=== PATIENT | male | born 1935 | race American Indian/Alaskan Native ===

== ENCOUNTER 2019-09-25 17:18 | Observation (INO) | payer OTHER ==
--- NOTE | 2019-09-25 17:31 | PDOC ---
Rapid Medical Evaluation Time Seen by Provider: 09/25/19 17:25 Medical Evaluation: Allergies Allergy/AdvReac Type Severity Reaction Status Date / Time No Known Allergies Allergy Verified 07/30/16 17:17 09/25/19 17:26 Pt with PMH of DM, CAD s/p stenting presents for evaluation of chest pain and nausea since last night. Pain subsided and returned at 4:30 so he presents to the ER for evaluation Exam: Lungs CTAB. Heart RRR Orders: Cardiac work up Pt to proceed to the ER for further evaluation Discharge Disposition - Diagnosis Chest pain - Referrals - Patient Instructions - Post Discharge Activity
[2019-09-25 18:33] LABS: BASO % 0.7 % (0-2.0); EOS % 13.5 % (0-4.5); HEMATOCRIT 30.7 % (35.4-49); HEMOGLOBIN 9.7 GM/dL (11.7-16.9); LYMPH % 15.1 % (8-40); MCH 24.8 pg (25.7-33.7); MCHC 31.5 g/dl (32.0-35.9); MEAN CELL VOLUME 78.9 fl (80-96); MONO % 6.8 % (3.8-10.2); NEUT % 63.9 % (42.8-82.8); RBC 3.89 M/mm3 (4.00-5.60); RDW 20.3 % (11.9-15.9); WHITE BLOOD COUNT 6.4 K/mm3 (4.0-10.0)
--- NOTE | 2019-09-25 18:55 | PDOC ---
History of Present Illness - General Chief Complaint: Chest Pain Stated Complaint: CHEST PAINS/NAUSEA Time Seen by Provider: 09/25/19 17:25 - History of Present Illness Initial Comments: The pt is a 84M w/ a history of CAD s/p stent, HTN, DM who presents for >1 week of intermittent substernal chest pressure with associated SOB. He states that the pressure is non-exertional and non-positionall, non-radiating, associated with SOB, and is not exacerbated or alleviated by anything he can identify. Has been taking ASA at home for symptoms and took ASA today. Denies fevers/chills, VENTURA, vision changes, current CP/SOB, abdominal pain, N/V/C/ D, dysuria, hematuria, or changes in sensation 09/25/19 19:14 Past History - Past Medical History Allergies/Adverse Reactions: Allergies Allergy/AdvReac Type Severity Reaction Status Date / Time No Known Allergies Allergy Verified 07/30/16 17:17 Home Medications: Ambulatory Orders Aspirin [ASA -] 81 mg PO DAILY 10/23/15 metFORMIN HCL [Metformin HCl] 500 mg PO DAILY 10/23/15 Albuterol Sulfate Inhaler - [Ventolin HFA Inhaler -] 2 inh IH Q4H PRN #1 inh 12/28 Mag Hydrox/Al Hydrox/Simeth [MAALOX *SUSPENSION* -] 30 ml PO Q6H #1 bottle 04/23 Pantoprazole Sodium [Protonix -] 40 mg PO BID #28 tablet.ec 04/28/16 Ranitidine [Zantac -] 150 mg PO DAILY #14 tablet 04/28/16 Ondansetron HCl [Zofran] 4 mg PO Q8H #15 tablet 05/28/16 Albuterol Sulfate Inhaler - [Ventolin Hfa Inhaler -] 1 - 2 inh PO Q4H #1 inhaler 06/07/16 Methylprednisolone [Medrol Dose Pal] 4 mg PO ASDIR #21 tablet 06/07/16 Asthma: Yes Cardiac Disorders: Yes (CO, CAD, stents) COPD: No Diabetes: Yes HTN: Yes Hypercholesterolemia: Yes - Surgical History Abdominal Surgery: Yes (abd hernia) Cardiac Surgery: Yes (stent) - Immunization History Immunization Up to Date: Yes - Psycho Social/Smoking Cessation Hx Smoking History: Never smoked Have you smoked in the past 12 months: No Number of Cigarettes Smoked Daily: 0 Information on smoking cessation initiated: No Hx Alcohol Use: No Drug/Substance Use Hx: No Substance Use Type: None Hx Substance Use Treatment: No Review of Systems - Review of Systems Able to Perform ROS?: Yes Comments:: GENERAL/CONSTITUTIONAL: No fever or chills. No weakness HEAD, EYES, EARS, NOSE AND THROAT: No change in vision. No change in hearing. No sore throat CARDIOVASCULAR: +intermittent CP/SOB RESPIRATORY: Denies cough, hemoptysis GASTROINTESTINAL: No nausea, vomiting, diarrhea or constipation GENITOURINARY: No dysuria, frequency, or change in urination MUSCULOSKELETAL: No joint or muscle swelling or pain. No neck or back pain SKIN: No rash NEUROLOGIC: No headache, vertigo, loss of consciousness, or change in strength/ sensation ENDOCRINE: No increased thirst. No abnormal weight change HEMATOLOGIC/LYMPHATIC: No anemia, easy bleeding, or history of blood clots ALLERGIC/IMMUNOLOGIC: No hives or skin allergy 09/25/19 18:54 Is the patient limited Gambian proficient: No *Physical Exam - Vital Signs Last Vital Signs Temp Pulse Resp BP Pulse Ox 98.1 F 81 20 146/56 L 99 09/25/19 17:28 09/25/19 17:28 09/25/19 17:28 09/25/19 17:28 09/25/19 17:28 - Physical Exam GENERAL: Awake, alert, and oriented to person/place/time, in no acute distress HEAD: No signs of trauma, normocephalic, atraumatic EYES: PERRLA, EOMI, sclera anicteric, conjunctiva clear ENT: Hearing grossly normal, nares patent, oropharynx clear without exudates. Moist mucosa LUNGS: No distress, speaks in full sentences, clear to auscultation bilaterally HEART: Regular rate and rhythm, normal S1 and S2, no murmurs appreciated, peripheral pulses normal and equal bilaterally ABDOMEN: Soft, nontender, normoactive bowel sounds. No guarding, no rebound EXTREMITIES: Normal inspection, Normal range of motion, no edema. No clubbing or cyanosis NEUROLOGICAL: Cranial nerves II through XII grossly intact. Normal speech, normal gait, no focal sensorimotor deficits SKIN: Warm, Dry 09/25/19 18:54 ED Treatment Course - LABORATORY CBC & Chemistry Diagram: 09/25/19 17:55 09/25/19 17:55 - ADDITIONAL ORDERS Additional order review: 09/25/19 17:55 RBC 3.89 L MCV 78.9 L MCHC 31.5 L RDW 20.3 H Neutrophils % 63.9 D Lymphocytes % 15.1 D Monocytes % 6.8 Eosinophils % 13.5 H Basophils % 0.7 Medical Decision Making - Medical Decision Making The pt is a 84M w/ a history of CAD s/p stent, HTN, DM who presents for >1 week of intermittent substernal chest pressure with associated SOB. ED course Labs sent ECG CXR ECG w/ NSR; HR 75; QTc 393; no axis deviation; no SAWYER Initial trop neg 09/25/19 19:35 CXR w/o PNA, PNX, effusion No leukocytosis Anemia noted, no indication for transfusion at this time Lytes overall unremarkable Cr near baseline LFTs wnl Pt signed out to [facility] Admitting 09/25/19 20:37 Discharge - Discharge Information Problems reviewed: Yes Clinical Impression/Diagnosis: ACS (acute coronary syndrome) Chest pain Qualifiers: Chest pain type: unspecified Qualified Code(s): R07.9 - Chest pain, unspecified Condition: Good - Admission Yes - Follow up/Referral - Patient Discharge Instructions - Post Discharge Activity
[2019-09-25 19:00] LABS: ALBUMIN 3.4 g/dl (3.4-5.0); BILIRUBIN,TOTAL 0.4 mg/dL (0.2-1); BLOOD UREA NITROGEN 32.8 mg/dL (7-18); CALCIUM 9.1 mg/dL (8.5-10.1); CREATININE 1.4 mg/dL (0.55-1.3); MAGNESIUM 2.1 mg/dL (1.8-2.4); POTASSIUM 5.7 mmol/L (3.5-5.1); TOT PROT 6.8 g/dl (6.4-8.2)
[2019-09-25 19:17] LABS: MEAN PLT VOLUME 11.4 fl (7.5-11.1); PLATELET COUNT 294 K/MM3 (134-434); PLATELET ESTIMATE ADEQUATE
--- NOTE | 2019-09-25 19:52 | PDOC ---
Attending Attestation - Resident Resident Name: Félix Wilkins - ED Attending Attestation I have performed the following: I have examined & evaluated the patient, The case was reviewed & discussed with the resident, I agree w/resident's findings & plan - HPI HPI: 09/25/19 19:51 see resident hpi - Physicial Exam PE: 09/25/19 19:51 see resident exam - Medical Decision Making 09/25/19 19:51 84-year-old male with history of coronary artery disease and DE, unknown if there is history of stent placement with intermittent chest pain nausea and shortness of breath Patient is chest pain-free at this time No acute ST segment elevations on EKG First troponin within normal limits We will admit to medical service for further management
--- NOTE | 2019-09-25 21:03 | PN ---
Teaching Attending Note Name of Resident: Colette Quintanilla ATTENDING PHYSICIAN STATEMENT I saw and evaluated the patient. I reviewed the resident's note and discussed the case with the resident. I agree with the resident's findings and plan as documented. SUBJECTIVE: 84-year-old man with a history of uncontrolled diabetes mellitus, uncontrolled hypertension, CAD status post stent In 2009, presents complaining of chest pain and nausea for 1 day. In the emergency room patient had resolved chest pain already. EKG did not show any ST segment elevations, first troponin was within normal limits. OBJECTIVE: Last Vital Signs Temp Pulse Resp BP Pulse Ox 98.1 F 81 20 146/56 L 99 09/25/19 17:28 09/25/19 17:28 09/25/19 17:28 09/25/19 17:28 09/25/19 17:28 Physical exam showed an elderly, thin man, not in acute distress, normal heart soundsS1, S2 without any murmurs, rubs or gallops. Lungs are clear to auscultation bilaterally. Soft abdomen, bowel sounds present. Lower extremities without any edema or cyanosis. Abnormal Lab Results 09/25/19 09/25/19 17:55 17:55 RBC 3.89 L Hgb 9.7 L Hct 30.7 L D MCV 78.9 L MCH 24.8 L MCHC 31.5 L RDW 20.3 H MPV 11.4 H D Eosinophils % 13.5 H Nucleated RBC % 1 H Potassium 5.7 H Anion Gap 5 L BUN 32.8 H Creatinine 1.4 H Random Glucose 208 H AST 10 L Imaging studies reviewed Chest x-ray reviewed ASSESSMENT AND PLAN: #Chest painpatient is high risk for recurrent ACS due to history of uncontrolled diabetes high, hypertension, past angiography with stent history of CAD. Would benefit from telemetry monitoring. Telemetry observation Trend troponin Echo Cardiology evaluation Sublingual nitroglycerin if chest pain #Uncontrolled diabetes mellitus Insulin sliding scale A1c Basal insulin Diabetic diet #Chronic anemiaappears to be microcytic at this time. May also be secondary to underlying CKD Ferritin studies, iron studies, vitamin B12, TSH, red blood smear, stool for fecal occult blood #ASHLI on CKDcreatinine of 1.4 Send urinalysis IV fluid hydration Renal sonogram Avoid nephrotoxins DVT prophylaxisSCDs
[2019-09-25] MEDS ORDERED: INSULIN REGULAR HUMAN 100 UNITS/ML *VIAL IVPUSH ONE (21:10)
[2019-09-25] MEDS ORDERED: DEXTROSE 50%-WATER - 25 GM/50 ML VIAL IVPUSH ONE (21:10)
[2019-09-25] MEDS ORDERED: SODIUM CHLORIDE 1,000 ML IV SCH (21:15)
[2019-09-25] MEDS ORDERED: ALBUTEROL SO4 HFA INHALER IH PRN (21:22)
--- NOTE | 2019-09-25 21:35 | HP ---
CHIEF COMPLAINT: Chest pain PCP: Dr. Panchal HISTORY OF PRESENT ILLNESS: 84 M PMH CAD, [place] s/p stents, Asthma, DM who presents today with 1 week of intermittent chest pain. He has been having chest pain spontaneously with no inciting factors, both at rest and while active. Patient's symptoms are alleviated with baby aspirin which he takes after pain begins. He does not feel his chest pain is similar to the time he had an SD. His pain is not related to his food intake, he denies any history of GERD. He denies shortness of breath at rest and at exertion at home. Localizes his chest pain to the center of his chest, denies any radiation to the extremities or back. He denies any current chest pain, shortness of breath, abdominal pain, nausea, vomiting, and diarrhea. This history is confirmed by his son over the phone, as patient is forgetful. ER course was notable for: (1)Chest X-Ray and EKG were completed which showed no acute pathology (2)Initial troponin was 0.03 (3)BMP showed hyperkalemia of 5.7, Insulin, and D50 were given. Recent Travel: None PAST MEDICAL HISTORY: CAD, SD, stent (3x), Asthma PAST SURGICAL HISTORY: Inguinal hernia repair Social History: Smoking: Denies Alcohol: Occasional Drugs: Denies Allergies No Known Allergies Allergy (Verified 07/30/16 17:17) HOME MEDICATIONS: Home Medications Medication Instructions Recorded Aspirin [ASA -] 81 mg PO DAILY 10/23/15 metFORMIN HCL [Metformin HCl] 500 mg PO DAILY 10/23/15 Albuterol Sulfate Inhaler - 2 puff IH Q4H PRN 09/25/19 [Ventolin HFA Inhaler -] Albuterol Sulfate Inhaler - 2 puff IH Q4H PRN 09/25/19 [Ventolin HFA Inhaler -] Atorvastatin Calcium 20 mg PO HS 09/25/19 Hydroxyzine HCl 25 mg PO DAILY 09/25/19 Lisinopril 10 mg PO DAILY 09/25/19 Tamsulosin HCl 0.4 mg PO DAILY 09/25/19 REVIEW OF SYSTEMS CONSTITUTIONAL: Absent: fever, chills, diaphoresis, generalized weakness, malaise, loss of appetite, weight change HEENT: Absent: rhinorrhea, nasal congestion, throat pain, throat swelling, difficulty swallowing, mouth swelling, ear pain, eye pain, visual changes CARDIOVASCULAR: Present: chest pain Absent: syncope, palpitations, irregular heart rate, lightheadedness, peripheral edema RESPIRATORY: Absent: cough, shortness of breath, dyspnea with exertion, orthopnea, wheezing, stridor, hemoptysis GASTROINTESTINAL: Absent: abdominal pain, abdominal distension, nausea, vomiting, diarrhea, constipation, melena, hematochezia GENITOURINARY: Present: frequency Absent: dysuria, , urgency, hesitancy, hematuria, flank pain, genital pain MUSCULOSKELETAL: Absent: myalgia, arthralgia, joint swelling, back pain, neck pain SKIN: Absent: rash, itching, pallor HEMATOLOGIC/IMMUNOLOGIC: Absent: easy bleeding, easy bruising, lymphadenopathy, frequent infections ENDOCRINE: Absent: unexplained weight gain, unexplained weight loss, heat intolerance, cold intolerance NEUROLOGIC: Absent: headache, focal weakness or paresthesias, dizziness, unsteady gait, seizure, mental status changes, bladder or bowel incontinence PSYCHIATRIC: Absent: anxiety, depression, suicidal or homicidal ideation, hallucinations. PHYSICAL EXAMINATION Vital Signs - 24 hr 09/25/19 17:28 Temperature 98.1 F Pulse Rate 81 Respiratory 20 Rate Blood Pressure 146/56 L O2 Sat by Pulse 99 Oximetry (%) GENERAL: Awake, alert, and fully oriented, in no acute distress. HEAD: Normal with no signs of trauma. EYES: Pupils equal, round and reactive to light, extraocular movements intact, sclera anicteric, conjunctiva clear. No lid lag. EARS, NOSE, THROAT: Ears normal, nares patent, oropharynx clear without exudates. Moist mucous membranes. NECK: Normal range of motion, supple without lymphadenopathy, JVD, or masses. LUNGS: Breath sounds equal, clear to auscultation bilaterally. No wheezes, and no crackles. No accessory muscle use. HEART: Regular rate and rhythm, normal S1 and S2 without murmur, rub or gallop. Chest is nontender to palpation. ABDOMEN: Soft, nontender, not distended, normoactive bowel sounds, no guarding, no rebound, no masses. MUSCULOSKELETAL: Normal range of motion at all joints. No bony deformities or tenderness. No CVA tenderness. UPPER EXTREMITIES: 2+ pulses, warm, well-perfused. No cyanosis. No clubbing. No peripheral edema. LOWER EXTREMITIES: 2+ pulses, warm, well-perfused. No calf tenderness. No peripheral edema. NEUROLOGICAL: Cranial nerves II-XII intact. Normal speech. Normal gait. PSYCHIATRIC: Cooperative. Good eye contact. Appropriate mood and affect. SKIN: Warm, dry, normal turgor, no rashes or lesions noted, normal capillary refill. Laboratory Results - last 24 hr 09/25/19 09/25/19 09/25/19 17:55 17:55 17:55 WBC 6.4 RBC 3.89 L Hgb 9.7 L Hct 30.7 L D MCV 78.9 L MCH 24.8 L MCHC 31.5 L RDW 20.3 H Plt Count 294 D MPV 11.4 H D Absolute Neuts (auto) 4.1 Neutrophils % 63.9 D Lymphocytes % 15.1 D Monocytes % 6.8 Eosinophils % 13.5 H Basophils % 0.7 Nucleated RBC % 1 H Platelet Estimate Adequate Platelet Comment Giant platelets Sodium 137 Potassium 5.7 H Chloride 104 Carbon Dioxide 28 Anion Gap 5 L BUN 32.8 H Creatinine 1.4 H Est GFR (CKD-EPI)AfAm 53.09 Est GFR (CKD-EPI)NonAf 45.81 Random Glucose 208 H Calcium 9.1 Magnesium 2.1 Total Bilirubin 0.4 AST 10 L ALT 20 Alkaline Phosphatase 68 Creatine Kinase 61 Troponin I 0.03 Total Protein 6.8 Albumin 3.4 ASSESSMENT/PLAN: 84 M PMH CAD, [place] s/p stents (3x), Asthma, DM, who presents today with recurrent chest pain. 1) Chest pain -Hx of SD, CAD, multiple stents, is high risk for recurrent ACS -Continous cardiac monitoring -Initial troponin=0.03, follow up troponin 0.03 -Echo was completed 09/13/2019: EF 60-65%, The left ventricular size, thickness and function are normal The right ventricle is normal in size and function. There is mild mitral regurgitation. -Nitroglycerin SL PRN -Continue Atorvastatin 20 mg -Continue ASA 81 mg -Cardiology consulted, appreciate recs 2)DM -BGM Q6H -Insulin Sliding Scale -F/U HbA1c 3)Chronic anemia -Hgb is 9.7, is within historical baseline range -Iron studies, ferritin, Vitamin B12, FOBT ordered -Possibly 2/2 to underlying CKD 4) ASHLI -Creatinine of 1.4 -U/A -NS @ 75 -F/U Renal U/S F: NS @ 75 E: Monitor BMP N: NPO for potential cardiac stress Dispo: Admit to Tele/Obs Visit type - Emergency Visit Emergency Visit: Yes ED Registration Date: 09/25/19 Care time: The patient presented to the Emergency Department on the above date and was hospitalized for further evaluation of their emergent condition. - New Patient This patient is new to me today: Yes Date on this admission: 09/25/19 - Critical Care Critical Care patient: No ATTENDING PHYSICIAN STATEMENT I saw and evaluated the patient. I reviewed the resident's note and discussed the case with the resident. I agree with the resident's findings and plan as documented. SUBJECTIVE: OBJECTIVE: ASSESSMENT AND PLAN:
[2019-09-25] MEDS ORDERED: hydrOXYzine PAMOATE 25 MG CAPSULE (FP) PO ONE ×2 (21:58→22:46)
[2019-09-25] MEDS ORDERED: HEPARIN NA (PORCINE) 5,000 UNITS/ML 1ML VIAL ONE (21:59)
[2019-09-25] MEDS ORDERED: ATORVASTATIN CA 20 MG TABLET (FP) ONE (21:59)
[2019-09-25] MEDS ORDERED: INSULIN REGULAR HUMAN 100 UNITS/ML *VIAL ONE (22:00)
[2019-09-25] MEDS ORDERED: HEPARIN NA (PORCINE) 5,000 UNITS/ML 1ML VIAL SQ SCH (22:00)
[2019-09-25] MEDS: ATORVASTATIN CA 20 MG TABLET (FP) PO SCH (22:42)
[2019-09-25 23:18] LABS: INR 1.08 (0.83-1.09); PROTHROMBIN TIME (PATIENT) 12.7 SEC (9.7-13.0)
[2019-09-25 23:20] LABS: ACTIVATED PTT 34.5 SECONDS (25.2-36.5)
[2019-09-25 23:45] LABS: BLOOD UREA NITROGEN 35.1 mg/dL (7-18); CALCIUM 9.2 mg/dL (8.5-10.1); CREATININE 1.4 mg/dL (0.55-1.3); POTASSIUM 4.9 mmol/L (3.5-5.1)
[2019-09-26] MEDS ORDERED: NITROGLYCERIN SUBLINGUAL 1/200 0.3 MG BTL SL PRN (00:30)
[2019-09-26] MEDS: INSULIN SLIDING SCALE (NOVOLOG) 1 VIAL SQ SCH ×3 (00:39→22:32)
[2019-09-26 06:30] LABS: BASO % 0.6 % (0-2.0); EOS % 13.7 % (0-4.5); HEMATOCRIT 27.5 % (35.4-49); HEMOGLOBIN 8.8 GM/dL (11.7-16.9); LYMPH % 20.8 % (8-40); MCHC 31.9 g/dl (32.0-35.9); MEAN CELL VOLUME 78.3 fl (80-96); MEAN PLT VOLUME 10.4 fl (7.5-11.1); NEUT % 55.9 % (42.8-82.8); PLATELET COUNT 251 K/MM3 (134-434); RBC 3.52 M/mm3 (4.00-5.60); RDW 20.2 % (11.9-15.9)
[2019-09-26 07:01] LABS: BLOOD UREA NITROGEN 36.8 mg/dL (7-18); CALCIUM 8.3 mg/dL (8.5-10.1); CREATININE 1.3 mg/dL (0.55-1.3); POTASSIUM 5.2 mmol/L (3.5-5.1)
--- NOTE | 2019-09-26 08:43 | PN ---
Progress Note, Physician History of Present Illness: 84 M PMH CAD, [place] s/p stents (3x), Asthma, DM, who presented to ED with chest pain. Now resolved. - Current Medication List Current Medications: Active Medications Albuterol Sulfate (Ventolin Hfa Inhaler -) 2 puff IH Q4H PRN PRN Reason: ASTHMA Aspirin (Asa -) 81 mg PO DAILY [facility] Atorvastatin Calcium (Lipitor -) 20 mg PO HS [facility] Last Admin: 09/25/19 22:42 Dose: 20 mg Hydroxyzine Pamoate (Vistaril -) 25 mg PO HS [facility] Sodium Chloride (Normal Saline -) 1,000 mls @ 75 mls/hr IV ASDIR [facility] Last Admin: 09/25/19 22:51 Dose: 75 mls/hr Insulin Aspart (Novolog Vial Sliding Scale -) 1 vial SQ ACHS [facility]; Protocol Last Admin: 09/26/19 00:39 Dose: Not Given Lisinopril (Prinivil) 10 mg PO DAILY [facility] Nitroglycerin (Nitrostat -) 0.3 mg SL Q5M PRN PRN Reason: FOR CHEST PAIN Tamsulosin HCl (Flomax -) 0.4 mg PO DAILY@0830 [facility] - Objective Vital Signs: Vital Signs Temperature 97.5 F L 09/26/19 01:07 Pulse Rate 73 09/26/19 06:51 Respiratory Rate 18 09/26/19 06:51 Blood Pressure 115/95 09/26/19 06:51 O2 Sat by Pulse Oximetry (%) 99 09/26/19 06:51 Constitutional: Yes: No Distress, Calm, Thin Eyes: Yes: WNL, Conjunctiva Clear HENT: Yes: WNL, Atraumatic, Normocephalic Neck: Yes: WNL, Supple, Trachea Midline Cardiovascular: Yes: WNL, Regular Rate and Rhythm Respiratory: Yes: WNL, Regular, CTA Bilaterally Gastrointestinal: Yes: WNL, Normal Bowel Sounds ...Rectal Exam: Yes: Deferred Genitourinary: Yes: WNL Breast(s): Yes: WNL Musculoskeletal: Yes: WNL Edema: No Peripheral Pulses WNL: Yes Peripheral Pulses: Left Radial: 2+, Right Radial: 2+, Left Doralis Pedis: 2+, Right Dorsalis Pedis: 2+, Left Femoral: 2+, Right Femoral: 2+ Integumentary: Yes: WNL Neurological: Yes: WNL, Alert, Oriented ...Motor Strength: WNL Psychiatric: Yes: WNL Labs: CBC, BMP 09/26/19 05:49 09/26/19 05:49 INR, PTT INR 1.08 (0.83-1.09) 09/25/19 22:30 - ....Imaging Chest X-ray: Image Reviewed (CXR: no acute pathology) Ultrasound: Report Reviewed (Renal US: no hydro, right renal pole cyst) Problem List - Problems (1) ASHLI (acute kidney injury) Assessment/Plan: acute on chronic ASHLI baseline Cr 1.2-1.4 improving with IVF appreciate renal consultation Maintain on low K diet. c/w lisinipril Code(s): N17.9 - ACUTE KIDNEY FAILURE, UNSPECIFIED (2) Prophylactic measure Assessment/Plan: FEN Fluids: adequate PO intake, no additional IVF Electrolytes: monitor & replete as needed Nutrition: diabetic , low K diet DVT moderate risk SCDs, no chemical AC given anemia Dispo Maintain as inpatient on tele full code discharge planning Code(s): Z29.9 - ENCOUNTER FOR PROPHYLACTIC MEASURES, UNSPECIFIED (3) Chest pain Assessment/Plan: prior stents in LCx and RCA 2009, prox and mid LAD 2016 after abnormal nuclear stress trop neg x 2, EKG no ischemic changes - unlikely ACS recent echo unremarkable c/w aspirin, statin MIBI in am, NPO past [place] appreciate cardiology consultation Code(s): R07.9 - CHEST PAIN, UNSPECIFIED Qualifiers: Chest pain type: unspecified Qualified Code(s): R07.9 - Chest pain, unspecified (4) Anemia Assessment/Plan: iron studies pending stool occult blood for anemia Code(s): D64.9 - ANEMIA, UNSPECIFIED Qualifiers: Anemia type: unspecified type Qualified Code(s): D64.9 - Anemia, unspecified (5) Diabetes mellitus Assessment/Plan: HgbA1c 5.2 BGM q AC/HS with novolog sliding scale Code(s): E11.9 - TYPE 2 DIABETES MELLITUS WITHOUT COMPLICATIONS Qualifiers: Diabetes mellitus type: type 2 Diabetes mellitus long term care social worker insulin use: without nursing home use Diabetes mellitus complication status: with circulatory complication Diabetes mellitus complication detail: with other circulatory complications Qualified Code(s): E11.59 - Type 2 diabetes mellitus with other circulatory complications Visit type - Emergency Visit Emergency Visit: Yes ED Registration Date: 09/25/19 Care time: The patient presented to the Emergency Department on the above date and was hospitalized for further evaluation of their emergent condition. - New Patient This patient is new to me today: Yes Date on this admission: 09/26/19 - Critical Care Critical Care patient: No - Discharge Referral Referred to [facility] Med [facility] No
--- NOTE | 2019-09-26 10:43 | EKG ---
Test Reason : Blood Pressure : / mmHG Vent. Rate : 075 BPM Atrial Rate : 075 BPM P-R Int : 178 ms QRS Dur : 094 ms QT Int : 352 ms P-R-T Axes : 081 088 080 degrees QTc Int : 393 ms NORMAL SINUS RHYTHM NORMAL ECG WHEN COMPARED WITH ECG OF 30-JUL-2016 19:05, [place] INTERVAL HAS DECREASED Confirmed by Blake Hendrix MD ([id number]) on 09/26/2019 10:43:12 AM Referred By: Confirmed By:Blake Hendrix MD
--- NOTE | 2019-09-26 11:25 | CON.CARD ---
Consult Consult Specialty:: Cardiology Referred by:: ER Reason for Consultation:: chest pain - History of Present Illness Chief Complaint: chest pain History of Present Illness: 84M h/o CAD, [place] s/p stents, DM p/w chest pain for 1 week. Has happened at rest and with exertion, takes baby aspirin for relief of pain. no dyspnea, palps, dizziness. Pain in center of chest, not radiating, lasts a few minutes usually. - Past Medical History Cardio/Vascular: Yes: CAD, HTN, Hyperlipdemia, OR Pulmonary: Yes: Asthma Endocrine: Yes: Diabetes Mellitus - Past Surgical History Past Surgical History: Yes: Hernia Repair (umbilical) - Alcohol/Substance Use Hx Alcohol Use: No History of Substance Use: reports: None - Smoking History Smoking history: Never smoked Have you smoked in the past 12 months: No Aproximately how many cigarettes per day: 0 - Social History ADL: Independent History of Recent Travel: No Home Medications - Allergies Allergies/Adverse Reactions: Allergies Allergy/AdvReac Type Severity Reaction Status Date / Time No Known Allergies Allergy Verified 07/30/16 17:17 - Home Medications Home Medications: Ambulatory Orders Aspirin [ASA -] 81 mg PO DAILY 10/23/15 metFORMIN HCL [Metformin HCl] 500 mg PO DAILY 10/23/15 Albuterol Sulfate Inhaler - [Ventolin HFA Inhaler -] 2 puff IH Q4H PRN 09/25/19 Albuterol Sulfate Inhaler - [Ventolin HFA Inhaler -] 2 puff IH Q4H PRN 09/25/19 Atorvastatin Calcium 20 mg PO HS 09/25/19 Hydroxyzine HCl 25 mg PO DAILY 09/25/19 Lisinopril 10 mg PO DAILY 09/25/19 Tamsulosin HCl 0.4 mg PO DAILY 09/25/19 Family Medical History Family History: Unremarkable Review of Systems - Review of Systems Constitutional: reports: No Symptoms Eyes: reports: No Symptoms HENT: reports: No Symptoms Neck: reports: No Symptoms Cardiovascular: reports: No Symptoms Respiratory: reports: No Symptoms Gastrointestinal: reports: No Symptoms Genitourinary: reports: No Symptoms Musculoskeletal: reports: No Symptoms Integumentary: reports: No Symptoms Neurological: reports: No Symptoms Endocrine: reports: No Symptoms Hematology/Lymphatic: reports: No Symptoms Psychiatric: reports: No Symptoms Vital Signs: Vital Signs Temperature 97.5 F L 09/26/19 01:07 Pulse Rate 73 09/26/19 06:51 Respiratory Rate 18 09/26/19 06:51 Blood Pressure 115/95 09/26/19 06:51 O2 Sat by Pulse Oximetry (%) 99 09/26/19 06:51 Constitutional: Yes: No Distress, Calm Eyes: Yes: Conjunctiva Clear, EOM Intact HENT: Yes: Atraumatic, Normocephalic Neck: Yes: Supple, Trachea Midline Respiratory: Yes: Regular, CTA Bilaterally Gastrointestinal: Yes: Normal Bowel Sounds, Soft Cardiovascular: Yes: Regular Rate and Rhythm Heart Sounds: Yes: S1, S2 Musculoskeletal: No: Back Pain Extremities: No: Cold Edema: No Integumentary: No: Jaundice Neurological: Yes: Alert, Oriented Psychiatric: No: Agitated - Other Data Labs, Other Data: CBC, BMP 09/26/19 05:49 09/26/19 05:49 INR, PTT INR 1.08 (0.83-1.09) 09/25/19 22:30 Troponin, BNP 09/25/19 09/25/19 09/26/19 17:55 22:30 05:49 Troponin I 0.03 0.03 0.04 Troponin, BNP 09/25/19 09/25/19 09/26/19 17:55 22:30 05:49 Troponin I 0.03 0.03 0.04 Assessment/Plan EKG: sinus, nl intervals, no ischemic changes CXR: no acute process echo 08/2019 nl LV/RV, mild MR chest pain, CAD - prior stents in LCx and RCA 2009, prox and mid LAD 2016 after abnormal nuclear stress - trop neg x 2, EKG no ischemic changes - unlikely ACS - recent echo unremarkable - cont aspirin, statin - check mibi DM - manage per primary anemia - manage per primary ASHLI - likely prerenal, improved with IVF
[2019-09-26] MEDS: LISINOPRIL 10 MG TABLET (FP) PO SCH (12:19)
[2019-09-26] MEDS: TAMSULOSIN HCL 0.4 MG CAP PO SCH (12:19)
[2019-09-26] MEDS: ASPIRIN 81 MG CHEWABLE TABLETS PO SCH (12:19)
--- NOTE | 2019-09-26 12:59 | ECHO ---
Version: 1 Name: JUANA DANIELS Exam: Adult Echocardiogram Study Date: 09/26/2019, 10:24 AM Age: 84 Years MMode/2D Measurements & Calculations IVSd: 1.06 cm LVIDs: 2.27 cm LVIDd: 3.0 cm LVPWd: 1.07 cm ACS: 1.65 cm Ao root diam: 2.8 cm LVOT diam: 1.82 cm LA dimension: 3.7 cm Doppler Measurements & Calculations MV E max ruperto: 86.9 cm/sec Med E/e': 18.9 MV A max ruperto: 104.6 cm/sec Med Peak E' Ruperto: 4.6 cm/sec MV E/A: 0.83 Lat E/e': 10.3 Lat Peak E' Ruperto: 8.4 cm/sec MR max P.5 mmHg Ao max P.6 mmHg VERITO(I,D): 1.48 cm Ao mean P.5 mmHg LV V1 mean: 63.4 cm/sec Ao V2 max: 191.1 cm/sec LV V1 mean P.92 mmHg TR max ruperto: 185.5 cm/sec TR max P.1 mmHg Procedure The study was technically difficult with many images being suboptimal in quality. Left Ventricle The left ventricular size, thickness and function are normal. Ejection Fraction = 60%. Grade I diast olic dysfunction, (abnormal relaxation pattern). Right Ventricle The right ventricle is normal in size and function. Atria Normal left and right atrial size and function. Mitral Valve There is moderate mitral annular calcification. There is mild mitral regurgitation. Tricuspid Valve The tricuspid valve is normal in structure and function. There is mild tricuspid regurgitation. Assu sonia the RA pressure is 5 mmHg. Right ventricular systolic pressure is normal. Aortic Valve There is severe aortic sclerosis.;. Mild valvular aortic stenosis. Pulmonic Valve The pulmonic valve is not well visualized. Great Vessels The aortic root is normal size. Pericardium/Pleura There is no pericardial effusion. Summary Statements The left ventricular size, thickness and function are normal The right ventricle is normal in size and function. There is moderate mitral annular calcification. There is mild mitral regurgitation. There is severe aortic sclerosis.; Mild valvular aortic stenosis. Darci Cali 09/26/2019, 12:58 PM Ordering Physician: Benny Bell Performed By: Maisha Leung
--- NOTE | 2019-09-26 15:11 | CONSULT ---
Consult - text type - Consultation Consultation Note: Renal consult for ASHLI/CKD This is a 84 year old gentleman with history of CAD s/p [place] requiring PCI with stents, asthma and DM who presented from home with chest pain and admitted for r /o ACS. Pt denies any history of CKD but does report a remote history of kidney stones. Denies any flank pain, hematuria, dysuria, frequency or urgency. No N/V/ D. Denies NSAID use. No recent contrast exposure. No skin rash. Has some urinary hesitancy. No leg swelling. Denies any sob at the present time. No confusion or lethargy. PMhx: as above Allergies: NKDA Family hx: NC Social Hx: No T/A/D ROS: as per HPI, all other pertinent ros negative Home Medications Medication Instructions Recorded Aspirin [ASA -] 81 mg PO DAILY 10/23/15 metFORMIN HCL [Metformin HCl] 500 mg PO DAILY 10/23/15 Albuterol Sulfate Inhaler - 2 puff IH Q4H PRN 09/25/19 [Ventolin HFA Inhaler -] Albuterol Sulfate Inhaler - 2 puff IH Q4H PRN 09/25/19 [Ventolin HFA Inhaler -] Atorvastatin Calcium 20 mg PO HS 09/25/19 Hydroxyzine HCl 25 mg PO DAILY 09/25/19 Lisinopril 10 mg PO DAILY 09/25/19 Tamsulosin HCl 0.4 mg PO DAILY 09/25/19 Vital Signs Temperature 98.1 F 09/26/19 11:55 Pulse Rate 64 09/26/19 11:55 Respiratory Rate 18 09/26/19 11:55 Blood Pressure 145/72 09/26/19 11:55 O2 Sat by Pulse Oximetry (%) 100 09/26/19 11:55 Intake & Output 09/23/19 09/24/19 09/25/19 09/26/19 23:59 23:59 23:59 23:59 Weight 57.153 kg NAD awake and alert neck supple, no JVD Dry MM RRR, no M/R CTA, no rales or wheeze soft NT/ND, no rebound or guarding no LE edema, clubbing or cyanosis no bladder distension no CVA tenderness CBC, BMP 09/26/19 05:49 09/26/19 05:49 Current Medications Albuterol Sulfate (Ventolin Hfa Inhaler -) 2 puff IH Q4H PRN PRN Reason: ASTHMA Aspirin (Asa -) 81 mg PO DAILY [facility] Last Admin: 09/26/19 12:19 Dose: 81 mg Atorvastatin Calcium (Lipitor -) 20 mg PO HS [facility] Last Admin: 09/25/19 22:42 Dose: 20 mg Hydroxyzine Pamoate (Vistaril -) 25 mg PO HS [facility] Sodium Chloride (Normal Saline -) 1,000 mls @ 75 mls/hr IV ASDIR [facility] Last Admin: 09/25/19 22:51 Dose: 75 mls/hr Insulin Aspart (Novolog Vial Sliding Scale -) 1 vial SQ ACHS [facility]; Protocol Last Admin: 09/26/19 07:48 Dose: Not Given Lisinopril (Prinivil) 10 mg PO DAILY [facility] Last Admin: 09/26/19 12:19 Dose: 10 mg Nitroglycerin (Nitrostat -) 0.3 mg SL Q5M PRN PRN Reason: FOR CHEST PAIN Tamsulosin HCl (Flomax -) 0.4 mg PO DAILY@0830 [facility] Last Admin: 09/26/19 12:19 Dose: 0.4 mg 84 year old gentleman with history of CAD s/p [place] requiring PCI with stents, asthma and DM who presented from home with chest pain and admitted for r/o ACS. 1. 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 ischemic nephropathy 2. Chest pain r/o ACS 3. Hx of CAD 4. DM type 2 5. Mild hyperkalemia 6. Anemia Renal function slightly improved s/p IVF. Can d/c IVF as pt is tolerating oral diet. K noted, no acute treatment needed. Maintain on low K diet. Continue ACEi for now. Cardiology follow up for stress test tomorrow. Check iron studies and stool occult blood for anemia continue insulin as per primary team for DM Thank you Prashant Mccoy DO
[2019-09-26 17:53] LABS: PH,URINE 6.5 (5.0-8.0); URINE APPEARANCE CLEAR; URINE BILIRUBIN NEGATIVE (NEGATIVE); URINE COLOR YELLOW; URINE GLUCOSE (UA) NEGATIVE (NEGATIVE); URINE KETONE NEGATIVE (NEGATIVE); URINE LEUK ESTERASE NEGATIVE (NEGATIVE); URINE NITRITE NEGATIVE (NEGATIVE); URINE PROTEIN NEGATIVE (NEGATIVE); URINE UROBILINOGEN 0.2 mg/dL (0.2-1.0)
[2019-09-26] MEDS: ATORVASTATIN CA 20 MG TABLET (FP) PO SCH (21:19)
[2019-09-26] MEDS ORDERED: hydrOXYzine PAMOATE 25 MG CAPSULE (FP) PO SCH (22:00)
[2019-09-27] MEDS: INSULIN SLIDING SCALE (NOVOLOG) 1 VIAL SQ SCH ×2 (06:21→11:56)
[2019-09-27 06:45] LABS: EOS % 13.2 % (0-4.5); HEMATOCRIT 26.8 % (35.4-49); HEMOGLOBIN 8.6 GM/dL (11.7-16.9); MCH 24.8 pg (25.7-33.7); MCHC 32.1 g/dl (32.0-35.9); MEAN CELL VOLUME 77.2 fl (80-96); MONO % 8.2 % (3.8-10.2); NEUT % 56.6 % (42.8-82.8); PLATELET COUNT 262 K/MM3 (134-434); RBC 3.47 M/mm3 (4.00-5.60); RDW 20.4 % (11.9-15.9); WHITE BLOOD COUNT 5.6 K/mm3 (4.0-10.0)
[2019-09-27 07:18] LABS: BILIRUBIN,TOTAL 0.5 mg/dL (0.2-1); BLOOD UREA NITROGEN 40.9 mg/dL (7-18); CALCIUM 8.2 mg/dL (8.5-10.1); CREATININE 1.3 mg/dL (0.55-1.3); MAGNESIUM 2.2 mg/dL (1.8-2.4); POTASSIUM 4.6 mmol/L (3.5-5.1); TOT PROT 5.8 g/dl (6.4-8.2)
--- NOTE | 2019-09-27 07:45 | PN ---
Progress Note, Physician History of Present Illness: 84 M PMH CAD, [place] s/p stents (3x), Asthma, DM, who presented to ED with chest pain. Now resolved. - Current Medication List Current Medications: Active Medications Albuterol Sulfate (Ventolin Hfa Inhaler -) 2 puff IH Q4H PRN PRN Reason: ASTHMA Aspirin (Asa -) 81 mg PO DAILY [facility] Last Admin: 09/26/19 12:19 Dose: 81 mg Atorvastatin Calcium (Lipitor -) 20 mg PO HS [facility] Last Admin: 09/26/19 21:19 Dose: 20 mg Hydroxyzine Pamoate (Vistaril -) 25 mg PO HS [facility] Last Admin: 09/26/19 21:19 Dose: 25 mg Insulin Aspart (Novolog Vial Sliding Scale -) 1 vial SQ [facility]; Protocol Last Admin: 09/27/19 06:21 Dose: Not Given Lisinopril (Prinivil) 10 mg PO DAILY [facility] Last Admin: 09/26/19 12:19 Dose: 10 mg Nitroglycerin (Nitrostat -) 0.3 mg SL Q5M PRN PRN Reason: FOR CHEST PAIN Tamsulosin HCl (Flomax -) 0.4 mg PO DAILY@0830 [facility] Last Admin: 09/26/19 12:19 Dose: 0.4 mg - Objective Vital Signs: Vital Signs Temperature 97.7 F 09/27/19 05:50 Pulse Rate 64 09/27/19 05:50 Respiratory Rate 20 09/27/19 05:50 Blood Pressure 108/51 L 09/27/19 05:50 O2 Sat by Pulse Oximetry (%) 96 09/26/19 21:10 Additional Findings/Remarks: Constitutional: Yes: No Distress, Calm, Thin Eyes: Yes: WNL, Conjunctiva Clear HENT: Yes: WNL, Atraumatic, Normocephalic Neck: Yes: WNL, Supple, Trachea Midline Cardiovascular: Yes: WNL, Regular Rate and Rhythm Respiratory: Yes: WNL, Regular, CTA Bilaterally Gastrointestinal: Yes: WNL, Normal Bowel Sounds ...Rectal Exam: Yes: Deferred Genitourinary: Yes: WNL Breast(s): Yes: WNL Musculoskeletal: Yes: WNL Edema: No Peripheral Pulses WNL: Yes Peripheral Pulses: Left Radial: 2+, Right Radial: 2+, Left Doralis Pedis: 2+, Right Dorsalis Pedis: 2+, Left Femoral: 2+, Right Femoral: 2+ Integumentary: Yes: WNL Neurological: Yes: WNL, Alert, Oriented ...Motor Strength: WNL Psychiatric: Yes: WNL Labs: CBC, BMP 09/27/19 05:38 INR, PTT INR 1.08 (0.83-1.09) 09/25/19 22:30 Problem List - Problems (1) ASHLI (acute kidney injury) Code(s): N17.9 - ACUTE KIDNEY FAILURE, UNSPECIFIED (2) Prophylactic measure Code(s): Z29.9 - ENCOUNTER FOR PROPHYLACTIC MEASURES, UNSPECIFIED (3) Chest pain Code(s): R07.9 - CHEST PAIN, UNSPECIFIED Qualifiers: Chest pain type: unspecified Qualified Code(s): R07.9 - Chest pain, unspecified (4) Anemia Code(s): D64.9 - ANEMIA, UNSPECIFIED Qualifiers: Anemia type: unspecified type Qualified Code(s): D64.9 - Anemia, unspecified (5) Diabetes mellitus Code(s): E11.9 - TYPE 2 DIABETES MELLITUS WITHOUT COMPLICATIONS Qualifiers: Diabetes mellitus type: type 2 Diabetes mellitus exterminator termite insulin use: without senior living use Diabetes mellitus complication status: with circulatory complication Diabetes mellitus complication detail: with other circulatory complications Qualified Code(s): E11.59 - Type 2 diabetes mellitus with other circulatory complications
[2019-09-27] MEDS ORDERED: REGADENOSON 0.4 MG/5 ML PRE-FILLED SYRINGE IVPUSH ONE ×2 (10:30→11:15)
--- NOTE | 2019-09-27 11:10 | PN ---
Progress Note (short form) - Note Progress Note: s: no cp sob palps dizzy Vital Signs Current Medications Albuterol Sulfate (Ventolin Hfa Inhaler -) 2 puff IH Q4H PRN PRN Reason: ASTHMA Aspirin (Asa -) 81 mg PO DAILY [facility] Last Admin: 09/26/19 12:19 Dose: 81 mg Atorvastatin Calcium (Lipitor -) 20 mg PO HS [facility] Last Admin: 09/26/19 21:19 Dose: 20 mg Hydroxyzine Pamoate (Vistaril -) 25 mg PO HS [facility] Last Admin: 09/26/19 21:19 Dose: 25 mg Insulin Aspart (Novolog Vial Sliding Scale -) 1 vial SQ [facility]; Protocol Last Admin: 09/27/19 06:21 Dose: Not Given Lisinopril (Prinivil) 10 mg PO DAILY [facility] Last Admin: 09/26/19 12:19 Dose: 10 mg Nitroglycerin (Nitrostat -) 0.3 mg SL Q5M PRN PRN Reason: FOR CHEST PAIN Regadenoson (Lexiscan) 0.4 mg IVPUSH ONCE ONE Stop: 09/27/19 11:16 Tamsulosin HCl (Flomax -) 0.4 mg PO DAILY@0830 [facility] Last Admin: 09/26/19 12:19 Dose: 0.4 mg Period Temp Pulse Resp BP Sys/Andersen Pulse Ox Last 24 Hr 97.5 F-98.4 F 64-78 18-20 98-145/48-72 96-100 Constitutional: Yes: No Distress, Calm Eyes: Yes: Conjunctiva Clear, EOM Intact HENT: Yes: Atraumatic, Normocephalic Neck: Yes: Supple, Trachea Midline Respiratory: Yes: Regular, CTA Bilaterally Gastrointestinal: Yes: Normal Bowel Sounds, Soft Cardiovascular: Yes: Regular Rate and Rhythm Heart Sounds: Yes: S1, S2 Musculoskeletal: No: Back Pain Extremities: No: Cold Edema: No Integumentary: No: Jaundice Neurological: Yes: Alert, Oriented Psychiatric: No: Agitated CBC, BMP 09/27/19 05:38 09/27/19 05:38 Assessment/Plan EKG: sinus, nl intervals, no ischemic changes CXR: no acute process echo 08/2019 nl LV/RV, mild MR echo 09/2019: nl lv/rv, mild mr, mild as chest pain, CAD - cp resolved - prior stents in LCx and RCA 2009, prox and mid LAD 2016 after abnormal nuclear stress - trop neg x 2, EKG no ischemic changes - unlikely ACS - echo unremarkable - cont aspirin, statin - if todays nuclear stress test is benign then ok for dc from cardiac pov. DM - manage per primary anemia - manage per primary ASHLI - likely prerenal, improved with IVF
[2019-09-27 11:18] LABS: ANISOCYTOSIS 2+; MACROCYTOSIS 1+; OVALOCYTE 1+; PLATELET ESTIMATE NORMAL; TARGET CELLS 1+; TEAR DROP CELLS 1+
[2019-09-27] MEDS: TAMSULOSIN HCL 0.4 MG CAP PO SCH (11:55)
[2019-09-27] MEDS: ASPIRIN 81 MG CHEWABLE TABLETS PO SCH (11:56)
[2019-09-27] MEDS: LISINOPRIL 10 MG TABLET (FP) PO SCH (11:56)
--- NOTE | 2019-09-27 14:46 | DS ---
Physical Exam: SUBJECTIVE: Patient seen and examined OBJECTIVE: Vital Signs Period Temp Pulse Resp BP Sys/Andersen Pulse Ox Last 24 Hr 97.5 F-98.4 F 64-78 18-20 98-134/48-70 96-99 PHYSICAL EXAM Constitutional: Yes: No Distress, Calm, Thin Eyes: Yes: WNL, Conjunctiva Clear HENT: Yes: WNL, Atraumatic, Normocephalic Neck: Yes: WNL, Supple, Trachea Midline Cardiovascular: Yes: WNL, Regular Rate and Rhythm Respiratory: Yes: WNL, Regular, CTA Bilaterally Gastrointestinal: Yes: WNL, Normal Bowel Sounds ...Rectal Exam: Yes: Deferred Genitourinary: Yes: WNL Breast(s): Yes: WNL Musculoskeletal: Yes: WNL Edema: No Peripheral Pulses WNL: Yes Peripheral Pulses: Left Radial: 2+, Right Radial: 2+, Left Doralis Pedis: 2+, Right Dorsalis Pedis: 2+, Left Femoral: 2+, Right Femoral: 2+ Integumentary: Yes: WNL Neurological: Yes: WNL, Alert, Oriented ...Motor Strength: WNL Psychiatric: Yes: WNL LABS Laboratory Results - last 24 hr 09/26/19 09/26/19 09/26/19 17:23 17:23 19:57 WBC RBC Hgb Hct MCV MCH MCHC RDW Plt Count MPV Absolute Neuts (auto) Neutrophils % Neutrophils % (Manual) Band Neutrophils % Lymphocytes % Lymphocytes % (Manual) Monocytes % Monocytes % (Manual) Eosinophils % Eosinophils % (Manual) Basophils % Basophils % (Manual) Myelocytes % (Man) Promyelocytes % (Man) Blast Cells % (Manual) Nucleated RBC % Metamyelocytes Hypochromia Platelet Estimate Platelet Comment Polychromasia Poikilocytosis Anisocytosis Microcytosis Macrocytosis Spherocytes Target Cells Tear Drop Cells Ovalocytes Jarad Cells Acanthocytes (Spur) Sodium Potassium Chloride Carbon Dioxide Anion Gap BUN Creatinine Est GFR (CKD-EPI)AfAm Est GFR (CKD-EPI)NonAf POC Glucometer 129 Random Glucose Calcium Phosphorus Magnesium Total Bilirubin AST ALT Alkaline Phosphatase Total Protein Albumin Urine Color Yellow Urine Appearance Clear Urine pH 6.5 D Ur Specific Bardolph 1.014 Urine Protein Negative Urine Glucose (UA) Negative Urine Ketones Negative Urine Blood Negative Urine Nitrite Negative Urine Bilirubin Negative Urine Urobilinogen 0.2 Ur Leukocyte Esterase Negative U Random Total Protein 12.1 H Urine Creatinine 82.0 Protein/Creatinin Ratio 0.1 09/26/19 09/27/19 09/27/19 22:29 05:38 05:38 WBC 5.6 RBC 3.47 L Hgb 8.6 L Hct 26.8 L MCV 77.2 L MCH 24.8 L MCHC 32.1 RDW 20.4 H Plt Count 262 MPV 11.0 Absolute Neuts (auto) 3.2 Neutrophils % 56.6 Neutrophils % (Manual) 47.0 Band Neutrophils % 8.0 Lymphocytes % 21.0 Lymphocytes % (Manual) 14.0 Monocytes % 8.2 Monocytes % (Manual) 5 Eosinophils % 13.2 H Eosinophils % (Manual) 13.0 H Basophils % 1.0 Basophils % (Manual) 1.0 Myelocytes % (Man) 0 Promyelocytes % (Man) 0 Blast Cells % (Manual) 0 Nucleated RBC % 2 H Metamyelocytes 0 Hypochromia 0 Platelet Estimate Normal Platelet Comment Present Polychromasia 0 Poikilocytosis 2+ Anisocytosis 2+ Microcytosis 1+ Macrocytosis 1+ Spherocytes 1+ Target Cells 1+ Tear Drop Cells 1+ Ovalocytes 1+ Gillespie Cells 1+ Acanthocytes (Spur) 1+ Sodium 140 Potassium 4.6 Chloride 109 H Carbon Dioxide 26 Anion Gap 5 L BUN 40.9 H Creatinine 1.3 Est GFR (CKD-EPI)AfAm 58.07 Est GFR (CKD-EPI)NonAf 50.10 POC Glucometer 182 Random Glucose 123 H Calcium 8.2 L Phosphorus 4.0 Magnesium 2.2 Total Bilirubin 0.5 AST 12 L ALT 17 Alkaline Phosphatase 60 Total Protein 5.8 L Albumin 3.0 L Urine Color Urine Appearance Urine pH Ur Specific Bardolph Urine Protein Urine Glucose (UA) Urine Ketones Urine Blood Urine Nitrite Urine Bilirubin Urine Urobilinogen Ur Leukocyte Esterase U Random Total Protein Urine Creatinine Protein/Creatinin Ratio 09/27/19 09/27/19 06:19 11:48 WBC RBC Hgb Hct MCV MCH MCHC RDW Plt Count MPV Absolute Neuts (auto) Neutrophils % Neutrophils % (Manual) Band Neutrophils % Lymphocytes % Lymphocytes % (Manual) Monocytes % Monocytes % (Manual) Eosinophils % Eosinophils % (Manual) Basophils % Basophils % (Manual) Myelocytes % (Man) Promyelocytes % (Man) Blast Cells % (Manual) Nucleated RBC % Metamyelocytes Hypochromia Platelet Estimate Platelet Comment Polychromasia Poikilocytosis Anisocytosis Microcytosis Macrocytosis Spherocytes Target Cells Tear Drop Cells Ovalocytes Gillespie Cells Acanthocytes (Spur) Sodium Potassium Chloride Carbon Dioxide Anion Gap BUN Creatinine Est GFR (CKD-EPI)AfAm Est GFR (CKD-EPI)NonAf POC Glucometer 125 188 Random Glucose Calcium Phosphorus Magnesium Total Bilirubin AST ALT Alkaline Phosphatase Total Protein Albumin Urine Color Urine Appearance Urine pH Ur Specific Bardolph Urine Protein Urine Glucose (UA) Urine Ketones Urine Blood Urine Nitrite Urine Bilirubin Urine Urobilinogen Ur Leukocyte Esterase U Random Total Protein Urine Creatinine Protein/Creatinin Ratio HOSPITAL COURSE: Date of Admission:09/25/19 Date of Discharge: 09/27/19 - ....Imaging Chest X-ray: Image Reviewed (CXR: no acute pathology) Ultrasound: Report Reviewed (Renal US: no hydro, right renal pole cyst) Problem List - Problems (1) ASHLI (acute kidney injury) Assessment/Plan: acute on chronic ASHLI baseline Cr 1.2-1.4 improving with IVF appreciate renal consultation Maintain on low K diet. c/w lisinipril Code(s): N17.9 - ACUTE KIDNEY FAILURE, UNSPECIFIED (2) Prophylactic measure Assessment/Plan: FEN Fluids: adequate PO intake, no additional IVF Electrolytes: monitor & replete as needed Nutrition: diabetic , low K diet DVT moderate risk SCDs, no chemical AC given anemia Dispo Maintain as inpatient on tele full code discharge planning Code(s): Z29.9 - ENCOUNTER FOR PROPHYLACTIC MEASURES, UNSPECIFIED (3) Chest pain Assessment/Plan: prior stents in LCx and RCA 2009, prox and mid LAD 2016 after abnormal nuclear stress trop neg x 2, EKG no ischemic changes - unlikely ACS recent echo unremarkable c/w aspirin, statin MIBI without ischemia. Ok for discharge to home Code(s): R07.9 - CHEST PAIN, UNSPECIFIED Qualifiers: Chest pain type: unspecified Qualified Code(s): R07.9 - Chest pain, unspecified (4) Anemia Assessment/Plan: iron studies normal stool occult blood negative Code(s): D64.9 - ANEMIA, UNSPECIFIED Qualifiers: Anemia type: unspecified type Qualified Code(s): D64.9 - Anemia, unspecified (5) Diabetes mellitus Assessment/Plan: HgbA1c 5.2 BGM q AC/HS with novolog sliding scale Code(s): E11.9 - TYPE 2 DIABETES MELLITUS WITHOUT COMPLICATIONS Qualifiers: Diabetes mellitus type: type 2 Diabetes mellitus group home insulin use: without buttermaker use Diabetes mellitus complication status: with circulatory complication Diabetes mellitus complication detail: with other circulatory complications Qualified Code(s): E11.59 - Type 2 diabetes mellitus with other circulatory complications Minutes to complete discharge: 40 Discharge Summary Problems reviewed: Yes Reason For Visit: DIABETES MELLITUS, CORONARY ARTERY DISEASE Current Active Problems ACS (acute coronary syndrome) (Acute) ASHLI (acute kidney injury) (Acute) Chest pain (Acute) Prophylactic measure (Acute) - Instructions Diet, Activity, Other Instructions: DISCHARGE YOUR VISIT You came to the hospital because had chest pain. An echocardiogram was done showed mild mitral regurigitation (back flow). A stress test was done that was normal. Follow with your home currency machine operator in MEDICATIONS Please continue to take your home medications as prescribed. There was no changes. DIET Continue your home diet. Low salt low potassium. ADDITIONAL CARE Please make an appointment to see your primary care provider, 2 weeks from today. ADDITIONAL INFORMATION Please call 911 or come directly to the emergency department if you experience unusual headache, vision change, shortness of breath, chest pain, numbness, tingling, loss of alertness/awareness, loss of function, unusual bleeding or any alarming symptoms. Thank you for allowing me to care for you. Dima Bowen, KATIP, [facility] [phone] Disposition: HOME - Home Medications Comprehensive Discharge Medication List: Ambulatory Orders Aspirin [ASA -] 81 mg PO DAILY 10/23/15 metFORMIN HCL [Metformin HCl] 500 mg PO DAILY 10/23/15 Albuterol Sulfate Inhaler - [Ventolin HFA Inhaler -] 2 puff IH Q4H PRN 09/25/19 Albuterol Sulfate Inhaler - [Ventolin HFA Inhaler -] 2 puff IH Q4H PRN 09/25/19 Atorvastatin Calcium 20 mg PO HS 09/25/19 Hydroxyzine HCl 25 mg PO DAILY 09/25/19 Lisinopril 10 mg PO DAILY 09/25/19 Tamsulosin HCl 0.4 mg PO DAILY 09/25/19 Prescription Drug Monitoring Program (I-STOP) results: I-STOP not reviewed Problem List - Problems (1) ASHLI (acute kidney injury) Code(s): N17.9 - ACUTE KIDNEY FAILURE, UNSPECIFIED (2) Prophylactic measure Code(s): Z29.9 - ENCOUNTER FOR PROPHYLACTIC MEASURES, UNSPECIFIED (3) Chest pain Code(s): R07.9 - CHEST PAIN, UNSPECIFIED Qualifiers: Chest pain type: unspecified Qualified Code(s): R07.9 - Chest pain, unspecified (4) Anemia Code(s): D64.9 - ANEMIA, UNSPECIFIED Qualifiers: Anemia type: unspecified type Qualified Code(s): D64.9 - Anemia, unspecified (5) Diabetes mellitus Code(s): E11.9 - TYPE 2 DIABETES MELLITUS WITHOUT COMPLICATIONS Qualifiers: Diabetes mellitus type: type 2 Diabetes mellitus buttermaker insulin use: without group home use Diabetes mellitus complication status: with circulatory complication Diabetes mellitus complication detail: with other circulatory complications Qualified Code(s): E11.59 - Type 2 diabetes mellitus with other circulatory complications This patient is new to me today: No Emergency Visit: Yes ED Registration Date: 09/25/19 Care time: The patient presented to the Emergency Department on the above date and was hospitalized for further evaluation of their emergent condition. Critical Care patient: No - Discharge Referral Referred to [facility] No
[2019-09-27 15:37] VITALS: BP 104/45; PULSE 71; TEMP 97.9
--- NOTE | 2019-09-27 16:02 | PN ---
Progress Note (short form) - Note Progress Note: Renal follow up for ASHLI Seen and examined at the bedside awake and alert offers no complaints no cp, sob, abd pain, N/V/D, fever, chills, confusion or VENTURA s/p stress test this am Vital Signs Temperature 97.9 F 09/27/19 14:00 Pulse Rate 71 09/27/19 14:00 Respiratory Rate 18 09/27/19 08:32 Blood Pressure 104/45 L 09/27/19 14:00 O2 Sat by Pulse Oximetry (%) 96 09/27/19 08:00 Intake & Output 09/24/19 09/25/19 09/26/19 09/27/19 23:59 23:59 23:59 23:59 Intake Total 180 240 Output Total 400 Balance 180 -160 Weight 57.153 kg 54.703 kg NAD awake and alert neck supple, no JVD Dry MM RRR, no M/R CTA, no rales or wheeze soft NT/ND, no rebound or guarding no LE edema, clubbing or cyanosis no bladder distension no CVA tenderness CBC, BMP 09/27/19 05:38 09/27/19 05:38 Current Medications Albuterol Sulfate (Ventolin Hfa Inhaler -) 2 puff IH Q4H PRN PRN Reason: ASTHMA Aspirin (Asa -) 81 mg PO DAILY [facility] Last Admin: 09/27/19 11:56 Dose: 81 mg Atorvastatin Calcium (Lipitor -) 20 mg PO [facility] Last Admin: 09/26/19 21:19 Dose: 20 mg Hydroxyzine Pamoate (Vistaril -) 25 mg PO [facility] Last Admin: 09/26/19 21:19 Dose: 25 mg Insulin Aspart (Novolog Vial Sliding Scale -) 1 vial SQ [facility]; Protocol Last Admin: 09/27/19 11:56 Dose: 2 units Lisinopril (Prinivil) 10 mg PO DAILY [facility] Last Admin: 09/27/19 11:56 Dose: 10 mg Nitroglycerin (Nitrostat -) 0.3 mg SL Q5M PRN PRN Reason: FOR CHEST PAIN Tamsulosin HCl (Flomax -) 0.4 mg PO DAILY@0830 [facility] Last Admin: 09/27/19 11:55 Dose: 0.4 mg 84 year old gentleman with history of CAD s/p [place] requiring PCI with stents, asthma and DM who presented from home with chest pain and admitted for r/o ACS. 1. 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 ischemic nephropathy 2. Chest pain r/o ACS 3. Hx of CAD 4. DM type 2 5. Mild hyperkalemia 6. Anemia Renal function improved no overt electrolyte or acid/base disturbance noted Continue ACEi Renal US showed small kidneys and simple renal cysts f/u stress test results discharge planning as per primary team can follow up in our office on discharge as an outpatient Thank you Prashant Mccoy DO
[2019-09-27 16:42] VITALS: BMI 19.3
== END 2019-09-27 16:48 | disposition home or self-care (01) ==
LOC: JER 17:18 → INTOOBSV 19:58 → JERBED 19:58 → J4W 09-26 21:07
PROVIDERS: ADMIT Internal Medicine; ATTEND Nurse Practitioner Acute Care
PROC: 3E033VG Introduction of Insulin into Peripheral Vein, Percutaneous Approach (ICD-10-PCS; principal; 2019-09-25)
PROC: 3E0337Z Introduction of Electrolytic and Water Balance Substance into Peripheral Vein, Percutaneous Approach (ICD-10-PCS; 2019-09-25)
PROC: 3E033GC Introduction of Other Therapeutic Substance into Peripheral Vein, Percutaneous Approach (ICD-10-PCS; 2019-09-25)
PROC: 3E013VG Introduction of Insulin into Subcutaneous Tissue, Percutaneous Approach (ICD-10-PCS; 2019-09-25)
DX: I24.9 Acute ischemic heart disease, unspecified (principal); R07.9 Chest pain, unspecified; E11.22 Type 2 diabetes mellitus with diabetic chronic kidney disease; I12.9 Hypertensive chronic kidney disease with stage 1 through stage 4 chronic kidney disease, or unspecified chronic kidney disease; N18.3 Chronic kidney disease, stage 3 (moderate); N17.9 Acute kidney failure, unspecified; Z79.84 Long term (current) use of oral hypoglycemic drugs; E11.59 Type 2 diabetes mellitus with other circulatory complications; I25.2 Old myocardial infarction; I25.10 Atherosclerotic heart disease of native coronary artery without angina pectoris; J45.909 Unspecified asthma, uncomplicated; D64.89 Other specified anemias; E87.5 Hyperkalemia; Z29.8 Encounter for other specified prophylactic measures; Z95.5 Presence of coronary angioplasty implant and graft; Z79.82 Long term (current) use of aspirin
CPT/HCPCS: 36415; 71046-TC-FY; 76775-TC; 78452-TC; 80048; 80053; 81003; 82550; 82570; 82607; 82728; 82746; 82962; 83036; 83540; 83550; 83735; 84100; 84156; 84443; 84484; 85025; 85610; 85730; 93005; 93010; 93017; 93306-TC; 96361; 96374; 96375; 99285-25; A9502; C1887; G0378; J1644; J2785; J7030

== ENCOUNTER 2020-05-06 14:02 | Inpatient (IN) | payer MEDICARE, OTHER ==
--- NOTE | 2020-05-06 15:15 | PDOC ---
Documentation entered by Jolly Russell SCRIBE, acting as scribe for Krystina Sommer DO. Krystina Sommer DO: This documentation has been prepared by the Drew floyd Xhesika, SCRIBE, under my direction and personally reviewed by me in its entirety. I confirm that the documentation accurately reflects all work, treatment, procedures, and medical decision making performed by me. Attending Attestation - Resident Resident Name: Jonn Pichardo - ED Attending Attestation I have performed the following: I have examined & evaluated the patient, The case was reviewed & discussed with the resident, I agree w/resident's findings & plan, Exceptions are as noted - HPI HPI: 05/06/20 14:38 The patient is an 85 year old male with a significant past medical history of CAD (s/p cardiac stenting), HTN, DM, HLD, asthma, anemia and GI bleed who presents to the ED BIBA from [facility] for Potassium of 6.3 and Hgb of 5.8. Pt denies any complaints currently. The patient denies chest pain, shortness of breath, headache and dizziness. Denies fever, chills, cough, nausea, vomiting, diarrhea and constipation. Denies dysuria, frequency, urgency and hematuria. Allergies: NKDA PCP: Dr. Rodriguez - Physicial Exam PE: 05/06/20 14:38 GENERAL: Awake, alert, and fully oriented, in no acute distress HEAD: No signs of trauma EYES: PERRLA, EOMI, sclera anicteric, conjunctiva clear ENT: Auricles normal inspection, hearing grossly normal, nares patent, oropharynx clear without exudates. +dry mucous membranes NECK: Normal ROM, supple, no lymphadenopathy, JVD, or masses LUNGS: Breath sounds equal, clear to auscultation bilaterally. No wheezes, and no crackles HEART: Regular rate and rhythm, normal S1 and S2, no murmurs, rubs or gallops ABDOMEN: Soft, nontender, normoactive bowel sounds. No guarding, no rebound. No masses EXTREMITIES: Normal range of motion, no edema. No clubbing or cyanosis. No cords, erythema, or tenderness NEUROLOGICAL: Cranial nerves II through XII grossly intact. SKIN: Warm, Dry, normal turgor, no rashes lesions noted. - Medical Decision Making 05/06/20 15:13 a/p: 85yo male sent from [facility] [place] for eval of low hgb and high K -pt denies all symptoms or complaints other than feeling weak -pt denies blood in his stool or abd pain, no n/v/d -no cp/sob -no f/c -no other complaints -will send labs, ekg, cxr -will monitor and reassess 05/06/20 16:11 cxr clear hgb 6.3 05/06/20 16:11 will need transfusion 05/06/20 16:34 pt with ashil hyperkalemia (mildly hemolyzed) anemia will repeat potassium 05/06/20 17:37 pt is hyperkalemia will treat resident discussed the case with Dr. Rodriguez who accepts pt to service Heart Score/ECG Review - ECG Intrepretation Comment:: 05/06/20 15:14 sinus mallorie at 56, 1st degree av block, nl axis, no acute st changes, hyperacute t waves Discharge - Discharge Information Problems reviewed: Yes Clinical Impression/Diagnosis: Low hemoglobin, Anemia, Hyperkalemia, ASHLI (acute kidney injury) Condition: Guarded - Admission Yes - Follow up/Referral - Patient Discharge Instructions - Post Discharge Activity
[2020-05-06 15:55] LABS: INR 1.03 (0.83-1.09); PROTHROMBIN TIME (PATIENT) 12.1 SEC (9.7-13.0)
[2020-05-06 15:58] LABS: ACTIVATED PTT 31.8 SECONDS (25.2-36.5); MCH 24.3 pg (25.7-33.7); MCHC 31.7 g/dl (32.0-35.9); MEAN CELL VOLUME 76.5 fl (80-96); MEAN PLT VOLUME 11.8 fl (7.5-11.1); PLATELET COUNT 248 K/MM3 (134-434); RBC 2.61 M/mm3 (4.00-5.60); RDW 21.3 % (11.9-15.9); WHITE BLOOD COUNT 3.2 K/mm3 (4.0-10.0)
--- NOTE | 2020-05-06 16:00 | PDOC ---
History of Present Illness - General Chief Complaint: Revisit, Lab Variance Stated Complaint: LOW BLOOD ACCOUNT Time Seen by Provider: 05/06/20 14:15 - History of Present Illness Initial Comments: 05/06/20 15:58 85yo M w/ PMHx of substance and EtOH use presents from [facility] with reported low H/H and hyper K by recent bloodwork. He endorses weakness and decreased appetite [id number]. Denies fevers, cough, sore throat, n/v/d, recent travel, lightheadedness, vertigo, or falls. 05/07/20 14:21 Past History - Medical History Allergies/Adverse Reactions: Allergies Allergy/AdvReac Type Severity Reaction Status Date / Time No Known Allergies Allergy Verified 05/06/20 14:20 Home Medications: Ambulatory Orders Aspirin [ASA -] 81 mg PO DAILY 10/23/15 metFORMIN HCL [Metformin HCl] 500 mg PO DAILY 10/23/15 Atorvastatin Calcium 20 mg PO HS 09/25/19 Hydroxyzine HCl 25 mg PO DAILY 09/25/19 Lisinopril 10 mg PO DAILY 09/25/19 Tamsulosin HCl 0.4 mg PO DAILY 09/25/19 Albuterol Sulfate Inhaler - [Ventolin HFA Inhaler -] 2 puff IH Q4H PRN #1 inhaler 09/27/19 Ascorbic Acid [Vitamin C -] 1,000 mg PO BID tablet 01/04/20 Budesonide/Formeterol Fumarate [SYMBICORT 80/4.5mcg -] 2 puff IH BID 30 Days #1 inhaler 01/04/20 Cholecalciferol (Vitamin D3) [Vitamin D3 -] 1,000 unit PO DAILY tab 01/04/20 Ferrous Sulfate [Feosol] 325 mg PO BIDWM #60 ud 01/04/20 Metoprolol Tartrate [Lopressor -] 25 mg PO BID #60 tablet 01/04/20 Pantoprazole Sodium [Protonix -] 40 mg PO BID #60 tablet.ec 01/04/20 Zinc Sulfate [Orazinc -] 220 mg PO BID capsule 01/04/20 Asthma: Yes Cardiac Disorders: Yes (AL, CAD, stents) COPD: No Diabetes: Yes HTN: Yes Hypercholesterolemia: Yes - Surgical History Abdominal Surgery: Yes (abd hernia) Cardiac Surgery: Yes (stent) - Immunization History Immunization Up to Date: Yes - Psycho-Social/Smoking History Smoking History: Unknown if ever smoked Have you smoked in the past 12 months: No Number of Cigarettes Smoked Daily: 0 Review of Systems - Review of Systems Able to Perform ROS?: Yes Is the patient limited Hungarian proficient: No Constitutional: Yes: Loss of Appetite, Weakness, Unintentional Wgt. Loss, Other (fatigue). No: Chills, Diaphoresis, Fever HEENTM: No: Blurred Vision, Recent change in vision Respiratory: No: Symptoms reported, Cough, Shortness of Breath Cardiac (ROS): No: Chest Pain, Edema, Lightheadedness, Palpitations, Syncope ABD/GI: Yes: Poor Appetite ([id number]). No: Diarrhea, Nausea, Vomiting : No: Burning, Dysuria, Discharge Musculoskeletal: Yes: Muscle Weakness. No: Back Pain, Muscle Pain Integumentary: No: Rash Neurological: No: Headache, Numbness, Paresthesia Endocrine: No: Symptoms Reported Hematologic/Lymphatic: No: Symptoms Reported All Other Systems: Reviewed and Negative *Physical Exam - Vital Signs Last Vital Signs Temp Pulse Resp BP Pulse Ox 98 F 73 16 118/50 L 97 05/06/20 14:05 05/06/20 14:05 05/06/20 14:05 05/06/20 14:05 05/06/20 14:05 - Physical Exam General Appearance: Yes: Nourished, Appropriately Dressed, Thin. No: Apparent Distress HEENT: positive: EOMI, Normal ENT Inspection, Normal Voice. negative: Scleral Icterus (R), Scleral Icterus (L) Neck: positive: Trachea midline, Supple. negative: Tender Respiratory/Chest: positive: Lungs Clear, Normal Breath Sounds. negative: Chest Tender Cardiovascular: positive: Regular Rhythm, Regular Rate Gastrointestinal/Abdominal: positive: Normal Bowel Sounds, Soft. negative: Organomegaly Rectal Exam: positive: heme negative stool, normal exam, normal rectal tone Musculoskeletal: positive: Normal Inspection. negative: CVA Tenderness Extremity: positive: Normal Capillary Refill, Normal Inspection Integumentary: positive: Dry, Warm, Pale Neurologic: positive: counter molder II-XII NML intact, Fully Oriented, Alert, Normal Mood/Affect, Normal Response, Motor Strength 5/5 Heart Score/ECG Review - ECG Intrepretation Rhythm: Regular Rhythm ED Treatment Course - LABORATORY CBC & Chemistry Diagram: 05/07/20 07:10 05/07/20 07:10 - ADDITIONAL ORDERS Additional order review: Laboratory Results 05/06/20 14:45 PT with INR 12.10 INR 1.03 PTT (Actin FS) 31.8 Medical Decision Making - Medical Decision Making 05/07/20 14:34 85yo M w/ no relevant PMHx p/w weakness [id number] + low H/H and hyper K on recent bloods. EKG shows peaked T waves. combined w/ hx of hyper K -> will give Ca gluconate + insulin/dextrose + lowkalma. HgB <7 -> will transfuse and admit Discharge - Discharge Information Problems reviewed: Yes Clinical Impression/Diagnosis: Low hemoglobin, Anemia, Hyperkalemia, ASHLI (acute kidney injury) Condition: Guarded - Admission Yes - Follow up/Referral - Patient Discharge Instructions - Post Discharge Activity
[2020-05-06 16:06] LABS: HEMOGLOBIN 6.3 GM/dL (11.7-16.9)
[2020-05-06 16:29] LABS: ALBUMIN 3.6 g/dl (3.4-5.0); ALK PHOS 62 U/L (45-117); ANION GAP 4 MMOL/L (8-16); BILIRUBIN,TOTAL 0.3 mg/dL (0.2-1); BLOOD UREA NITROGEN 40.6 mg/dL (7-18); CALCIUM 8.4 mg/dL (8.5-10.1); CHLORIDE 112 mmol/L (98-107); CO2 22 mmol/L (21-32); CREATININE 1.8 mg/dL (0.55-1.3); GLUCOSE,RANDOM 112 mg/dL (74-106); IRON SERUM 120 ug/dL (50-175); SGOT/AST 102 U/L (15-37); SGPT/ALT 35 U/L (13-61); SODIUM 138 mmol/L (136-145); TOT PROT 7.4 g/dl (6.4-8.2); TOTAL IRON BINDING CAPACITY 261 ug/dL (250-450)
[2020-05-06 16:31] LABS: POTASSIUM 8.3 mmol/L (3.5-5.1)
[2020-05-06] MEDS ORDERED: CALCIUM GLUCONATE 10% - 1,000 MG/10 ML VIAL IVPUSH ONE (16:34)
--- OUTSIDE RECORDS SUMMARY | 2020-05-06 16:42 | XMS ---
:1935 [facility] Organization [facility] Support Name Relationship Address Phone RE, RETIRED Unavailable Unavailable Unavailable RE Unavailable Unavailable Unavailable RAUL DANIELS [id number] [facility] [place] [address] STEPHANIE DANIELS SON [address] [facility] [place] [address] STEPHANIE DANIELS Child [address] [facility] [place] [address] Re-disclosure Warning The records that you are about to access may contain information from federally- assisted alcohol or drug abuse programs. If such information is present, then the following federally mandated warning applies: This information has been disclosed to you from records protected by federal confidentiality rules (42 CFR part 2). The federal rules prohibit you from making any further disclosure of this information unless further disclosure is expressly permitted by the written consent of the person to whom it pertains or as otherwise permitted by 42 CFR part 2. A general authorization for the release of medical or other information is NOT sufficient for this purpose. The Federal rules restrict any use of the information to criminally investigate or prosecute any alcohol or drug abuse patient.The records that you are about to access may contain highly sensitive health information, the redisclosure of which is protected by Article 27-F of the [place] State Public Health law. If you continue you may haveaccess to information: Regarding HIV / AIDS; Provided by facilities licensed or operated by the [facility] Office of Mental Health; or Provided by the [facility] Office for People With Developmental Disabilities. If such information is present, then the following [facility] mandated warning applies: This information has been disclosed to you from confidential records which are protected by state law. State law prohibits you from making any further disclosure of this information without the specific written consent of the person to whom it pertains, or as otherwise permitted by law. Any unauthorized further disclosure in violation of state law may result in a fine or shelter sentence or both. A general authorization for the release of medical or other information is NOT sufficient authorization for further disclosure. Allergies and Adverse Reactions Type Description Substance Reaction Status Data Source(s ) No Known No Known Allergies No Known eCW3 ( [facility]) No Known No Known Allergies No Known eCW3 ( [facility]) No Known No Known Allergies No known eCW3 ( [facility] Allergies allergies [facility] (situation) Care) Encounters Encounter Providers Location Date Indications Data Source(s ) Outpatient [facility] 03/22/2019 eCW3 ([facility] 12:00:00 AM [facility] EDT - Care) 03/22/2019 12:00:00 AM EDT (ROV) Regular [facility] 12/08/2018 eCW3 ([facility] A28 12:00:00 AM [facility] EDT - Care) 12/08/2018 12:00:00 AM EDT Outpatient [facility] 09/15/2018 eCW3 ([facility] 12:00:00 AM [facility] EST - Care) 09/15/2018 12:00:00 AM EST Medications Medication Brand Start Product Dose Route Administrative Pharmacy [facility] Indications Reaction Description Data Name Date Form Instructions Instructions Source(s) Hydroxyzine HydrOX .0 active HydrOXY zine eCW3 Hydrochlori Yzine 2019 {tabl HCl 25 MG ( [facility] de 25 MG HCl 25 12:00: et_as [facility] Oral Tablet MG 00 AM _need Health HydrOXYzine EST ed} Care) HCl 25 MG Hydroxyzine HydrOX .0 active HydrOXY zine eCW3 Hydrochlori Yzine 2019 {tabl HCl 25 MG ( [facility] de 25 MG HCl 25 12:00: et_as [facility] Oral Tablet MG 00 AM _need Health HydrOXYzine EST ed} Care) HCl 25 MG Tamsulosin Flomax .0 active Flomax 0 .4 eCW3 hydrochlori 0.4 MG 2018 {caps MG ([facility] 0.4 MG 12:00: ule} [facility] Oral 00 AM Health Capsule EST Care) [Flomax] Flomax 0.4 MG Tamsulosin Flomax 1.0 active Flomax 0 .4 eCW3 hydrochlori 0.4 MG 2019 {caps MG ([facility] 0.4 MG 12:00: ule} [facility] Oral 00 AM Health Capsule EST Care) [Flomax] Flomax 0.4 MG Loratadine Lorata 1.0 active Loratadi ne eCW3 10 MG Oral dine 2019 {tabl 10 mg ([facility] Tablet 10 mg 12:00: et} [facility] Loratadine 00 AM Health 10 mg EDT Care) 200 ACTUAT Ventol 2.0 active Ventolin HFA eCW3 Albuterol in HFA 2019 {puff 108 (90 ([facility] 0.09 108 12:00: s_as_ Base) [facility] MG/ACTUAT (90 00 AM neede MCG/ACT Healt h Metered Base) EDT d} Care) Dose MCG/AC Inhaler T [Ventolin] Ventolin HFA 108 (90 Base) MCG/ACT Loratadine Lorata .0 active Loratadi ne eCW3 10 MG Oral dine 2019 {tabl 10 mg ([facility] Tablet 10 mg 12:00: et} [facility] Loratadine 00 AM Health 10 mg EDT Care) 200 ACTUAT Ventol 2.0 active Ventolin HFA eCW3 Albuterol in HFA 2019 {puff 108 (90 ([facility] 0.09 108 12:00: s_as_ Base) [facility] MG/ACTUAT (90 00 AM neede MCG/ACT Healt h Metered Base) EDT d} Care) Dose MCG/AC Inhaler T [Ventolin] Ventolin HFA 108 (90 Base) MCG/ACT Clotrimazol Clotri 1.0 active Clotrim azole eCW3 e 10 MG/ML mazole 2019 {appl 1 % ([facility] Topical 1 % 12:00: icati [facility] Cream 00 AM on_to Health Clotrimazol EST _affe Care) e 1 % cted_ area} Multivitami Multiv 06/08/ active Multivi tamin eCW3 n Adults - itamin 2017 Adults - ([facility] Adults 12:00: [facility] - 00 AM Health EDT Care) Multivitami Multiv 06/08/ active Multivi tamin eCW3 n Adults - itamin 2017 Adults - ([facility] Adults 12:00: [facility] - 00 AM Health EDT Care) Multivitami Multiv 06/08/ active Multivi tamin eCW3 n Adults - itamin 2017 Adults - ([facility] Adults 12:00: [facility] - 00 AM Health EDT Care) ferrous Ferrou .0 active Ferrous eCW 3 sulfate 325 s 2016 {tabl Sulfate 325 ([facility] MG Oral Sulfat 12:00: et} (65 Fe) MG Ri patricio Tablet e 325 00 AM Health Ferrous (65 EST Care) Sulfate 325 Fe) MG (65 Fe) MG ferrous Ferrou .0 active Ferrous eCW 3 sulfate 325 s 2016 {tabl Sulfate 325 ([facility] MG Oral Sulfat 12:00: et} (65 Fe) MG Ri patricio Tablet e 325 00 AM Health Ferrous (65 EST Care) Sulfate 325 Fe) MG (65 Fe) MG ferrous Ferrou .0 active Ferrous eCW 3 sulfate 325 s 2016 {tabl Sulfate 325 ([facility] MG Oral Sulfat 12:00: et} (65 Fe) MG Ri patricio Tablet e 325 00 AM Health Ferrous (65 EST Care) Sulfate 325 Fe) MG (65 Fe) MG Aspirin 81 Aspiri 1.0 active Aspirin 81 eCW3 MG Delayed n 81 2016 {tabl MG ([facility] Release MG 12:00: et} [facility] Oral Tablet 00 AM Health EST Care) Aspirin 81 Aspiri 1.0 active Aspirin 81 eCW3 MG Delayed n 81 2016 {tabl MG ([facility] Release MG 12:00: et} [facility] Oral Tablet 00 AM Health EST Care) Aspirin 81 Aspiri 1.0 active Aspirin 81 eCW3 MG Delayed n 81 2016 {tabl MG ([facility] Release MG 12:00: et} [facility] Oral Tablet 00 AM Health EST Care) Temazepam Temaze .0 suspend Temazepa m eCW3 7.5 MG Oral kaykay 2015 {caps ed 7.5 MG ([facility] Capsule 7.5 MG 12:00: ule_a [facility] 00 AM t_bed Health EDT time_ Care) as_ne eded} Lancets . UNK 09/05/ active Lancets . e CW3 2015 ([facility] 12:00: [facility] 00 AM Health EST Care) Lancets . UNK 09/05/ active Lancets . e CW3 2015 ([facility] 12:00: [facility] 00 AM Health EST Care) Isopropyl Isopro 09/05/ active Isopropyl eCW3 Alcohol pyl 2015 Alcohol ([facility] Wipes 70 % Alcoho 12:00: Wipes 70 % [facility] l 00 AM Health Wipes EST Care) 70 % Glucose UNK 09/05/ active Glucose Test eCW3 Test Strips 2016 Strips ([facility] Compatiable 12:00: Compatiable [facility] with 00 AM with Health Patients EST Patients Care) Machine Machine Isopropyl Isopro 09/05/ active Isopropyl eCW3 Alcohol pyl 2015 Alcohol ([facility] Wipes 70 % Alcoho 12:00: Wipes 70 % [facility] l 00 AM Health Wipes EST Care) 70 % Glucose UNK 09/05/ active Glucose Test eCW3 Test Strips 2016 Strips ([facility] Compatiable 12:00: Compatiable [facility] with 00 AM with Health Patients EST Patients Care) Machine Machine Isopropyl Isopro 09/05/ active Isopropyl eCW3 Alcohol pyl 2015 Alcohol ([facility] Wipes 70 % Alcoho 12:00: Wipes 70 % [facility] l 00 AM Health Wipes EST Care) 70 % Glucose UNK 09/05/ active Glucose Test eCW3 Test Strips 2016 Strips ([facility] Compatiable 12:00: Compatiable [facility] with 00 AM with Health Patients EST Patients Care) Machine Machine Lancets . UNK 09/05/ active Lancets . e CW3 2015 ([facility] 12:00: [facility] 00 AM Health EST Care) atorvastati Atorva .0 active Atorvas tatin eCW3 n 20 MG statin 2014 {tabl Calcium 20 ([facility] Oral Tablet Calciu 12:00: et} mg Rive r Atorvastati m 20 00 AM Health n Calcium mg EDT Care) 20 mg atorvastati Atorva .0 active Atorvas tatin eCW3 n 20 MG statin 2014 {tabl Calcium 20 ([facility] Oral Tablet Calciu 12:00: et} mg R[facility] r Atorvastati m 20 00 AM Health n Calcium mg EDT Care) 20 mg atorvastati Atorva .0 active Atorvas tatin eCW3 n 20 MG statin 2014 {tabl Calcium 20 ([facility] Oral Tablet Calciu 12:00: et} mg Rive r Atorvastati m 20 00 AM Health n Calcium mg EDT Care) 20 mg Lisinopril Lisino .0 active Lisinopr il eCW3 10 MG Oral pril 2013 {tabl 10 MG ([facility] Tablet 10 MG 12:00: et} [facility] AM [facility] EDT [facility]) Lisinopril Lisino .0 active Lisinopr il eCW3 10 MG Oral pril 2013 {tabl 10 MG ([facility] Tablet 10 MG 12:00: et} [facility] AM [facility] EDT Care) Lisinopril Lisino .0 active Lisinopr il eCW3 10 MG Oral pril 2013 {tabl 10 MG ([facility] Tablet 10 MG 12:00: et} [facility] 00 [facility] EDT [facility]) MetFORMIN MetFOR 1.0 active MetFORMIN e CW3 HCl ER 500 MIN {tabl HCl ER 500 ([facility] mg HCl ER et_wi mg [facility] 500 mg th_ Health ening Care) _meal } 24 HR MetFOR 1.0 active MetFORMIN eCW3 Metformin MIN {tabl HCl ER 500 ([facility] hydrochlori HCl ER et_wi mg [facility] de 500 MG 500 mg _ Health Extended ening Care) Release _meal Oral Tablet } MetFORMIN HCl ER 500 mg 24 HR MetFOR 1.0 active MetFORMIN eCW3 Metformin MIN {tabl HCl ER 500 ([facility] hydrochlori HCl ER et_wi mg [facility] de 500 MG 500 mg th_[facility] Extended ening Care) Release _meal Oral Tablet } MetFORMIN HCl ER 500 mg Insurance Providers Payer name Policy type Policy ID Covered Covered alliance party's Policy P dina / Coverage alliance party ID relationship to Patrick Inf ormation type patrick MEDICAID [id number] SP [id number] MEDICARE [id number] SP [id number] MEDICARE [id number] SP [id number] PART B 7 Problems, Conditions, and Diagnoses Code Display Name Description Problem Type Effective Data Sour ce(s) Dates F51.01 Primary insomnia Primary insomnia Problem 09/05/2019 eC W3 ([facility] 12:00:00 [facility] EST Care) R01.1 Murmur, cardiac Murmur, cardiac Problem 09/04/2019 eCW3 ([facility] 12:00:00 AM [facility] EST Care) N40.1 Benign prostatic Benign prostatic Problem 08/07/2019 eC W3 ([facility] hyperplasia with hyperplasia with 12:00:00 AM [facility] lower urinary tract lower urinary tract EST Care) symptoms symptoms E11.59 Peripheral Controlled type 2 Problem 04/04/2019 eCW3 ([facility] circulatory diabetes mellitus 12:00:00 AM [facility] disorder associated with other EDT Care) with diabetes circulatory mellitus complication, without long-term current use of insulin J45.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 intermittent Mild intermittent Problem 03/22/2019 eCW3 ([facility] asthma without asthma without 12:00:00 AM [facility] complication complication EDT Care) I73.9 Peripheral vascular Arterial Problem 03/01/2018 eCW3 ([facility] disease insufficiency of 12:00:00 AM [facility] lower extremity EDT Care) I73.9 Peripheral vascular Arterial Problem 03/01/2018 eCW3 ([facility] disease insufficiency of 12:00:00 AM [facility] lower extremity EDT Care) L89.90 Pressure sore Pressure sore Problem 03/09/2017 eCW3 ([facility] 12:00:00 AM [facility] EDT Care) B35.1 Onychomycosis Onychomycosis Problem 03/09/2017 eCW3 ([facility] 12:00:00 AM [facility] EDT Care) B35.1 Onychomycosis Onychomycosis Problem 03/09/2017 eCW3 ([facility] 12:00:00 AM [facility] EDT Care) L89.90 Pressure sore Pressure sore Problem 03/09/2017 eCW3 ([facility] 12:00:00 AM [facility] EDT Care) I25.10 Coronary artery CAD (coronary Problem 06/16/2016 eCW3 ( [facility] disease artery disease) 12:00:00 AM [facility] EDT Care) I25.10 Coronary artery CAD (coronary Problem 06/16/2016 eCW3 ( [facility] disease artery disease) 12:00:00 AM [facility] EDT Care) 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 11/12/2015 eCW3 ([facility] complication of neurologic 12:00:00 AM [facility] diabetes mellitus complications EDT Care ) 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 11/12/2015 eCW3 ([facility] complication of neurologic 12:00:00 AM [facility] diabetes mellitus complications EDT Care ) I10 Hypertension Hypertension Problem 09/05/2015 eCW3 ([facility] 12:00:00 AM [facility] EST Care) I10 Hypertension Hypertension Problem 09/05/2015 eCW3 ([facility] 12:00:00 AM [facility] EST Care) E11.9 Type 2 diabetes Type 2 diabetes Problem 09/05/2015 eCW3 ([facility] mellitus mellitus 12:00:00 AM [facility] EST Care) 410.90 STEMI (ST elevation STEMI (ST elevation Problem 015 eCW3 ([facility] myocardial myocardial 12:00:00 AM [facility] infarction) infarction) EDT Care) 493.90 Asthma Asthma Problem 01/10/2015 eCW3 ([facility] 12:00:00 AM [facility] EDT Care) 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 coronary artery S/P coronary artery Problem 015 eCW3 ([facility] stent placement stent placement 12:00:00 AM [facility] EDT Care) 414.00 CAD (coronary CAD (coronary Problem 07/17/2014 eCW3 ([facility] artery disease) artery disease) 12:00:00 AM [facility] EST Care) Surgeries/Procedures Procedure Description Date Indications Data Source(s) DEBRIDEMENT NAIL ANY 12/08/2018 eCW3 ([facility] METHOD 6/> 12:00:00 AM EDT Health Care) Results ID Date Data Source [id number] 02/19/2020 12:00:00 AM EDT [facility] Name Value Range Interpretation Code Description Data Faith rce(s) Supporting Document(s ) 2018-nCoV [facility] RNA XXX TAO+probe- Imp This lab was ordered by [employer] and reported by [employer] ID Date Data Source [id number] 01/30/2020 12:00:00 AM EDT [facility] Name Value Range Interpretation Code Description Data Faith rce(s) Supporting Document(s ) 2018-nCoV [facility] RNA XXX TAO+probe- Imp This lab was ordered by [employer] and reported by [employer] ID Date Data Source [id number] 01/22/2020 12:00:00 AM EDT [facility] Name Value Range Interpretation Code Description Data Faith rce(s) Supporting Document(s ) 2018-nCoV [facility] RNA XXX TAO+probe- Imp [facility] and reported by [employer] ID Date Data Source [id number] 01/06/2020 12:00:00 AM EDT [facility] Name Value Range Interpretation Code Description Data Faith rce(s) Supporting Document(s ) 2018-nCoV [facility] RNA XXX TAO+probe- Imp This lab was ordered by [facility] and reported by [employer] ID Date Data Source [id number] 01/03/2020 09:50:00 AM EDT [facility] Name Value Range Interpretation Description Data Sup porting Code Source(s) Document(s ) SARS [facility] CORONAVIRUS 2 RNA This lab was ordered by [facility] and reported by [employer]. ID Date Data Source [id number] 01/01/2020 01:30:00 PM EDT [facility] Name Value Range Interpretation Description Data Sup porting Code Source(s) Document(s ) SARS [facility] CORONAVIRUS 2 RNA This lab was ordered by [facility] and reported by [facility]. ID Date Data Source [id number] 12/29/2019 11:10:00 AM EDT [facility] Name Value Range Interpretation Description Data Sup porting Code Source(s) Document(s ) SARS [facility] CORONAVIRUS 2 RNA This lab was ordered by [facility] and reported by [facility]. ID Date Data Source [id number] 12/24/2019 02:00:00 PM EDT [facility] Name Value Range Interpretation Description Data Sup porting Code Source(s) Document(s ) SARS [facility] CORONAVIRUS 2 RNA This lab was ordered by [facility] and reported by [facility]. ID Date Data Source [id number] 12/16/2019 06:45:00 PM EDT [facility] Name Value Range Interpretation Description Data Sup porting Code Source(s) Document(s ) SARS [facility] CORONAVIRUS 2 RNA This lab was ordered by [facility] and reported by [employer]. Procedure Social History Code Duration Value Status Description Data Source(s ) Smoking 09/04/2019 12:00:00 Never Smoker completed Never Smoker e CW3 ([facility]) Smoking 09/04/2019 12:00:00 Never Smoker completed Never Smoker e CW3 ([facility]) Smoking 12/08/2018 12:00:00 Never Smoker completed Never Smoker e CW3 ([facility]) Never Smoker completed Never Smoker eCW3 ([facility]) Never Smoker completed Never Smoker eCW3 ([facility]) Never Smoker completed Never Smoker eCW3 ([facility]) Vital Signs ID Date Data Source UNK Name Value Range Interpretation Code Description Data Source(s) Diastolic blood 62 mm[Hg] 62 mm[Hg] eCW3 ([facility]) Systolic blood 113 mm[Hg] 113 mm[Hg] eCW3 ([facility]) Body temperature 98.2 [degF] 98.2 [degF] eCW3 ( [facility]) Heart rate 18 /min 18 /min eCW3 ([facility]) Body mass index 20.77 kg/m2 20.77 kg/m2 eCW3 ([facility] (BMI) [Ratio] [facility]) Body weight 121.0 121.0 [lb_av] eCW3 ([facility] [lb_av] [facility]) Body height 64 [in_i] 64 [in_i] eCW3 ([facility]) Diastolic blood 58 mm[Hg] 58 mm[Hg] eCW3 ([facility]) Systolic blood 112 mm[Hg] 112 mm[Hg] eCW3 ([facility]) Body temperature 97.6 [degF] 97.6 [degF] eCW3 ( [facility]) Heart rate 20 /min 20 /min eCW3 ([facility]) Body mass index 21.63 kg/m2 21.63 kg/m2 eCW3 ([facility] (BMI) [Ratio] [facility]) Body weight 126 [lb_av] 126 [lb_av] eCW3 ([facility]) Body height 64 [in_i] 64 [in_i] eCW3 ([facility]) Diastolic blood 67 mm[Hg] 67 mm[Hg] eCW3 ([facility]) Systolic blood 125 mm[Hg] 125 mm[Hg] eCW3 ([facility]) Body temperature 98.3 [degF] 98.3 [degF] eCW3 ( [facility]) Heart rate 20 /min 20 /min eCW3 ([facility]) Body weight 120 [lb_av] 120 [lb_av] eCW3 ([facility]) Patient Treatment Plan of Care Planned Activity Planned Date Details Description Data Source (s) Hydroxyzine Hydrochloride 09/04/2019 12:00:00 eCW3 ([facility] 25 MG Oral Tablet AM EST Health Car e) Hydroxyzine Hydrochloride 09/04/2019 12:00:00 eCW3 ([facility] 25 MG Oral Tablet AM EST Health Car e) Tamsulosin hydrochloride 08/07/2019 12:00:00 eCW3 ([facility] 0.4 MG Oral Capsule AM EST Health C are) [Flomax] Tamsulosin hydrochloride 08/07/2019 12:00:00 eCW3 ([facility] 0.4 MG Oral Capsule AM EST Health C are) [Flomax] 200 ACTUAT Albuterol 0.09 03/22/2019 12:00:00 eCW3 ([facility] MG/ACTUAT Metered Dose AM EDT Heal h Care) Inhaler [Ventolin] Loratadine 10 MG Oral 03/22/2019 12:00:00 eCW3 ([facility] Tablet [facility] Health Care) 200 ACTUAT Albuterol 0.09 03/22/2019 12:00:00 eCW3 ([facility] MG/ACTUAT Metered Dose AM EDT Healt h Care) Inhaler [Ventolin] Loratadine 10 MG Oral 03/22/2019 12:00:00 eCW3 ([facility] Tablet [facility] Health Care) Multivitamin Adults - 06/08/2017 12:00:00 eCW3 ([facility]) Multivitamin Adults - 06/08/2017 12:00:00 eCW3 ([facility]) Aspirin 81 MG Delayed 10/11/2016 12:00:00 eCW3 ([facility] Release Oral Tablet AM [facility] Health C are) Aspirin 81 MG Delayed 10/11/2016 12:00:00 eCW3 ([facility] Release Oral Tablet AM [facility]) atorvastatin 20 MG Oral 02/28/2015 12:00:00 eCW3 ([facility] Tablet [facility]) atorvastatin 20 MG Oral 02/28/2015 12:00:00 eCW3 ([facility] Tablet [facility]) Lisinopril 10 MG Oral 04/11/2014 12:00:00 eCW3 ([facility] Tablet [facility]) Lisinopril 10 MG Oral 04/11/2014 12:00:00 eCW3 ([facility] Tablet [facility]) MetFORMIN HCl ER 500 mg eCW3 ([facility]) 24 HR Metformin eCW3 ([facility] hydrochloride 500 MG [facility]) Extended Release Oral Tablet
[2020-05-06] MEDS ORDERED: ALBUTEROL SO4 HFA INHALER IH PRN (16:59)
[2020-05-06] MEDS ORDERED: CALCIUM GLUCONATE 10% - 1,000 MG/10 ML VIAL ONE (17:00)
[2020-05-06] MEDS ORDERED: ACETAMINOPHEN 325 MG TABLET (FP) PO PRN (17:00)
[2020-05-06 17:32] LABS: BLOOD UREA NITROGEN 40.4 mg/dL (7-18); CALCIUM 8.4 mg/dL (8.5-10.1); CREATININE 1.7 mg/dL (0.55-1.3); POTASSIUM 5.8 mmol/L (3.5-5.1)
[2020-05-06] MEDS ORDERED: INSULIN REGULAR HUMAN 100 UNITS/ML *VIAL IVPUSH ONE (17:38)
[2020-05-06] MEDS ORDERED: SODIUM CHLORIDE 0.9% 500 ML INFUS.BAG IV ONE (17:38)
[2020-05-06] MEDS ORDERED: DEXTROSE 50%-WATER - 25 GM/50 ML VIAL IVPUSH ONE (17:38)
[2020-05-06 17:49] LABS: PLATELET ESTIMATE NORMAL
[2020-05-06] MEDS ORDERED: DEXTROSE 50%-WATER 25 GM/50 ML DISP.SYRIN ONE (17:53)
--- OUTSIDE RECORDS SUMMARY | 2020-05-06 18:30 | XMS ---
:1935 Author Organization [facility] Support Name Relationship Address Phone RE, RETIRED Unavailable Unavailable Unavailable RE Unavailable Unavailable Unavailable RAUL DANIELS [id number] [address] [place] [address] STEPHANIE DANIELS SON [address] [place] [address] STEPHANIE DANIELS Child [address] [place] [address] Re-disclosure Warning The records that you are [...] is protected by Article 27-F of the [facility] Public Health law. If you continue you may haveaccess to information: Regarding HIV / AIDS; Provided by facilities licensed or operated by the [facility] Office of Mental Health; or Provided by the [facility] Office for People With Developmental Disabilities. If such information is present, then the following [facility] mandated warning applies: This information has been [...] law may result in a fine or nursing home sentence or both. A general authorization for [...] No known eCW3 ( [facility] Allergies allergies [facility] (situation) Care) Encounters Encounter Providers Location Date Indications Data Source(s ) Outpatient [facility] 03/22/2019 eCW3 ([facility] 12:00:00 AM [facility] EDT - Care) 03/22/2019 12:00:00 AM EDT (ROV) Regular [facility] 12/08/2018 eCW3 ([facility] A28 12:00:00 AM [facility] EDT - Care) 12/08/2018 12:00:00 AM EDT Outpatient [facility] 09/15/2018 eCW3 ([facility] 12:00:00 AM [facility] EST - Care) 09/15/2018 12:00:00 AM EST Medications Medication Brand Start Product Dose Route Administrative Pharmacy [facility] Indications Reaction Description Data Name Date Form Instructions Instructions Source(s) Hydroxyzine HydrOX .0 active HydrOXY zine eCW3 Hydrochlori Yzine 2019 {tabl HCl 25 MG ( [facility] de 25 MG HCl 25 12:00: et_as [facility] Oral Tablet MG 00 AM _need Health HydrOXYzine EST ed} Care) HCl 25 MG Hydroxyzine HydrOX . active HydrOXY zine eCW3 Hydrochlori Yzine 2019 {tabl HCl 25 MG ( [facility] de 25 MG HCl 25 12:00: et_as [facility] Oral Tablet MG 00 AM _need Health HydrOXYzine EST ed} Care) HCl 25 MG Tamsulosin Flomax 0 active Flomax 0 .4 eCW3 hydrochlori 0.4 [...] MG Oral dine 2019 {tabl 10 mg ([facility] Tablet 10 mg 12:00: et} [facility] Loratadine 00 AM Health 10 mg EDT Care) 200 ACTUAT Ventol 2.0 active Ventolin HFA eCW3 Albuterol in HFA 2018 {puff 108 (90 ([facility] 0.09 108 [...] Clotrim azole eCW3 e 10 MG/ML mazole 2018 {appl 1 % ([facility] Topical 1 [...] Tablet 10 MG 12:00: et} [facility] AM [facility] EDT [facility]) Lisinopril Lisino .0 active Lisinopr il eCW3 10 MG Oral pril 2013 {tabl 10 MG ([facility] Tablet 10 MG 12:00: et} [facility] 00 AM [facility] EDT [facility]) Lisinopril Lisino .0 active Lisinopr il eCW3 10 MG Oral pril 2013 {tabl 10 MG ([facility] Tablet 10 MG 12:00: et} [facility] 00 AM [facility] EDT [facility]) MetFORMIN MetFOR 1.0 active MetFORMIN e CW3 HCl ER 500 MIN {tabl HCl ER 500 ([facility] mg HCl ER et_wi mg [facility] 500 mg th_ Health ening Care) _meal } 24 HR MetFOR 1.0 active MetFORMIN eCW3 Metformin MIN {tabl HCl ER 500 ([facility] hydrochlori HCl ER et_wi mg [facility] de 500 MG 500 mg [facility] Release _meal Oral Tablet } MetFORMIN HCl ER 500 mg 24 HR MetFOR 1.0 active MetFORMIN eCW3 Metformin MIN {tabl HCl ER 500 ([facility] hydrochlori HCl ER et_wi mg [facility] de 500 MG 500 mg _[facility] Extended ening Care) Release _meal Oral Tablet } MetFORMIN HCl ER 500 mg Insurance Providers Payer name Policy type Policy ID Covered Covered republican's Policy P dina / Coverage republican ID relationship to Patrick Inf ormation type patrick MEDICAID [id number] SP [id number] MEDICARE [id number] SP [id number] MEDICARE [id number] SP [id number] PART B 7 Problems, Conditions, and Diagnoses Code Display Name Description Problem Type Effective Data Sour ce(s) Dates F51.01 Primary insomnia Primary insomnia Problem 09/05/2019 eC W3 ([facility] 12:00:00 AM [facility]) R01.1 Murmur, cardiac Murmur, cardiac Problem 09/04/2019 eCW3 ([facility] 12:00:00 AM [facility] EST Care) N40.1 Benign prostatic Benign prostatic Problem 08/07/2019 eC W3 ([facility] hyperplasia with hyperplasia with 12:00:00 AM [facility] lower urinary tract lower urinary tract EST Care) symptoms symptoms E11.59 Peripheral Controlled type 2 Problem 04/04/2019 eCW3 ([facility] circulatory diabetes mellitus 12:00:00 AM [facility] disorder associated with other EDT Care) with diabetes circulatory mellitus complication, without long-term current use of insulin J45.20 Mild intermittent Mild intermittent Problem 03/22/2019 eCW3 ([facility] asthma without asthma without 12:00:00 AM [facility] complication complication EDT Care) I73.9 Peripheral vascular Arterial Problem 03/01/2018 eCW3 ([facility] disease insufficiency of 12:00:00 AM [facility] lower extremity EDT Care) I73.9 Peripheral vascular Arterial Problem 03/01/2018 eCW3 ([facility] disease insufficiency of 12:00:00 AM [facility] lower extremity EDT Care) L89.90 Pressure sore Pressure sore Problem 03/09/2017 eCW3 ([facility] 12:00:00 AM [facility] EDT Care) B35.1 Onychomycosis Onychomycosis Problem 03/09/2017 eCW3 ([facility] 12:00:00 AM [facility] EDT Care) B35.1 Onychomycosis Onychomycosis Problem 03/09/2017 eCW3 ([facility] 12:00:00 AM [facility] EDT Care) L89.90 Pressure sore Pressure sore Problem 03/09/2017 eCW3 ([facility] 12:00:00 AM [facility] EDT Care) I25.10 Coronary artery CAD (coronary Problem 06/16/2016 eCW3 ( [facility] disease artery disease) 12:00:[address] [facility] alth EDT Care) I25.10 Coronary artery CAD (coronary Problem 06/16/2016 eCW3 ( [facility] disease artery disease) 12:00:[address] 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 11/12/2015 eCW3 ([facility] complication of neurologic 12:00:00 AM [facility] diabetes mellitus complications EDT Care ) I10 Hypertension Hypertension Problem 09/05/2015 eCW3 ([facility] 12:00:00 AM [facility] EST Care) I10 Hypertension Hypertension Problem 09/05/2015 eCW3 ([facility] 12:00:00 AM [facility] EST Care) E11.9 Type 2 diabetes Type 2 diabetes Problem 09/05/2015 eCW3 ([facility] mellitus mellitus 12:00:00 AM [facility] EST Care) 410.90 STEMI (ST elevation STEMI (ST elevation Problem 015 eCW3 ([facility] myocardial myocardial 12:00:00 AM [facility] infarction) infarction) EDT Care) 493.90 Asthma Asthma Problem 01/10/2015 eCW3 ([facility] 12:00:00 AM [facility] EDT Care) V45.82 S/P coronary artery S/P coronary artery Problem 015 eCW3 ([facility] stent placement stent placement 12:00:00 AM [facility] EDT Care) 414.00 CAD (coronary CAD (coronary Problem 07/17/2014 eCW3 ([facility] artery disease) artery disease) 12:00:00 AM [facility] EST Care) Surgeries/Procedures Procedure Description Date Indications Data Source(s) DEBRIDEMENT NAIL ANY 12/08/2018 eCW3 ([facility] METHOD 6/> 12:00:00 AM EDT Health Care) Results ID Date Data Source [id number] 02/19/2020 12:00:00 AM EDT [facility] Name Value Range Interpretation Code Description Data Faith rce(s) Supporting Document(s ) 2018-nCoV [facility] RNA XXX TAO+probe- Imp This lab was ordered by [employer] and reported by [employer] ID Date Data Source [id number] 01/30/2020 12:00:00 AM EDT [facility] Name Value Range Interpretation Code Description Data Faith rce(s) Supporting Document(s ) 2018-nCoV [facility] RNA XXX TAO+probe- Imp This lab was ordered by [employer] and reported by [employer] ID Date Data Source [id number] 01/22/2020 12:00:00 AM EDT [facility] Name Value Range Interpretation Code Description Data Faith rce(s) Supporting Document(s ) 2018-nCoV [facility] RNA XXX TAO+probe- Imp This lab was ordered by [facility] [employer] and reported by [employer] ID Date Data Source [id number] 01/06/2020 12:00:00 AM EDT [facility] Name Value Range Interpretation Code Description Data Faith rce(s) Supporting Document(s ) 2019-nCoV [facility] RNA XXX TAO+probe- Imp This lab was ordered by [facility] and reported by [employer] ID Date Data Source [id number] 01/03/2020 09:50:00 AM EDT [facility] Name Value Range Interpretation Description Data Sup porting Code Source(s) Document(s ) SARS [facility] CORONAVIRUS 2 RNA This lab was ordered by [facility] and reported by [facility]. ID Date Data Source [id number] 01/01/2020 01:30:00 PM EDT [facility] Name Value Range Interpretation Description Data Sup porting Code Source(s) Document(s ) SARS [facility] CORONAVIRUS 2 RNA This lab was ordered by [facility] and reported by [facility]. ID Date Data Source [id number] 12/29/2019 11:10:00 AM EDT [facility] Name Value Range Interpretation Description Data Sup porting Code Source(s) Document(s ) SARS [facility] CORONAVIRUS 2 RNA This lab was ordered by [facility] and reported by [facility]. ID Date Data Source [id number] 12/24/2019 02:00:00 PM EDT [facility] Name Value Range Interpretation Description Data Sup porting Code Source(s) Document(s ) SARS [facility] CORONAVIRUS 2 RNA This lab was ordered by [facility] and reported by [facility]. ID Date Data Source [id number] 12/16/2019 06:45:00 PM EDT [facility] Name Value Range Interpretation Description Data Sup porting Code Source(s) Document(s ) SARS [facility] CORONAVIRUS 2 RNA This lab was ordered by [facility] and reported by [facility]. Procedure Social History Code Duration Value Status Description Data Source(s ) Smoking 09/04/2019 12:00:00 Never Smoker completed Never Smoker e CW3 ([facility]) Smoking 09/04/2019 12:00:00 Never Smoker completed Never Smoker e CW3 ([facility]) Smoking 12/08/2018 12:00:00 Never Smoker completed Never Smoker e CW3 ([facility]) Never Smoker completed Never Smoker eCW3 ([facility]) Never Smoker completed Never Smoker eCW3 ([facility]) Never Smoker completed Never Smoker eCW3 ([facility]) Vital Signs ID Date Data Source UNK Name Value Range Interpretation Code Description Data Source(s) Diastolic blood 62 mm[Hg] 62 mm[Hg] eCW3 ([facility]) Systolic blood 113 mm[Hg] 113 mm[Hg] eCW3 ([facility]) Body temperature 98.2 [degF] 98.2 [degF] eCW3 ( [facility]) Heart rate 18 /min 18 /min eCW3 ([facility]) Body mass index 20.77 kg/m2 20.77 kg/m2 eCW3 ([facility] (BMI) [Ratio] [facility]) Body weight 121.0 121.0 [lb_av] eCW3 ([facility] [lb_av] [facility]) Body height 64 [in_i] 64 [in_i] eCW3 ([facility]) Diastolic blood 58 mm[Hg] 58 mm[Hg] eCW3 ([facility]) Systolic blood 112 mm[Hg] 112 mm[Hg] eCW3 ([facility]) Body temperature 97.6 [degF] 97.6 [degF] eCW3 ( [facility]) Heart rate 20 /min 20 /min eCW3 ([facility]) Body mass index 21.63 kg/m2 21.63 kg/m2 eCW3 ([facility] (BMI) [Ratio] [facility]) Body weight 126 [lb_av] 126 [lb_av] eCW3 ([facility]) Body height 64 [in_i] 64 [in_i] eCW3 ([facility]) Diastolic blood 67 mm[Hg] 67 mm[Hg] eCW3 ([facility]) Systolic blood 125 mm[Hg] 125 mm[Hg] eCW3 ([facility]) Body temperature 98.3 [degF] 98.3 [degF] eCW3 ( [facility]) Heart rate 20 /min 20 /min eCW3 ([facility]) Body weight 120 [lb_av] 120 [lb_av] eCW3 ([facility]) Patient Treatment Plan of Care Planned Activity [...] Loratadine 10 MG Oral 03/22/2019 12:00:00 eCW3 ([facility] Tablet [facility] Health [facility]) 200 ACTUAT Albuterol 0.09 03/22/2019 12:00:00 eCW3 ([facility] MG/ACTUAT Metered Dose AM EDT Healt h Care) Inhaler [Ventolin] Loratadine 10 MG Oral 03/22/2019 12:00:00 eCW3 ([facility] Tablet [facility] Health Care) Multivitamin Adults - 06/08/2017 12:00:00 eCW3 ([facility]) Multivitamin Adults - 06/08/2017 12:00:00 eCW3 ([facility]) Aspirin 81 MG Delayed 10/11/2016 12:00:00 eCW3 ([facility] Release Oral Tablet AM [facility]) Aspirin 81 MG Delayed 10/11/2016 12:00:00 eCW3 ([facility] Release Oral Tablet [facility]) atorvastatin 20 MG Oral 02/28/2015 12:00:00 eCW3 ([facility] Tablet [facility]) atorvastatin 20 MG Oral 02/28/2015 12:00:00 eCW3 ([facility] Tablet [facility]) Lisinopril 10 MG Oral 04/11/2014 12:00:00 eCW3 ([facility] Tablet [facility]) Lisinopril 10 MG Oral 04/11/2014 12:00:00 eCW3 ([facility] Tablet [facility]) MetFORMIN HCl ER 500 mg eCW3 ([facility]) 24 HR Metformin eCW3 ([facility] hydrochloride 500 MG [facility]) Extended Release Oral Tablet
[2020-05-06 18:44] LABS: TARGET CELLS 1+
[2020-05-06] MEDS ORDERED: METOPROLOL TARTRATE 25 MG TABLET (FP) ONE (20:28)
[2020-05-06] MEDS ORDERED: ASCORBIC ACID 500 MG TABLET (FP) ONE (20:28)
[2020-05-06] MEDS ORDERED: TAMSULOSIN HCL 0.4 MG CAP ONE (20:29)
[2020-05-06] MEDS ORDERED: FERROUS SO4 325 MG TABLET (FP) ONE (20:30)
[2020-05-06] MEDS: SODIUM ZIRCONIUM CYCLOSILICATE (LOKELMA) 5 GM PACKET PO SCH (20:50)
[2020-05-06] MEDS: FERROUS SO4 325 MG TABLET (FP) PO SCH (20:51)
[2020-05-06] MEDS: TAMSULOSIN HCL 0.4 MG CAP PO SCH (20:51)
[2020-05-06] MEDS: ASCORBIC ACID 500 MG TABLET (FP) PO SCH (21:20)
[2020-05-06] MEDS: METOPROLOL TARTRATE 25 MG TABLET (FP) PO SCH (21:20)
[2020-05-06] MEDS ORDERED: PANTOPRAZOLE 40 MG TABLET ONE (21:25)
[2020-05-06] MEDS ORDERED: ATORVASTATIN CA 20 MG TABLET (FP) ONE (21:25)
[2020-05-06] MEDS: DEXTROSE 5%-0.45% SALINE 1,000 ML IV SCH (21:59)
[2020-05-06] MEDS: ATORVASTATIN CA 20 MG TABLET (FP) PO SCH (22:00)
[2020-05-06] MEDS: BUDESONIDE/FORMETEROL FUMARATE 80/4.5 mcg INHALER IH SCH (22:00)
[2020-05-06] MEDS: PANTOPRAZOLE 40 MG TABLET PO SCH (22:00)
[2020-05-07 00:18] LABS: BLOOD UREA NITROGEN 34.9 mg/dL (7-18); CALCIUM 8.2 mg/dL (8.5-10.1); CREATININE 1.6 mg/dL (0.55-1.3); POTASSIUM 4.9 mmol/L (3.5-5.1)
[2020-05-07 02:13] VITALS: BMI 20.6
--- NOTE | 2020-05-07 07:57 | HP ---
Admitting History and Physical - Admission History of Present Illness: 85 year old male with a significant past medical history of CAD (s/p cardiac stenting), HTN, DM, HLD, asthma, anemia and GI bleed who presents to the ED BIBA from [facility] for Potassium of 6.3 and Hgb of 5.8. Pt denies any complaints currently. The patient denies chest pain, shortness of breath, headache and dizziness. Denies fever, chills, cough, nausea, vomiting, diarrhea and constipation. Denies dysuria, frequency, urgency and hematuria. - Past Medical History Cardiovascular: Yes: CAD, HTN, Hyperlipdemia, [place] Pulmonary: Yes: Asthma Endocrine: Yes: Diabetes Mellitus - Past Surgical History Past Surgical History: Yes: Hernia Repair (umbilical) - Smoking History Smoking history: Unknown if ever smoked Have you smoked in the past 12 months: No Aproximately how many cigarettes per day: 0 - Alcohol/Substance Use Hx Alcohol Use: No History of Substance Use: reports: None - Social History ADL: Independent History of Recent Travel: No Home Medications - Allergies Allergies/Adverse Reactions: Allergies Allergy/AdvReac Type Severity Reaction Status Date / Time No Known Allergies Allergy Verified 05/06/20 14:20 - Home Medications Home Medications: Ambulatory Orders Aspirin [ASA -] 81 mg PO DAILY 10/23/15 metFORMIN HCL [Metformin HCl] 500 mg PO DAILY 10/23/15 Atorvastatin Calcium 20 mg PO HS 09/25/19 Hydroxyzine HCl 25 mg PO DAILY 09/25/19 Lisinopril 10 mg PO DAILY 09/25/19 Tamsulosin HCl 0.4 mg PO DAILY 09/25/19 Albuterol Sulfate Inhaler - [Ventolin HFA Inhaler -] 2 puff IH Q4H PRN #1 inhaler 09/27/19 Ascorbic Acid [Vitamin C -] 1,000 mg PO BID tablet 01/04/20 Budesonide/Formeterol Fumarate [SYMBICORT 80/4.5mcg -] 2 puff IH BID 30 Days #1 inhaler 01/04/20 Cholecalciferol (Vitamin D3) [Vitamin D3 -] 1,000 unit PO DAILY tab 01/04/20 Ferrous Sulfate [Feosol] 325 mg PO BIDWM #60 ud 01/04/20 Metoprolol Tartrate [Lopressor -] 25 mg PO BID #60 tablet 01/04/20 Pantoprazole Sodium [Protonix -] 40 mg PO BID #60 tablet.ec 01/04/20 Zinc Sulfate [Orazinc -] 220 mg PO BID capsule 01/04/20 Review of Systems - Review of Systems Cardiovascular: reports: No Symptoms Respiratory: reports: No Symptoms Gastrointestinal: reports: No Symptoms. denies: Abdominal Pain, Nausea, Rectal Bleeding Physical Examination Vital Signs: Vital Signs Temperature 98.2 F 05/07/20 05:00 Pulse Rate 52 L 05/07/20 05:00 Respiratory Rate 18 05/07/20 05:00 Blood Pressure 120/54 L 05/07/20 05:00 O2 Sat by Pulse Oximetry (%) 98 05/07/20 05:00 Cardiovascular: Yes: Regular Rate and Rhythm Respiratory: Yes: Regular, CTA Bilaterally Gastrointestinal: Yes: Normal Bowel Sounds, Soft. No: Tenderness Edema: No Labs: CBC, BMP 05/06/20 14:45 05/06/20 23:25 Problem List - Problems (1) CAD (coronary artery disease) Assessment/Plan: HOLD ASA DUE TO ANEMIA RESUME OTHER MEDS ASYMPTOMATIC Code(s): I25.10 - ATHSCL HEART DISEASE OF [place] CORONARY ARTERY W/O ANG PCTRS (2) ASHLI (acute kidney injury) Assessment/Plan: Laboratory Tests 05/06/20 05/06/20 05/06/20 14:45 16:45 23:25 Potassium 8.3 H* 5.8 H 4.9 BUN 40.6 H 40.4 H 34.9 H Creatinine 1.8 H 1.7 H 1.6 H 05/07/20 07:10 Potassium 4.9 BUN 31.3 H Creatinine 1.5 H FOLLOW LABS RENAL CONSULT Code(s): N17.9 - ACUTE KIDNEY FAILURE, UNSPECIFIED (3) Anemia Assessment/Plan: TRANSFUSE PRBS PPI HOLD ASA MONITOR TRENDS GI CONSULT Code(s): D64.9 - ANEMIA, UNSPECIFIED (4) Hyperkalemia Code(s): E87.5 - HYPERKALEMIA
[2020-05-07 08:53] LABS: BILIRUBIN,TOTAL 0.6 mg/dL (0.2-1); BLOOD UREA NITROGEN 31.3 mg/dL (7-18); CALCIUM 8.1 mg/dL (8.5-10.1); CREATININE 1.5 mg/dL (0.55-1.3); MAGNESIUM 2.1 mg/dL (1.8-2.4); POTASSIUM 4.9 mmol/L (3.5-5.1); TOT PROT 5.6 g/dl (6.4-8.2)
[2020-05-07] MEDS: ASCORBIC ACID 500 MG TABLET (FP) PO SCH ×2 (09:10→21:19)
[2020-05-07] MEDS: FERROUS SO4 325 MG TABLET (FP) PO SCH ×2 (09:10→17:38)
[2020-05-07] MEDS: TAMSULOSIN HCL 0.4 MG CAP PO SCH (09:10)
[2020-05-07] MEDS: METOPROLOL TARTRATE 25 MG TABLET (FP) PO SCH ×2 (09:10→21:18)
[2020-05-07] MEDS: PANTOPRAZOLE 40 MG TABLET PO SCH ×2 (09:10→21:00)
[2020-05-07] MEDS: CHOLECALCIFEROL (VIT D3) 1,000 UNIT (25 MCG) TABLET PO SCH (09:10)
[2020-05-07] MEDS: BUDESONIDE/FORMETEROL FUMARATE 80/4.5 mcg INHALER IH SCH ×2 (09:11→21:00)
--- NOTE | 2020-05-07 09:59 | EKG ---
Test Reason : Blood Pressure : / mmHG Vent. Rate : 053 BPM Atrial Rate : 053 BPM P-R Int : 268 ms QRS Dur : 086 ms QT Int : 416 ms P-R-T Axes : 077 084 060 degrees QTc Int : 390 ms SINUS BRADYCARDIA WITH 1ST DEGREE A-V BLOCK OTHERWISE NORMAL ECG WHEN COMPARED WITH ECG OF 06-MAY-2020 14:31, NO SIGNIFICANT CHANGE WAS FOUND Confirmed by Darci Cali ([id number]) on 05/07/2020 9:58:28 AM Referred By: Confirmed By:Darci Cali
[2020-05-07] MEDS ORDERED: LISINOPRIL 10 MG TABLET PO SCH (10:00)
--- NOTE | 2020-05-07 10:02 | EKG ---
Test Reason : Blood Pressure : / mmHG Vent. Rate : 056 BPM Atrial Rate : 056 BPM P-R Int : 232 ms QRS Dur : 092 ms QT Int : 396 ms P-R-T Axes : 062 065 048 degrees QTc Int : 382 ms SINUS BRADYCARDIA WITH 1ST DEGREE A-V BLOCK OTHERWISE NORMAL ECG WHEN COMPARED WITH ECG OF 29-DEC-2019 21:16, [place] INTERVAL HAS INCREASED Confirmed by Darci Cali ([id number]) on 05/07/2020 10:02:28 AM Referred By: Confirmed By:Darci Cali
[2020-05-07 10:19] LABS: BASO % 2.6 % (0-2.0); EOS % 11.7 % (0-4.5); HEMATOCRIT 21.3 % (35.4-49); LYMPH % 33.6 % (8-40); MCH 25.8 pg (25.7-33.7); MCHC 31.5 g/dl (32.0-35.9); MEAN CELL VOLUME 81.9 fl (80-96); MEAN PLT VOLUME 11.1 fl (7.5-11.1); MONO % 10.7 % (3.8-10.2); NEUT % 41.4 % (42.8-82.8); PLATELET COUNT 144 K/MM3 (134-434); RBC 2.61 M/mm3 (4.00-5.60); RDW 20.7 % (11.9-15.9); WHITE BLOOD COUNT 3.2 K/mm3 (4.0-10.0)
[2020-05-07 10:23] LABS: HEMOGLOBIN 6.7 GM/dL (11.7-16.9)
[2020-05-07] MEDS ORDERED: FUROSEMIDE 40 MG/4 ML INJECTABLE VIAL IVPUSH ONE (10:45)
--- NOTE | 2020-05-07 11:44 | PN ---
Progress Note (short form) - Note Progress Note: GI CONSULT DICTATED CLEAR LIQUID DIET PPI HOLD ASA TRANSFUSE TO HG OF 9 CARDIOLOGY EVALUATION TENTATIVE NPO MIDNIGHT FOR EGD TUESDAY PENDING COVID 19 TESTING RESULTS
[2020-05-07] MEDS: SODIUM ZIRCONIUM CYCLOSILICATE (LOKELMA) 5 GM PACKET PO SCH (11:55)
--- NOTE | 2020-05-07 12:20 | CONSULT ---
Consultation: REQUESTING PROVIDER: Dr. Francis CONSULT REQUEST: We have been asked to medically evaluate this patient for Anemia. HISTORY OF PRESENT ILLNESS: 84 M PMH CAD (MD s/p stents), HFpEF, HLD, HTN, Dementia, Asthma, DM, Chronic Anemia who presents from [facility] for K+ 6.3, Hgb 5.8. Patient is a Poor hi storian thus majority of the Hx and HPI are obtained from chart review. Recently admitted to [facility] in 01/01 for Covid PNA and found to have Microcytic Anemia (Previous baseline 9.7) with component of Iron Deficiency and required 5u PRBC transfusions but has not followed with GI since discharge. During this visit his home dose ASA/AC were stopped however patient has been taking ASA at SNF. In the ED during this visit, patient found to have Hgb 6.3, ASHLI. Potassium was treated medically, ASHLI improving. Hematology consulted for Anemia now being transfused a total of 3u prbc. Currently Asymptomatic and denies any complaints. Denies any fevers, chills chest pain, SOB, Nausea, vomiting, diarrhea, constipation, dysuria, hematuria. PMHx: As per HPI PSHx: Umbilical hernia Repair Social Hx: Denies Tobacco and Drug use; Occasional EtOH consumption FHx: Unable to obtain REVIEW OF SYSTEMS: As per HPI PHYSICAL EXAMINATION Vital Signs Temperature 98 F 05/07/20 10:09 Pulse Rate 59 L 05/07/20 10:09 Respiratory Rate 18 05/07/20 10:09 Blood Pressure 123/65 05/07/20 10:09 O2 Sat by Pulse Oximetry (%) 95 05/07/20 10:09 GENERAL: A&Ox3, NAD HEAD: NCAT EYES: PERRL, EOMI ENT: Moist mucous membranes NECK: Supple, No JVD LUNGS: Diminished breath sounds at the bases, No Wheezes HEART: Regular rate and rhythm, normal S1 and S2 without murmur ABDOMEN: Soft, nontender, not distended, + bowel sounds, no guarding, no rebound MUSCULOSKELETAL: No CVA tenderness. EXTREMITIES: No peripheral edema. NEUROLOGICAL: Cranial nerves II-XII intact. Normal speech SKIN: Warm, dry RECTAL: Refused Laboratory Last Values WBC 3.2 K/mm3 (4.0-10.0) L 05/07/20 07:10 RBC 2.61 M/mm3 (4.00-5.60) L 05/07/20 07:10 Hgb 6.7 GM/dL (11.7-16.9) L* 05/07/20 07:10 Hct 21.3 % (35.4-49) L 05/07/20 07:10 MCV 81.9 fl (80-96) 05/07/20 07:10 MCH 25.8 pg (25.7-33.7) 05/07/20 07:10 MCHC 31.5 g/dl (32.0-35.9) L 05/07/20 07:10 RDW 20.7 % (11.9-15.9) H 05/07/20 07:10 Plt Count 144 K/MM3 (134-434) D 05/07/20 07:10 MPV 11.1 fl (7.5-11.1) 05/07/20 07:10 Absolute Neuts (auto) 1.3 K/mm3 (1.5-8.0) L 05/07/20 07:10 Neutrophils % 41.4 % (42.8-82.8) L D 05/07/20 07:10 Neutrophils % (Manual) 36.1 % (42.8-82.8) L D 05/06/20 14:45 Band Neutrophils % 2.1 % 05/06/20 14:45 Lymphocytes % 33.6 % (8-40) D 05/07/20 07:10 Lymphocytes % (Manual) 29.9 % (8-40) D 05/06/20 14:45 Monocytes % 10.7 % (3.8-10.2) H D 05/07/20 07:10 Monocytes % (Manual) 7 % (3.8-10.2) 05/06/20 14:45 Eosinophils % 11.7 % (0-4.5) H D 05/07/20 07:10 Eosinophils % (Manual) 18.6 % (0-4.5) H D 05/06/20 14:45 Basophils % 2.6 % (0-2.0) H D 05/07/20 07:10 Basophils % (Manual) 1.0 % (0-2.0) D 05/06/20 14:45 Myelocytes % (Man) 0 % (0-2) D 05/06/20 14:45 Promyelocytes % (Man) 0 % (0-2) 05/06/20 14:45 Blast Cells % (Manual) 0 % (0-0) 05/06/20 14:45 Nucleated RBC % 1 % (0-0) H 05/07/20 07:10 Metamyelocytes 0 % (0-2) D 05/06/20 14:45 Hypochromia 1+ 05/06/20 14:45 Platelet Estimate Normal 05/06/20 14:45 Target Cells 1+ 05/06/20 14:45 Fragmented RBCs 1+ 05/06/20 14:45 Retic Count 1.10 % (0.5-1.5) 05/06/20 14:45 PT with INR 12.10 SEC (9.7-13.0) 05/06/20 14:45 INR 1.03 (0.83-1.09) 05/06/20 14:45 PTT (Actin FS) 31.8 SECONDS (25.2-36.5) 05/06/20 14:45 Sodium 140 mmol/L (136-145) 05/07/20 07:10 Potassium 4.9 mmol/L (3.5-5.1) 05/07/20 07:10 Chloride 111 mmol/L (98-107) H 05/07/20 07:10 Carbon Dioxide 24 mmol/L (21-32) 05/07/20 07:10 Anion Gap 5 MMOL/L (8-16) L 05/07/20 07:10 BUN 31.3 mg/dL (7-18) H 05/07/20 07:10 Creatinine 1.5 mg/dL (0.55-1.3) H 05/07/20 07:10 Est GFR (CKD-EPI)AfAm 48.50 05/07/20 07:10 Est GFR (CKD-EPI)NonAf 41.85 05/07/20 07:10 Random Glucose 116 mg/dL (74-106) H 05/07/20 07:10 Calcium 8.1 mg/dL (8.5-10.1) L 05/07/20 07:10 Magnesium 2.1 mg/dL (1.8-2.4) 05/07/20 07:10 Iron 120 ug/dL (50-175) 05/06/20 14:45 TIBC 261 ug/dL (250-450) 05/06/20 14:45 Iron Saturation 45 % (17.5-39) H 05/06/20 14:45 Unsaturated IBC 141 ug/dL (200-275) L 05/06/20 14:45 Total Bilirubin 0.6 mg/dL (0.2-1) 05/07/20 07:10 AST 9 U/L (15-37) L 05/07/20 07:10 ALT 17 U/L (13-61) 05/07/20 07:10 Alkaline Phosphatase 50 U/L (45-117) 05/07/20 07:10 Creatine Kinase 190 U/L (26-308) 05/06/20 14:45 Creatine Kinase Index 0.9 % (0.0-5.0) 05/06/20 14:45 CK-MB (CK-2) 1.8 ng/mL (0.5-3.6) 05/06/20 14:45 Troponin I < 0.02 ng/ml (0.00-0.05) 05/06/20 14:45 Total Protein 5.6 g/dl (6.4-8.2) L 05/07/20 07:10 Albumin 3.0 g/dl (3.4-5.0) L 05/07/20 07:10 TSH 0.57 uIU/ml (0.358-3.74) D 05/07/20 07:10 Stool Occult Blood Negative (NEGATIVE) 05/06/20 14:45 Blood Type O POSITIVE 05/06/20 16:30 Antibody Screen Negative 05/06/20 16:30 Crossmatch See Detail 05/06/20 16:30 Active Medications Acetaminophen (Tylenol -) 650 mg PO Q4H PRN PRN Reason: FEVER OR PAIN 1-10 Albuterol Sulfate (Ventolin Hfa Inhaler -) 2 puff IH Q4H PRN PRN Reason: ASTHMA Ascorbic Acid (Vitamin C -) 1,000 mg PO BID [facility] Last Admin: 05/07/20 09:10 Dose: 1,000 mg Documented by: Atorvastatin Calcium (Lipitor -) 20 mg PO HS [facility] Last Admin: 05/06/20 22:00 Dose: 20 mg Documented by: Budesonide/Formoterol Fumarate (Symbicort 80/4.5mcg -) 2 puff IH BID [facility] Last Admin: 05/07/20 09:11 Dose: 2 puff Documented by: Cholecalciferol (Vitamin D3 -) 1,000 unit PO DAILY [facility] Last Admin: 05/07/20 09:10 Dose: 1,000 unit Documented by: Ferrous Sulfate (Feosol -) 325 mg PO BIDWM [facility] Last Admin: 05/07/20 09:10 Dose: 325 mg Documented by: Hydroxyzine Pamoate (Vistaril -) 25 mg PO HS PRN PRN Reason: INSOMNIA Dextrose/Sodium Chloride (D5-1/2ns -) 1,000 mls @ 75 mls/hr IV ASDIR [facility] Last Admin: 05/06/20 21:59 Dose: 75 mls/hr Documented by: Metoprolol Tartrate (Lopressor -) 25 mg PO BID [facility] Last Admin: 05/07/20 09:10 Dose: 25 mg Documented by: Pantoprazole Sodium (Protonix -) 40 mg PO BID [facility] Last Admin: 05/07/20 09:10 Dose: 40 mg Documented by: Sodium Zirconium Cyclosilicate (Lokelma) 10 gm PO DAILY [facility] Last Admin: 05/07/20 11:55 Dose: 10 gm Documented by: Tamsulosin HCl (Flomax -) 0.4 mg PO DAILY@0830 [facility] Last Admin: 05/07/20 09:10 Dose: 0.4 mg Documented by: ASSESSMENT/PLAN: 84 M PMH CAD (MD s/p stents), HFpEF, HLD, HTN, Dementia, Asthma, DM, Chronic Anemia requiring Transfusions in the past who presents from [facility] for K+ 6.3, Hgb 5.8. Admitted for Anemia requiring transfusion. #Microcytic Anemia -Unclear Etiology; Will need to r/o Slow UGIB -Bradycardia, otherwise VSS, Coags and Retic count WNL, FOBT Negative, Refused DESIRAE -Transfuse to keep > 8.0 (CAD hx); To have complete 3u pRBC transfusion by this evening -Follow Post transfusion CBC, Check LDH -Hold ASA -PPI -Continue home dose Fesol -GI Consult appreciated; For EGD tenatively -Call placed to family regarding prior Colonoscopy's, FHx, and prior cancer screenings; PEnding return phone call -Daily CBC with diff to trend Eosinophils, Monocytes Dispo: We will continue to follow the patient. Thank you for this consultative opportunity. Visit type - Medication Review Med list reviewed for High Risk Meds patients 65 and older: Yes - Emergency Visit Emergency Visit: Yes ED Registration Date: 05/06/20 Care time: The patient presented to the Emergency Department on the above date and was hospitalized for further evaluation of their emergent condition. - New Patient This patient is new to me today: Yes Date on this admission: 05/07/20 - Critical Care Critical Care patient: No ATTENDING PHYSICIAN STATEMENT I saw and evaluated the patient. I reviewed the resident's note and discussed the case with the resident. I agree with the resident's findings and plan as documented. SUBJECTIVE: OBJECTIVE: ASSESSMENT AND PLAN:
--- NOTE | 2020-05-07 13:10 | CON.NEP ---
Consult Consult Specialty:: Nephrolgy Referred by:: Dr. Rodriguez Reason for Consultation:: Acute kidney injury with hyperkalemia - History of Present Illness Chief Complaint: GI bleed History of Present Illness: This is a 85 year old [place] male with a past medical history significant for CAD s/p PCI, hypertension, hyperlipidemia, DM, asthma who [facility] with abnormal lab values with Hgb of 5.8 and potassium of 6.3 and found to have acute GI bleed and ASHLI with hyperkalemia. K was 8.3 (hemolyized) and repeat was 5.8 on admission. Improved after medical mangement. Seen and examined at the bedside. He is awake and alert. He offers no acute complaints. Denies any N/V/D or hematemesis. Denies any abdominal pain. No shortness of breath or chest pain. Denies fever or chills. No leg swelling. Making urine. - History Source History Provided By: Patient Limitations to Obtaining History: No Limitations - Past Medical History Cardio/Vascular: Yes: CAD, HTN, Hyperlipdemia, [place] Pulmonary: Yes: Asthma Endocrine: Yes: Diabetes Mellitus - Past Surgical History Past Surgical History: Yes: Hernia Repair (umbilical) - Alcohol/Substance Use Hx Alcohol Use: No History of Substance Use: reports: None - Smoking History Smoking history: Unknown if ever smoked Have you smoked in the past 12 months: No Aproximately how many cigarettes per day: 0 - Social History ADL: Independent History of Recent Travel: No Home Medications - Allergies Allergies/Adverse Reactions: Allergies Allergy/AdvReac Type Severity Reaction Status Date / Time No Known Allergies Allergy Verified 05/06/20 14:20 - Home Medications Home Medications: Ambulatory Orders Aspirin [ASA -] 81 mg PO DAILY 10/23/15 metFORMIN HCL [Metformin HCl] 500 mg PO DAILY 10/23/15 Atorvastatin Calcium 20 mg PO HS 09/25/19 Hydroxyzine HCl 25 mg PO DAILY 09/25/19 Lisinopril 10 mg PO DAILY 09/25/19 Tamsulosin HCl 0.4 mg PO DAILY 09/25/19 Albuterol Sulfate Inhaler - [Ventolin HFA Inhaler -] 2 puff IH Q4H PRN #1 inhaler 09/27/19 Ascorbic Acid [Vitamin C -] 1,000 mg PO BID tablet 01/04/20 Budesonide/Formeterol Fumarate [SYMBICORT 80/4.5mcg -] 2 puff IH BID 30 Days #1 inhaler 01/04/20 Cholecalciferol (Vitamin D3) [Vitamin D3 -] 1,000 unit PO DAILY tab 01/04/20 Ferrous Sulfate [Feosol] 325 mg PO BIDWM #60 ud 01/04/20 Metoprolol Tartrate [Lopressor -] 25 mg PO BID #60 tablet 01/04/20 Pantoprazole Sodium [Protonix -] 40 mg PO BID #60 tablet.ec 01/04/20 Zinc Sulfate [Orazinc -] 220 mg PO BID capsule 01/04/20 Family Medical History Family History: Unremarkable Review of Systems - Review of Systems Constitutional: reports: No Symptoms Eyes: reports: No Symptoms HENT: reports: No Symptoms Neck: reports: No Symptoms Cardiovascular: reports: No Symptoms Respiratory: reports: No Symptoms Gastrointestinal: reports: No Symptoms Genitourinary: reports: No Symptoms Musculoskeletal: reports: No Symptoms Integumentary: reports: No Symptoms Neurological: reports: No Symptoms Endocrine: reports: No Symptoms Nephrology Consult - Height Height: 5 ft 6 in - Weight Weight: 58.06 kg - BMI Body Mass Index (BMI): 20.6 - Lab Results CBC,BMP: CBC, BMP 05/07/20 07:10 05/07/20 07:10 Anion Gap: Anion Gap Anion Gap 5 MMOL/L (8-16) L 05/07/20 07:10 - Imaging Chest X-ray: Report Reviewed - Physical Examination Vital Signs: Vital Signs Temperature 98 F 05/07/20 10:09 Pulse Rate 59 L 05/07/20 10:09 Respiratory Rate 18 05/07/20 10:09 Blood Pressure 123/65 05/07/20 10:09 O2 Sat by Pulse Oximetry (%) 95 05/07/20 10:09 Constitutional: Yes: No Distress, Calm Eyes: Yes: Conjunctiva Clear HENT: Yes: Atraumatic Neck: Yes: Supple Cardiovascular: Yes: Regular Rate and Rhythm Respiratory: Yes: Regular, CTA Bilaterally. No: Rales, Rhonchi Gastrointestinal: Yes: Soft. No: Tenderness Extremities: No: Cold, Cool, Cyanosis Edema: No Neurological: Yes: Alert, Oriented Assessment/Plan 85 year old [place] male with a past medical history significant for CAD s/p PCI, hypertension, hyperlipidemia, DM, asthma who [facility] with abnormal lab values with Hgb of 5.8 and potassium of 6.3 and found to have acute GI bleed and ASHLI with hyperkalemia. 1. Acute kidney injury in setting of GI bleed (baseline cr 0.9-1) 2. Acute GI bleed/Suspected Upper GI bleed 3. Hyperkalemia in setting of decreased eGFR 4. Pseudohypocalcemia 5. Hypertension 6. CAD 7. Hyperlipidemia Renal function stable from admission, no overt acidosis or hyperkalemia noted today. There is no emergent indication for renal replacement therapy. Check Urine studies for FeNa, UPCR. Check Renal US. Transfuse as per protcol Start Isotonic saline at 2L daily when not getting blood. Low potassium diet when cleared to eat CK within normal limits. GI follow up, planned for Endoscopy. HOld CARMELA/ARB for now Thank you Will follow. Prashant Mccoy DO
--- NOTE | 2020-05-07 14:52 | PN ---
Progress Note (short form) - Note Progress Note: I have evaluated pt and rev'd the hx,PE,labs, MDM I agree w findings/assessment as documented per Dr Tran's note. My indept findings/recommendations are below. Mr Portillo is readmitted w severe anemia. prior iron panel c/w def and chronic disease. Has been taking FS in [place]. GI w/u planned There are also immature forms reported on diff and currently w mild eosinophilia May have marrow pathology contrib to anemia as well and would send flow cytometry, LDH, monitor diff
--- NOTE | 2020-05-07 14:54 | CON.CARD ---
Consult Reason for Consultation:: Preop eval for EGD colonoscopy - History of Present Illness History of Present Illness: 85 M PMH CAD with remote PCI, HFpEF, HLD, CKD, HTN, Dementia, Asthma, DM, Chronic Anemia transferred from [facility] for K+ 6.3, Hgb 5.8. Admitted to [facility] in 01/01 for Covid PNA and Microcytic Anemia. Echocardiogram 09/2019 Normal LV function. Mild Aortic stenosis Stress test 09/2019 normal perfusion. Had Type II OR ECG sinus mallorie without ST T changes No chest pain or dyspnea. Pt is scheduled for GI workup. - Past Medical History Cardio/Vascular: Yes: CAD, HTN, Hyperlipdemia, [place] Pulmonary: Yes: Asthma Endocrine: Yes: Diabetes Mellitus - Past Surgical History Past Surgical History: Yes: Hernia Repair (umbilical) - Alcohol/Substance Use Hx Alcohol Use: No History of Substance Use: reports: None - Smoking History Smoking history: Unknown if ever smoked Have you smoked in the past 12 months: No Aproximately how many cigarettes per day: 0 - Social History ADL: Independent History of Recent Travel: No Home Medications - Allergies Allergies/Adverse Reactions: Allergies Allergy/AdvReac Type Severity Reaction Status Date / Time No Known Allergies Allergy Verified 05/06/20 14:20 - Home Medications Home Medications: Ambulatory Orders Aspirin [ASA -] 81 mg PO DAILY 10/23/15 metFORMIN HCL [Metformin HCl] 500 mg PO DAILY 10/23/15 Atorvastatin Calcium 20 mg PO HS 09/25/19 Hydroxyzine HCl 25 mg PO DAILY 09/25/19 Lisinopril 10 mg PO DAILY 09/25/19 Tamsulosin HCl 0.4 mg PO DAILY 09/25/19 Albuterol Sulfate Inhaler - [Ventolin HFA Inhaler -] 2 puff IH Q4H PRN #1 inhaler 09/27/19 Ascorbic Acid [Vitamin C -] 1,000 mg PO BID tablet 01/04/20 Budesonide/Formeterol Fumarate [SYMBICORT 80/4.5mcg -] 2 puff IH BID 30 Days #1 inhaler 01/04/20 Cholecalciferol (Vitamin D3) [Vitamin D3 -] 1,000 unit PO DAILY tab 01/04/20 Ferrous Sulfate [Feosol] 325 mg PO BIDWM #60 ud 01/04/20 Metoprolol Tartrate [Lopressor -] 25 mg PO BID #60 tablet 01/04/20 Pantoprazole Sodium [Protonix -] 40 mg PO BID #60 tablet.ec 01/04/20 Zinc Sulfate [Orazinc -] 220 mg PO BID capsule 01/04/20 Family Medical History Family History: Unremarkable Review of Systems - Review of Systems Constitutional: reports: No Symptoms Eyes: reports: No Symptoms HENT: reports: No Symptoms Neck: reports: No Symptoms Cardiovascular: reports: No Symptoms. denies: Chest Pain, Edema, Palpitations, Shortness of Breath Respiratory: reports: No Symptoms Gastrointestinal: reports: No Symptoms Genitourinary: reports: No Symptoms Breasts: reports: No Symptoms Reported Vital Signs: Vital Signs Temperature 97.6 F 05/07/20 13:28 Pulse Rate 50 L 05/07/20 13:28 Respiratory Rate 18 05/07/20 13:28 Blood Pressure 142/64 05/07/20 13:28 O2 Sat by Pulse Oximetry (%) 95 05/07/20 13:28 Constitutional: Yes: Well Nourished, No Distress Eyes: Yes: Conjunctiva Clear, EOM Intact HENT: Yes: Atraumatic, Normocephalic Neck: Yes: Supple, Trachea Midline Respiratory: Yes: Regular, CTA Bilaterally Gastrointestinal: Yes: Normal Bowel Sounds, Soft Cardiovascular: Yes: Regular Rate and Rhythm JVD: No Carotid Bruit: No PMI: Non-Displaced Heart Sounds: Yes: S1, S2 Murmur: No: Systolic Murmur, Diastolic Murmur Edema: No - Other Data Labs, Other Data: CBC, BMP 05/07/20 07:10 05/07/20 07:10 INR, PTT INR 1.03 (0.83-1.09) 05/06/20 14:45 Troponin, BNP 05/06/20 14:45 Troponin I < 0.02 Troponin, BNP 05/06/20 14:45 Troponin I < 0.[address] T changes. Assessment/Plan 85 M PMH CAD with remote PCI, HFpEF, HLD, CKD, HTN, Dementia, Asthma, DM, Chronic Anemia transferred from [facility] for K+ 6.3, Hgb 5.8. Admitted to [facility] in 01/01 for Covid PNA and Microcytic Anemia. Echocardiogram 09/2019 Normal LV function. Mild Aortic stenosis Stress test 09/2019 normal perfusion. Had Type II OR ECG sinus mallorie without ST T changes No chest pain or dyspnea. Pt is scheduled for GI workup. Patient with stable chronic CAD. Stable CKD and no heart failrue. No cardiac contraindication to EGD and colonoscopy. Continue low dose metoprolol. Continue statin Hold antiplatelet therapy. Will see as needed.
--- NOTE | 2020-05-07 16:43 | CONS ---
DATE OF CONSULTATION: DATE OF DICTATION: 05/07/2020 GASTROINTESTINAL CONSULTATION HISTORY OF PRESENT ILLNESS: The patient is an 85-year-old man with a past medical history of CAD, stents, hypertension, diabetes, hyperlipidemia, asthma, anemia, history of GI bleed, admitted to the hospital from the residential facility with a potassium of 6.3 and a hemoglobin of 5.8. As per the patient, he denies any melena, hematochezia, nausea, vomiting, hematemesis, abdominal pain, constipation, or diarrhea. He states he has not had a colonoscopy or upper endoscopy in the past. In our record, there is no report of any endoscopic evaluations at the time. He was however seen in consultation by GI in December for anemia. He was supposed to follow up as an outpatient for endoscopic evaluation. PAST MEDICAL AND SURGICAL HISTORY: As listed in the HPI. ALLERGIES: No known drug allergies. ADDITIONAL SURGICAL HISTORY: Includes a hernia repair. SOCIAL HISTORY: Does not smoke, drink, or use drugs. FAMILY HISTORY: No history of GI or oncological malignancy. HOME MEDICATIONS: Reviewed include: 1. Aspirin. 2. Metformin. 3. Atorvastatin. 4. . 5. Lisinopril. 6. Flomax 7. Albuterol. 8. Vitamin C. 9. Symbicort. 10. Vitamin D. 11. Iron. 12. Lopressor. 13. Protonix. 14. Zinc. REVIEW OF SYSTEMS: As per the HPI. PHYSICAL EXAMINATION: Vital Signs: Temperature 98, pulse 58, respiratory rate 18, blood pressure 120/54, pulse oximetry 98% on room air. General: In no acute distress. Pleasant male. HEENT: Anicteric sclerae. Cardiovascular: S1, S2, regular rate and rhythm. Lungs: Bilaterally clear to auscultation. Abdomen: Soft, nontender. Extremities: No edema. LABORATORY: White blood cell count 3.2, hemoglobin and hematocrit 6.7 over 21, MCV 81, platelet count 144, INR 1, sodium 140, potassium 4.9, BUN over creatinine 31 over 1.5, glucose 116, AST 9, ALT 17. Stool for occult blood is actually negative on the , and COVID-19 testing is pending. There is no imaging performed during this admission. IMPRESSION: Microcytic anemia, stool for occult blood is negative x1. This does not exclude the possibility of occult gastrointestinal bleed in this patient. Differential diagnosis includes an upper gastrointestinal source secondary to gastropathy,nonsteroidal antiinflammatory drugs, peptic ulcer disease or adenocarcinoma. There is no sign of an overt gastrointestinal bleed. He is hemodynamically stable at this time. RECOMMENDATION: Transfuse to hemoglobin of 9, followup COVID-19 testing, optimize from a cardiovascular standpoint. Will plan for diagnostic upper endoscopy this week, and colonoscopy can be done as an outpatient. Will also start him on PPI therapy. Clear liquid diet. If his hemoglobin remains stable, he can be advanced as tolerated to a full liquid diet. Will make him tentatively n.p.o. midnight for potential EGD tomorrow. Will follow. DO RAMONITA WHELAN/[id number] MTDD
[2020-05-07 18:11] LABS: URINE APPEARANCE CLEAR; URINE BILIRUBIN NEGATIVE (NEGATIVE); URINE COLOR YELLOW; URINE GLUCOSE (UA) NEGATIVE (NEGATIVE); URINE KETONE NEGATIVE (NEGATIVE); URINE LEUK ESTERASE NEGATIVE (NEGATIVE); URINE NITRITE NEGATIVE (NEGATIVE); URINE PROTEIN NEGATIVE (NEGATIVE); URINE UROBILINOGEN 0.2 mg/dL (0.2-1.0)
[2020-05-07] MEDS: DEXTROSE 5%-0.45% SALINE 1,000 ML IV SCH (18:40)
[2020-05-07 20:36] LABS: BASO % 1.9 % (0-2.0); EOS % 10.5 % (0-4.5); HEMATOCRIT 31.2 % (35.4-49); HEMOGLOBIN 10.1 GM/dL (11.7-16.9); LYMPH % 24.8 % (8-40); MCH 26.3 pg (25.7-33.7); MCHC 32.4 g/dl (32.0-35.9); MEAN CELL VOLUME 81.3 fl (80-96); MONO % 12.7 % (3.8-10.2); NEUT % 50.1 % (42.8-82.8); RBC 3.83 M/mm3 (4.00-5.60); RDW 18.6 % (11.9-15.9); WHITE BLOOD COUNT 5.1 K/mm3 (4.0-10.0)
[2020-05-07 21:00] LABS: PLATELET COUNT 200 K/MM3 (134-434)
[2020-05-07 21:01] LABS: ANISOCYTOSIS 1+; OVALOCYTE 1+; PLATELET ESTIMATE ADEQUATE; TARGET CELLS FEW; TEAR DROP CELLS 1+
[2020-05-07] MEDS: ATORVASTATIN CA 20 MG TABLET (FP) PO SCH (21:05)
[2020-05-07] MEDS ORDERED: MELATONIN 5 MG TABLETS PO ONE (21:46)
[2020-05-07] MEDS ORDERED: hydrOXYzine PAMOATE 25 MG CAPSULE (FP) PO PRN (22:00)
--- NOTE | 2020-05-08 07:51 | PN ---
Progress Note, Physician - Current Medication List Current Medications: Active Medications Acetaminophen (Tylenol -) 650 mg PO Q4H PRN PRN Reason: FEVER OR PAIN 1-10 Albuterol Sulfate (Ventolin Hfa Inhaler -) 2 puff IH Q4H PRN PRN Reason: ASTHMA Ascorbic Acid (Vitamin C -) 1,[address] [facility] Last Admin: 05/07/20 21:19 Dose: 1,000 mg Documented by: Atorvastatin Calcium (Lipitor -) [address] [facility] Last Admin: 05/07/20 21:05 Dose: 20 mg Documented by: Budesonide/Formoterol Fumarate (Symbicort 80/4.5mcg -) [address] [facility] Last Admin: 05/07/20 21:00 Dose: 2 puff Documented by: Cholecalciferol (Vitamin D3 -) 1,[address] [facility] Last Admin: 05/07/20 09:10 Dose: 1,000 unit Documented by: Ferrous Sulfate (Feosol -) [address] [facility] Last Admin: 05/07/20 17:38 Dose: 325 mg Documented by: Hydroxyzine Pamoate (Vistaril -) 25 mg PO HS PRN PRN Reason: INSOMNIA Dextrose/Sodium Chloride (D5-1/2ns -) 1,000 mls @ 75 mls/hr IV ASDIR [facility] Last Admin: 05/07/20 18:40 Dose: 75 mls/hr Documented by: Metoprolol Tartrate (Lopressor -) [address] [facility] Last Admin: 05/07/20 21:18 Dose: 25 mg Documented by: Pantoprazole Sodium (Protonix -) [address] [facility] Last Admin: 05/07/20 21:00 Dose: 40 mg Documented by: Sodium Zirconium Cyclosilicate (Lokelma) [address] [facility] Last Admin: 05/07/20 11:55 Dose: 10 gm Documented by: Tamsulosin HCl (Flomax -) 0.4 mg PO DAILY@0830 [facility] Last Admin: 05/07/20 09:10 Dose: 0.4 mg Documented by: - Objective Vital Signs: Vital Signs Temperature 98 F 05/08/20 05:22 Pulse Rate 54 L 05/08/20 05:22 Respiratory Rate 18 05/08/20 05:22 Blood Pressure 125/60 05/08/20 05:22 O2 Sat by Pulse Oximetry (%) 97 05/08/20 05:22 Cardiovascular: Yes: S1, S2 Respiratory: Yes: Regular, CTA Bilaterally Gastrointestinal: Yes: Normal Bowel Sounds, Soft. No: Tenderness Labs: INR, PTT INR 1.03 (0.83-1.09) 05/06/20 14:45 Problem List - Problems (1) CAD (coronary artery disease) Assessment/Plan: HOLD ASA DUE TO ANEMIA RESUME OTHER MEDS ASYMPTOMATIC Code(s): I25.10 - ATHSCL HEART DISEASE OF [place] CORONARY ARTERY W/O ANG PCTRS (2) ASHLI (acute kidney injury) Assessment/Plan: Laboratory Tests 05/06/20 05/06/20 05/06/20 14:45 16:45 23:25 Potassium 8.3 H* 5.8 H 4.9 BUN 40.6 H 40.4 H 34.9 H Creatinine 1.8 H 1.7 H 1.6 H 05/07/20 07:10 Potassium 4.9 BUN 31.3 H Creatinine 1.5 H FOLLOW LABS RENAL CONSULT APPRECIATED Code(s): N17.9 - ACUTE KIDNEY FAILURE, UNSPECIFIED (3) Anemia Assessment/Plan: TRANSFUSE PRBS PPI HOLD ASA MONITOR TRENDS GI CONSULT Abnormal Lab Results 05/06/20 05/07/20 05/07/20 16:30 13:22 17:00 RBC Hgb Hct MCV RDW MPV Monocytes % Monocytes % (Manual) Eosinophils % Eosinophils % (Manual) Basophils % Nucleated RBC % Chloride Anion Gap BUN Creatinine Calcium AST Total Protein Albumin Ur Specific [place] 1.009 L U Random Total Protein 15.3 H Crossmatch See Detail 05/07/20 05/08/20 05/08/20 20:25 07:13 07:13 RBC 3.83 L 3.37 L Hgb 10.1 L 8.7 L Hct 31.2 L D 26.3 L D MCV 78.1 L RDW 18.6 H 19.2 H MPV 13.0 H D 12.1 H Monocytes % 12.7 H 11.1 H Monocytes % (Manual) 13 H Eosinophils % 10.5 H 13.5 H Eosinophils % (Manual) 7.0 H 12.4 H Basophils % 2.7 H Nucleated RBC % 1 H 1 H Chloride 113 H Anion Gap 5 L BUN 31.7 H Creatinine 1.5 H Calcium 8.1 L AST 14 L Total Protein 5.9 L Albumin 3.1 L Ur Specific [place] U Random Total Protein Crossmatch Code(s): D64.9 - ANEMIA, UNSPECIFIED (4) Hyperkalemia Code(s): E87.5 - HYPERKALEMIA
[2020-05-08 07:56] LABS: BASO % 2.7 % (0-2.0); EOS % 13.5 % (0-4.5); HEMATOCRIT 26.3 % (35.4-49); HEMOGLOBIN 8.7 GM/dL (11.7-16.9); LYMPH % 21.3 % (8-40); MCH 25.7 pg (25.7-33.7); MCHC 32.9 g/dl (32.0-35.9); MEAN CELL VOLUME 78.1 fl (80-96); MEAN PLT VOLUME 12.1 fl (7.5-11.1); MONO % 11.1 % (3.8-10.2); NEUT % 51.4 % (42.8-82.8); PLATELET COUNT 183 K/MM3 (134-434); RBC 3.37 M/mm3 (4.00-5.60); RDW 19.2 % (11.9-15.9); WHITE BLOOD COUNT 4.2 K/mm3 (4.0-10.0)
[2020-05-08 08:22] LABS: ALBUMIN 3.1 g/dl (3.4-5.0); BLOOD UREA NITROGEN 31.7 mg/dL (7-18); CALCIUM 8.1 mg/dL (8.5-10.1); CREATININE 1.5 mg/dL (0.55-1.3); PHOSPHOROUS 4.2 mg/dL (2.5-4.9); POTASSIUM 4.5 mmol/L (3.5-5.1); TOT PROT 5.9 g/dl (6.4-8.2)
[2020-05-08 08:25] LABS: BILIRUBIN,TOTAL 0.7 mg/dL (0.2-1)
[2020-05-08 10:06] LABS: ANISOCYTOSIS 2+; OVALOCYTE 2+; PLATELET ESTIMATE NORMAL; TARGET CELLS 2+
[2020-05-08] MEDS: METOPROLOL TARTRATE 25 MG TABLET (FP) PO SCH ×2 (10:48→21:22)
[2020-05-08] MEDS: SODIUM ZIRCONIUM CYCLOSILICATE (LOKELMA) 5 GM PACKET PO SCH (10:48)
[2020-05-08] MEDS: TAMSULOSIN HCL 0.4 MG CAP PO SCH (10:48)
[2020-05-08] MEDS: CHOLECALCIFEROL (VIT D3) 1,000 UNIT (25 MCG) TABLET PO SCH (10:48)
[2020-05-08] MEDS: PANTOPRAZOLE 40 MG TABLET PO SCH ×2 (10:48→21:21)
[2020-05-08] MEDS: BUDESONIDE/FORMETEROL FUMARATE 80/4.5 mcg INHALER IH SCH ×2 (10:49→21:22)
[2020-05-08] MEDS: FERROUS SO4 325 MG TABLET (FP) PO SCH ×2 (10:49→17:31)
[2020-05-08] MEDS: ASCORBIC ACID 500 MG TABLET (FP) PO SCH ×2 (10:49→21:21)
--- NOTE | 2020-05-08 11:56 | PN ---
Progress Note, Physician History of Present Illness: Seen and examined at the bedside awake and alert, offers no acute complaints Nurse reports he was confused overnight s/p 2 PRBC yesterday IV fluids held overnight as pt lost IV access making urine COVID PCR pending - Current Medication List Current Medications: Active Medications Acetaminophen (Tylenol -) 650 mg PO Q4H PRN PRN Reason: FEVER OR PAIN 1-10 Albuterol Sulfate (Ventolin Hfa Inhaler -) 2 puff IH Q4H PRN PRN Reason: ASTHMA Ascorbic Acid (Vitamin C -) 1,000 mg PO BID [facility] Last Admin: 05/08/20 10:49 Dose: 1,000 mg Documented by: Atorvastatin Calcium (Lipitor -) 20 mg PO HS [facility] Last Admin: 05/07/20 21:05 Dose: 20 mg Documented by: Budesonide/Formoterol Fumarate (Symbicort 80/4.5mcg -) 2 puff IH BID [facility] Last Admin: 05/08/20 10:49 Dose: 2 puff Documented by: Cholecalciferol (Vitamin D3 -) 1,000 unit PO DAILY [facility] Last Admin: 05/08/20 10:48 Dose: 1,000 unit Documented by: Ferrous Sulfate (Feosol -) 325 mg PO BIDWM [facility] Last Admin: 05/08/20 10:49 Dose: 325 mg Documented by: Hydroxyzine Pamoate (Vistaril -) 25 mg PO HS PRN PRN Reason: INSOMNIA Dextrose/Sodium Chloride (D5-1/2ns -) 1,000 mls @ 75 mls/hr IV ASDIR [facility] Last Admin: 05/07/20 18:40 Dose: 75 mls/hr Documented by: Metoprolol Tartrate (Lopressor -) 25 mg PO BID [facility] Last Admin: 05/08/20 10:48 Dose: 25 mg Documented by: Pantoprazole Sodium (Protonix -) 40 mg PO BID [facility] Last Admin: 05/08/20 10:48 Dose: 40 mg Documented by: Sodium Zirconium Cyclosilicate (Lokelma) 10 gm PO DAILY [facility] Last Admin: 05/08/20 10:48 Dose: 10 gm Documented by: Tamsulosin HCl (Flomax -) 0.4 mg PO DAILY@0830 [facility] Last Admin: 05/08/20 10:48 Dose: 0.4 mg Documented by: - Objective Vital Signs: Vital Signs Temperature 98.2 F 05/08/20 10:40 Pulse Rate 58 L 05/08/20 10:40 Respiratory Rate 18 05/08/20 10:40 Blood Pressure 120/62 05/08/20 10:40 O2 Sat by Pulse Oximetry (%) 96 05/08/20 10:40 Constitutional: Yes: No Distress HENT: Yes: Atraumatic Neck: Yes: Supple Cardiovascular: Yes: Regular Rate and Rhythm Respiratory: Yes: Regular, CTA Bilaterally Gastrointestinal: Yes: Soft Extremities: No: Cyanosis Edema: No Neurological: Yes: Alert Labs: CBC, BMP 05/08/20 07:13 05/08/20 07:13 INR, PTT INR 1.03 (0.83-1.09) 05/06/20 14:45 Assessment/Plan 85 year old [place] male with a past medical history significant for CAD s/p PCI, hypertension, hyperlipidemia, DM, asthma who presented from the [place] with abnormal lab values with Hgb of 5.8 and potassium of 6.3 and found to have acute GI bleed and ASHLI with hyperkalemia. 1. Acute kidney injury in setting of GI bleed (baseline cr 0.9-1) 2. Acute GI bleed/Suspected Upper GI bleed 3. Hyperkalemia in setting of decreased eGFR 4. Pseudohypocalcemia 5. Hypertension 6. CAD 7. Hyperlipidemia Renal function stable. FeNa is 1.1%, UPCR is unremarkable. Transfuse as per protcol Continue Isotonic saline at 2L daily when not getting blood. Clear liquid diet as per GI. CK within normal limits. GI follow up, planned for Endoscopy. HOld CARMELA/ARB for now Thank you Will follow. Prashant Mccoy DO
--- NOTE | 2020-05-08 17:11 | PN ---
Teaching Attending Note Name of Resident: Ellie Tran ATTENDING PHYSICIAN STATEMENT I saw and evaluated the patient. I reviewed the resident's note and discussed the case with the resident. I agree with the resident's findings and plan as documented. 85M with CAD s/p stents, HTN, DM, asthma, GIB presents from [place] for hyperkalemia and hb 5.8; known GALI and anemia of chronic dz; planning GI workup. Patient may need bone marrow biopsy in future as he has eosinophilia and basophilia
[2020-05-08] MEDS: DEXTROSE 5%-0.45% SALINE 1,000 ML IV SCH (17:31)
--- NOTE | 2020-05-08 17:39 | PN ---
Physical Exam: SUBJECTIVE: Patient seen and examined this AM. No new complaints. OBJECTIVE: Vital Signs Period Temp Pulse Resp BP Sys/Andersen Pulse Ox Last 24 Hr 97.9 F-98.5 F 47-58 18-18 120-160/59-71 95-97 GENERAL: A&Ox3, NAD HEAD: NCAT EYES: PERRL, EOMI ENT: Moist mucous membranes NECK: Supple, No JVD LUNGS: Diminished breath sounds at the bases, No Wheezes HEART: Regular rate and rhythm, normal S1 and S2 without murmur ABDOMEN: Soft, nontender, not distended, + bowel sounds, no guarding, no rebound MUSCULOSKELETAL: No CVA tenderness. EXTREMITIES: No peripheral edema. NEUROLOGICAL: Cranial nerves II-XII intact. Normal speech SKIN: Warm, dry Laboratory Last Values WBC 4.2 K/mm3 (4.0-10.0) 05/08/20 07:13 RBC 3.37 M/mm3 (4.00-5.60) L 05/08/20 07:13 Hgb 8.7 GM/dL (11.7-16.9) L 05/08/20 07:13 Hct 26.3 % (35.4-49) L D 05/08/20 07:13 MCV 78.1 fl (80-96) L 05/08/20 07:13 MCH 25.7 pg (25.7-33.7) 05/08/20 07:13 MCHC 32.9 g/dl (32.0-35.9) 05/08/20 07:13 RDW 19.2 % (11.9-15.9) H 05/08/20 07:13 Plt Count 183 K/MM3 (134-434) 05/08/20 07:13 MPV 12.1 fl (7.5-11.1) H 05/08/20 07:13 Absolute Neuts (auto) 2.2 K/mm3 (1.5-8.0) 05/08/20 07:13 Total Counted 100 05/07/20 20:25 Neutrophils % 51.4 % (42.8-82.8) 05/08/20 07:13 Neutrophils % (Manual) 52.6 % (42.8-82.8) 05/08/20 07:13 Band Neutrophils % 0.0 % 05/08/20 07:13 Lymphocytes % 21.3 % (8-40) 05/08/20 07:13 Lymphocytes % (Manual) 20.6 % (8-40) D 05/08/20 07:13 Monocytes % 11.1 % (3.8-10.2) H 05/08/20 07:13 Monocytes % (Manual) 13 % (3.8-10.2) H 05/08/20 07:13 Eosinophils % 13.5 % (0-4.5) H 05/08/20 07:13 Eosinophils % (Manual) 12.4 % (0-4.5) H 05/08/20 07:13 Basophils % 2.7 % (0-2.0) H 05/08/20 07:13 Basophils % (Manual) 1.0 % (0-2.0) 05/08/20 07:13 Myelocytes % (Man) 0 % (0-2) 05/08/20 07:13 Promyelocytes % (Man) 0 % (0-2) 05/08/20 07:13 Blast Cells % (Manual) 0 % (0-0) 05/08/20 07:13 Nucleated RBC % 1 % (0-0) H 05/08/20 07:13 Metamyelocytes 0 % (0-2) 05/08/20 07:13 Hypochromia 0 05/08/20 07:13 Platelet Estimate Normal 05/08/20 07:13 Platelet Comment No clumping noted 05/07/20 20:25 Polychromasia 0 05/08/20 07:13 Poikilocytosis 2+ 05/08/20 07:13 Anisocytosis 2+ 05/08/20 07:13 Microcytosis 2+ 05/08/20 07:13 Target Cells 2+ 05/08/20 07:13 Tear Drop Cells 1+ 05/07/20 20:25 Ovalocytes 2+ 05/08/20 07:13 Fragmented RBCs 2+ 05/08/20 07:13 Retic Count 1.10 % (0.5-1.5) 05/06/20 14:45 PT with INR 12.10 SEC (9.7-13.0) 05/06/20 14:45 INR 1.03 (0.83-1.09) 05/06/20 14:45 PTT (Actin FS) 31.8 SECONDS (25.2-36.5) 05/06/20 14:45 Sodium 141 mmol/L (136-145) 05/08/20 07:13 Potassium 4.5 mmol/L (3.5-5.1) 05/08/20 07:13 Chloride 113 mmol/L (98-107) H 05/08/20 07:13 Carbon Dioxide 23 mmol/L (21-32) 05/08/20 07:13 Anion Gap 5 MMOL/L (8-16) L 05/08/20 07:13 BUN 31.7 mg/dL (7-18) H 05/08/20 07:13 Creatinine 1.5 mg/dL (0.55-1.3) H 05/08/20 07:13 Est GFR (CKD-EPI)AfAm 48.50 05/08/20 07:13 Est GFR (CKD-EPI)NonAf 41.85 05/08/20 07:13 Random Glucose 93 mg/dL (74-106) 05/08/20 07:13 Calcium 8.1 mg/dL (8.5-10.1) L 05/08/20 07:13 Phosphorus 4.2 mg/dL (2.5-4.9) 05/08/20 07:13 Magnesium 2.0 mg/dL (1.8-2.4) 05/08/20 07:13 Iron 120 ug/dL (50-175) 05/06/20 14:45 TIBC 261 ug/dL (250-450) 05/06/20 14:45 Iron Saturation 45 % (17.5-39) H 05/06/20 14:45 Unsaturated IBC 141 ug/dL (200-275) L 05/06/20 14:45 Total Bilirubin 0.7 mg/dL (0.2-1) 05/08/20 07:13 AST 14 U/L (15-37) L 05/08/20 07:13 ALT 21 U/L (13-61) 05/08/20 07:13 Alkaline Phosphatase 55 U/L (45-117) 05/08/20 07:13 LD Total 163 U/L (87-246) 05/07/20 20:25 Creatine Kinase 190 U/L (26-308) 05/06/20 14:45 Creatine Kinase Index 0.9 % (0.0-5.0) 05/06/20 14:45 CK-MB (CK-2) 1.8 ng/mL (0.5-3.6) 05/06/20 14:45 Troponin I < 0.02 ng/ml (0.00-0.05) 05/06/20 14:45 Total Protein 5.9 g/dl (6.4-8.2) L 05/08/20 07:13 Albumin 3.1 g/dl (3.4-5.0) L 05/08/20 07:13 TSH 0.57 uIU/ml (0.358-3.74) D 05/07/20 07:10 Urine Color Yellow 05/07/20 17:00 Urine Appearance Clear 05/07/20 17:00 Urine pH 5.0 (5.0-8.0) 05/07/20 17:00 Ur Specific [place] 1.009 (1.010-1.035) L 05/07/20 17:00 Urine Protein Negative (NEGATIVE) 05/07/20 17:00 Urine Glucose (UA) Negative (NEGATIVE) 05/07/20 17:00 Urine Ketones Negative (NEGATIVE) 05/07/20 17:00 Urine Blood Negative (NEGATIVE) 05/07/20 17:00 Urine Nitrite Negative (NEGATIVE) 05/07/20 17:00 Urine Bilirubin Negative (NEGATIVE) 05/07/20 17:00 Urine Urobilinogen 0.2 mg/dL (0.2-1.0) 05/07/20 17:00 Ur Leukocyte Esterase Negative (NEGATIVE) 05/07/20 17:00 Ur Random Creatinine 43.0 mg/dL (30-150) 05/07/20 13:22 U Random Total Protein 15.3 mg/dL (0-11.9) H 05/07/20 13:22 Ur Random Sodium 45 MMOL/L (40-220) 05/07/20 13:22 Stool Occult Blood Negative (NEGATIVE) 05/06/20 14:45 Blood Type O POSITIVE 05/06/20 16:30 Antibody Screen Negative 05/06/20 16:30 Crossmatch See Detail 05/06/20 16:30 Active Medications Acetaminophen (Tylenol -) 650 mg PO Q4H PRN PRN Reason: FEVER OR PAIN 1-10 Albuterol Sulfate (Ventolin Hfa Inhaler -) 2 puff IH Q4H PRN PRN Reason: ASTHMA Ascorbic Acid (Vitamin C -) 1,000 mg PO BID [facility] Last Admin: 05/08/20 10:49 Dose: 1,000 mg Documented by: Atorvastatin Calcium (Lipitor -) 20 mg PO HS [facility] Last Admin: 05/07/20 21:05 Dose: 20 mg Documented by: Budesonide/Formoterol Fumarate (Symbicort 80/4.5mcg -) 2 puff IH BID [facility] Last Admin: 05/08/20 10:49 Dose: 2 puff Documented by: Cholecalciferol (Vitamin D3 -) 1,000 unit PO DAILY [facility] Last Admin: 05/08/20 10:48 Dose: 1,000 unit Documented by: Ferrous Sulfate (Feosol -) 325 mg PO BIDWM [facility] Last Admin: 05/08/20 17:31 Dose: 325 mg Documented by: Hydroxyzine Pamoate (Vistaril -) 25 mg PO HS PRN PRN Reason: INSOMNIA Dextrose/Sodium Chloride (D5-1/2ns -) 1,000 mls @ 75 mls/hr IV ASDIR [facility] Last Admin: 05/08/20 17:31 Dose: Not Given Documented by: Metoprolol Tartrate (Lopressor -) 25 mg PO BID [facility] Last Admin: 05/08/20 10:48 Dose: 25 mg Documented by: Pantoprazole Sodium (Protonix -) 40 mg PO BID [facility] Last Admin: 05/08/20 10:48 Dose: 40 mg Documented by: Sodium Zirconium Cyclosilicate (Lokelma) 10 gm PO DAILY [facility] Last Admin: 05/08/20 10:48 Dose: 10 gm Documented by: Tamsulosin HCl (Flomax -) 0.4 mg PO DAILY@0830 [facility] Last Admin: 05/08/20 10:48 Dose: 0.4 mg Documented by: ASSESSMENT/PLAN: 84 M PMH CAD ([place] s/p stents), HFpEF, HLD, HTN, Dementia, Asthma, DM, Chronic Anemia requiring Transfusions in the past who presents from [facility] for K+ 6.3, Hgb 5.8. Admitted for Anemia requiring transfusion. #Iron Deficiency Anemia -Transfuse to keep > 8.0 (CAD hx) -Hold ASA -PPI -Continue home dose Fesol -GI Consult appreciated; For EGD -Daily CBC with diff to trend Eosinophils, Monocytes; May need bone marrow bx as an outpatient Dispo: We will continue to follow the patient. Thank you for this consultative opportunity. Visit type - Emergency Visit Emergency Visit: Yes ED Registration Date: 05/06/20 Care time: The patient presented to the Emergency Department on the above date and was hospitalized for further evaluation of their emergent condition. - New Patient This patient is new to me today: Yes Date on this admission: 05/08/20 - Critical Care Critical Care patient: No - Discharge Referral Referred to [facility] No - Medication Review Med list reviewed for High Risk Meds patients 65 and older: No ATTENDING PHYSICIAN STATEMENT I saw and evaluated the patient. I reviewed the resident's note and discussed the case with the resident. I agree with the resident's findings and plan as documented. SUBJECTIVE: OBJECTIVE: ASSESSMENT AND PLAN:
[2020-05-08] MEDS: ATORVASTATIN CA 20 MG TABLET (FP) PO SCH (21:21)
--- NOTE | 2020-05-09 08:02 | PN ---
Progress Note, Physician - Current Medication List Current Medications: Active Medications Acetaminophen (Tylenol -) 650 mg PO Q4H PRN PRN Reason: FEVER OR PAIN 1-10 Albuterol Sulfate (Ventolin Hfa Inhaler -) 2 puff IH Q4H PRN PRN Reason: ASTHMA Ascorbic Acid (Vitamin C -) 1,000 mg PO BID [facility] Last Admin: 05/08/20 21:21 Dose: 1,000 mg Documented by: Atorvastatin Calcium (Lipitor -) 20 mg PO HS [facility] Last Admin: 05/08/20 21:21 Dose: 20 mg Documented by: Budesonide/Formoterol Fumarate (Symbicort 80/4.5mcg -) 2 puff IH BID [facility] Last Admin: 05/08/20 21:22 Dose: 2 puff Documented by: Cholecalciferol (Vitamin D3 -) 1,000 unit PO DAILY [facility] Last Admin: 05/08/20 10:48 Dose: 1,000 unit Documented by: Ferrous Sulfate (Feosol -) 325 mg PO BIDWM [facility] Last Admin: 05/08/20 17:31 Dose: 325 mg Documented by: Hydroxyzine Pamoate (Vistaril -) 25 mg PO HS PRN PRN Reason: INSOMNIA Last Admin: 05/08/20 21:21 Dose: 25 mg Documented by: Dextrose/Sodium Chloride (D5-1/2ns -) 1,000 mls @ 75 mls/hr IV ASDIR [facility] Last Admin: 05/08/20 17:31 Dose: Not Given Documented by: Metoprolol Tartrate (Lopressor -) 25 mg PO BID [facility] Last Admin: 05/08/20 21:22 Dose: 25 mg Documented by: Pantoprazole Sodium (Protonix -) 40 mg PO BID [facility] Last Admin: 05/08/20 21:21 Dose: 40 mg Documented by: Sodium Zirconium Cyclosilicate (Lokelma) 10 gm PO DAILY [facility] Last Admin: 05/08/20 10:48 Dose: 10 gm Documented by: Tamsulosin HCl (Flomax -) 0.4 mg PO DAILY@0830 [facility] Last Admin: 05/08/20 10:48 Dose: 0.4 mg Documented by: - Objective Vital Signs: Vital Signs Temperature 97.8 F 05/09/20 05:00 Pulse Rate 48 L 05/09/20 05:00 Respiratory Rate 18 05/08/20 21:00 Blood Pressure 129/62 05/09/20 05:00 O2 Sat by Pulse Oximetry (%) 98 05/09/20 05:00 Cardiovascular: Yes: S1, S2 Respiratory: Yes: Regular, CTA Bilaterally Gastrointestinal: Yes: Normal Bowel Sounds, Soft Labs: INR, PTT INR 1.03 (0.83-1.09) 05/06/20 14:45 Problem List - Problems (1) CAD (coronary artery disease) Assessment/Plan: HOLD ASA DUE TO ANEMIA RESUME OTHER MEDS ASYMPTOMATIC Code(s): I25.10 - ATHSCL HEART DISEASE OF [place] CORONARY ARTERY W/O ANG PCTRS (2) ASHLI (acute kidney injury) Assessment/Plan: Laboratory Tests 05/06/20 05/06/20 05/06/20 14:45 16:45 23:25 Potassium 8.3 H* 5.8 H 4.9 BUN 40.6 H 40.4 H 34.9 H Creatinine 1.8 H 1.7 H 1.6 H 05/07/20 07:10 Potassium 4.9 BUN 31.3 H Creatinine 1.5 H FOLLOW LABS RENAL CONSULT APPRECIATED CMP Sodium 144 mmol/L (136-145) 05/09/20 07:35 Potassium 3.9 mmol/L (3.5-5.1) 05/09/20 07:35 Chloride 113 mmol/L (98-107) H 05/09/20 07:35 Carbon Dioxide 26 mmol/L (21-32) 05/09/20 07:35 Anion Gap 5 MMOL/L (8-16) L 05/09/20 07:35 BUN 27.4 mg/dL (7-18) H 05/09/20 07:35 Creatinine 1.4 mg/dL (0.55-1.3) H 05/09/20 07:35 Est GFR (CKD-EPI)AfAm 52.72 05/09/20 07:35 Est GFR (CKD-EPI)NonAf 45.49 05/09/20 07:35 Random Glucose 105 mg/dL (74-106) 05/09/20 07:35 Calcium 8.2 mg/dL (8.5-10.1) L 05/09/20 07:35 Phosphorus 4.0 mg/dL (2.5-4.9) 05/09/20 07:35 Magnesium 2.0 mg/dL (1.8-2.4) 05/09/20 07:35 Iron 120 ug/dL (50-175) 05/06/20 14:45 TIBC 261 ug/dL (250-450) 05/06/20 14:45 Iron Saturation 45 % (17.5-39) H 05/06/20 14:45 Unsaturated IBC 141 ug/dL (200-275) L 05/06/20 14:45 Total Bilirubin 0.7 mg/dL (0.2-1) 05/09/20 07:35 AST 9 U/L (15-37) L 05/09/20 07:35 ALT 18 U/L (13-61) 05/09/20 07:35 Alkaline Phosphatase 56 U/L (45-117) 05/09/20 07:35 LD Total 163 U/L (87-246) 05/07/20 20:25 Creatine Kinase 190 U/L (26-308) 05/06/20 14:45 Creatine Kinase Index 0.9 % (0.0-5.0) 05/06/20 14:45 CK-MB (CK-2) 1.8 ng/mL (0.5-3.6) 05/06/20 14:45 Troponin I < 0.02 ng/ml (0.00-0.05) 05/06/20 14:45 Total Protein 5.6 g/dl (6.4-8.2) L 05/09/20 07:35 Albumin 2.9 g/dl (3.4-5.0) L 05/09/20 07:35 TSH 0.57 uIU/ml (0.358-3.74) D 05/07/20 07:10 Code(s): N17.9 - ACUTE KIDNEY FAILURE, UNSPECIFIED (3) Anemia Assessment/Plan: TRANSFUSE PRBS PPI HOLD ASA MONITOR TRENDS GI CONSULT CBC WBC 3.0 K/mm3 (4.0-10.0) L 05/09/20 07:35 RBC 3.31 M/mm3 (4.00-5.60) L 05/09/20 07:35 Hgb 8.7 GM/dL (11.7-16.9) L 05/09/20 07:35 Hct 26.3 % (35.4-49) L 05/09/20 07:35 MCV 79.3 fl (80-96) L 05/09/20 07:35 MCH 26.3 pg (25.7-33.7) 05/09/20 07:35 MCHC 33.2 g/dl (32.0-35.9) 05/09/20 07:35 RDW 19.3 % (11.9-15.9) H 05/09/20 07:35 Plt Count 154 K/MM3 (134-434) 05/09/20 07:35 MPV 11.8 fl (7.5-11.1) H 05/09/20 07:35 Absolute Neuts (auto) 2.2 K/mm3 (1.5-8.0) 05/08/20 07:13 Total Counted 100 05/07/20 20:25 Neutrophils % 51.4 % (42.8-82.8) 05/08/20 07:13 Neutrophils % (Manual) 52.6 % (42.8-82.8) 05/08/20 07:13 Band Neutrophils % 0.0 % 05/08/20 07:13 Lymphocytes % 21.3 % (8-40) 05/08/20 07:13 Lymphocytes % (Manual) 20.6 % (8-40) D 05/08/20 07:13 Monocytes % 11.1 % (3.8-10.2) H 05/08/20 07:13 Monocytes % (Manual) 13 % (3.8-10.2) H 05/08/20 07:13 Eosinophils % 13.5 % (0-4.5) H 05/08/20 07:13 Eosinophils % (Manual) 12.4 % (0-4.5) H 05/08/20 07:13 Basophils % 2.7 % (0-2.0) H 05/08/20 07:13 Basophils % (Manual) 1.0 % (0-2.0) 05/08/20 07:13 Myelocytes % (Man) 0 % (0-2) 05/08/20 07:13 Promyelocytes % (Man) 0 % (0-2) 05/08/20 07:13 Blast Cells % (Manual) 0 % (0-0) 05/08/20 07:13 Nucleated RBC % 1 % (0-0) H 05/08/20 07:13 Metamyelocytes 0 % (0-2) 05/08/20 07:13 Hypochromia 0 05/08/20 07:13 Platelet Estimate Normal 05/08/20 07:13 Platelet Comment No clumping noted 05/07/20 20:25 Polychromasia 0 05/08/20 07:13 Poikilocytosis 2+ 05/08/20 07:13 Anisocytosis 2+ 05/08/20 07:13 Microcytosis 2+ 05/08/20 07:13 Target Cells 2+ 05/08/20 07:13 Tear Drop Cells 1+ 05/07/20 20:25 Ovalocytes 2+ 05/08/20 07:13 Fragmented RBCs 2+ 05/08/20 07:13 Retic Count 1.10 % (0.5-1.5) 05/06/20 14:45 Code(s): D64.9 - ANEMIA, UNSPECIFIED (4) Hyperkalemia Assessment/Plan: resolved Code(s): E87.5 - HYPERKALEMIA Assessment/Plan await egd then hope to dc to [facility]
[2020-05-09 08:05] LABS: HEMATOCRIT 26.3 % (35.4-49); HEMOGLOBIN 8.7 GM/dL (11.7-16.9); MCH 26.3 pg (25.7-33.7); MCHC 33.2 g/dl (32.0-35.9); MEAN CELL VOLUME 79.3 fl (80-96); MEAN PLT VOLUME 11.8 fl (7.5-11.1); PLATELET COUNT 154 K/MM3 (134-434); RBC 3.31 M/mm3 (4.00-5.60); RDW 19.3 % (11.9-15.9)
[2020-05-09] MEDS: TAMSULOSIN HCL 0.4 MG CAP PO SCH (08:11)
[2020-05-09 08:26] LABS: ALBUMIN 2.9 g/dl (3.4-5.0); BILIRUBIN,TOTAL 0.7 mg/dL (0.2-1); BLOOD UREA NITROGEN 27.4 mg/dL (7-18); CALCIUM 8.2 mg/dL (8.5-10.1); CREATININE 1.4 mg/dL (0.55-1.3); POTASSIUM 3.9 mmol/L (3.5-5.1); TOT PROT 5.6 g/dl (6.4-8.2)
[2020-05-09] MEDS ORDERED: PT OWN MED DRAWER 7, Y5N ONE ×2 (10:33→15:20)
[2020-05-09] MEDS ORDERED: EPINEPHrine 1:10,000 (P-F SYR) 1 MG/10 ML DISP.SYRIN IVPUSH ONE (13:34)
--- NOTE | 2020-05-09 13:43 | PN ---
Progress Note (short form) - Note Progress Note: EGD complete. Report left in procedural section of the physical chart and will be scanned into [employer]. Some oozing of blood from biopsy of [place] polyp. Keep on clear liquids for now. Monitor H/H, continue PPI
[2020-05-09] MEDS ORDERED: EPINEPHrine 1:10,000 (P-F SYR) 1 MG/10 ML DISP.SYRIN ONE (13:56)
[2020-05-09] MEDS: SODIUM ZIRCONIUM CYCLOSILICATE (LOKELMA) 5 GM PACKET PO SCH (14:41)
[2020-05-09] MEDS: FERROUS SO4 325 MG TABLET (FP) PO SCH ×2 (14:41→17:15)
[2020-05-09] MEDS: CHOLECALCIFEROL (VIT D3) 1,000 UNIT (25 MCG) TABLET PO SCH (14:42)
[2020-05-09] MEDS: ASCORBIC ACID 500 MG TABLET (FP) PO SCH ×2 (14:42→21:55)
[2020-05-09] MEDS: METOPROLOL TARTRATE 25 MG TABLET (FP) PO SCH ×2 (14:42→21:59)
[2020-05-09] MEDS: BUDESONIDE/FORMETEROL FUMARATE 80/4.5 mcg INHALER IH SCH ×2 (14:45→21:59)
[2020-05-09] MEDS: PANTOPRAZOLE 20 MG TABLET PO SCH (14:46)
--- NOTE | 2020-05-09 15:38 | PN ---
Progress Note, Physician History of Present Illness: Seen and examined at the bedside awake and alert no acute complaints s/p endoscopy this am showing gastritis and gastic polyps making urine - Current Medication List Current Medications: Active Medications Acetaminophen (Tylenol -) 650 mg PO Q4H PRN PRN Reason: FEVER OR PAIN 1-10 Albuterol Sulfate (Ventolin Hfa Inhaler -) 2 puff IH Q4H PRN PRN Reason: ASTHMA Ascorbic Acid (Vitamin C -) 1,000 mg PO BID [facility] Last Admin: 05/09/20 14:42 Dose: Not Given Documented by: Atorvastatin Calcium (Lipitor -) 20 mg PO HS [facility] Last Admin: 05/08/20 21:21 Dose: 20 mg Documented by: Budesonide/Formoterol Fumarate (Symbicort 80/4.5mcg -) 2 puff IH BID [facility] Last Admin: 05/09/20 14:45 Dose: 2 puff Documented by: Cholecalciferol (Vitamin D3 -) 1,000 unit PO DAILY [facility] Last Admin: 05/09/20 14:42 Dose: Not Given Documented by: Ferrous Sulfate (Feosol -) 325 mg PO BIDWM [facility] Last Admin: 05/09/20 14:41 Dose: Not Given Documented by: Hydroxyzine Pamoate (Vistaril -) 25 mg PO HS PRN PRN Reason: INSOMNIA Last Admin: 05/08/20 21:21 Dose: 25 mg Documented by: Dextrose/Sodium Chloride (D5-1/2ns -) 1,000 mls @ 75 mls/hr IV ASDIR [facility] Last Admin: 05/08/20 17:31 Dose: Not Given Documented by: Metoprolol Tartrate (Lopressor -) 25 mg PO BID [facility] Last Admin: 05/09/20 14:42 Dose: Not Given Documented by: Pantoprazole Sodium (Protonix -) 20 mg PO DAILY [facility] Last Admin: 05/09/20 14:46 Dose: 20 mg Documented by: Sodium Zirconium Cyclosilicate (Lokelma) 10 gm PO DAILY [facility] Last Admin: 05/09/20 14:41 Dose: Not Given Documented by: Tamsulosin HCl (Flomax -) 0.4 mg PO DAILY@0830 [facility] Last Admin: 05/09/20 08:11 Dose: 0.4 mg Documented by: - Objective Vital Signs: Vital Signs Temperature 98.3 F 05/09/20 13:45 Pulse Rate 61 05/09/20 14:19 Respiratory Rate 14 05/09/20 14:19 Blood Pressure 139/54 L 05/09/20 14:19 O2 Sat by Pulse Oximetry (%) 97 05/09/20 14:19 Constitutional: Yes: No Distress HENT: Yes: Atraumatic Neck: Yes: Supple Cardiovascular: Yes: Regular Rate and Rhythm Respiratory: Yes: Regular Gastrointestinal: Yes: Soft Extremities: No: Cyanosis Edema: No Labs: CBC, BMP 05/09/20 07:35 05/09/20 07:35 INR, PTT INR 1.03 (0.83-1.09) 05/06/20 14:45 Assessment/Plan 85 year old [place] male with a past medical history significant for CAD s/p PCI, hypertension, hyperlipidemia, DM, asthma who presented from the OR with abnormal lab values with Hgb of 5.8 and potassium of 6.3 and found to have acute GI bleed and ASHLI with hyperkalemia. 1. Acute kidney injury in setting of GI bleed (baseline cr 0.9-1) 2. Acute GI bleed/Suspected Upper GI bleed 3. Hyperkalemia in setting of decreased eGFR 4. Pseudohypocalcemia 5. Hypertension 6. CAD 7. Hyperlipidemia Renal function slightly improved FeNa is 1.1%, UPCR is unremarkable. Transfuse as per protcol Continue IV fluids until pt is able to tolerate full oral diet. Clear liquid diet as per GI. CK within normal limits. GI follow up HOld CARMELA/ARB for now Trend H/H Prashant Mccoy DO
[2020-05-09] MEDS: DEXTROSE 5%-0.45% SALINE 1,000 ML IV SCH (17:15)
[2020-05-09 20:22] LABS: HEMOGLOBIN 9.4 GM/dL (11.7-16.9); MCH 26.3 pg (25.7-33.7); MCHC 32.5 g/dl (32.0-35.9); MEAN CELL VOLUME 80.9 fl (80-96); MEAN PLT VOLUME 11.9 fl (7.5-11.1); PLATELET COUNT 166 K/MM3 (134-434); RBC 3.58 M/mm3 (4.00-5.60); RDW 19.9 % (11.9-15.9); WHITE BLOOD COUNT 3.4 K/mm3 (4.0-10.0)
[2020-05-09] MEDS: ATORVASTATIN CA 20 MG TABLET (FP) PO SCH (21:55)
[2020-05-10] MEDS ORDERED: FAMOTIDINE 20 MG/50 ML IVPB 20 MG/50 ML MG IVPB ONE (01:15)
--- NOTE | 2020-05-10 01:33 | HOSP ---
Subjective - Review of Symptoms Events since last encounter: Hospitalist Encounter Notified by the RN, that the patient reports having chest pain, was asked to assess. Orders placed for Stat: EKG, Troponin Arrived to bedside, patient is alert, awake and oriented x2, reports midsternal CP with burning sensation. Patient examined at bedside see EMR Cardiovascular: Yes: Chest Pain Gastrointestinal: Yes: Abdominal Pain (epigastric pain) Physical Examination Vital Signs: Vital Signs Temperature 98.7 F 05/09/20 21:45 Pulse Rate 53 L 05/09/20 21:45 Respiratory Rate 18 05/09/20 21:45 Blood Pressure 149/69 05/09/20 21:45 O2 Sat by Pulse Oximetry (%) 99 05/09/20 21:45 Constitutional: Yes: Mild Distress, Thin Eyes: Yes: Conjunctiva Clear, EOM Intact, PERRL HENT: Yes: Atraumatic, Normocephalic Neck: Yes: Supple, Trachea Midline Cardiovascular: Yes: Bradycardia, S1, S2, Other (TTP- midsternal aspect) Respiratory: Yes: Regular, CTA Bilaterally Gastrointestinal: Yes: Normal Bowel Sounds, Soft, Tenderness, Epigastrium ...Rectal Exam: Yes: Deferred Renal/: Yes: WNL Breast(s): Yes: WNL Musculoskeletal: Yes: WNL Extremities: Yes: WNL Edema: No Peripheral Pulses WNL: Yes Neurological: Yes: Alert, Oriented, Cran Nerves II-XII Intact ...Motor Strength: WNL Psychiatric: Yes: WNL, Alert, Oriented Labs: CBC, BMP 05/09/20 20:00 05/09/20 07:35 Laboratory Results - last 24 hr 05/06/20 05/09/20 05/09/20 16:30 07:35 07:35 WBC 3.0 L RBC 3.31 L Hgb 8.7 L Hct 26.3 L MCV 79.3 L MCH 26.3 MCHC 33.2 RDW 19.3 H Plt Count 154 MPV 11.8 H Sodium 144 Potassium 3.9 Chloride 113 H Carbon Dioxide 26 Anion Gap 5 L BUN 27.4 H Creatinine 1.4 H Est GFR (CKD-EPI)AfAm 52.72 Est GFR (CKD-EPI)NonAf 45.49 Random Glucose 105 Calcium 8.2 L Phosphorus 4.0 Magnesium 2.0 Total Bilirubin 0.7 AST 9 L ALT 18 Alkaline Phosphatase 56 Total Protein 5.6 L Albumin 2.9 L Blood Type O POSITIVE Antibody Screen Negative Crossmatch See Detail 05/09/20 05/09/20 20:00 20:00 WBC 3.4 L RBC 3.58 L Hgb 9.4 L Hct 29.0 L MCV 80.9 MCH 26.3 MCHC 32.5 RDW 19.9 H Plt Count 166 MPV 11.9 H Sodium Potassium Chloride Carbon Dioxide Anion Gap BUN Creatinine Est GFR (CKD-EPI)AfAm Est GFR (CKD-EPI)NonAf Random Glucose Calcium Phosphorus Magnesium Total Bilirubin AST ALT Alkaline Phosphatase Total Protein Albumin Blood Type O POSITIVE Antibody Screen Negative Crossmatch Intake & Output 05/07/20 05/08/20 05/09/20 05/10/20 23:59 23:59 23:59 23:59 Intake Total 1695 1120 2655 Output Total 200 Balance 1495 1120 2655 Weight 58.06 kg Current Medications Generic Name Dose Route Start Last Admin Trade Name Freq PRN Reason Stop Dose Admin Acetaminophen 650 mg 05/06/20 17:00 Tylenol - PO Q4H PRN FEVER OR PAIN 1-10 Albuterol Sulfate 2 puff 05/06/20 16:59 Ventolin Hfa Inhaler - IH Q4H PRN ASTHMA Ascorbic Acid 1,000 mg 05/06/20 22:00 05/09/20 21:55 Vitamin C - PO 1,000 mg BID [facility] Administration Atorvastatin Calcium 20 mg 05/06/20 22:00 05/09/20 21:55 Lipitor - PO 20 mg HS [facility] Administration Budesonide/Formoterol Fumarate 2 puff 05/06/20 22:00 05/09/20 21:59 Symbicort 80/4.5mcg - IH 2 puff BID [facility] Administration Cholecalciferol 1,000 unit 05/07/20 10:00 05/09/20 14:42 Vitamin D3 - PO Not Given DAILY [facility] Ferrous Sulfate 325 mg 05/06/20 17:30 05/09/20 17:15 Feosol - PO 325 mg BIDWM [facility] Administration Hydroxyzine Pamoate 25 mg 05/07/20 22:00 05/08/20 21:21 Vistaril - PO 25 mg HS PRN Administration INSOMNIA Dextrose/Sodium Chloride 1,000 mls @ 75 mls/hr 05/06/20 17:30 05/09/20 17:15 D5-1/2ns - IV 75 mls/hr ASDIR [facility] Administration Famotidine/Sodium Chloride 20 mg in 50 mls @ 100 mls/hr 05/10/20 01:15 Pepcid 20 Mg Premixed Ivpb - IVPB 05/10/20 01:44 ONCE ONE Metoprolol Tartrate 25 mg 05/06/20 22:00 05/09/20 21:59 Lopressor - PO Not Given BID [facility] Pantoprazole Sodium 20 mg 05/09/20 14:00 05/09/20 14:46 Protonix - PO 20 mg DAILY [facility] Administration Sodium Zirconium Cyclosilicate 10 gm 05/06/20 17:45 05/09/20 14:41 Lokelma PO Not Given DAILY [facility] Tamsulosin HCl 0.4 mg 05/06/20 17:00 05/09/20 08:11 Flomax - PO 0.4 mg DAILY@0830 [facility] Administration Hospitalist Encounter Assessment: 85 year old male with a significant past medical history of CAD (s/p cardiac stenting), HTN, DM, HLD, asthma, anemia and GI bleed who presents to the ED BIBA from [facility] for Potassium of 6.3 and Hgb of 5.8. Admitted for Anemia, Hyperkalemia, and ASHLI. Outcome: EKG reviewed SB with 1st degree av block, no change compared to prior study Troponin- 0.04 Per RN, patient reports CP resolved feels better post medication Will continue to monitor, PMD to resume care in am Critical Care Total Critical Care Time (in minutes): 32 Critical Care Statement: The care of this patient involved high complexity decision making to prevent further life threatening deterioration of the patient's condition and/or to evaluate & treat vital organ system(s) failure or risk of failure.
[2020-05-10 08:03] LABS: BASO % 2.6 % (0-2.0); EOS % 11.2 % (0-4.5); HEMATOCRIT 27.7 % (35.4-49); LYMPH % 26.5 % (8-40); MCH 26.1 pg (25.7-33.7); MCHC 32.6 g/dl (32.0-35.9); MEAN CELL VOLUME 80.2 fl (80-96); MONO % 9.7 % (3.8-10.2); PLATELET COUNT 146 K/MM3 (134-434); RBC 3.45 M/mm3 (4.00-5.60); RDW 19.5 % (11.9-15.9); WHITE BLOOD COUNT 3.4 K/mm3 (4.0-10.0)
[2020-05-10] MEDS: FERROUS SO4 325 MG TABLET (FP) PO SCH ×2 (08:04→17:08)
[2020-05-10] MEDS: TAMSULOSIN HCL 0.4 MG CAP PO SCH (08:04)
[2020-05-10 08:10] LABS: ALBUMIN 3.1 g/dl (3.4-5.0); BILIRUBIN,TOTAL 0.8 mg/dL (0.2-1); BLOOD UREA NITROGEN 24.2 mg/dL (7-18); CALCIUM 8.1 mg/dL (8.5-10.1); CREATININE 1.4 mg/dL (0.55-1.3); POTASSIUM 3.9 mmol/L (3.5-5.1); TOT PROT 5.9 g/dl (6.4-8.2)
--- NOTE | 2020-05-10 09:29 | PN.GI ---
GI Progress Note Subjective: No acute events No abdominal pain no bleeding - Objective Vital Signs: Vital Signs Temperature 98.0 F 05/10/20 08:43 Pulse Rate 52 L 05/10/20 08:43 Respiratory Rate 18 05/10/20 08:43 Blood Pressure 150/62 05/10/20 08:43 O2 Sat by Pulse Oximetry (%) 96 05/10/20 08:43 Constitutional: Calm Eyes: No: Sclera Icterus Cardiovascular: Yes: Bradycardia Respiratory: Yes: CTA Bilaterally Gastrointestinal Inspection: No: Distention ...Auscultate: Yes: Normoactive Bowel Sounds ...Palpate: Yes: Soft. No: Hepatomegaly, Splenomegaly, Tenderness ...Percussion: No: Tympanitic Edema: No (no LE edema) Labs: CBC, BMP 05/10/20 06:56 05/10/20 06:56 INR, PTT INR 1.03 (0.83-1.09) 05/06/20 14:45 Problem List - Problems (1) Anemia Assessment/Plan: No overt GI bleeding EGD did not explain anemia Continued hematology evaluation Colonoscopy 05/12. Discussed with patient. discussed potential risks of the procedure like but not limited to bleeding, perfoation reuiring surgery to repir, infection, sedation medication effects. He has agreed to the procedure. Code(s): D64.9 - ANEMIA, UNSPECIFIED
[2020-05-10] MEDS ORDERED: PT OWN MED DRAWER 7, Y5N ONE (09:46)
[2020-05-10] MEDS: PANTOPRAZOLE 20 MG TABLET PO SCH (09:47)
[2020-05-10] MEDS: SODIUM ZIRCONIUM CYCLOSILICATE (LOKELMA) 5 GM PACKET PO SCH (09:47)
[2020-05-10] MEDS: CHOLECALCIFEROL (VIT D3) 1,000 UNIT (25 MCG) TABLET PO SCH (09:47)
[2020-05-10] MEDS: ASCORBIC ACID 500 MG TABLET (FP) PO SCH ×2 (09:47→21:37)
[2020-05-10] MEDS: BUDESONIDE/FORMETEROL FUMARATE 80/4.5 mcg INHALER IH SCH ×2 (09:47→21:37)
[2020-05-10] MEDS: METOPROLOL TARTRATE 25 MG TABLET (FP) PO SCH ×2 (09:47→21:37)
[2020-05-10] MEDS: DEXTROSE 5%-0.45% SALINE 1,000 ML IV SCH ×2 (09:47→21:37)
--- NOTE | 2020-05-10 16:09 | EKG ---
Test Reason : Blood Pressure : / mmHG Vent. Rate : 045 BPM Atrial Rate : 045 BPM P-R Int : 276 ms QRS Dur : 090 ms QT Int : 446 ms P-R-T Axes : 064 068 058 degrees QTc Int : 385 ms SINUS BRADYCARDIA WITH 1ST DEGREE A-V BLOCK OTHERWISE NORMAL ECG WHEN COMPARED WITH ECG OF 06-MAY-2020 23:54, NO SIGNIFICANT CHANGE WAS FOUND Confirmed by MD Jos, Jonn ([id number]) on 05/10/2020 4:09:14 PM Referred By: Confirmed By:Jonn Arguello MD
--- NOTE | 2020-05-10 16:46 | PN ---
Progress Note, Physician Chief Complaint: Anemia History of Present Illness: Previous notes and events reviewed awake and alert NAD c/o chest pain last night-trop neg and ekg reviewed Hg 9.0 currently denies chest pain, SOB, dizziness, palpitations - Current Medication List Current Medications: Active Medications Acetaminophen (Tylenol -) 650 mg PO Q4H PRN PRN Reason: FEVER OR PAIN 1-10 Albuterol Sulfate (Ventolin Hfa Inhaler -) 2 puff IH Q4H PRN PRN Reason: ASTHMA Ascorbic Acid (Vitamin C -) 1,000 mg PO BID [facility] Last Admin: 05/10/20 09:47 Dose: 1,000 mg Documented by: Atorvastatin Calcium (Lipitor -) 20 mg PO HS [facility] Last Admin: 05/09/20 21:55 Dose: 20 mg Documented by: Bisacodyl (Dulcolax -) 20 mg PO ONCE ONE Stop: 05/11/20 15:01 Budesonide/Formoterol Fumarate (Symbicort 80/4.5mcg -) 2 puff IH BID [facility] Last Admin: 05/10/20 09:47 Dose: 2 puff Documented by: Cholecalciferol (Vitamin D3 -) 1,000 unit PO DAILY [facility] Last Admin: 05/10/20 09:47 Dose: 1,000 unit Documented by: Ferrous Sulfate (Feosol -) 325 mg PO BIDWM [facility] Last Admin: 05/10/20 08:04 Dose: 325 mg Documented by: Hydroxyzine Pamoate (Vistaril -) 25 mg PO HS PRN PRN Reason: INSOMNIA Last Admin: 05/08/20 21:21 Dose: 25 mg Documented by: Dextrose/Sodium Chloride (D5-1/2ns -) 1,000 mls @ 75 mls/hr IV ASDIR [facility] Last Admin: 05/10/20 09:47 Dose: 75 mls/hr Documented by: Metoprolol Tartrate (Lopressor -) 25 mg PO BID [facility] Last Admin: 05/10/20 09:47 Dose: 25 mg Documented by: Pantoprazole Sodium (Protonix -) 20 mg PO DAILY [facility] Last Admin: 05/10/20 09:47 Dose: 20 mg Documented by: Polyethylene Glycol (Miralax (For Bowel Prep) -) 255 gm PO ONCE ONE Stop: 05/11/20 16:01 Sodium Zirconium Cyclosilicate (Lokelma) 10 gm PO DAILY [facility] Last Admin: 05/10/20 09:47 Dose: 10 gm Documented by: Tamsulosin HCl (Flomax -) 0.4 mg PO DAILY@0830 [facility] Last Admin: 05/10/20 08:04 Dose: 0.4 mg Documented by: - Objective Vital Signs: Vital Signs Temperature 98.8 F 05/10/20 14:00 Pulse Rate 52 L 05/10/20 14:00 Respiratory Rate 05/10/20 14:00 Blood Pressure 148/66 05/10/20 14:00 O2 Sat by Pulse Oximetry (%) 96 05/10/20 14:00 Constitutional: Yes: No Distress, Calm, Thin Eyes: Yes: Conjunctiva Clear HENT: Yes: Atraumatic Cardiovascular: Yes: Regular Rate and Rhythm Respiratory: Yes: Regular, CTA Bilaterally Gastrointestinal: Yes: Normal Bowel Sounds, Soft Musculoskeletal: Yes: WNL Extremities: Yes: WNL Edema: No Neurological: Yes: Alert, Oriented Psychiatric: Yes: Alert, Oriented Labs: CBC, BMP 05/10/20 06:56 05/10/20 06:56 INR, PTT INR 1.03 (0.83-1.09) 05/06/20 14:45 Problem List - Problems (1) ASHLI (acute kidney injury) Assessment/Plan: BUN/Cr 24.2/1.4 Nephrology on board monitor renal function daily for downtrend Renal US shows mildly atrophic kidneys with no evidence of hydronephrosis or acute pathology Code(s): N17.9 - ACUTE KIDNEY FAILURE, UNSPECIFIED (2) Anemia Assessment/Plan: GI on board Hg 9.0 Possible colonoscopy on 05/12/20 Ferrous Sulfate Pantoprazole Hematology on board Endoscopy on 05/09/20-no source of anemia found as per GI Code(s): D64.9 - ANEMIA, UNSPECIFIED (3) CAD (coronary artery disease) Assessment/Plan: Atorvastatin Code(s): I25.10 - ATHSCL HEART DISEASE OF [place] CORONARY ARTERY W/O ANG PCTRS (4) Hyperkalemia Assessment/Plan: Resolved K 3.9 monitor K daily Code(s): E87.5 - HYPERKALEMIA Assessment/Plan see problem list
[2020-05-10] MEDS: ATORVASTATIN CA 20 MG TABLET (FP) PO SCH (21:37)
[2020-05-11] MEDS: TAMSULOSIN HCL 0.4 MG CAP PO SCH (07:55)
[2020-05-11] MEDS: FERROUS SO4 325 MG TABLET (FP) PO SCH ×2 (07:55→16:33)
[2020-05-11 08:04] LABS: BASO % 2.7 % (0-2.0); EOS % 10.5 % (0-4.5); HEMATOCRIT 28.9 % (35.4-49); HEMOGLOBIN 9.2 GM/dL (11.7-16.9); LYMPH % 28.1 % (8-40); MCH 25.9 pg (25.7-33.7); MCHC 31.9 g/dl (32.0-35.9); MEAN CELL VOLUME 81.1 fl (80-96); MEAN PLT VOLUME 11.5 fl (7.5-11.1); MONO % 12.8 % (3.8-10.2); NEUT % 45.9 % (42.8-82.8); PLATELET COUNT 131 K/MM3 (134-434); RBC 3.57 M/mm3 (4.00-5.60); RDW 20.1 % (11.9-15.9); WHITE BLOOD COUNT 2.9 K/mm3 (4.0-10.0)
[2020-05-11 09:45] LABS: PLATELET ESTIMATE DECREASED
[2020-05-11 09:52] LABS: ALBUMIN 3.2 g/dl (3.4-5.0); BILIRUBIN,TOTAL 0.6 mg/dL (0.2-1); BLOOD UREA NITROGEN 20.3 mg/dL (7-18); CREATININE 1.3 mg/dL (0.55-1.3); POTASSIUM 4.4 mmol/L (3.5-5.1); TOT PROT 6.1 g/dl (6.4-8.2)
[2020-05-11] MEDS ORDERED: PT OWN MED DRAWER 7, Y5N ONE (10:40)
[2020-05-11] MEDS: SODIUM ZIRCONIUM CYCLOSILICATE (LOKELMA) 5 GM PACKET PO SCH (10:58)
[2020-05-11] MEDS: METOPROLOL TARTRATE 25 MG TABLET (FP) PO SCH ×2 (10:58→21:52)
[2020-05-11] MEDS: PANTOPRAZOLE 20 MG TABLET PO SCH (10:58)
[2020-05-11] MEDS: ASCORBIC ACID 500 MG TABLET (FP) PO SCH ×2 (10:59→21:52)
[2020-05-11] MEDS: BUDESONIDE/FORMETEROL FUMARATE 80/4.5 mcg INHALER IH SCH ×2 (10:59→21:54)
[2020-05-11] MEDS: CHOLECALCIFEROL (VIT D3) 1,000 UNIT (25 MCG) TABLET PO SCH (10:59)
--- NOTE | 2020-05-11 14:45 | PN ---
Progress Note, Physician Chief Complaint: Anemia History of Present Illness: Previous notes and events reviewed awake and alert NAD denies chest pain or SOB Hg 9.2 sts having intermittent episodes of palpitations patient is scheduled for Colonoscopy 05/12/20 with GI - Current Medication List Current Medications: Active Medications Acetaminophen (Tylenol -) 650 mg PO Q4H PRN PRN Reason: FEVER OR PAIN 1-10 Albuterol Sulfate (Ventolin Hfa Inhaler -) 2 puff IH Q4H PRN PRN Reason: ASTHMA Ascorbic Acid (Vitamin C -) 1,000 mg PO BID [facility] Last Admin: 05/11/20 10:59 Dose: 1,000 mg Documented by: Atorvastatin Calcium (Lipitor -) 20 mg PO HS [facility] Last Admin: 05/10/20 21:37 Dose: 20 mg Documented by: Bisacodyl (Dulcolax -) 20 mg PO ONCE ONE Stop: 05/11/20 15:01 Budesonide/Formoterol Fumarate (Symbicort 80/4.5mcg -) 2 puff IH BID [facility] Last Admin: 05/11/20 10:59 Dose: 2 puff Documented by: Cholecalciferol (Vitamin D3 -) 1,000 unit PO DAILY [facility] Last Admin: 05/11/20 10:59 Dose: 1,000 unit Documented by: Ferrous Sulfate (Feosol -) 325 mg PO BIDWM [facility] Last Admin: 05/11/20 07:55 Dose: 325 mg Documented by: Hydroxyzine Pamoate (Vistaril -) 25 mg PO HS PRN PRN Reason: INSOMNIA Last Admin: 05/08/20 21:21 Dose: 25 mg Documented by: Dextrose/Sodium Chloride (D5-1/2ns -) 1,000 mls @ 75 mls/hr IV ASDIR [facility] Last Admin: 05/10/20 21:37 Dose: Not Given Documented by: Metoprolol Tartrate (Lopressor -) 25 mg PO BID [facility] Last Admin: 05/11/20 10:58 Dose: 25 mg Documented by: Pantoprazole Sodium (Protonix -) 20 mg PO DAILY [facility] Last Admin: 05/11/20 10:58 Dose: 20 mg Documented by: Polyethylene Glycol (Miralax (For Bowel Prep) -) 255 gm PO ONCE ONE Stop: 05/11/20 16:01 Sodium Zirconium Cyclosilicate (Lokelma) 10 gm PO DAILY [facility] Last Admin: 05/11/20 10:58 Dose: 10 gm Documented by: Tamsulosin HCl (Flomax -) 0.4 mg PO DAILY@0830 [facility] Last Admin: 05/11/20 07:55 Dose: 0.4 mg Documented by: - Objective Vital Signs: Vital Signs Temperature 97.8 F 05/11/20 05:32 Pulse Rate 47 L 05/11/20 10:00 Respiratory Rate 18 05/11/20 10:00 Blood Pressure 162/70 05/11/20 10:00 O2 Sat by Pulse Oximetry (%) 100 05/11/20 10:00 Constitutional: Yes: No Distress, Calm, Thin Eyes: Yes: Conjunctiva Clear HENT: Yes: Atraumatic Cardiovascular: Yes: Regular Rate and Rhythm Respiratory: Yes: Regular, CTA Bilaterally Gastrointestinal: Yes: Normal Bowel Sounds, Soft Musculoskeletal: Yes: WNL Extremities: Yes: WNL Edema: No Neurological: Yes: Alert, Oriented Psychiatric: Yes: Alert, Oriented Labs: CBC, BMP 05/11/20 07:12 05/11/20 07:12 INR, PTT INR 1.03 (0.83-1.09) 05/06/20 14:45 Problem List - Problems (1) ASHLI (acute kidney injury) Assessment/Plan: BUN/Cr 20.3/1.3 Nephrology on board monitor renal function daily for downtrend Renal US shows mildly atrophic kidneys with no evidence of hydronephrosis or acute pathology Code(s): N17.9 - ACUTE KIDNEY FAILURE, UNSPECIFIED (2) Anemia Assessment/Plan: GI on board Hg 9.2 Colonoscopy on 05/12/20 for other possible source of anemia-NPO after midnight Ferrous Sulfate Pantoprazole Hematology on board Endoscopy on 05/09/20-no source of anemia found as per GI on 05/07/20 had Cardiac eval for pre-op clearance for EGD/colonoscopy-no contraindication for procedure Code(s): D64.9 - ANEMIA, UNSPECIFIED (3) CAD (coronary artery disease) Assessment/Plan: Atorvastatin Code(s): I25.10 - ATHSCL HEART DISEASE OF [place] CORONARY ARTERY W/O ANG PCTRS (4) Hyperkalemia Assessment/Plan: Resolved K 4.4 monitor K daily Code(s): E87.5 - HYPERKALEMIA Assessment/Plan see problem list
[2020-05-11] MEDS ORDERED: BISACODYL 5 MG TABLET.DR (FP) PO ONE (15:00)
[2020-05-11] MEDS ORDERED: ONDANSETRON 4 MG TABLET PO ONE (15:23)
[2020-05-11] MEDS ORDERED: POLYETHYLENE GLYCOL 3350 255 GM BTL PO ONE (16:00)
[2020-05-11] MEDS: DEXTROSE 5%-0.45% SALINE 1,000 ML IV SCH (16:34)
[2020-05-11] MEDS: ATORVASTATIN CA 20 MG TABLET (FP) PO SCH (21:52)
--- NOTE | 2020-05-12 07:54 | PN ---
Progress Note, Physician - Current Medication List Current Medications: Active Medications Acetaminophen (Tylenol -) 650 mg PO Q4H PRN PRN Reason: FEVER OR PAIN 1-10 Albuterol Sulfate (Ventolin Hfa Inhaler -) 2 puff IH Q4H PRN PRN Reason: ASTHMA Ascorbic Acid (Vitamin C -) 1,000 mg PO BID [facility] Last Admin: 05/11/20 21:52 Dose: 1,000 mg Documented by: Atorvastatin Calcium (Lipitor -) 20 mg PO HS [facility] Last Admin: 05/11/20 21:52 Dose: 20 mg Documented by: Budesonide/Formoterol Fumarate (Symbicort 80/4.5mcg -) 2 puff IH BID [facility] Last Admin: 05/11/20 21:54 Dose: 2 puff Documented by: Cholecalciferol (Vitamin D3 -) 1,000 unit PO DAILY [facility] Last Admin: 05/11/20 10:59 Dose: 1,000 unit Documented by: Ferrous Sulfate (Feosol -) 325 mg PO BIDWM [facility] Last Admin: 05/11/20 16:33 Dose: 325 mg Documented by: Hydroxyzine Pamoate (Vistaril -) 25 mg PO HS PRN PRN Reason: INSOMNIA Last Admin: 05/08/20 21:21 Dose: 25 mg Documented by: Dextrose/Sodium Chloride (D5-1/2ns -) 1,000 mls @ 75 mls/hr IV ASDIR [facility] Last Admin: 05/11/20 16:34 Dose: 75 mls/hr Documented by: Metoprolol Tartrate (Lopressor -) 25 mg PO BID [facility] Last Admin: 05/11/20 21:52 Dose: 25 mg Documented by: Pantoprazole Sodium (Protonix -) 20 mg PO DAILY [facility] Last Admin: 05/11/20 10:58 Dose: 20 mg Documented by: Sodium Zirconium Cyclosilicate (Lokelma) 10 gm PO DAILY [facility] Last Admin: 05/11/20 10:58 Dose: 10 gm Documented by: Tamsulosin HCl (Flomax -) 0.4 mg PO DAILY@0830 [facility] Last Admin: 05/11/20 07:55 Dose: 0.4 mg Documented by: - Objective Vital Signs: Vital Signs Temperature 97.8 F 05/12/20 05:17 Pulse Rate 50 L 05/12/20 05:17 Respiratory Rate 18 05/12/20 05:17 Blood Pressure 140/58 L 05/12/20 05:17 O2 Sat by Pulse Oximetry (%) 98 05/12/20 05:17 Cardiovascular: Yes: S1, S2 Respiratory: Yes: Regular, CTA Bilaterally Gastrointestinal: Yes: Normal Bowel Sounds, Soft. No: Tenderness Edema: No Labs: CBC, BMP 05/11/20 07:12 05/11/20 07:12 INR, PTT INR 1.03 (0.83-1.09) 05/06/20 14:45 Problem List - Problems (1) CAD (coronary artery disease) Code(s): I25.10 - ATHSCL HEART DISEASE OF [place] CORONARY ARTERY W/O ANG PCTRS (2) ASHLI (acute kidney injury) Code(s): N17.9 - ACUTE KIDNEY FAILURE, UNSPECIFIED (3) Anemia Code(s): D64.9 - ANEMIA, UNSPECIFIED (4) Hyperkalemia Code(s): E87.5 - HYPERKALEMIA Assessment/Plan - Problems (1) ASHLI (acute kidney injury) Assessment/Plan: BUN/Cr 20.3/1.3 Nephrology on board monitor renal function daily for downtrend Renal US shows mildly atrophic kidneys with no evidence of hydronephrosis or acute pathology Code(s): N17.9 - ACUTE KIDNEY FAILURE, UNSPECIFIED (2) Anemia Assessment/Plan: GI on board Hg 9.2 Colonoscopy on 05/12/20 for other possible source of anemia-NPO Ferrous Sulfate Pantoprazole Hematology on board Endoscopy on 05/09/20-no source of anemia found as per GI on 05/07/20 had Cardiac eval for pre-op clearance for EGD/colonoscopy-no contraindication for procedure Code(s): D64.9 - ANEMIA, UNSPECIFIED (3) CAD (coronary artery disease) Assessment/Plan: Atorvastatin Code(s): I25.10 - ATHSCL HEART DISEASE OF [place] CORONARY ARTERY W/O ANG PCTRS (4) Hyperkalemia Assessment/Plan: Resolved K 4.4 monitor K daily Code(s): E87.5 - HYPERKALEMIA
[2020-05-12 09:11] LABS: HEMATOCRIT 28.6 % (35.4-49); HEMOGLOBIN 9.1 GM/dL (11.7-16.9); MCH 26.3 pg (25.7-33.7); MCHC 31.8 g/dl (32.0-35.9); MEAN CELL VOLUME 82.8 fl (80-96); MEAN PLT VOLUME 11.8 fl (7.5-11.1); RBC 3.45 M/mm3 (4.00-5.60); RDW 19.7 % (11.9-15.9); WHITE BLOOD COUNT 2.4 K/mm3 (4.0-10.0)
[2020-05-12] MEDS: TAMSULOSIN HCL 0.4 MG CAP PO SCH (09:13)
[2020-05-12] MEDS: SODIUM ZIRCONIUM CYCLOSILICATE (LOKELMA) 5 GM PACKET PO SCH (09:13)
[2020-05-12] MEDS: CHOLECALCIFEROL (VIT D3) 1,000 UNIT (25 MCG) TABLET PO SCH (09:13)
[2020-05-12] MEDS: ASCORBIC ACID 500 MG TABLET (FP) PO SCH ×2 (09:13→22:39)
[2020-05-12] MEDS: FERROUS SO4 325 MG TABLET (FP) PO SCH ×2 (09:13→17:36)
[2020-05-12] MEDS: PANTOPRAZOLE 20 MG TABLET PO SCH (09:13)
[2020-05-12] MEDS: BUDESONIDE/FORMETEROL FUMARATE 80/4.5 mcg INHALER IH SCH ×2 (09:15→22:45)
[2020-05-12] MEDS: METOPROLOL TARTRATE 25 MG TABLET (FP) PO SCH ×2 (09:15→22:40)
[2020-05-12] MEDS: DEXTROSE 5%-0.45% SALINE 1,000 ML IV SCH (09:15)
[2020-05-12 09:39] LABS: ALBUMIN 3.4 g/dl (3.4-5.0); BILIRUBIN,TOTAL 0.8 mg/dL (0.2-1); BLOOD UREA NITROGEN 16.9 mg/dL (7-18); CALCIUM 8.2 mg/dL (8.5-10.1); CREATININE 1.3 mg/dL (0.55-1.3); POTASSIUM 3.7 mmol/L (3.5-5.1); TOT PROT 6.4 g/dl (6.4-8.2)
--- NOTE | 2020-05-12 12:04 | PN ---
Progress Note (short form) - Note Progress Note: Colonoscopy complete. report placed in the procedural section of the physical chart and will be scanned into [facility]. Problem List - Problems (1) Anemia Code(s): D64.9 - ANEMIA, UNSPECIFIED
[2020-05-12 12:05] LABS: PLATELET COUNT 135 K/MM3 (134-434)
[2020-05-12] MEDS: ATORVASTATIN CA 20 MG TABLET (FP) PO SCH (22:39)
--- NOTE | 2020-05-13 07:35 | PN ---
Progress Note, Physician - Current Medication List Current Medications: Active Medications Acetaminophen (Tylenol -) 650 mg PO Q4H PRN PRN Reason: FEVER OR PAIN 1-10 Albuterol Sulfate (Ventolin Hfa Inhaler -) 2 puff IH Q4H PRN PRN Reason: ASTHMA Ascorbic Acid (Vitamin C -) 1,000 mg PO BID [facility] Last Admin: 05/12/20 22:39 Dose: 1,000 mg Documented by: Atorvastatin Calcium (Lipitor -) 20 mg PO HS [facility] Last Admin: 05/12/20 22:39 Dose: 20 mg Documented by: Budesonide/Formoterol Fumarate (Symbicort 80/4.5mcg -) 2 puff IH BID [facility] Last Admin: 05/12/20 22:45 Dose: 2 puff Documented by: Cholecalciferol (Vitamin D3 -) 1,000 unit PO DAILY [facility] Last Admin: 05/12/20 09:13 Dose: Not Given Documented by: Ferrous Sulfate (Feosol -) 325 mg PO BIDWM [facility] Last Admin: 05/12/20 17:36 Dose: 325 mg Documented by: Hydroxyzine Pamoate (Vistaril -) 25 mg PO HS PRN PRN Reason: INSOMNIA Last Admin: 05/08/20 21:21 Dose: 25 mg Documented by: Metoprolol Tartrate (Lopressor -) 25 mg PO BID [facility] Last Admin: 05/12/20 22:40 Dose: Not Given Documented by: Pantoprazole Sodium (Protonix -) 20 mg PO DAILY [facility] Last Admin: 05/12/20 09:13 Dose: Not Given Documented by: Tamsulosin HCl (Flomax -) 0.4 mg PO DAILY@0830 [facility] Last Admin: 05/12/20 09:13 Dose: Not Given Documented by: - Objective Vital Signs: Vital Signs Temperature 98.5 F 05/13/20 05:29 Pulse Rate 53 L 05/13/20 05:29 Respiratory Rate 18 05/12/20 23:00 Blood Pressure 149/78 05/13/20 05:29 O2 Sat by Pulse Oximetry (%) 97 05/13/20 05:29 Labs: CBC, BMP 05/12/20 08:05 05/12/20 08:05 INR, PTT INR 1.03 (0.83-1.09) 05/06/20 14:45
[2020-05-13 08:37] LABS: EOS % 10.3 % (0-4.5); HEMATOCRIT 25.3 % (35.4-49); HEMOGLOBIN 8.2 GM/dL (11.7-16.9); LYMPH % 21.3 % (8-40); MCH 25.9 pg (25.7-33.7); MCHC 32.4 g/dl (32.0-35.9); MEAN CELL VOLUME 79.7 fl (80-96); MEAN PLT VOLUME 11.9 fl (7.5-11.1); MONO % 15.4 % (3.8-10.2); PLATELET COUNT 122 K/MM3 (134-434); RBC 3.17 M/mm3 (4.00-5.60); WHITE BLOOD COUNT 3.1 K/mm3 (4.0-10.0)
--- NOTE | 2020-05-13 08:54 | DS ---
Physical Examination Vital Signs: Vital Signs Temperature 98.5 F 05/13/20 05:29 Pulse Rate 53 L 05/13/20 05:29 Respiratory Rate 18 05/12/20 23:00 Blood Pressure 149/78 05/13/20 05:29 O2 Sat by Pulse Oximetry (%) 97 05/13/20 05:29 Constitutional: Yes: Mild Distress Cardiovascular: Yes: Regular Rate and Rhythm Respiratory: Yes: WNL Gastrointestinal: Yes: Soft Musculoskeletal: Yes: Muscle Weakness Edema: No Wound/Incision: Yes: Clean/Dry Neurological: Yes: Pre-Existing Deficit Labs: CBC, BMP 05/13/20 07:03 05/12/20 08:05 Discharge Summary Problems reviewed: Yes Reason For Visit: LOW HEMOGLOBIN Current Active Problems ASHLI (acute kidney injury) (Acute) Anemia (Acute) CAD (coronary artery disease) (Acute) Hyperkalemia (Acute) Low hemoglobin (Acute) Procedures: Principal: EGD Hospital Course: ADMITTED GI BLEED, TRANSFUSED, ENDOSCOPY DONE, MONITORING LABS, HEME EVAL AND GI EVAL Goals: FOLLOW WITH HEMATOLOGY, AND GI Condition: Improved - Instructions Diet, Activity, Other Instructions: CBC, IRON LEVELS WEEKLY FOLLOW UP WITH GI AND HEMATOLOGY Referrals: Carlos Rodriguez MD [Primary Care Provider] - Disposition: CARE HOME FACILITY - Home Medications Comprehensive Discharge Medication List: Ambulatory Orders Aspirin [ASA -] 81 mg PO DAILY 10/23/15 metFORMIN HCL [Metformin HCl] 500 mg PO DAILY 10/23/15 Atorvastatin Calcium 20 mg PO HS 09/25/19 Hydroxyzine HCl 25 mg PO DAILY 09/25/19 Lisinopril 10 mg PO DAILY 09/25/19 Tamsulosin HCl 0.4 mg PO DAILY 09/25/19 Albuterol Sulfate Inhaler - [Ventolin HFA Inhaler -] 2 puff IH Q4H PRN #1 inhaler 09/27/19 Ascorbic Acid [Vitamin C -] 1,000 mg PO BID tablet 01/04/20 Budesonide/Formeterol Fumarate [SYMBICORT 80/4.5mcg -] 2 puff IH BID 30 Days #1 inhaler 01/04/20 Cholecalciferol (Vitamin D3) [Vitamin D3 -] 1,000 unit PO DAILY tab 01/04/20 Ferrous Sulfate [Feosol] 325 mg PO BIDWM #60 ud 01/04/20 Metoprolol Tartrate [Lopressor -] 25 mg PO BID #60 tablet 01/04/20 Pantoprazole Sodium [Protonix -] 40 mg PO BID #60 tablet.ec 01/04/20 Zinc Sulfate [Orazinc -] 220 mg PO BID capsule 01/04/20 Acetaminophen [Tylenol .Regular Strength -] 650 mg PO Q4H PRN tablet 05/13/20 Docusate Sodium [Colace] 100 mg PO HS #30 capsule 05/13/20 Ferrous Sulfate [Feosol] 325 mg PO BID 60 Days #120 tablet 05/13/20 Pantoprazole Sodium [Protonix -] 20 mg PO DAILY tablet.ec 05/13/20 Sodium Zirconium Cyclosilicate [Lokelma] 10 gm PO DAILY packet 05/13/20
[2020-05-13] MEDS: FERROUS SO4 325 MG TABLET (FP) PO SCH (08:59)
[2020-05-13] MEDS: TAMSULOSIN HCL 0.4 MG CAP PO SCH (08:59)
[2020-05-13] MEDS: ASCORBIC ACID 500 MG TABLET (FP) PO SCH (09:59)
[2020-05-13] MEDS: CHOLECALCIFEROL (VIT D3) 1,000 UNIT (25 MCG) TABLET PO SCH (10:00)
[2020-05-13] MEDS: METOPROLOL TARTRATE 25 MG TABLET (FP) PO SCH (10:00)
[2020-05-13] MEDS: PANTOPRAZOLE 20 MG TABLET PO SCH (10:00)
[2020-05-13 10:17] VITALS: BP 152/64; PULSE 50; TEMP 99.1
--- NOTE | 2020-05-13 12:07 | PN ---
Progress Note, Physician History of Present Illness: Seen and examined at the bedside awake and alert no acute complaints making urine tolerating oral diet no sob, cp, fever, chills, N/V/D - Current Medication List Current Medications: Active Medications Acetaminophen (Tylenol -) 650 mg PO Q4H PRN PRN Reason: FEVER OR PAIN 1-10 Albuterol Sulfate (Ventolin Hfa Inhaler -) 2 puff IH Q4H PRN PRN Reason: ASTHMA Ascorbic Acid (Vitamin C -) 1,000 mg PO BID [facility] Last Admin: 05/13/20 09:59 Dose: 1,000 mg Documented by: Atorvastatin Calcium (Lipitor -) 20 mg PO HS [facility] Last Admin: 05/12/20 22:39 Dose: 20 mg Documented by: Budesonide/Formoterol Fumarate (Symbicort 80/4.5mcg -) 2 puff IH BID [facility] Last Admin: 05/12/20 22:45 Dose: 2 puff Documented by: Cholecalciferol (Vitamin D3 -) 1,000 unit PO DAILY [facility] Last Admin: 05/13/20 10:00 Dose: 1,000 unit Documented by: Ferrous Sulfate (Feosol -) 325 mg PO BIDWM [facility] Last Admin: 05/13/20 08:59 Dose: 325 mg Documented by: Hydroxyzine Pamoate (Vistaril -) 25 mg PO HS PRN PRN Reason: INSOMNIA Last Admin: 05/08/20 21:21 Dose: 25 mg Documented by: Metoprolol Tartrate (Lopressor -) 25 mg PO BID [facility] Last Admin: 05/13/20 10:00 Dose: 25 mg Documented by: Pantoprazole Sodium (Protonix -) 20 mg PO DAILY [facility] Last Admin: 05/13/20 10:00 Dose: 20 mg Documented by: Tamsulosin HCl (Flomax -) 0.4 mg PO DAILY@0830 [facility] Last Admin: 05/13/20 08:59 Dose: 0.4 mg Documented by: - Objective Vital Signs: Vital Signs Temperature 99.1 F 05/13/20 10:15 Pulse Rate 50 L 05/13/20 10:15 Respiratory Rate 18 05/13/20 10:15 Blood Pressure 152/64 05/13/20 10:15 O2 Sat by Pulse Oximetry (%) 98 05/13/20 10:15 Constitutional: Yes: No Distress, Calm HENT: Yes: Atraumatic Neck: Yes: Supple Cardiovascular: Yes: Regular Rate and Rhythm Respiratory: Yes: Regular Gastrointestinal: Yes: Soft Extremities: No: Cyanosis Edema: No Labs: CBC, BMP 05/13/20 07:03 05/12/20 08:05 INR, PTT INR 1.03 (0.83-1.09) 05/06/20 14:45 Assessment/Plan 85 year old [place] male with a past medical history significant for CAD s/p PCI, hypertension, hyperlipidemia, DM, asthma who presented from the [place] with abnormal lab values with Hgb of 5.8 and potassium of 6.3 and found to have acute GI bleed and ASHLI with hyperkalemia. 1. Acute kidney injury in setting of GI bleed (baseline cr 0.9-1) 2. Acute GI bleed/Suspected Upper GI bleed 3. Hyperkalemia in setting of decreased eGFR 4. Pseudohypocalcemia 5. Hypertension 6. CAD 7. Hyperlipidemia Renal function improved and stable. continue oral diet as tolerated FeNa is 1.1%, UPCR is unremarkable. Transfuse as per protcol No longer on IV fluids Clear liquid diet as per GI. CK within normal limits. GI follow up HOld CARMELA/ARB for now Trend H/H Prashant Mccoy DO
--- NOTE | 2020-05-13 16:32 | PATH ---
Surgical Pathology Report Patient Name: JUANA DANIELS Med. Rec. #: [id number] /Age/Gender: 1935 (Age: 85) / M Account: [id number] Location: [address] [place] [address]/[facility] Taken: 05/09/2020 Received: 05/12/2020 Reported: 05/13/2020 Physicians: Corona Castelan M.D. Specimen(s) Received A: GASTRIC FUNDUS B: GASTRIC POLYP C: GE JUNCTION POLYP Clinical History Anemia Postoperative diagnosis: GE junction, gastric polyp, gastritis Final Diagnosis A. GASTRIC FUNDUS, BIOPSY: GASTRIC MUCOSA WITH CHRONIC GASTRITIS. IMMUNOSTAIN FOR H. PYLORI IS NEGATIVE. NEGATIVE FOR INTESTINAL METAPLASIA. B. GASTRIC POLYP, BIOPSY: GASTRIC MUCOSA WITH COLLECTIONS OF LIPID-LADEN MACROPHAGES WITHIN THE GASTRIC LAMINA PROPRIA, CONSISTENT WITH XANTHOMA. SEPARATE GASTRIC MUCOSA WITH CHRONIC GASTRITIS. IMMUNOSTAIN FOR H. PYLORI IS NEGATIVE. NEGATIVE FOR INTESTINAL METAPLASIA. Comment: Immunohistochemical stain performed and interpreted at [facility] shows the macrophages in the lamina propria are negative for AE1/3, which supports the above diagnosis. Positive and negative controls (internal if applicable) show appropriate results. C. GE JUNCTION POLYP, BIOPSY: GASTROESOPHAGEAL JUNCTIONAL MUCOSA WITH HYPERPLASTIC POLYP, MARKED ACUTE AND CHRONIC INFLAMMATION AND CHANGES CONSISTENT WITH REFLUX ESOPHAGITIS. NEGATIVE FOR INTESTINAL METAPLASIA. Electronically Signed Tita Flowers M.D. Gross Description A. Received in formalin, labeled "biopsy gastritis fundus" is a orourke, irregular portion of soft tissue measuring 0.3 cm. in greatest dimension. The specimen is submitted in toto in one cassette. B. Received in formalin, labeled "biopsy gastric polyp" are 2 orourke, irregular portions of soft tissue measuring 0.2 and 0.3 cm. in greatest dimension. The specimens are submitted in toto in one cassette. C. Received in formalin, labeled "biopsy GE junction polyp" are 2 orourke, irregular portions of soft tissue averaging 0.4 cm. in greatest dimension. The specimens are submitted in toto in one cassette. 05/12/2020 saudi/05/12/2020
== END 2020-05-13 15:48 | DRG 378 ==
LOC: JER 14:02 → JERBED 16:35 → J6S 05-07 00:19
PROVIDERS: ADMIT Family Medicine; ATTEND Family Medicine
PROC: 30233N1 Transfusion of Nonautologous Red Blood Cells into Peripheral Vein, Percutaneous Approach (ICD-10-PCS; 2020-05-06)
PROC: 0DB78ZX Excision of Stomach, Pylorus, Via Natural or Artificial Opening Endoscopic, Diagnostic (ICD-10-PCS; 2020-05-09)
PROC: 0DB68ZX Excision of Stomach, Via Natural or Artificial Opening Endoscopic, Diagnostic (ICD-10-PCS; 2020-05-09)
PROC: 0W3P8ZZ Control Bleeding in Gastrointestinal Tract, Via Natural or Artificial Opening Endoscopic (ICD-10-PCS; 2020-05-09)
PROC: 0DB58ZX Excision of Esophagus, Via Natural or Artificial Opening Endoscopic, Diagnostic (ICD-10-PCS; principal; 2020-05-09 13:30)
PROC: 0DJD8ZZ Inspection of Lower Intestinal Tract, Via Natural or Artificial Opening Endoscopic (ICD-10-PCS; 2020-05-12)
DX: K92.2 Gastrointestinal hemorrhage, unspecified (principal); N17.9 Acute kidney failure, unspecified; I25.10 Atherosclerotic heart disease of native coronary artery without angina pectoris; D64.9 Anemia, unspecified; E87.5 Hyperkalemia; R63.0 Anorexia; Z68.20 Body mass index [BMI] 20.0-20.9, adult; R63.4 Abnormal weight loss; K57.90 Diverticulosis of intestine, part unspecified, without perforation or abscess without bleeding; K63.89 Other specified diseases of intestine; E78.5 Hyperlipidemia, unspecified; Z95.5 Presence of coronary angioplasty implant and graft; E83.51 Hypocalcemia; D50.9 Iron deficiency anemia, unspecified; I10 Essential (primary) hypertension; K31.7 Polyp of stomach and duodenum; K29.50 Unspecified chronic gastritis without bleeding; K64.8 Other hemorrhoids
CPT/HCPCS: 36415; 36430; 36511; 71045-TC-FY; 76775-TC; 80048; 80053; 81003; 82272; 82550; 82553; 82565; 83540; 83550; 83615; 83735; 84100; 84156; 84300; 84443; 84484; 85025; 85027; 85045; 85610; 85730; 86850; 86900; 86901; 86922; 87205; 88305-TC; 88341-TC; 93005; 93010; 97116-GP; 97161-GP; 99285-25; P9038; P9058; U0003

== ENCOUNTER 2020-10-22 16:37 | Inpatient (IN) | payer MEDICARE, OTHER ==
[2020-10-22] MEDS ORDERED: ACETAMINOPHEN 325 MG TABLET (FP) PO ONE (17:22)
[2020-10-22 17:33] LABS: BASO % 0.5 % (0-2.0); EOS % 2.4 % (0-4.5); HEMATOCRIT 19.4 % (35.4-49); LYMPH % 6.6 % (8-40); MCH 26.7 pg (25.7-33.7); MCHC 31.9 g/dl (32.0-35.9); MEAN CELL VOLUME 83.7 fl (80-96); MEAN PLT VOLUME 10.3 fl (7.5-11.1); MONO % 14.7 % (3.8-10.2); NEUT % 75.8 % (42.8-82.8); PLATELET COUNT 231 K/MM3 (134-434); RBC 2.31 M/mm3 (4.00-5.60); RDW 19.2 % (11.9-15.9); WHITE BLOOD COUNT 15.3 K/mm3 (4.0-10.0)
[2020-10-22 17:36] LABS: VENOUS BASE EXCESS -2.2 mmol/L (-2-2); VENOUS PCO2 29.2 mmHg (38-52); VENOUS PH 7.476 (7.310-7.410)
[2020-10-22 17:43] LABS: HEMOGLOBIN 6.2 GM/dL (11.7-16.9)
[2020-10-22 17:44] LABS: INR 1.16 (0.83-1.09)
[2020-10-22 17:47] LABS: ACTIVATED PTT 25.1 SECONDS (25.2-36.5)
[2020-10-22] MEDS ORDERED: VANCOMYCIN 1,000 MG in DEXTROSE 5%-WATER - 250 ML IVPB ONE (17:48)
[2020-10-22] MEDS ORDERED: PIPERACILLIN/TAZOB 3.375 GM 3.375 GM in DEXTROSE 5%-WATER - 50 ML IVPB ONE (17:48)
[2020-10-22] MEDS ORDERED: ACETAMINOPHEN 325 MG TABLET (FP) ONE (17:49)
[2020-10-22 17:56] LABS: POTASSIUM 5.8 mmol/L (3.5-5.1)
[2020-10-22 17:59] LABS: CALCIUM 8.4 mg/dL (8.5-10.1)
[2020-10-22 18:04] LABS: BILIRUBIN,TOTAL 1.3 mg/dL (0.2-1); TOT PROT 6.7 g/dl (6.4-8.2)
[2020-10-22 18:05] LABS: ANISOCYTOSIS 3+; MACROCYTOSIS 0; PLATELET ESTIMATE NORMAL; TARGET CELLS 2+
[2020-10-22] MEDS ORDERED: VANCOMYCIN 1 GRAM (PRE-DOCKED) 1,000 MG/250 ML BAG IVPB ONE (18:05)
[2020-10-22] MEDS ORDERED: PIPERACILLIN/TAZOB 3.375 GM 3.375 GM/50 ML BAG IVPB ONE ×2 (18:05→18:17)
[2020-10-22 19:43] LABS: EPI CELLS 1 /uL (0-25.1); HYALINE CASTS 1 /uL (0-3.1); URINE APPEARANCE CLOUDY; URINE BACTERIA >9,000 /uL (0-1359); URINE BILIRUBIN NEGATIVE (NEGATIVE); URINE COLOR YELLOW; URINE GLUCOSE (UA) NEGATIVE (NEGATIVE); URINE KETONE NEGATIVE (NEGATIVE); URINE LEUK ESTERASE 2+ (NEGATIVE); URINE NITRITE POSITIVE (NEGATIVE); URINE PROTEIN 1+ (NEGATIVE); URINE RBC 57 /uL (0-23.9); URINE UROBILINOGEN 0.2 mg/dL (0.2-1.0); URINE WBC 708 /uL (0-25.8)
[2020-10-22] MEDS ORDERED: ALBUTEROL SO4 0.083% IH SOL 2.5 MG/3 ML VIAL.NEB. NEB ONE ×2 (21:09→21:16)
[2020-10-22] MEDS ORDERED: ACETAMINOPHEN INJECTION 100 ML IVPB ONE (21:23)
[2020-10-22] MEDS ORDERED: ACETAMINOPHEN 1000 MG/100 ML VIAL (NON FORMULARY) IVPB ONE (21:30)
[2020-10-22] MEDS ORDERED: TAMSULOSIN HCL 0.4 MG CAP PO ONE (23:45)
[2020-10-23 02:11] VITALS: BMI 23.3
[2020-10-23] MEDS ORDERED: ACETAMINOPHEN 1000 MG/100 ML VIAL (NON FORMULARY) IVPB ONE (02:30)
[2020-10-23 04:32] LABS: BASO % 0.1 % (0-2.0); HEMATOCRIT 24.9 % (35.4-49); HEMOGLOBIN 8.4 GM/dL (11.7-16.9); LYMPH % 4.6 % (8-40); MCH 28.2 pg (25.7-33.7); MCHC 33.9 g/dl (32.0-35.9); MEAN CELL VOLUME 83.1 fl (80-96); MEAN PLT VOLUME 10.7 fl (7.5-11.1); MONO % 13.1 % (3.8-10.2); NEUT % 81.2 % (42.8-82.8); PLATELET COUNT 188 K/MM3 (134-434); RBC 2.99 M/mm3 (4.00-5.60); RDW 17.4 % (11.9-15.9); WHITE BLOOD COUNT 19.6 K/mm3 (4.0-10.0)
[2020-10-23] MEDS ORDERED: DEXTROSE 5%-WATER - 50 ML IVPB ONE ×2 (04:58→09:19)
[2020-10-23] MEDS ORDERED: PIPERACILLIN/TAZOBACTAM 2.25 GM VIAL IVPB ONE ×2 (04:58→09:19)
[2020-10-23 04:59] LABS: EPI CELLS 1 /uL (0-25.1); HYALINE CASTS 1 /uL (0-3.1); PH,URINE 5.5 (5.0-8.0); URINE APPEARANCE CLOUDY; URINE BACTERIA 74 /uL (0-1359); URINE BILIRUBIN NEGATIVE (NEGATIVE); URINE COLOR YELLOW; URINE GLUCOSE (UA) NEGATIVE (NEGATIVE); URINE KETONE NEGATIVE (NEGATIVE); URINE LEUK ESTERASE 2+ (NEGATIVE); URINE NITRITE NEGATIVE (NEGATIVE); URINE PROTEIN 1+ (NEGATIVE); URINE RBC 117 /uL (0-23.9); URINE UROBILINOGEN 0.2 mg/dL (0.2-1.0); URINE WBC 1506 /uL (0-25.8)
[2020-10-23] MEDS: PIPERACILLIN/TAZOB 2.25 GM 2.25 GM in DEXTROSE 5%-WATER - 50 ML IVPB SCH ×3 (05:03→11:22)
[2020-10-23] MEDS: INSULIN SLIDING SCALE (NOVOLOG) 1 VIAL SQ SCH ×4 (06:20→21:30)
[2020-10-23 08:45] LABS: BASO % 0.3 % (0-2.0); HEMATOCRIT 26.9 % (35.4-49); HEMOGLOBIN 8.9 GM/dL (11.7-16.9); LYMPH % 6.4 % (8-40); MCH 28.2 pg (25.7-33.7); MCHC 33.3 g/dl (32.0-35.9); MEAN CELL VOLUME 84.7 fl (80-96); MEAN PLT VOLUME 10.6 fl (7.5-11.1); MONO % 12.2 % (3.8-10.2); NEUT % 80.1 % (42.8-82.8); PLATELET COUNT 202 K/MM3 (134-434); RBC 3.17 M/mm3 (4.00-5.60); RDW 17.1 % (11.9-15.9); WHITE BLOOD COUNT 19.8 K/mm3 (4.0-10.0)
[2020-10-23 08:46] LABS: ANISOCYTOSIS 2+; MACROCYTOSIS 0; PLATELET ESTIMATE NORMAL; TARGET CELLS 1+
[2020-10-23 09:08] LABS: CALCIUM 8.4 mg/dL (8.5-10.1); CREATININE 2.2 mg/dL (0.55-1.3)
[2020-10-23] MEDS: PANTOPRAZOLE 20 MG TABLET PO SCH (09:51)
[2020-10-23] MEDS: CHOLECALCIFEROL (VIT D3) 1,000 UNIT (25 MCG) TABLET PO SCH (09:51)
[2020-10-23] MEDS: MECLIZINE HCL 12.5 MG TABLET PO SCH ×2 (09:51→21:26)
[2020-10-23] MEDS ORDERED: VANCOMYCIN 1 GM in D5W (PRE-DOCKED) 1,000 MG/250 ML IVPB SCH (10:00)
[2020-10-23] MEDS ORDERED: LISINOPRIL 10 MG TABLET PO SCH (10:00)
[2020-10-23 10:20] LABS: ANISOCYTOSIS 2+; MACROCYTOSIS 0; PLATELET ESTIMATE NORMAL; TARGET CELLS 1+
[2020-10-23] MEDS: ACETAMINOPHEN 325 MG TABLET (FP) PO PRN (11:26)
[2020-10-23] MEDS ORDERED: MEROPENEM 500 MG in DEXTROSE 5%-WATER 100 ML IVPB ONE (12:00)
[2020-10-23] MEDS ORDERED: DEXTROSE 5%-WATER 100 ML IVPB ONE ×2 (13:16→17:15)
[2020-10-23] MEDS ORDERED: MEROPENEM 500 MG VIAL (RESTRICTED TO ID) IVPB ONE ×2 (13:16→17:15)
[2020-10-23] MEDS: MEROPENEM 500 MG in DEXTROSE 5%-WATER 100 ML IVPB SCH (17:25)
[2020-10-23] MEDS: MIRTAZAPINE 15 MG TABLET (FP) PO SCH (21:26)
[2020-10-23] MEDS: ATORVASTATIN CA 20 MG TABLET (FP) PO SCH (21:26)
[2020-10-23] MEDS: POLYETHYLENE GLYCOL 3350 119 GM BTL PO SCH (21:31)
[2020-10-24] MEDS ORDERED: DEXTROSE 5%-WATER 100 ML IVPB ONE ×3 (01:02→18:19)
[2020-10-24] MEDS ORDERED: MEROPENEM 500 MG VIAL (RESTRICTED TO ID) IVPB ONE ×3 (01:02→18:19)
[2020-10-24] MEDS: MEROPENEM 500 MG in DEXTROSE 5%-WATER 100 ML IVPB SCH ×3 (01:07→18:23)
[2020-10-24] MEDS: INSULIN SLIDING SCALE (NOVOLOG) 1 VIAL SQ SCH ×4 (06:25→21:35)
[2020-10-24 08:55] LABS: HEMATOCRIT 24.9 % (35.4-49); HEMOGLOBIN 7.9 GM/dL (11.7-16.9); MCH 27.3 pg (25.7-33.7); MCHC 31.9 g/dl (32.0-35.9); MEAN CELL VOLUME 85.6 fl (80-96); MEAN PLT VOLUME 11.3 fl (7.5-11.1); PLATELET COUNT 176 K/MM3 (134-434); RBC 2.91 M/mm3 (4.00-5.60); RDW 18.3 % (11.9-15.9); WHITE BLOOD COUNT 13.4 K/mm3 (4.0-10.0)
[2020-10-24 09:19] LABS: POTASSIUM 4.2 mmol/L (3.5-5.1)
[2020-10-24 09:24] LABS: CALCIUM 8.6 mg/dL (8.5-10.1)
[2020-10-24 09:25] LABS: BLOOD UREA NITROGEN 42.7 mg/dL (7-18); MAGNESIUM 2.3 mg/dL (1.8-2.4)
[2020-10-24 09:28] LABS: CREATININE 2.2 mg/dL (0.55-1.3)
[2020-10-24] MEDS: PANTOPRAZOLE 20 MG TABLET PO SCH (10:29)
[2020-10-24] MEDS: CHOLECALCIFEROL (VIT D3) 1,000 UNIT (25 MCG) TABLET PO SCH (10:29)
[2020-10-24] MEDS: MECLIZINE HCL 12.5 MG TABLET PO SCH ×2 (10:29→21:32)
[2020-10-24] MEDS ORDERED: SODIUM CHLORIDE 1,000 ML IV SCH (12:45)
[2020-10-24] MEDS: SODIUM CHLORIDE 1,000 ML IV SCH (13:53)
[2020-10-24] MEDS: MIRTAZAPINE 15 MG TABLET (FP) PO SCH (21:32)
[2020-10-24] MEDS: ATORVASTATIN CA 20 MG TABLET (FP) PO SCH (21:32)
[2020-10-24] MEDS: POLYETHYLENE GLYCOL 3350 119 GM BTL PO SCH (21:35)
[2020-10-24] MEDS: ACETAMINOPHEN 325 MG TABLET (FP) PO PRN (22:32)
[2020-10-25] MEDS ORDERED: MEROPENEM 500 MG VIAL (RESTRICTED TO ID) IVPB ONE ×3 (00:45→17:01)
[2020-10-25] MEDS ORDERED: DEXTROSE 5%-WATER 100 ML IVPB ONE ×3 (00:45→17:01)
[2020-10-25] MEDS: MEROPENEM 500 MG in DEXTROSE 5%-WATER 100 ML IVPB SCH ×3 (01:22→17:09)
[2020-10-25] MEDS: INSULIN SLIDING SCALE (NOVOLOG) 1 VIAL SQ SCH (06:10)
[2020-10-25] MEDS: SODIUM CHLORIDE 1,000 ML IV SCH ×2 (09:25→13:00)
[2020-10-25] MEDS: PANTOPRAZOLE 20 MG TABLET PO SCH (09:26)
[2020-10-25] MEDS: CHOLECALCIFEROL (VIT D3) 1,000 UNIT (25 MCG) TABLET PO SCH (09:26)
[2020-10-25] MEDS: MECLIZINE HCL 12.5 MG TABLET PO SCH ×2 (09:26→21:30)
[2020-10-25 09:31] LABS: HEMATOCRIT 26.1 % (35.4-49); HEMOGLOBIN 8.7 GM/dL (11.7-16.9); MCH 28.6 pg (25.7-33.7); MCHC 33.3 g/dl (32.0-35.9); MEAN PLT VOLUME 11.4 fl (7.5-11.1); PLATELET COUNT 184 K/MM3 (134-434); RBC 3.04 M/mm3 (4.00-5.60); RDW 18.1 % (11.9-15.9); WHITE BLOOD COUNT 10.2 K/mm3 (4.0-10.0)
[2020-10-25 10:30] LABS: POTASSIUM 4.5 mmol/L (3.5-5.1)
[2020-10-25 10:31] LABS: CALCIUM 8.2 mg/dL (8.5-10.1)
[2020-10-25 10:32] LABS: BLOOD UREA NITROGEN 45.9 mg/dL (7-18)
[2020-10-25 10:35] LABS: CREATININE 2.3 mg/dL (0.55-1.3)
[2020-10-25] MEDS: ATORVASTATIN CA 20 MG TABLET (FP) PO SCH (21:30)
[2020-10-25] MEDS: MIRTAZAPINE 15 MG TABLET (FP) PO SCH (21:30)
[2020-10-25] MEDS: POLYETHYLENE GLYCOL 3350 119 GM BTL PO SCH (21:30)
[2020-10-26] MEDS ORDERED: MEROPENEM 500 MG VIAL (RESTRICTED TO ID) IVPB ONE ×3 (01:35→17:49)
[2020-10-26] MEDS ORDERED: DEXTROSE 5%-WATER 100 ML IVPB ONE ×3 (01:35→17:49)
[2020-10-26] MEDS: MEROPENEM 500 MG in DEXTROSE 5%-WATER 100 ML IVPB SCH ×3 (01:37→18:24)
[2020-10-26] MEDS: ACETAMINOPHEN 325 MG TABLET (FP) PO PRN ×2 (10:10→22:04)
[2020-10-26] MEDS: CHOLECALCIFEROL (VIT D3) 1,000 UNIT (25 MCG) TABLET PO SCH (10:13)
[2020-10-26] MEDS: MECLIZINE HCL 12.5 MG TABLET PO SCH ×2 (10:13→21:45)
[2020-10-26] MEDS: PANTOPRAZOLE 20 MG TABLET PO SCH (10:13)
[2020-10-26] MEDS: SODIUM CHLORIDE 1,000 ML IV SCH (17:44)
[2020-10-26] MEDS ORDERED: PT OWN MED DRAWER 7, Y5N ONE (17:50)
[2020-10-26] MEDS: MIRTAZAPINE 15 MG TABLET (FP) PO SCH (21:45)
[2020-10-26] MEDS: ATORVASTATIN CA 20 MG TABLET (FP) PO SCH (21:45)
[2020-10-26] MEDS: POLYETHYLENE GLYCOL 3350 119 GM BTL PO SCH (21:46)
[2020-10-27] MEDS ORDERED: MEROPENEM 500 MG VIAL (RESTRICTED TO ID) IVPB ONE ×3 (00:10→18:38)
[2020-10-27] MEDS ORDERED: DEXTROSE 5%-WATER 100 ML IVPB ONE ×3 (00:10→18:38)
[2020-10-27] MEDS: MEROPENEM 500 MG in DEXTROSE 5%-WATER 100 ML IVPB SCH ×3 (01:02→18:44)
[2020-10-27 08:32] LABS: BASO % 0.6 % (0-2.0); EOS % 7.3 % (0-4.5); HEMATOCRIT 26.3 % (35.4-49); HEMOGLOBIN 8.5 GM/dL (11.7-16.9); LYMPH % 12.7 % (8-40); MCH 28.1 pg (25.7-33.7); MCHC 32.5 g/dl (32.0-35.9); MEAN CELL VOLUME 86.6 fl (80-96); MEAN PLT VOLUME 11.2 fl (7.5-11.1); MONO % 13.7 % (3.8-10.2); NEUT % 65.7 % (42.8-82.8); PLATELET COUNT 186 K/MM3 (134-434); RBC 3.03 M/mm3 (4.00-5.60); RDW 18.3 % (11.9-15.9); WHITE BLOOD COUNT 8.3 K/mm3 (4.0-10.0)
[2020-10-27 08:49] LABS: POTASSIUM 4.9 mmol/L (3.5-5.1)
[2020-10-27 08:53] LABS: BLOOD UREA NITROGEN 34.9 mg/dL (7-18); CALCIUM 8.2 mg/dL (8.5-10.1)
[2020-10-27 08:56] LABS: CREATININE 1.6 mg/dL (0.55-1.3)
[2020-10-27 08:57] LABS: BILIRUBIN,TOTAL 0.5 mg/dL (0.2-1)
[2020-10-27 08:59] LABS: TOT PROT 5.8 g/dl (6.4-8.2)
[2020-10-27 09:06] LABS: ALBUMIN 2.3 g/dl (3.4-5.0)
[2020-10-27] MEDS: MECLIZINE HCL 12.5 MG TABLET PO SCH ×2 (09:27→21:17)
[2020-10-27] MEDS: PANTOPRAZOLE 20 MG TABLET PO SCH (09:27)
[2020-10-27] MEDS: CHOLECALCIFEROL (VIT D3) 1,000 UNIT (25 MCG) TABLET PO SCH (09:27)
[2020-10-27 10:29] LABS: ANISOCYTOSIS 1+; MACROCYTOSIS 0; OVALOCYTE 1+
[2020-10-27 10:32] LABS: PLATELET ESTIMATE NORMAL
[2020-10-27] MEDS ORDERED: FUROSEMIDE 40 MG/4 ML INJECTABLE VIAL IVPUSH ONE (14:38)
[2020-10-27] MEDS: SODIUM CHLORIDE 1,000 ML IV SCH (18:47)
[2020-10-27] MEDS: ATORVASTATIN CA 20 MG TABLET (FP) PO SCH (21:17)
[2020-10-27] MEDS: MIRTAZAPINE 15 MG TABLET (FP) PO SCH (21:17)
[2020-10-27] MEDS: POLYETHYLENE GLYCOL 3350 119 GM BTL PO SCH (21:18)
[2020-10-28] MEDS ORDERED: DEXTROSE 5%-WATER 100 ML IVPB ONE ×2 (00:25→09:49)
[2020-10-28] MEDS ORDERED: MEROPENEM 500 MG VIAL (RESTRICTED TO ID) IVPB ONE ×2 (00:25→09:49)
[2020-10-28] MEDS: MEROPENEM 500 MG in DEXTROSE 5%-WATER 100 ML IVPB SCH ×2 (01:26→09:56)
[2020-10-28 08:12] LABS: POTASSIUM 4.5 mmol/L (3.5-5.1)
[2020-10-28 08:14] LABS: BLOOD UREA NITROGEN 33.6 mg/dL (7-18); CALCIUM 8.5 mg/dL (8.5-10.1); MAGNESIUM 2.2 mg/dL (1.8-2.4)
[2020-10-28 08:17] LABS: CREATININE 1.6 mg/dL (0.55-1.3)
[2020-10-28] MEDS: CHOLECALCIFEROL (VIT D3) 1,000 UNIT (25 MCG) TABLET PO SCH (09:56)
[2020-10-28] MEDS: PANTOPRAZOLE 20 MG TABLET PO SCH (09:56)
[2020-10-28] MEDS: MECLIZINE HCL 12.5 MG TABLET PO SCH (09:56)
[2020-10-28] MEDS ORDERED: ERTAPENEM SODIUM 1 GM in SODIUM CHLORIDE 50 ML IVPB SCH (12:00)
[2020-10-28 15:52] VITALS: BP 131/56; PULSE 69; TEMP 98.4
[2020-10-29 14:12] LABS: TOTAL PROTEIN, URINE 69.3 mg/dL (Not Estab.)
== END 2020-10-28 17:37 | DRG 872 ==
LOC: JER 16:37 → JERBED 17:28 → J8W 23:23
PROVIDERS: ADMIT Hospitalist; ATTEND Family Medicine
PROC: 30233N1 Transfusion of Nonautologous Red Blood Cells into Peripheral Vein, Percutaneous Approach (ICD-10-PCS; principal; 2020-10-22)
PROC: 02HV33Z Insertion of Infusion Device into Superior Vena Cava, Percutaneous Approach (ICD-10-PCS; 2020-10-27)
PROC: B518ZZA Fluoroscopy of Superior Vena Cava, Guidance (ICD-10-PCS; 2020-10-27)
DX: A41.59 Other Gram-negative sepsis (principal); N39.0 Urinary tract infection, site not specified; I50.32 Chronic diastolic (congestive) heart failure; N17.9 Acute kidney failure, unspecified; Z16.12 Extended spectrum beta lactamase (ESBL) resistance; F03.90 Unspecified dementia, unspecified severity, without behavioral disturbance, psychotic disturbance, mood disturbance, and anxiety; D64.9 Anemia, unspecified; I25.10 Atherosclerotic heart disease of native coronary artery without angina pectoris; Z95.5 Presence of coronary angioplasty implant and graft; N40.0 Benign prostatic hyperplasia without lower urinary tract symptoms; E78.5 Hyperlipidemia, unspecified; K21.9 Gastro-esophageal reflux disease without esophagitis; E86.0 Dehydration; B96.20 Unspecified Escherichia coli [E. coli] as the cause of diseases classified elsewhere; D72.829 Elevated white blood cell count, unspecified; E11.9 Type 2 diabetes mellitus without complications
CPT/HCPCS: 36415; 36430; 36569; 71045-TC-FY; 76775-TC; 77001-TC-FY; 80048; 80053; 81003; 82272; 82565; 82607; 82728; 82747; 82784; 82803; 82962; 83036; 83540; 83550; 83605; 83735; 84100; 84132; 84155; 84156; 84157; 84165; 84300; 84439; 84443; 85014; 85025; 85027; 85610; 85730; 86038; 86078; 86334; 86850; 86900; 86901; 86922; 87040; 87086; 87186; 87804; 93005; 93010; 97116-GP; 97161-GP; 99285-25; C1751; C9803; J0131; P9058; U0003

== ENCOUNTER 2020-11-13 16:32 | Inpatient (IN) | payer MEDICARE, OTHER ==
[2020-11-13 16:40] VITALS: BMI 24.0
[2020-11-13 18:01] LABS: BASO % 0.8 % (0-2.0); EOS % 7.1 % (0-4.5); HEMATOCRIT 20.3 % (35.4-49); LYMPH % 11.7 % (8-40); MCH 27.4 pg (25.7-33.7); MCHC 32.6 g/dl (32.0-35.9); MEAN PLT VOLUME 10.4 fl (7.5-11.1); MONO % 12.3 % (3.8-10.2); NEUT % 68.1 % (42.8-82.8); PLATELET COUNT 341 K/MM3 (134-434); RBC 2.41 M/mm3 (4.00-5.60); RDW 18.7 % (11.9-15.9); RETICULOCYTES 0.69 % (0.5-1.5); WHITE BLOOD COUNT 8.6 K/mm3 (4.0-10.0)
[2020-11-13 18:04] LABS: HEMOGLOBIN 6.6 GM/dL (11.7-16.9)
[2020-11-13 18:06] LABS: INR 1.16 (0.83-1.09)
[2020-11-13 18:09] LABS: ACTIVATED PTT 32.8 SECONDS (25.2-36.5)
[2020-11-13 18:15] LABS: POTASSIUM 5.3 mmol/L (3.5-5.1)
[2020-11-13 18:16] LABS: CALCIUM 8.1 mg/dL (8.5-10.1)
[2020-11-13 18:17] LABS: ALBUMIN 2.5 g/dl (3.4-5.0); BLOOD UREA NITROGEN 30.2 mg/dL (7-18)
[2020-11-13 18:20] LABS: BILIRUBIN,DIRECT 0.1 mg/dL (0.0-0.2)
[2020-11-13 18:22] LABS: BILIRUBIN,TOTAL 0.4 mg/dL (0.2-1)
[2020-11-13 18:23] LABS: CREATININE 1.9 mg/dL (0.55-1.3)
[2020-11-13 18:26] LABS: ANISOCYTOSIS 2+; MACROCYTOSIS 0; OVALOCYTE 1+; PLATELET ESTIMATE NORMAL; TARGET CELLS 2+
[2020-11-13 20:03] LABS: POTASSIUM 4.7 mmol/L (3.5-5.1)
[2020-11-13 20:05] LABS: BLOOD UREA NITROGEN 29.5 mg/dL (7-18); CALCIUM 7.9 mg/dL (8.5-10.1)
[2020-11-13 20:06] LABS: ALBUMIN 2.4 g/dl (3.4-5.0)
[2020-11-13 20:09] LABS: CREATININE 1.8 mg/dL (0.55-1.3)
[2020-11-13 20:10] LABS: TOT PROT 6.4 g/dl (6.4-8.2)
[2020-11-13 20:11] LABS: BILIRUBIN,TOTAL 0.3 mg/dL (0.2-1)
[2020-11-14 02:18] LABS: BASO % 0.4 % (0-2.0); EOS % 5.7 % (0-4.5); HEMATOCRIT 25.4 % (35.4-49); HEMOGLOBIN 8.4 GM/dL (11.7-16.9); LYMPH % 12.1 % (8-40); MCH 28.2 pg (25.7-33.7); MEAN CELL VOLUME 85.5 fl (80-96); MEAN PLT VOLUME 9.2 fl (7.5-11.1); MONO % 9.9 % (3.8-10.2); NEUT % 71.9 % (42.8-82.8); PLATELET COUNT 270 K/MM3 (134-434); RBC 2.97 M/mm3 (4.00-5.60); RDW 17.4 % (11.9-15.9); WHITE BLOOD COUNT 9.9 K/mm3 (4.0-10.0)
[2020-11-14 03:08] LABS: ANISOCYTOSIS 3+; MACROCYTOSIS 0; PLATELET ESTIMATE NORMAL; TARGET CELLS 2+; TEAR DROP CELLS 2+
[2020-11-14 08:17] LABS: BASO % 1.1 % (0-2.0); EOS % 6.8 % (0-4.5); HEMATOCRIT 29.2 % (35.4-49); HEMOGLOBIN 9.9 GM/dL (11.7-16.9); MCH 28.8 pg (25.7-33.7); MEAN CELL VOLUME 84.9 fl (80-96); MEAN PLT VOLUME 10.4 fl (7.5-11.1); MONO % 9.5 % (3.8-10.2); NEUT % 69.6 % (42.8-82.8); PLATELET COUNT 314 K/MM3 (134-434); RBC 3.44 M/mm3 (4.00-5.60); RDW 16.5 % (11.9-15.9); WHITE BLOOD COUNT 9.3 K/mm3 (4.0-10.0)
[2020-11-14 10:38] LABS: ANISOCYTOSIS 2+; PLATELET ESTIMATE NORMAL
[2020-11-14 11:03] VITALS: BP 131/55; PULSE 74; TEMP 98.9
== END 2020-11-14 11:07 | DRG 292 ==
LOC: JER 16:32 → JERBED 19:05
PROVIDERS: ADMIT Hospitalist; ATTEND Family Medicine
PROC: 30233N1 Transfusion of Nonautologous Red Blood Cells into Peripheral Vein, Percutaneous Approach (ICD-10-PCS; principal; 2020-11-13)
DX: I13.0 Hypertensive heart and chronic kidney disease with heart failure and stage 1 through stage 4 chronic kidney disease, or unspecified chronic kidney disease (principal); I50.32 Chronic diastolic (congestive) heart failure; N39.0 Urinary tract infection, site not specified; J45.909 Unspecified asthma, uncomplicated; N40.0 Benign prostatic hyperplasia without lower urinary tract symptoms; E78.5 Hyperlipidemia, unspecified; I10 Essential (primary) hypertension; I25.10 Atherosclerotic heart disease of native coronary artery without angina pectoris; Z95.5 Presence of coronary angioplasty implant and graft; K21.9 Gastro-esophageal reflux disease without esophagitis; I44.0 Atrioventricular block, first degree; D63.1 Anemia in chronic kidney disease; E11.22 Type 2 diabetes mellitus with diabetic chronic kidney disease; F03.90 Unspecified dementia, unspecified severity, without behavioral disturbance, psychotic disturbance, mood disturbance, and anxiety
CPT/HCPCS: 36415; 36430; 36511; 71045-TC-FY; 80053; 82248; 82550; 82607; 82728; 82746; 83010; 83540; 83550; 83615; 84439; 84443; 84481; 84484; 85025; 85045; 85610; 85730; 86850; 86900; 86901; 86922; 93005; 93010; 99285-25; C9803; P9038; P9058; U0003; U0005

== ENCOUNTER 2020-12-25 17:13 | Inpatient (IN) | payer MEDICARE, OTHER ==
[2020-12-25 18:40] LABS: BASO % 3.5 % (0-2.0); EOS % 13.4 % (0-4.5); HEMOGLOBIN 8.3 GM/dL (11.7-16.9); LYMPH % 25.5 % (8-40); MCHC 33.2 g/dl (32.0-35.9); MEAN CELL VOLUME 84.5 fl (80-96); MEAN PLT VOLUME 10.9 fl (7.5-11.1); MONO % 12.6 % (3.8-10.2); PLATELET COUNT 181 K/MM3 (134-434); RBC 2.96 M/mm3 (4.00-5.60); RDW 18.4 % (11.9-15.9); WHITE BLOOD COUNT 4.4 K/mm3 (4.0-10.0)
[2020-12-25 18:59] LABS: ALBUMIN 3.7 g/dl (3.4-5.0); BLOOD UREA NITROGEN 48.4 mg/dL (7-18); CALCIUM 8.5 mg/dL (8.5-10.1)
[2020-12-25 19:02] LABS: CREATININE 1.6 mg/dL (0.55-1.3)
[2020-12-25 19:04] LABS: BILIRUBIN,TOTAL 0.3 mg/dL (0.2-1); TOT PROT 7.4 g/dl (6.4-8.2)
[2020-12-25] MEDS: SODIUM CHLORIDE 500 ML IV SCH (21:48)
[2020-12-25] MEDS ORDERED: MELATONIN 1 MG TABLET PO PRN (21:54)
[2020-12-25] MEDS ORDERED: ACETAMINOPHEN 325 MG TABLET (FP) PO PRN (21:54)
[2020-12-25] MEDS ORDERED: ALBUTEROL SO4 HFA INHALER IH PRN (21:54)
[2020-12-26 03:34] VITALS: BMI 21.5
[2020-12-26] MEDS: SODIUM CHLORIDE 500 ML IV SCH (03:48)
[2020-12-26 08:35] LABS: ANISOCYTOSIS 3+
[2020-12-26 08:36] LABS: OVALOCYTE 1+; SICKELED CELLS 1+; TEAR DROP CELLS 1+
[2020-12-26 08:45] LABS: BASO % 2.6 % (0-2.0); EOS % 12.9 % (0-4.5); HEMATOCRIT 22.5 % (35.4-49); HEMOGLOBIN 7.4 GM/dL (11.7-16.9); LYMPH % 29.3 % (8-40); MEAN CELL VOLUME 84.7 fl (80-96); MEAN PLT VOLUME 11.7 fl (7.5-11.1); MONO % 13.1 % (3.8-10.2); NEUT % 42.1 % (42.8-82.8); PLATELET COUNT 168 K/MM3 (134-434); RBC 2.66 M/mm3 (4.00-5.60); RDW 18.1 % (11.9-15.9); WHITE BLOOD COUNT 3.8 K/mm3 (4.0-10.0)
[2020-12-26 09:01] LABS: CALCIUM 8.1 mg/dL (8.5-10.1)
[2020-12-26 09:02] LABS: BLOOD UREA NITROGEN 40.4 mg/dL (7-18)
[2020-12-26 09:05] LABS: CREATININE 1.6 mg/dL (0.55-1.3)
[2020-12-26 09:06] LABS: BILIRUBIN,TOTAL 0.4 mg/dL (0.2-1)
[2020-12-26 09:07] LABS: TOT PROT 6.3 g/dl (6.4-8.2)
[2020-12-26 09:42] LABS: ANISOCYTOSIS 3+; MACROCYTOSIS 0; PLATELET ESTIMATE NORMAL; TARGET CELLS 1+; TEAR DROP CELLS 1+
[2020-12-26] MEDS: PANTOPRAZOLE 20 MG TABLET PO SCH (11:57)
[2020-12-26] MEDS: CHOLECALCIFEROL (VIT D3) 1,000 UNIT (25 MCG) TABLET PO SCH (11:57)
[2020-12-26] MEDS: TAMSULOSIN HCL 0.4 MG CAP PO SCH (11:57)
[2020-12-26] MEDS ORDERED: PT OWN MED DRAWER 7, Y5N ONE (11:59)
[2020-12-26] MEDS: BUDESONIDE/FORMETEROL FUMARATE 80/4.5 mcg INHALER IH SCH ×3 (13:28→21:11)
[2020-12-26] MEDS ORDERED: POLYETHYLENE GLYCOL 3350 119 GM BTL PO ONE (17:28)
[2020-12-26] MEDS: ATORVASTATIN CA 20 MG TABLET (FP) PO SCH ×2 (20:11→21:11)
[2020-12-26] MEDS: MIRTAZAPINE 15 MG TABLET (FP) PO SCH ×2 (20:11→21:11)
[2020-12-27 08:25] LABS: BASO % 2.5 % (0-2.0); EOS % 12.8 % (0-4.5); HEMATOCRIT 24.3 % (35.4-49); HEMOGLOBIN 7.9 GM/dL (11.7-16.9); LYMPH % 25.6 % (8-40); MCH 27.5 pg (25.7-33.7); MCHC 32.4 g/dl (32.0-35.9); MEAN CELL VOLUME 84.6 fl (80-96); MEAN PLT VOLUME 11.6 fl (7.5-11.1); MONO % 13.5 % (3.8-10.2); NEUT % 45.6 % (42.8-82.8); PLATELET COUNT 181 K/MM3 (134-434); RBC 2.87 M/mm3 (4.00-5.60); RDW 18.3 % (11.9-15.9); WHITE BLOOD COUNT 4.3 K/mm3 (4.0-10.0)
[2020-12-27 08:33] LABS: ALBUMIN 3.3 g/dl (3.4-5.0); CALCIUM 8.4 mg/dL (8.5-10.1)
[2020-12-27 08:34] LABS: BLOOD UREA NITROGEN 39.8 mg/dL (7-18); MAGNESIUM 2.1 mg/dL (1.8-2.4)
[2020-12-27 08:37] LABS: CREATININE 1.4 mg/dL (0.55-1.3); PHOSPHOROUS 3.2 mg/dL (2.5-4.9)
[2020-12-27 08:38] LABS: BILIRUBIN,TOTAL 0.4 mg/dL (0.2-1); TOT PROT 6.4 g/dl (6.4-8.2)
[2020-12-27] MEDS: CHOLECALCIFEROL (VIT D3) 1,000 UNIT (25 MCG) TABLET PO SCH (09:02)
[2020-12-27] MEDS: PANTOPRAZOLE 20 MG TABLET PO SCH (09:02)
[2020-12-27] MEDS: BUDESONIDE/FORMETEROL FUMARATE 80/4.5 mcg INHALER IH SCH ×2 (09:03→21:28)
[2020-12-27] MEDS ORDERED: PT OWN MED DRAWER 7, Y5N ONE (09:13)
[2020-12-27] MEDS ORDERED: MAGNESIUM HYDROX 2400MG/30ML ORAL SUSPENSION 30 ML CUP PO ONE (15:30)
[2020-12-27] MEDS: TAMSULOSIN HCL 0.4 MG CAP PO SCH (17:59)
[2020-12-27] MEDS: MIRTAZAPINE 15 MG TABLET (FP) PO SCH (21:27)
[2020-12-27] MEDS: ATORVASTATIN CA 20 MG TABLET (FP) PO SCH (21:27)
[2020-12-28] MEDS: CHOLECALCIFEROL (VIT D3) 1,000 UNIT (25 MCG) TABLET PO SCH (09:03)
[2020-12-28] MEDS: PANTOPRAZOLE 20 MG TABLET PO SCH (09:03)
[2020-12-28] MEDS: BUDESONIDE/FORMETEROL FUMARATE 80/4.5 mcg INHALER IH SCH ×2 (09:04→21:11)
[2020-12-28] MEDS: TAMSULOSIN HCL 0.4 MG CAP PO SCH ×2 (09:04→11:41)
[2020-12-28 10:42] LABS: CALCIUM 8.6 mg/dL (8.5-10.1)
[2020-12-28 10:44] LABS: ALBUMIN 3.1 g/dl (3.4-5.0); BLOOD UREA NITROGEN 37.3 mg/dL (7-18)
[2020-12-28 10:47] LABS: CREATININE 1.5 mg/dL (0.55-1.3)
[2020-12-28 10:48] LABS: BILIRUBIN,TOTAL 0.3 mg/dL (0.2-1); TOT PROT 6.2 g/dl (6.4-8.2)
[2020-12-28] MEDS: ATORVASTATIN CA 20 MG TABLET (FP) PO SCH (21:10)
[2020-12-28] MEDS: MIRTAZAPINE 15 MG TABLET (FP) PO SCH (21:10)
[2020-12-29] MEDS: CHOLECALCIFEROL (VIT D3) 1,000 UNIT (25 MCG) TABLET PO SCH (09:28)
[2020-12-29] MEDS: PANTOPRAZOLE 20 MG TABLET PO SCH (09:28)
[2020-12-29] MEDS: BUDESONIDE/FORMETEROL FUMARATE 80/4.5 mcg INHALER IH SCH (09:29)
[2020-12-29] MEDS: TAMSULOSIN HCL 0.4 MG CAP PO SCH ×2 (09:29→09:32)
[2020-12-29 10:33] LABS: HEMATOCRIT 32.1 % (35.4-49); HEMOGLOBIN 10.8 GM/dL (11.7-16.9); MCH 28.2 pg (25.7-33.7); MCHC 33.8 g/dl (32.0-35.9); MEAN CELL VOLUME 83.6 fl (80-96); MEAN PLT VOLUME 11.1 fl (7.5-11.1); PLATELET COUNT 170 K/MM3 (134-434); RBC 3.84 M/mm3 (4.00-5.60); RDW 16.8 % (11.9-15.9); WHITE BLOOD COUNT 5.8 K/mm3 (4.0-10.0)
[2020-12-29 10:59] LABS: CALCIUM 8.7 mg/dL (8.5-10.1)
[2020-12-29 11:01] LABS: BLOOD UREA NITROGEN 36.5 mg/dL (7-18)
[2020-12-29 11:03] LABS: CREATININE 1.5 mg/dL (0.55-1.3)
[2020-12-29 17:59] VITALS: BP 135/77; PULSE 74; TEMP 98
[2021-01-02 19:08] LABS: FREE KAPPA,SERUM 67.6 mg/L (3.3-19.4)
== END 2020-12-29 19:06 | DRG 812 ==
LOC: JER 17:13 → JERBED 19:43 → J6S 12-26 02:51
PROVIDERS: ADMIT Hospitalist; ATTEND Family Medicine
PROC: 30233N1 Transfusion of Nonautologous Red Blood Cells into Peripheral Vein, Percutaneous Approach (ICD-10-PCS; principal; 2020-12-28)
DX: D64.9 Anemia, unspecified (principal); I50.32 Chronic diastolic (congestive) heart failure; N17.9 Acute kidney failure, unspecified; I13.0 Hypertensive heart and chronic kidney disease with heart failure and stage 1 through stage 4 chronic kidney disease, or unspecified chronic kidney disease; I25.10 Atherosclerotic heart disease of native coronary artery without angina pectoris; F03.90 Unspecified dementia, unspecified severity, without behavioral disturbance, psychotic disturbance, mood disturbance, and anxiety; N40.0 Benign prostatic hyperplasia without lower urinary tract symptoms; E78.5 Hyperlipidemia, unspecified; K21.9 Gastro-esophageal reflux disease without esophagitis; J45.909 Unspecified asthma, uncomplicated; E86.0 Dehydration; Z20.822 Contact with and (suspected) exposure to COVID-19; E11.22 Type 2 diabetes mellitus with diabetic chronic kidney disease; N18.9 Chronic kidney disease, unspecified; D63.1 Anemia in chronic kidney disease
CPT/HCPCS: 36415; 36430; 71045-TC-FY; 80048; 80053; 82272; 82436; 82728; 82784; 83540; 83550; 83735; 83883; 83930; 83935; 84100; 84133; 84300; 85025; 85027; 86850; 86900; 86901; 86922; 93005; 93010; 97116-GP; 97162-GP; 99285-25; C9803; P9058; U0003; U0005

== ENCOUNTER 2021-02-27 11:59 | Inpatient (IN) | payer OTHER ==
[2021-02-27 12:13] VITALS: BMI 23.8
[2021-02-27 14:31] LABS: BLOOD UREA NITROGEN 43.7 mg/dL (7-18); CALCIUM 8.2 mg/dL (8.5-10.1); MAGNESIUM 2.4 mg/dL (1.8-2.4)
[2021-02-27 14:32] LABS: ALBUMIN 3.2 g/dl (3.4-5.0)
[2021-02-27 14:33] LABS: INR 1.05 (0.83-1.09); PROTHROMBIN TIME (PATIENT) 12.9 SEC (9.7-13.0)
[2021-02-27 14:34] LABS: CREATININE 1.7 mg/dL (0.55-1.3)
[2021-02-27 14:36] LABS: ACTIVATED PTT 30.1 SECONDS (25.2-36.5); BILIRUBIN,TOTAL 0.5 mg/dL (0.2-1); TOT PROT 6.2 g/dl (6.4-8.2)
[2021-02-27 14:50] LABS: BASO % 5.5 % (0-2.0); EOS % 8.9 % (0-4.5); HEMATOCRIT 20.2 % (35.4-49); LYMPH % 34.7 % (8-40); MCH 26.7 pg (25.7-33.7); MCHC 31.9 g/dl (32.0-35.9); MEAN CELL VOLUME 83.7 fl (80-96); MEAN PLT VOLUME 10.6 fl (7.5-11.1); MONO % 13.3 % (3.8-10.2); NEUT % 37.6 % (42.8-82.8); PLATELET COUNT 115 10^3/uL (134-434); RBC 2.42 M/mm3 (4.00-5.60); RDW 19.1 % (11.9-15.9); WHITE BLOOD COUNT 4.1 K/mm3 (4.0-10.0)
[2021-02-27 14:59] LABS: HEMOGLOBIN 6.5 GM/dL (11.7-16.9)
[2021-02-27 15:57] LABS: ANISOCYTOSIS 2+; MACROCYTOSIS 1+; OVALOCYTE 2+; PLATELET ESTIMATE DECREASED; TEAR DROP CELLS 1+
[2021-02-27] MEDS ORDERED: ACETAMINOPHEN 325 MG TABLET (FP) PO PRN (16:19)
[2021-02-27] MEDS ORDERED: ALBUTEROL SO4 0.083% IH SOL 2.5 MG/3 ML VIAL.NEB. NEB PRN (16:19)
[2021-02-27] MEDS: PANTOPRAZOLE 40 MG TABLET PO SCH (22:06)
[2021-02-27] MEDS: ATORVASTATIN CA 20 MG TABLET (FP) PO SCH (22:06)
[2021-02-27] MEDS: MIRTAZAPINE 15 MG TABLET (FP) PO SCH (22:06)
[2021-02-28] MEDS: TAMSULOSIN HCL 0.4 MG CAP PO SCH (08:20)
[2021-02-28] MEDS: PANTOPRAZOLE 40 MG TABLET PO SCH ×2 (09:39→21:27)
[2021-02-28 10:32] LABS: HEMATOCRIT 28.4 % (35.4-49); HEMOGLOBIN 9.3 GM/dL (11.7-16.9); MCH 27.8 pg (25.7-33.7); MCHC 32.8 g/dl (32.0-35.9); MEAN PLT VOLUME 11.6 fl (7.5-11.1); PLATELET COUNT 113 10^3/uL (134-434); RBC 3.34 M/mm3 (4.00-5.60); RDW 16.3 % (11.9-15.9); WHITE BLOOD COUNT 5.8 K/mm3 (4.0-10.0)
[2021-02-28 10:55] LABS: CALCIUM 8.1 mg/dL (8.5-10.1)
[2021-02-28 10:56] LABS: ALBUMIN 3.1 g/dl (3.4-5.0); BLOOD UREA NITROGEN 39.4 mg/dL (7-18)
[2021-02-28 10:59] LABS: CREATININE 1.7 mg/dL (0.55-1.3)
[2021-02-28 11:01] LABS: BILIRUBIN,TOTAL 0.7 mg/dL (0.2-1)
[2021-02-28] MEDS: ATORVASTATIN CA 20 MG TABLET (FP) PO SCH (21:27)
[2021-02-28] MEDS: MIRTAZAPINE 15 MG TABLET (FP) PO SCH (21:27)
[2021-03-01 08:23] LABS: HEMATOCRIT 29.1 % (35.4-49); HEMOGLOBIN 9.4 GM/dL (11.7-16.9); MCH 27.7 pg (25.7-33.7); MCHC 32.4 g/dl (32.0-35.9); MEAN CELL VOLUME 85.4 fl (80-96); PLATELET COUNT 116 10^3/uL (134-434); RDW 16.8 % (11.9-15.9); WHITE BLOOD COUNT 4.8 K/mm3 (4.0-10.0)
[2021-03-01 08:58] LABS: BLOOD UREA NITROGEN 32.4 mg/dL (7-18); MAGNESIUM 2.3 mg/dL (1.8-2.4)
[2021-03-01] MEDS ORDERED: PT OWN MED DRAWER 7, Y5N ONE (09:00)
[2021-03-01 09:01] LABS: CREATININE 1.6 mg/dL (0.55-1.3)
[2021-03-01] MEDS: TAMSULOSIN HCL 0.4 MG CAP PO SCH (09:10)
[2021-03-01] MEDS: PANTOPRAZOLE 40 MG TABLET PO SCH ×2 (09:11→21:34)
[2021-03-01] MEDS: MIRTAZAPINE 15 MG TABLET (FP) PO SCH (21:34)
[2021-03-01] MEDS: ATORVASTATIN CA 20 MG TABLET (FP) PO SCH (21:35)
[2021-03-02 08:40] LABS: MCH 28.3 pg (25.7-33.7); MCHC 33.2 g/dl (32.0-35.9); MEAN CELL VOLUME 85.1 fl (80-96); MEAN PLT VOLUME 11.3 fl (7.5-11.1); PLATELET COUNT 111 10^3/uL (134-434); RBC 3.17 M/mm3 (4.00-5.60); RDW 17.2 % (11.9-15.9); WHITE BLOOD COUNT 4.3 K/mm3 (4.0-10.0)
[2021-03-02 09:01] LABS: BLOOD UREA NITROGEN 36.5 mg/dL (7-18); CALCIUM 8.1 mg/dL (8.5-10.1)
[2021-03-02 09:04] LABS: CREATININE 1.7 mg/dL (0.55-1.3)
[2021-03-02] MEDS: PANTOPRAZOLE 40 MG TABLET PO SCH ×2 (09:37→22:18)
[2021-03-02] MEDS: TAMSULOSIN HCL 0.4 MG CAP PO SCH (09:37)
[2021-03-02] MEDS ORDERED: SODIUM POLYSTYRENE SULFONATE 15 GM/60 ML BOTTLE PO ONE (10:42)
[2021-03-02] MEDS: ATORVASTATIN CA 20 MG TABLET (FP) PO SCH (22:17)
[2021-03-02] MEDS: MIRTAZAPINE 15 MG TABLET (FP) PO SCH (22:18)
[2021-03-03 08:51] LABS: BASO % 4.9 % (0-2.0); EOS % 12.1 % (0-4.5); HEMATOCRIT 28.7 % (35.4-49); HEMOGLOBIN 9.5 GM/dL (11.7-16.9); LYMPH % 26.2 % (8-40); MCH 28.2 pg (25.7-33.7); MEAN CELL VOLUME 85.5 fl (80-96); MONO % 16.5 % (3.8-10.2); NEUT % 40.3 % (42.8-82.8); RBC 3.36 M/mm3 (4.00-5.60); RDW 17.1 % (11.9-15.9); WHITE BLOOD COUNT 3.7 K/mm3 (4.0-10.0)
[2021-03-03 09:16] LABS: ALBUMIN 3.2 g/dl (3.4-5.0)
[2021-03-03 09:19] LABS: MAGNESIUM 2.2 mg/dL (1.8-2.4)
[2021-03-03 09:20] LABS: BLOOD UREA NITROGEN 31.5 mg/dL (7-18); CALCIUM 8.4 mg/dL (8.5-10.1); CREATININE 1.7 mg/dL (0.55-1.3)
[2021-03-03 09:21] LABS: TOT PROT 6.3 g/dl (6.4-8.2)
[2021-03-03 09:23] LABS: PHOSPHOROUS 3.8 mg/dL (2.5-4.9)
[2021-03-03 09:24] LABS: BILIRUBIN,TOTAL 0.6 mg/dL (0.2-1)
[2021-03-03] MEDS: TAMSULOSIN HCL 0.4 MG CAP PO SCH (09:31)
[2021-03-03] MEDS: PANTOPRAZOLE 40 MG TABLET PO SCH (09:31)
[2021-03-03 11:18] LABS: ANISOCYTOSIS 1+; MACROCYTOSIS 1+; OVALOCYTE 1+; PLATELET ESTIMATE DECREASED
[2021-03-03 12:10] LABS: MEAN PLT VOLUME 12.3 fl (7.5-11.1); PLATELET COUNT 111 10^3/uL (134-434)
[2021-03-03 14:04] VITALS: BP 128/57; PULSE 72; TEMP 98
== END 2021-03-03 20:34 | DRG 812 ==
LOC: JER 11:59 → JERBED 14:58 → OBSVTOIN 16:19 → J6S 20:22
PROVIDERS: ADMIT Family Medicine; ATTEND Family Medicine
PROC: 30233N1 Transfusion of Nonautologous Red Blood Cells into Peripheral Vein, Percutaneous Approach (ICD-10-PCS; principal; 2021-02-27)
DX: D64.9 Anemia, unspecified (principal); I50.32 Chronic diastolic (congestive) heart failure; I11.0 Hypertensive heart disease with heart failure; I25.10 Atherosclerotic heart disease of native coronary artery without angina pectoris; E78.5 Hyperlipidemia, unspecified; F03.90 Unspecified dementia, unspecified severity, without behavioral disturbance, psychotic disturbance, mood disturbance, and anxiety; J44.9 Chronic obstructive pulmonary disease, unspecified; E87.5 Hyperkalemia; N18.30 Chronic kidney disease, stage 3 unspecified; N40.0 Benign prostatic hyperplasia without lower urinary tract symptoms; K21.9 Gastro-esophageal reflux disease without esophagitis; E11.9 Type 2 diabetes mellitus without complications; K59.00 Constipation, unspecified; Z98.61 Coronary angioplasty status
CPT/HCPCS: 36415; 36430; 36511; 80048; 80053; 80061; 83010; 83540; 83550; 83615; 83735; 84100; 85025; 85027; 85610; 85730; 86850; 86900; 86901; 86922; 93005; 93010; 97116-GP; 99285-25; C9803; G0378; P9038; P9058; U0003; U0005

== ENCOUNTER 2021-04-24 17:20 | Inpatient (IN) | payer OTHER ==
[2021-04-24 19:37] LABS: MCH 27.9 pg (25.7-33.7); MCHC 32.9 g/dl (32.0-35.9); MEAN CELL VOLUME 84.8 fl (80-96); PLATELET COUNT 209 10^3/uL (134-434); RBC 2.48 M/mm3 (4.00-5.60); WHITE BLOOD COUNT 3.7 K/mm3 (4.0-10.0)
[2021-04-24 19:44] LABS: INR 1.02 (0.83-1.09); PROTHROMBIN TIME (PATIENT) 12.5 SEC (9.7-13.0)
[2021-04-24 19:45] LABS: HEMOGLOBIN 6.9 GM/dL (11.7-16.9)
[2021-04-24 19:47] LABS: ACTIVATED PTT 30.5 SECONDS (25.2-36.5)
[2021-04-24 19:59] LABS: ALBUMIN 3.1 g/dl (3.4-5.0); BLOOD UREA NITROGEN 35.6 mg/dL (7-18); CALCIUM 8.1 mg/dL (8.5-10.1)
[2021-04-24 20:04] LABS: BILIRUBIN,TOTAL 0.4 mg/dL (0.2-1); TOT PROT 6.7 g/dl (6.4-8.2)
[2021-04-24 20:18] LABS: ANISOCYTOSIS 3+; MACROCYTOSIS 2+; PLATELET ESTIMATE DECREASED; TEAR DROP CELLS 2+
[2021-04-24 22:59] LABS: CALCIUM 8.1 mg/dL (8.5-10.1)
[2021-04-24 23:00] LABS: ALBUMIN 3.2 g/dl (3.4-5.0); BLOOD UREA NITROGEN 35.8 mg/dL (7-18)
[2021-04-24 23:04] LABS: BILIRUBIN,TOTAL 0.8 mg/dL (0.2-1); TOT PROT 6.6 g/dl (6.4-8.2)
[2021-04-24] MEDS ORDERED: ALBUTEROL SO4 0.083% IH SOL 2.5 MG/3 ML VIAL.NEB. NEB PRN (23:25)
[2021-04-24] MEDS ORDERED: SENNOSIDES 8.6MG TABLET (FP) PO PRN (23:30)
[2021-04-25 02:08] VITALS: BMI 18.8
[2021-04-25 10:02] LABS: HEMATOCRIT 23.1 % (35.4-49); HEMOGLOBIN 7.9 GM/dL (11.7-16.9); MCH 28.6 pg (25.7-33.7); MCHC 34.1 g/dl (32.0-35.9); MEAN CELL VOLUME 83.9 fl (80-96); MEAN PLT VOLUME 12.2 fl (7.5-11.1); PLATELET COUNT 113 10^3/uL (134-434); RBC 2.75 M/mm3 (4.00-5.60); RDW 16.4 % (11.9-15.9); WHITE BLOOD COUNT 3.6 K/mm3 (4.0-10.0)
[2021-04-25 10:29] LABS: CALCIUM 7.9 mg/dL (8.5-10.1)
[2021-04-25 10:30] LABS: ALBUMIN 2.9 g/dl (3.4-5.0); BLOOD UREA NITROGEN 34.2 mg/dL (7-18)
[2021-04-25] MEDS: TAMSULOSIN HCL 0.4 MG CAP PO SCH (10:32)
[2021-04-25] MEDS: CHOLECALCIFEROL (VIT D3) 1,000 UNIT (25 MCG) TABLET PO SCH (10:32)
[2021-04-25 10:33] LABS: CREATININE 1.7 mg/dL (0.55-1.3)
[2021-04-25 10:34] LABS: BILIRUBIN,TOTAL 0.5 mg/dL (0.2-1)
[2021-04-25 10:48] LABS: ANISOCYTOSIS 2+; MACROCYTOSIS 2+; OVALOCYTE 1+; PLATELET ESTIMATE DECREASED; TARGET CELLS 1+; TEAR DROP CELLS 1+
[2021-04-25] MEDS ORDERED: FUROSEMIDE 40 MG/4 ML INJECTABLE VIAL IVPUSH SCH (11:35)
[2021-04-25] MEDS: MIRTAZAPINE 15 MG TABLET (FP) PO SCH (21:02)
[2021-04-25] MEDS: MELATONIN 1 MG TABLET PO SCH (21:02)
[2021-04-25] MEDS: ATORVASTATIN CA 20 MG TABLET (FP) PO SCH (21:02)
[2021-04-25] MEDS: POLYETHYLENE GLYCOL (HEALTHYLAX) 3350 17 GM PACKET PO SCH (21:03)
[2021-04-26 08:09] LABS: HEMATOCRIT 23.6 % (35.4-49); MCH 28.9 pg (25.7-33.7); MEAN CELL VOLUME 84.9 fl (80-96); MEAN PLT VOLUME 12.1 fl (7.5-11.1); PLATELET COUNT 111 10^3/uL (134-434); RBC 2.78 M/mm3 (4.00-5.60); RDW 16.3 % (11.9-15.9); WHITE BLOOD COUNT 4.3 K/mm3 (4.0-10.0)
[2021-04-26 08:21] LABS: CALCIUM 8.3 mg/dL (8.5-10.1)
[2021-04-26 08:22] LABS: BLOOD UREA NITROGEN 40.5 mg/dL (7-18)
[2021-04-26 08:23] LABS: BILIRUBIN,TOTAL 0.4 mg/dL (0.2-1)
[2021-04-26 08:24] LABS: TOT PROT 6.1 g/dl (6.4-8.2)
[2021-04-26 08:25] LABS: CREATININE 1.7 mg/dL (0.55-1.3)
[2021-04-26] MEDS: TAMSULOSIN HCL 0.4 MG CAP PO SCH (10:00)
[2021-04-26] MEDS: CHOLECALCIFEROL (VIT D3) 1,000 UNIT (25 MCG) TABLET PO SCH (10:00)
[2021-04-26] MEDS ORDERED: FUROSEMIDE 40 MG/4 ML INJECTABLE VIAL IVPUSH ONE (18:00)
[2021-04-26] MEDS: ATORVASTATIN CA 20 MG TABLET (FP) PO SCH (21:40)
[2021-04-26] MEDS: MELATONIN 1 MG TABLET PO SCH (21:40)
[2021-04-26] MEDS: MIRTAZAPINE 15 MG TABLET (FP) PO SCH (21:40)
[2021-04-26] MEDS: POLYETHYLENE GLYCOL (HEALTHYLAX) 3350 17 GM PACKET PO SCH (21:41)
[2021-04-27 08:26] LABS: HEMOGLOBIN 9.2 GM/dL (11.7-16.9); MCH 28.4 pg (25.7-33.7); MEAN CELL VOLUME 83.5 fl (80-96); MEAN PLT VOLUME 12.2 fl (7.5-11.1); PLATELET COUNT 106 10^3/uL (134-434); RBC 3.23 M/mm3 (4.00-5.60); RDW 16.7 % (11.9-15.9); WHITE BLOOD COUNT 3.9 K/mm3 (4.0-10.0)
[2021-04-27 08:34] LABS: CALCIUM 8.3 mg/dL (8.5-10.1)
[2021-04-27 08:35] LABS: BLOOD UREA NITROGEN 36.5 mg/dL (7-18)
[2021-04-27 08:38] LABS: CREATININE 1.7 mg/dL (0.55-1.3)
[2021-04-27] MEDS: CHOLECALCIFEROL (VIT D3) 1,000 UNIT (25 MCG) TABLET PO SCH (09:16)
[2021-04-27] MEDS: TAMSULOSIN HCL 0.4 MG CAP PO SCH (09:16)
[2021-04-27 10:11] LABS: ANISOCYTOSIS 1+; MACROCYTOSIS 0; PLATELET ESTIMATE DECREASED; TARGET CELLS 1+; TEAR DROP CELLS 1+
[2021-04-27] MEDS: POLYETHYLENE GLYCOL (HEALTHYLAX) 3350 17 GM PACKET PO SCH (21:35)
[2021-04-27] MEDS: ATORVASTATIN CA 20 MG TABLET (FP) PO SCH (21:35)
[2021-04-27] MEDS: MIRTAZAPINE 15 MG TABLET (FP) PO SCH (21:36)
[2021-04-27] MEDS: MELATONIN 1 MG TABLET PO SCH (21:38)
[2021-04-28 04:00] VITALS: TEMP 98.5
[2021-04-28 08:29] LABS: BLOOD UREA NITROGEN 35.8 mg/dL (7-18); CALCIUM 8.4 mg/dL (8.5-10.1)
[2021-04-28 08:33] LABS: CREATININE 1.5 mg/dL (0.55-1.3)
[2021-04-28 08:47] LABS: HEMATOCRIT 27.5 % (35.4-49); HEMOGLOBIN 9.4 GM/dL (11.7-16.9); MCH 28.3 pg (25.7-33.7); MEAN CELL VOLUME 83.1 fl (80-96); RBC 3.31 M/mm3 (4.00-5.60); RDW 16.7 % (11.9-15.9); WHITE BLOOD COUNT 4.6 K/mm3 (4.0-10.0)
[2021-04-28] MEDS: CHOLECALCIFEROL (VIT D3) 1,000 UNIT (25 MCG) TABLET PO SCH (09:12)
[2021-04-28] MEDS: TAMSULOSIN HCL 0.4 MG CAP PO SCH (09:12)
[2021-04-28 12:10] LABS: PLATELET COUNT 96 10^3/uL (134-434)
[2021-04-28 15:12] VITALS: BP 159/67; PULSE 69
== END 2021-04-28 16:28 | DRG 812 ==
LOC: JER 17:20 → JERBED 21:12 → J7W 04-25 00:09 → OBSVTOIN 04-27 14:58
PROVIDERS: ADMIT Internal Medicine; ATTEND Family Medicine
PROC: 30233N1 Transfusion of Nonautologous Red Blood Cells into Peripheral Vein, Percutaneous Approach (ICD-10-PCS; principal; 2021-04-26)
DX: D64.9 Anemia, unspecified (principal); I13.0 Hypertensive heart and chronic kidney disease with heart failure and stage 1 through stage 4 chronic kidney disease, or unspecified chronic kidney disease; I50.32 Chronic diastolic (congestive) heart failure; N17.9 Acute kidney failure, unspecified; Z98.61 Coronary angioplasty status; I25.10 Atherosclerotic heart disease of native coronary artery without angina pectoris; D63.1 Anemia in chronic kidney disease; N18.30 Chronic kidney disease, stage 3 unspecified; E11.22 Type 2 diabetes mellitus with diabetic chronic kidney disease; E87.5 Hyperkalemia; F31.9 Bipolar disorder, unspecified; J45.909 Unspecified asthma, uncomplicated; K21.9 Gastro-esophageal reflux disease without esophagitis; J44.9 Chronic obstructive pulmonary disease, unspecified; F03.90 Unspecified dementia, unspecified severity, without behavioral disturbance, psychotic disturbance, mood disturbance, and anxiety; E78.5 Hyperlipidemia, unspecified; E83.51 Hypocalcemia; I44.0 Atrioventricular block, first degree; N40.0 Benign prostatic hyperplasia without lower urinary tract symptoms; D72.819 Decreased white blood cell count, unspecified
CPT/HCPCS: 36415; 36430; 71045-TC-FY; 80048; 80053; 82272; 82550; 84484; 85025; 85027; 85610; 85730; 86850; 86900; 86901; 86922; 93005; 93010; 99285-25; C9803; G0378; P9058; U0003; U0005

== ENCOUNTER 2021-05-30 10:13 | Inpatient (IN) | payer OTHER ==
[2021-05-30] MEDS ORDERED: ACETAMINOPHEN 1000 MG/100 ML VIAL IVPB ONE (11:27)
[2021-05-30] MEDS ORDERED: ACETAMINOPHEN INJECTION 100 ML IVPB ONE (11:48)
[2021-05-30 11:54] LABS: BASO % 0.2 % (0-2.0); EOS % 2.4 % (0-4.5); HEMATOCRIT 22.9 % (35.4-49); HEMOGLOBIN 7.5 GM/dL (11.7-16.9); MCH 27.2 pg (25.7-33.7); MCHC 32.8 g/dl (32.0-35.9); MEAN PLT VOLUME 11.9 fl (7.5-11.1); MONO % 10.7 % (3.8-10.2); NEUT % 70.7 % (42.8-82.8); PLATELET COUNT 110 10^3/uL (134-434); RBC 2.76 M/mm3 (4.00-5.60); RDW 17.3 % (11.9-15.9); WHITE BLOOD COUNT 5.5 K/mm3 (4.0-10.0)
[2021-05-30 12:01] LABS: INR 1.1 (0.83-1.09); PROTHROMBIN TIME (PATIENT) 12.9 SEC (9.7-13.0)
[2021-05-30 12:03] LABS: ACTIVATED PTT 30.7 SECONDS (25.2-36.5)
[2021-05-30 12:16] LABS: CHLORIDE 107 mmol/L (98-107); SODIUM 139 mmol/L (136-145)
[2021-05-30 12:17] LABS: ANION GAP 6 MMOL/L (8-16); BLOOD UREA NITROGEN 30.6 mg/dL (7-18); CALCIUM 8.1 mg/dL (8.5-10.1); CO2 26 mmol/L (21-32); GLUCOSE,RANDOM 97 mg/dL (74-106)
[2021-05-30 12:18] LABS: PH,URINE 7.5 (5.0-8.0); URINE APPEARANCE CLEAR; URINE BILIRUBIN NEGATIVE (NEGATIVE); URINE COLOR YELLOW; URINE GLUCOSE (UA) NEGATIVE (NEGATIVE); URINE KETONE NEGATIVE (NEGATIVE); URINE LEUK ESTERASE NEGATIVE (NEGATIVE); URINE NITRITE NEGATIVE (NEGATIVE); URINE PROTEIN TRACE (NEGATIVE); URINE UROBILINOGEN 0.2 mg/dL (0.2-1.0)
[2021-05-30 12:20] LABS: SGOT/AST 16 U/L (15-37); SGPT/ALT 31 U/L (13-61)
[2021-05-30 12:22] LABS: CREATININE 1.7 mg/dL (0.55-1.3)
[2021-05-30 12:23] LABS: ALK PHOS 69 U/L (45-117); BILIRUBIN,TOTAL 0.4 mg/dL (0.2-1); TOT PROT 6.5 g/dl (6.4-8.2)
[2021-05-30 13:58] LABS: ANISOCYTOSIS 2+; MACROCYTOSIS 0; OVALOCYTE 2+; PLATELET ESTIMATE DECREASED; TARGET CELLS 1+
[2021-05-30] MEDS ORDERED: ACETAMINOPHEN 325 MG TABLET (FP) ONE (19:43)
[2021-05-30] MEDS: ACETAMINOPHEN 325 MG TABLET (FP) PO PRN (19:56)
[2021-05-30] MEDS ORDERED: ONDANSETRON 4 MG TABLET PO PRN (20:49)
[2021-05-30] MEDS ORDERED: ALBUTEROL SO4 0.083% IH SOL 2.5 MG/3 ML VIAL.NEB. NEB PRN (20:49)
[2021-05-30] MEDS: PANTOPRAZOLE 40 MG TABLET PO SCH (22:26)
[2021-05-30] MEDS: ATORVASTATIN CA 20 MG TABLET (FP) PO SCH (22:26)
[2021-05-30] MEDS: MIRTAZAPINE 15 MG TABLET (FP) PO SCH (22:26)
[2021-05-30] MEDS: POLYETHYLENE GLYCOL (HEALTHYLAX) 3350 17 GM PACKET PO SCH (22:27)
[2021-05-30] MEDS: MELATONIN 1 MG TABLET PO SCH (22:27)
[2021-05-30] MEDS: ALBUTEROL SO4 HFA INHALER IH SCH (22:27)
[2021-05-30] MEDS: SENNOSIDES 8.6MG TABLET (FP) PO SCH (22:27)
[2021-05-30] MEDS: HEPARIN NA (PORCINE) 5,000 UNITS/ML 1ML VIAL SQ SCH (22:28)
[2021-05-30] MEDS: INSULIN SLIDING SCALE (NOVOLOG) 1 VIAL SQ SCH (22:34)
[2021-05-31 01:01] VITALS: BMI 19.1
[2021-05-31] MEDS: HEPARIN NA (PORCINE) 5,000 UNITS/ML 1ML VIAL SQ SCH ×3 (06:02→21:46)
[2021-05-31] MEDS: INSULIN SLIDING SCALE (NOVOLOG) 1 VIAL SQ SCH ×4 (06:03→21:47)
[2021-05-31] MEDS: ALBUTEROL SO4 HFA INHALER IH SCH ×4 (06:06→21:45)
[2021-05-31 08:55] LABS: BLOOD UREA NITROGEN 31.1 mg/dL (7-18)
[2021-05-31 08:59] LABS: CREATININE 1.7 mg/dL (0.55-1.3)
[2021-05-31 09:08] LABS: HEMATOCRIT 25.9 % (35.4-49); HEMOGLOBIN 8.6 GM/dL (11.7-16.9); MCH 27.2 pg (25.7-33.7); MCHC 33.4 g/dl (32.0-35.9); MEAN CELL VOLUME 81.4 fl (80-96); MEAN PLT VOLUME 9.8 fl (7.5-11.1); PLATELET COUNT 78 10^3/uL (134-434); RBC 3.18 M/mm3 (4.00-5.60); RDW 18.2 % (11.9-15.9); WHITE BLOOD COUNT 4.1 K/mm3 (4.0-10.0)
[2021-05-31 11:16] LABS: ANISOCYTOSIS 3+; HELMET CELLS 2+; MACROCYTOSIS 0; OVALOCYTE 3+; PLATELET ESTIMATE DECREASED
[2021-05-31] MEDS: TAMSULOSIN HCL 0.4 MG CAP PO SCH (11:59)
[2021-05-31] MEDS: MECLIZINE HCL 12.5 MG TABLET PO SCH ×2 (12:00→16:46)
[2021-05-31] MEDS: SODIUM ZIRCONIUM CYCLOSILICATE (LOKELMA) 10 GM PACKET PO SCH (12:00)
[2021-05-31] MEDS: CHOLECALCIFEROL (VIT D3) 1,000 UNIT (25 MCG) TABLET PO SCH (12:00)
[2021-05-31] MEDS: PANTOPRAZOLE 40 MG TABLET PO SCH ×2 (12:00→21:44)
[2021-05-31] MEDS: LISINOPRIL 10 MG TABLET PO SCH (12:00)
[2021-05-31] MEDS ORDERED: PT OWN MED DRAWER 7, Y5N ONE ×2 (15:31→16:17)
[2021-05-31] MEDS: ATORVASTATIN CA 20 MG TABLET (FP) PO SCH (21:44)
[2021-05-31] MEDS: POLYETHYLENE GLYCOL (HEALTHYLAX) 3350 17 GM PACKET PO SCH (21:44)
[2021-05-31] MEDS: MIRTAZAPINE 15 MG TABLET (FP) PO SCH (21:44)
[2021-05-31] MEDS: SENNOSIDES 8.6MG TABLET (FP) PO SCH (21:45)
[2021-05-31] MEDS: MELATONIN 1 MG TABLET PO SCH (21:45)
[2021-06-01] MEDS: HEPARIN NA (PORCINE) 5,000 UNITS/ML 1ML VIAL SQ SCH ×3 (05:28→21:33)
[2021-06-01] MEDS: ALBUTEROL SO4 HFA INHALER IH SCH ×3 (05:31→21:38)
[2021-06-01] MEDS ORDERED: INSULIN (NOVOLOG) ASPART 100 UNITS/ML 10ML VIAL ONE ×2 (05:48→08:38)
[2021-06-01] MEDS: INSULIN SLIDING SCALE (NOVOLOG) 1 VIAL SQ SCH ×4 (06:49→21:33)
[2021-06-01] MEDS: CHOLECALCIFEROL (VIT D3) 1,000 UNIT (25 MCG) TABLET PO SCH (09:31)
[2021-06-01] MEDS: PANTOPRAZOLE 40 MG TABLET PO SCH ×2 (09:31→21:33)
[2021-06-01] MEDS: MECLIZINE HCL 12.5 MG TABLET PO SCH (09:31)
[2021-06-01] MEDS: SODIUM ZIRCONIUM CYCLOSILICATE (LOKELMA) 10 GM PACKET PO SCH (09:31)
[2021-06-01] MEDS: TAMSULOSIN HCL 0.4 MG CAP PO SCH (09:31)
[2021-06-01] MEDS: LISINOPRIL 10 MG TABLET PO SCH (09:32)
[2021-06-01] MEDS: ACETAMINOPHEN 325 MG TABLET (FP) PO PRN ×2 (16:54→23:40)
[2021-06-01] MEDS: MELATONIN 1 MG TABLET PO SCH (21:32)
[2021-06-01] MEDS: MIRTAZAPINE 15 MG TABLET (FP) PO SCH (21:32)
[2021-06-01] MEDS: POLYETHYLENE GLYCOL (HEALTHYLAX) 3350 17 GM PACKET PO SCH (21:32)
[2021-06-01] MEDS: SENNOSIDES 8.6MG TABLET (FP) PO SCH (21:33)
[2021-06-01] MEDS: ATORVASTATIN CA 20 MG TABLET (FP) PO SCH (21:33)
[2021-06-02] MEDS: INSULIN SLIDING SCALE (NOVOLOG) 1 VIAL SQ SCH ×4 (06:27→22:08)
[2021-06-02] MEDS: ALBUTEROL SO4 HFA INHALER IH SCH ×3 (06:27→22:06)
[2021-06-02] MEDS: HEPARIN NA (PORCINE) 5,000 UNITS/ML 1ML VIAL SQ SCH ×3 (06:27→21:02)
[2021-06-02 08:20] LABS: ALBUMIN 2.8 g/dl (3.4-5.0); BILIRUBIN,TOTAL 0.7 mg/dL (0.2-1); BLOOD UREA NITROGEN 29.9 mg/dL (7-18); CALCIUM 8.3 mg/dL (8.5-10.1); CREATININE 1.6 mg/dL (0.55-1.3); TOT PROT 6.1 g/dl (6.4-8.2)
[2021-06-02 09:29] LABS: HEMATOCRIT 24.4 % (35.4-49); HEMOGLOBIN 8.1 GM/dL (11.7-16.9); MCH 27.1 pg (25.7-33.7); MCHC 33.2 g/dl (32.0-35.9); MEAN CELL VOLUME 81.5 fl (80-96); MEAN PLT VOLUME 11.7 fl (7.5-11.1); PLATELET COUNT 91 10^3/uL (134-434); RBC 2.99 M/mm3 (4.00-5.60); RDW 17.6 % (11.9-15.9); WHITE BLOOD COUNT 3.2 K/mm3 (4.0-10.0)
[2021-06-02] MEDS: TAMSULOSIN HCL 0.4 MG CAP PO SCH (10:29)
[2021-06-02] MEDS: CHOLECALCIFEROL (VIT D3) 1,000 UNIT (25 MCG) TABLET PO SCH (10:29)
[2021-06-02] MEDS: LISINOPRIL 10 MG TABLET PO SCH (10:29)
[2021-06-02] MEDS: PANTOPRAZOLE 40 MG TABLET PO SCH ×2 (10:29→21:05)
[2021-06-02] MEDS: MULTIVITAMINS (DAILY MVI) TABLET (FP) PO SCH (10:29)
[2021-06-02] MEDS: MECLIZINE HCL 12.5 MG TABLET PO SCH (10:30)
[2021-06-02] MEDS: SODIUM ZIRCONIUM CYCLOSILICATE (LOKELMA) 10 GM PACKET PO SCH (10:30)
[2021-06-02] MEDS ORDERED: EPOETIN ALFA-EPBX 20,000 UNIT/ML VIAL SQ SCH (18:00)
[2021-06-02 20:21] LABS: HEMATOCRIT 24.1 % (35.4-49); HEMOGLOBIN 7.7 GM/dL (11.7-16.9); MCH 26.6 pg (25.7-33.7); MCHC 32.1 g/dl (32.0-35.9); MEAN PLT VOLUME 11.8 fl (7.5-11.1); PLATELET COUNT 90 10^3/uL (134-434); RBC 2.91 M/mm3 (4.00-5.60); RDW 17.9 % (11.9-15.9); WHITE BLOOD COUNT 3.1 K/mm3 (4.0-10.0)
[2021-06-02 20:29] LABS: INR 1.05 (0.83-1.09); PROTHROMBIN TIME (PATIENT) 11.8 SEC (9.7-13.0)
[2021-06-02] MEDS: MELATONIN 1 MG TABLET PO SCH (21:03)
[2021-06-02] MEDS: POLYETHYLENE GLYCOL (HEALTHYLAX) 3350 17 GM PACKET PO SCH (21:03)
[2021-06-02] MEDS: SENNOSIDES 8.6MG TABLET (FP) PO SCH (21:04)
[2021-06-02] MEDS: ATORVASTATIN CA 20 MG TABLET (FP) PO SCH (21:04)
[2021-06-02] MEDS: MIRTAZAPINE 15 MG TABLET (FP) PO SCH (21:04)
[2021-06-02 23:58] LABS: ANISOCYTOSIS 1+; MACROCYTOSIS 0; PLATELET ESTIMATE DECREASED; TARGET CELLS 1+
[2021-06-03] MEDS: ALBUTEROL SO4 HFA INHALER IH SCH ×3 (05:54→21:41)
[2021-06-03] MEDS: HEPARIN NA (PORCINE) 5,000 UNITS/ML 1ML VIAL SQ SCH ×3 (06:08→21:38)
[2021-06-03] MEDS: INSULIN SLIDING SCALE (NOVOLOG) 1 VIAL SQ SCH ×4 (06:08→21:38)
[2021-06-03 08:32] LABS: HEMATOCRIT 24.1 % (35.4-49); MCH 26.8 pg (25.7-33.7); MEAN CELL VOLUME 81.2 fl (80-96); MEAN PLT VOLUME 12.1 fl (7.5-11.1); PLATELET COUNT 101 10^3/uL (134-434); RBC 2.97 M/mm3 (4.00-5.60); WHITE BLOOD COUNT 3.2 K/mm3 (4.0-10.0)
[2021-06-03 09:18] LABS: PLATELET ESTIMATE SLT DECREASE
[2021-06-03] MEDS ORDERED: PT OWN MED DRAWER 7, Y5N ONE (10:18)
[2021-06-03] MEDS: LISINOPRIL 10 MG TABLET PO SCH (10:20)
[2021-06-03] MEDS: TAMSULOSIN HCL 0.4 MG CAP PO SCH (10:20)
[2021-06-03] MEDS: MULTIVITAMINS (DAILY MVI) TABLET (FP) PO SCH (10:20)
[2021-06-03] MEDS: PANTOPRAZOLE 40 MG TABLET PO SCH ×2 (10:20→21:36)
[2021-06-03] MEDS: CHOLECALCIFEROL (VIT D3) 1,000 UNIT (25 MCG) TABLET PO SCH (10:20)
[2021-06-03] MEDS: MECLIZINE HCL 12.5 MG TABLET PO SCH (10:20)
[2021-06-03] MEDS: SODIUM ZIRCONIUM CYCLOSILICATE (LOKELMA) 10 GM PACKET PO SCH ×2 (10:21→16:47)
[2021-06-03 10:57] LABS: BLOOD UREA NITROGEN 28.7 mg/dL (7-18); CALCIUM 8.2 mg/dL (8.5-10.1); CREATININE 1.6 mg/dL (0.55-1.3)
[2021-06-03 12:49] LABS: ANISOCYTOSIS 2+; MACROCYTOSIS 2+; TEAR DROP CELLS 1+
[2021-06-03 20:38] LABS: INR 1.03 (0.83-1.09)
[2021-06-03 20:41] LABS: ACTIVATED PTT 31.5 SECONDS (25.2-36.5)
[2021-06-03] MEDS: MELATONIN 1 MG TABLET PO SCH (21:36)
[2021-06-03] MEDS: ATORVASTATIN CA 20 MG TABLET (FP) PO SCH (21:36)
[2021-06-03] MEDS: MIRTAZAPINE 15 MG TABLET (FP) PO SCH (21:36)
[2021-06-03] MEDS: SENNOSIDES 8.6MG TABLET (FP) PO SCH (21:36)
[2021-06-03] MEDS: POLYETHYLENE GLYCOL (HEALTHYLAX) 3350 17 GM PACKET PO SCH (21:37)
[2021-06-03] MEDS: SODIUM CHLORIDE NASAL SPRAY 44 ML BOTTLE NS SCH (23:23)
[2021-06-04] MEDS: INSULIN SLIDING SCALE (NOVOLOG) 1 VIAL SQ SCH ×4 (06:13→23:30)
[2021-06-04] MEDS: HEPARIN NA (PORCINE) 5,000 UNITS/ML 1ML VIAL SQ SCH (06:13)
[2021-06-04] MEDS: ALBUTEROL SO4 HFA INHALER IH SCH ×3 (06:14→23:26)
[2021-06-04] MEDS ORDERED: PT OWN MED DRAWER 7, Y5N ONE (09:55)
[2021-06-04] MEDS: PANTOPRAZOLE 40 MG TABLET PO SCH ×2 (10:05→23:23)
[2021-06-04] MEDS: TAMSULOSIN HCL 0.4 MG CAP PO SCH (10:05)
[2021-06-04] MEDS: MECLIZINE HCL 12.5 MG TABLET PO SCH (10:05)
[2021-06-04] MEDS: MULTIVITAMINS (DAILY MVI) TABLET (FP) PO SCH (10:05)
[2021-06-04] MEDS: LISINOPRIL 10 MG TABLET PO SCH (10:06)
[2021-06-04] MEDS: CHOLECALCIFEROL (VIT D3) 1,000 UNIT (25 MCG) TABLET PO SCH (10:06)
[2021-06-04] MEDS: SODIUM CHLORIDE NASAL SPRAY 44 ML BOTTLE NS SCH ×2 (10:12→23:25)
[2021-06-04 11:19] LABS: HEMATOCRIT 28.3 % (35.4-49); HEMOGLOBIN 9.5 GM/dL (11.7-16.9); MCH 27.9 pg (25.7-33.7); MCHC 33.4 g/dl (32.0-35.9); MEAN CELL VOLUME 83.4 fl (80-96); PLATELET COUNT 101 10^3/uL (134-434); RBC 3.39 M/mm3 (4.00-5.60); RDW 17.1 % (11.9-15.9); WHITE BLOOD COUNT 3.6 K/mm3 (4.0-10.0)
[2021-06-04 11:25] LABS: MAGNESIUM 1.9 mg/dL (1.8-2.4)
[2021-06-04 11:26] LABS: ALBUMIN 2.7 g/dl (3.4-5.0); CALCIUM 8.5 mg/dL (8.5-10.1)
[2021-06-04 11:27] LABS: BLOOD UREA NITROGEN 26.6 mg/dL (7-18)
[2021-06-04 11:29] LABS: CREATININE 1.4 mg/dL (0.55-1.3)
[2021-06-04 11:30] LABS: PHOSPHOROUS 2.2 mg/dL (2.5-4.9)
[2021-06-04 11:32] LABS: BILIRUBIN,TOTAL 0.4 mg/dL (0.2-1); TOT PROT 6.1 g/dl (6.4-8.2)
[2021-06-04] MEDS: SODIUM ZIRCONIUM CYCLOSILICATE (LOKELMA) 10 GM PACKET PO SCH (12:06)
[2021-06-04 12:22] LABS: ANISOCYTOSIS 1+; MACROCYTOSIS 0; OVALOCYTE 1+; PLATELET ESTIMATE DECREASED; TEAR DROP CELLS 2+
[2021-06-04 20:05] LABS: HEMATOCRIT 30.1 % (35.4-49); HEMOGLOBIN 9.9 GM/dL (11.7-16.9); MCH 27.5 pg (25.7-33.7); MCHC 32.8 g/dl (32.0-35.9); MEAN CELL VOLUME 83.9 fl (80-96); MEAN PLT VOLUME 11.9 fl (7.5-11.1); RBC 3.59 M/mm3 (4.00-5.60); RDW 16.7 % (11.9-15.9); WHITE BLOOD COUNT 4.9 K/mm3 (4.0-10.0)
[2021-06-04 21:02] LABS: PLATELET COUNT 116 10^3/uL (134-434)
[2021-06-04] MEDS: SENNOSIDES 8.6MG TABLET (FP) PO SCH (23:22)
[2021-06-04] MEDS: ATORVASTATIN CA 20 MG TABLET (FP) PO SCH (23:23)
[2021-06-04] MEDS: POLYETHYLENE GLYCOL (HEALTHYLAX) 3350 17 GM PACKET PO SCH (23:23)
[2021-06-04] MEDS: MELATONIN 1 MG TABLET PO SCH (23:23)
[2021-06-04] MEDS: MIRTAZAPINE 15 MG TABLET (FP) PO SCH (23:36)
[2021-06-05 05:16] VITALS: PULSE 67
[2021-06-05] MEDS: ALBUTEROL SO4 HFA INHALER IH SCH ×2 (05:42→13:38)
[2021-06-05 05:50] VITALS: BP 126/61; TEMP 98.8
[2021-06-05] MEDS: INSULIN SLIDING SCALE (NOVOLOG) 1 VIAL SQ SCH ×2 (06:21→11:25)
[2021-06-05 07:54] LABS: HEMATOCRIT 29.7 % (35.4-49); HEMOGLOBIN 9.3 GM/dL (11.7-16.9); MCH 27.5 pg (25.7-33.7); MCHC 31.4 g/dl (32.0-35.9); MEAN CELL VOLUME 87.6 fl (80-96); MEAN PLT VOLUME 11.1 fl (7.5-11.1); RBC 3.39 M/mm3 (4.00-5.60); RDW 16.5 % (11.9-15.9); WHITE BLOOD COUNT 4.5 K/mm3 (4.0-10.0)
[2021-06-05 08:33] LABS: CALCIUM 8.5 mg/dL (8.5-10.1)
[2021-06-05 08:37] LABS: CREATININE 1.5 mg/dL (0.55-1.3)
[2021-06-05 09:57] LABS: ANISOCYTOSIS 1+; MACROCYTOSIS 0; OVALOCYTE 1+; PLATELET ESTIMATE DECREASED; TARGET CELLS 1+; TEAR DROP CELLS 1+
[2021-06-05 10:45] LABS: PLATELET COUNT 93 10^3/uL (134-434)
[2021-06-05] MEDS: CHOLECALCIFEROL (VIT D3) 1,000 UNIT (25 MCG) TABLET PO SCH (11:19)
[2021-06-05] MEDS: MULTIVITAMINS (DAILY MVI) TABLET (FP) PO SCH (11:19)
[2021-06-05] MEDS: PANTOPRAZOLE 40 MG TABLET PO SCH (11:19)
[2021-06-05] MEDS: MECLIZINE HCL 12.5 MG TABLET PO SCH (11:20)
[2021-06-05] MEDS: SODIUM ZIRCONIUM CYCLOSILICATE (LOKELMA) 10 GM PACKET PO SCH (11:20)
[2021-06-05] MEDS: LISINOPRIL 10 MG TABLET PO SCH (11:20)
[2021-06-05] MEDS: TAMSULOSIN HCL 0.4 MG CAP PO SCH (11:20)
[2021-06-05] MEDS: SODIUM CHLORIDE NASAL SPRAY 44 ML BOTTLE NS SCH (11:20)
== END 2021-06-05 16:01 | DRG 292 ==
LOC: JER 10:13 → JERBED 17:54 → INTOOBSV 17:54 → OBSVTOIN 17:54 → J7W 21:23
PROVIDERS: ADMIT Internal Medicine; ATTEND Family Medicine
PROC: 30233N1 Transfusion of Nonautologous Red Blood Cells into Peripheral Vein, Percutaneous Approach (ICD-10-PCS; principal; 2021-05-30)
DX: I13.0 Hypertensive heart and chronic kidney disease with heart failure and stage 1 through stage 4 chronic kidney disease, or unspecified chronic kidney disease (principal); Z68.1 Body mass index [BMI] 19.9 or less, adult; E44.0 Moderate protein-calorie malnutrition; D63.1 Anemia in chronic kidney disease; F03.90 Unspecified dementia, unspecified severity, without behavioral disturbance, psychotic disturbance, mood disturbance, and anxiety; I50.9 Heart failure, unspecified; E78.5 Hyperlipidemia, unspecified; I25.10 Atherosclerotic heart disease of native coronary artery without angina pectoris; E11.22 Type 2 diabetes mellitus with diabetic chronic kidney disease; J45.909 Unspecified asthma, uncomplicated; J44.9 Chronic obstructive pulmonary disease, unspecified; K21.9 Gastro-esophageal reflux disease without esophagitis; F41.9 Anxiety disorder, unspecified; E87.5 Hyperkalemia; N40.0 Benign prostatic hyperplasia without lower urinary tract symptoms; R62.7 Adult failure to thrive; R74.01 Elevation of levels of liver transaminase levels; T50.B95A Adverse effect of other viral vaccines, initial encounter; R50.83 Postvaccination fever; D46.9 Myelodysplastic syndrome, unspecified; N18.30 Chronic kidney disease, stage 3 unspecified; R04.0 Epistaxis; Z98.61 Coronary angioplasty status
CPT/HCPCS: 36415; 36430; 71045-TC-FY; 74176-TC; 80048; 80053; 81003; 82272; 82962; 83540; 83550; 83735; 84100; 84484; 85025; 85027; 85610; 85730; 86850; 86900; 86901; 86922; 87040; 87086; 93005; 93010; 99285-25; C9803; J0131; J1644; P9058; U0003; U0005

== ENCOUNTER 2021-08-27 00:04 | Observation (INO) | payer OTHER ==
[2021-08-27 00:24] VITALS: BMI 18.4
[2021-08-27 01:31] LABS: BLOOD UREA NITROGEN 20.8 mg/dL (7-18); MAGNESIUM 2.1 mg/dL (1.8-2.4)
[2021-08-27 01:34] LABS: CREATININE 1.5 mg/dL (0.55-1.3)
[2021-08-27 01:36] LABS: BILIRUBIN,TOTAL 0.3 mg/dL (0.2-1); TOT PROT 5.9 g/dl (6.4-8.2)
[2021-08-27 01:39] LABS: N-TERMINAL BNP 2431.1 pg/ml (5-450)
[2021-08-27 02:10] LABS: HEMATOCRIT 24.2 % (35.4-49); HEMOGLOBIN 7.5 GM/dL (11.7-16.9); MCH 26.2 pg (25.7-33.7); MCHC 31.1 g/dl (32.0-35.9); MEAN CELL VOLUME 84.2 fl (80-96); MEAN PLT VOLUME 10.8 fl (7.5-11.1); PLATELET COUNT 62 10^3/uL (134-434); RBC 2.88 M/mm3 (4.00-5.60); RDW 19.6 % (11.9-15.9); WHITE BLOOD COUNT 3.6 K/mm3 (4.0-10.0)
[2021-08-27 02:17] LABS: INR 1.15 (0.83-1.09); PROTHROMBIN TIME (PATIENT) 13.2 SEC (9.7-13.0)
[2021-08-27 03:47] LABS: ACTIVATED PTT 30.1 SECONDS (25.2-36.5)
[2021-08-27] MEDS ORDERED: HEPARIN NA (PORCINE) 5,000 UNITS/ML 1ML VIAL ONE ×2 (06:33→17:09)
[2021-08-27] MEDS: HEPARIN NA (PORCINE) 5,000 UNITS/ML 1ML VIAL SQ SCH ×2 (06:40→17:21)
[2021-08-27 08:37] LABS: ANISOCYTOSIS 2+; MACROCYTOSIS 0; OVALOCYTE 1+; PLATELET ESTIMATE DECREASED; TARGET CELLS 2+; TEAR DROP CELLS 2+
[2021-08-27] MEDS ORDERED: SODIUM CHLORIDE NASAL SPRAY 44 ML BOTTLE NS PRN (10:51)
[2021-08-27] MEDS ORDERED: ACETAMINOPHEN 325 MG TABLET (FP) PO PRN ×2 (10:51→10:59)
[2021-08-27] MEDS ORDERED: ALBUTEROL SO4 HFA INHALER IH PRN (10:51)
[2021-08-27] MEDS: INSULIN SLIDING SCALE (NOVOLOG) 1 VIAL SQ SCH ×3 (11:08→17:20)
[2021-08-27] MEDS ORDERED: MULTIVITAMINS (DAILY MVI) TABLET (FP) ONE (11:48)
[2021-08-27] MEDS ORDERED: PANTOPRAZOLE 40 MG TABLET ONE (11:48)
[2021-08-27] MEDS ORDERED: CHOLECALCIFEROL (VIT D3) 1,000 UNIT (25 MCG) TABLET ONE (11:49)
[2021-08-27] MEDS: MULTIVITAMINS (DAILY MVI) TABLET (FP) PO SCH (11:51)
[2021-08-27] MEDS: CHOLECALCIFEROL (VIT D3 5000 UNITS) 125 MCG TAB PO SCH (11:51)
[2021-08-27] MEDS: PANTOPRAZOLE 40 MG TABLET PO SCH (11:51)
[2021-08-27 12:58] LABS: HEMATOCRIT 24.1 % (35.4-49); HEMOGLOBIN 7.6 GM/dL (11.7-16.9); MCH 26.7 pg (25.7-33.7); MCHC 31.5 g/dl (32.0-35.9); MEAN CELL VOLUME 84.9 fl (80-96); RBC 2.84 M/mm3 (4.00-5.60); RDW 19.8 % (11.9-15.9); WHITE BLOOD COUNT 3.8 K/mm3 (4.0-10.0)
[2021-08-27 13:05] LABS: PLATELET COUNT 88 10^3/uL (134-434)
[2021-08-27 14:05] LABS: ANISOCYTOSIS 2+; MACROCYTOSIS 1+; OVALOCYTE 2+; PLATELET ESTIMATE DECREASED; TEAR DROP CELLS 1+
[2021-08-27] MEDS ORDERED: SENNOSIDES 8.6MG TABLET (FP) PO SCH (22:00)
[2021-08-27] MEDS ORDERED: MELATONIN 1 MG TABLET PO SCH (22:00)
[2021-08-28] MEDS: HEPARIN NA (PORCINE) 5,000 UNITS/ML 1ML VIAL SQ SCH ×5 (00:16→22:26)
[2021-08-28] MEDS: INSULIN SLIDING SCALE (NOVOLOG) 1 VIAL SQ SCH ×5 (00:17→22:28)
[2021-08-28] MEDS ORDERED: TAMSULOSIN HCL 0.4 MG CAP PO SCH (08:30)
[2021-08-28 08:51] LABS: HEMATOCRIT 23.4 % (35.4-49); HEMOGLOBIN 7.2 GM/dL (11.7-16.9); MCH 26.1 pg (25.7-33.7); MCHC 30.7 g/dl (32.0-35.9); MEAN CELL VOLUME 85.1 fl (80-96); RBC 2.76 M/mm3 (4.00-5.60); RDW 20.1 % (11.9-15.9)
[2021-08-28 08:55] LABS: PLATELET COUNT 107 10^3/uL (134-434)
[2021-08-28] MEDS: PANTOPRAZOLE 40 MG TABLET PO SCH (09:16)
[2021-08-28] MEDS: MULTIVITAMINS (DAILY MVI) TABLET (FP) PO SCH (09:16)
[2021-08-28] MEDS: MECLIZINE HCL 12.5 MG TABLET PO SCH (09:16)
[2021-08-28] MEDS: POLYETHYLENE GLYCOL (HEALTHYLAX) 3350 17 GM PACKET PO SCH (09:19)
[2021-08-28] MEDS: CHOLECALCIFEROL (VIT D3 5000 UNITS) 125 MCG TAB PO SCH (09:19)
[2021-08-28] MEDS: CHOLECALCIFEROL (VIT D3) 1,000 UNIT (25 MCG) TABLET PO SCH (09:32)
[2021-08-28 09:53] LABS: ANISOCYTOSIS 2+; MACROCYTOSIS 1+; PLATELET ESTIMATE DECREASED; TARGET CELLS 2+; TEAR DROP CELLS 1+
[2021-08-28 10:31] LABS: ALBUMIN 2.9 g/dl (3.4-5.0); BILIRUBIN,TOTAL 0.4 mg/dL (0.2-1); BLOOD UREA NITROGEN 20.3 mg/dL (7-18); CALCIUM 8.5 mg/dL (8.5-10.1); CREATININE 1.4 mg/dL (0.55-1.3); MAGNESIUM 2.2 mg/dL (1.8-2.4); PHOSPHOROUS 2.6 mg/dL (2.5-4.9); TOT PROT 5.6 g/dl (6.4-8.2)
[2021-08-28] MEDS: ALBUTEROL SO4 2.5/IPRATROPIUM 0.5 INH SOL 3 ML VIAL.NEB. NEB SCH ×3 (11:49→20:30)
[2021-08-28] MEDS ORDERED: SODIUM CHLORIDE NASAL SPRAY 44 ML BOTTLE NS PRN (13:58)
[2021-08-28] MEDS ORDERED: ACETAMINOPHEN 325 MG TABLET (FP) PO PRN (13:58)
[2021-08-28] MEDS ORDERED: ALBUTEROL SO4 HFA INHALER IH PRN (13:58)
[2021-08-28] MEDS ORDERED: EPOETIN ALFA-EPBX 20,000 UNIT/ML VIAL SQ ONE (17:00)
[2021-08-28] MEDS ORDERED: MELATONIN 1 MG TABLET PO SCH (22:00)
[2021-08-28] MEDS: MELATONIN 1 MG TABLET PO SCH (22:26)
[2021-08-28] MEDS: SENNOSIDES 8.6MG TABLET (FP) PO SCH (22:26)
[2021-08-28] MEDS: ATORVASTATIN CA 20 MG TABLET (FP) PO SCH (22:26)
[2021-08-29] MEDS: HEPARIN NA (PORCINE) 5,000 UNITS/ML 1ML VIAL SQ SCH ×3 (06:25→21:13)
[2021-08-29] MEDS: INSULIN SLIDING SCALE (NOVOLOG) 1 VIAL SQ SCH ×4 (06:29→21:17)
[2021-08-29] MEDS: ALBUTEROL SO4 2.5/IPRATROPIUM 0.5 INH SOL 3 ML VIAL.NEB. NEB SCH ×4 (07:45→20:10)
[2021-08-29] MEDS: TAMSULOSIN HCL 0.4 MG CAP PO SCH (08:19)
[2021-08-29] MEDS: MULTIVITAMINS (DAILY MVI) TABLET (FP) PO SCH (10:28)
[2021-08-29] MEDS: PANTOPRAZOLE 40 MG TABLET PO SCH (10:28)
[2021-08-29] MEDS: MECLIZINE HCL 12.5 MG TABLET PO SCH (10:28)
[2021-08-29] MEDS: CHOLECALCIFEROL (VIT D3) 1,000 UNIT (25 MCG) TABLET PO SCH (10:28)
[2021-08-29] MEDS: POLYETHYLENE GLYCOL (HEALTHYLAX) 3350 17 GM PACKET PO SCH ×2 (11:41→14:45)
[2021-08-29] MEDS: SENNOSIDES 8.6MG TABLET (FP) PO SCH (21:13)
[2021-08-29] MEDS: ATORVASTATIN CA 20 MG TABLET (FP) PO SCH (21:13)
[2021-08-29] MEDS: MELATONIN 1 MG TABLET PO SCH (21:15)
[2021-08-30] MEDS: HEPARIN NA (PORCINE) 5,000 UNITS/ML 1ML VIAL SQ SCH ×2 (05:52→17:50)
[2021-08-30] MEDS: INSULIN SLIDING SCALE (NOVOLOG) 1 VIAL SQ SCH ×3 (06:07→17:50)
[2021-08-30] MEDS: TAMSULOSIN HCL 0.4 MG CAP PO SCH (08:07)
[2021-08-30] MEDS: ALBUTEROL SO4 2.5/IPRATROPIUM 0.5 INH SOL 3 ML VIAL.NEB. NEB SCH ×3 (08:35→15:44)
[2021-08-30] MEDS: CHOLECALCIFEROL (VIT D3) 1,000 UNIT (25 MCG) TABLET PO SCH (10:12)
[2021-08-30] MEDS: MECLIZINE HCL 12.5 MG TABLET PO SCH (10:12)
[2021-08-30] MEDS: POLYETHYLENE GLYCOL (HEALTHYLAX) 3350 17 GM PACKET PO SCH (10:12)
[2021-08-30] MEDS: MULTIVITAMINS (DAILY MVI) TABLET (FP) PO SCH (10:12)
[2021-08-30] MEDS: PANTOPRAZOLE 40 MG TABLET PO SCH (10:12)
[2021-08-30 11:31] LABS: HEMATOCRIT 24.6 % (35.4-49); HEMOGLOBIN 7.6 GM/dL (11.7-16.9); MCHC 30.9 g/dl (32.0-35.9); MEAN CELL VOLUME 84.1 fl (80-96); PLATELET COUNT 130 10^3/uL (134-434); RBC 2.92 M/mm3 (4.00-5.60); RDW 20.8 % (11.9-15.9); WHITE BLOOD COUNT 5.5 K/mm3 (4.0-10.0)
[2021-08-30] MEDS ORDERED: FUROSEMIDE 40 MG/4 ML INJECTABLE VIAL IVPUSH ONE (12:02)
[2021-08-30 12:16] LABS: CALCIUM 8.6 mg/dL (8.5-10.1)
[2021-08-30 12:17] LABS: BLOOD UREA NITROGEN 15.4 mg/dL (7-18)
[2021-08-30 12:20] LABS: CREATININE 1.3 mg/dL (0.55-1.3)
[2021-08-30 12:22] LABS: BILIRUBIN,TOTAL 0.4 mg/dL (0.2-1); TOT PROT 5.8 g/dl (6.4-8.2)
[2021-08-30 12:38] LABS: ANISOCYTOSIS 2+; PLATELET ESTIMATE DECREASED; TARGET CELLS 1+
[2021-08-30 17:19] VITALS: BP 155/51; PULSE 89; TEMP 99.5
== END 2021-08-30 19:20 ==
LOC: JER 00:04 → JERBED 02:11 → J6WEST-2 20:47
PROVIDERS: ADMIT Hospitalist; ATTEND Family Medicine
PROC: 3E0F7GC Introduction of Other Therapeutic Substance into Respiratory Tract, Via Natural or Artificial Opening (ICD-10-PCS; principal; 2021-08-27)
PROC: 3E023GC Introduction of Other Therapeutic Substance into Muscle, Percutaneous Approach (ICD-10-PCS; 2021-08-27)
PROC: 3E033GC Introduction of Other Therapeutic Substance into Peripheral Vein, Percutaneous Approach (ICD-10-PCS; 2021-08-27)
DX: I13.0 Hypertensive heart and chronic kidney disease with heart failure and stage 1 through stage 4 chronic kidney disease, or unspecified chronic kidney disease (principal); I24.9 Acute ischemic heart disease, unspecified; J45.909 Unspecified asthma, uncomplicated; F03.90 Unspecified dementia, unspecified severity, without behavioral disturbance, psychotic disturbance, mood disturbance, and anxiety; Z95.5 Presence of coronary angioplasty implant and graft; D64.9 Anemia, unspecified; N40.0 Benign prostatic hyperplasia without lower urinary tract symptoms; E78.5 Hyperlipidemia, unspecified; N17.9 Acute kidney failure, unspecified; I25.2 Old myocardial infarction; K21.9 Gastro-esophageal reflux disease without esophagitis; P27.1 Bronchopulmonary dysplasia originating in the perinatal period; K57.90 Diverticulosis of intestine, part unspecified, without perforation or abscess without bleeding; E11.22 Type 2 diabetes mellitus with diabetic chronic kidney disease
CPT/HCPCS: 36415; 36430; 71045-TC-FY; 80048; 80053; 82728; 82962; 83540; 83550; 83735; 83880; 84100; 84443; 84484; 84550; 85025; 85610; 85730; 86850; 86900; 86901; 86922; 93005; 93010; 93971; 94640; 96372; 96374; 99285-25; C9803; G0378; J1644; P9058; U0003; U0005

== ENCOUNTER 2021-10-19 00:30 | Inpatient (IN) | payer OTHER ==
[2021-10-19] MEDS ORDERED: SODIUM CHLORIDE 1,905 ML IV ONE (00:40)
[2021-10-19] MEDS ORDERED: VANCOMYCIN 1 GM in D5W (PRE-DOCKED) 1,000 MG/250 ML IVPB ONE (00:44)
[2021-10-19] MEDS ORDERED: SODIUM CHLORIDE 0.9% 500 ML INFUS.BAG IV ONE (00:46)
[2021-10-19] MEDS ORDERED: ACETAMINOPHEN INJECTION 100 ML IVPB ONE ×2 (00:48→15:59)
[2021-10-19] MEDS ORDERED: ACETAMINOPHEN 1000 MG/100 ML BAG IVPB ONE ×2 (00:48→20:42)
[2021-10-19] MEDS ORDERED: VANCOMYCIN/WATER FOR INJ (PEG) 1,000 MG/200 ML BAG IVPB ONE (01:00)
[2021-10-19 01:27] LABS: VENOUS O2 SATURATION 34.7 % (70-80); VENOUS PCO2 44.8 mmHg (38-52); VENOUS PH 7.311 (7.310-7.410)
[2021-10-19 01:34] LABS: HEMOGLOBIN 8.4 GM/dL (11.7-16.9); MCH 26.1 pg (25.7-33.7); MCHC 31.2 g/dl (32.0-35.9); MEAN CELL VOLUME 83.8 fl (80-96); MEAN PLT VOLUME 11.1 fl (7.5-11.1); PLATELET COUNT 97 10^3/uL (134-434); RBC 3.23 M/mm3 (4.00-5.60); RDW 20.5 % (11.9-15.9); WHITE BLOOD COUNT 5.9 K/mm3 (4.0-10.0)
[2021-10-19 01:45] LABS: INR 1.12 (0.83-1.09); PROTHROMBIN TIME (PATIENT) 12.9 SEC (9.7-13.0)
[2021-10-19 01:47] LABS: ACTIVATED PTT 31.1 SECONDS (25.2-36.5)
[2021-10-19 01:52] LABS: CHLORIDE 102 mmol/L (98-107); SODIUM 135 mmol/L (136-145)
[2021-10-19 01:54] LABS: CALCIUM 8.5 mg/dL (8.5-10.1)
[2021-10-19 01:55] LABS: ALBUMIN 3.3 g/dl (3.4-5.0); ANION GAP 7 MMOL/L (8-16); CO2 26 mmol/L (21-32); GLUCOSE,RANDOM 150 mg/dL (74-106); MAGNESIUM 2.2 mg/dL (1.8-2.4)
[2021-10-19 01:58] LABS: CREATININE 1.7 mg/dL (0.55-1.3); PHOSPHOROUS 2.9 mg/dL (2.5-4.9); SGOT/AST 22 U/L (15-37); SGPT/ALT 23 U/L (13-61)
[2021-10-19 01:59] LABS: BILIRUBIN,TOTAL 0.6 mg/dL (0.2-1); TOT PROT 7.1 g/dl (6.4-8.2)
[2021-10-19 02:01] LABS: ALK PHOS 80 U/L (45-117)
[2021-10-19] MEDS ORDERED: INSULIN REGULAR HUMAN 100 UNITS/ML *VIAL IVPUSH ONE (02:08)
[2021-10-19] MEDS ORDERED: DEXTROSE 50%-WATER - 25 GM/50 ML VIAL IVPUSH ONE (02:08)
[2021-10-19] MEDS ORDERED: DEXTROSE 50%-WATER 25 GM/50 ML DISP.SYRIN ONE (02:09)
[2021-10-19] MEDS ORDERED: ALBUTEROL SO4 0.083% IH SOL 2.5 MG/3 ML VIAL.NEB. NEB ONE ×2 (02:10→02:12)
[2021-10-19] MEDS ORDERED: INSULIN REGULAR HUMAN 100 UNITS/ML *VIAL ONE (02:14)
[2021-10-19 02:33] LABS: EPI CELLS 3 /uL (0-25.1); HYALINE CASTS 0 /uL (0-3.1); PH,URINE 5.5 (5.0-8.0); URINE APPEARANCE CLEAR; URINE BACTERIA 34 /uL (0-1359); URINE BILIRUBIN NEGATIVE (NEGATIVE); URINE COLOR YELLOW; URINE GLUCOSE (UA) NEGATIVE (NEGATIVE); URINE KETONE TRACE (NEGATIVE); URINE LEUK ESTERASE NEGATIVE (NEGATIVE); URINE NITRITE NEGATIVE (NEGATIVE); URINE PROTEIN 1+ (NEGATIVE); URINE RBC 138 /uL (0-23.9); URINE WBC 3 /uL (0-25.8)
[2021-10-19] MEDS ORDERED: SODIUM ZIRCONIUM CYCLOSILICATE (LOKELMA) 5 GM PACKET PO ONE (02:38)
[2021-10-19 03:11] LABS: ANISOCYTOSIS 2+; MACROCYTOSIS 0
[2021-10-19] MEDS ORDERED: IBUPROFEN 800 MG/8 ML IJ IVPB ONE ×2 (04:46→04:48)
[2021-10-19] MEDS: HEPARIN NA (PORCINE) 5,000 UNITS/ML 1ML VIAL SQ SCH ×3 (06:50→23:48)
[2021-10-19] MEDS ORDERED: ONDANSETRON *ODT* 4 MG TABLET SL PRN (07:46)
[2021-10-19] MEDS: INSULIN SLIDING SCALE (NOVOLOG) 1 VIAL SQ SCH ×3 (08:00→18:07)
[2021-10-19] MEDS ORDERED: PANTOPRAZOLE 40 MG TABLET ONE (08:49)
[2021-10-19] MEDS ORDERED: SODIUM ZIRCONIUM CYCLOSILICATE (LOKELMA) 5 GM PACKET ONE (08:49)
[2021-10-19] MEDS ORDERED: POLYETHYLENE GLYCOL (HEALTHYLAX) 3350 17 GM PACKET ONE (08:49)
[2021-10-19] MEDS ORDERED: CHOLECALCIFEROL (VIT D3) 1,000 UNIT (25 MCG) TABLET ONE (08:49)
[2021-10-19] MEDS ORDERED: MECLIZINE HCL 12.5 MG TABLET ONE (08:50)
[2021-10-19] MEDS ORDERED: FERROUS SO4 325 MG TABLET (FP) ONE (08:50)
[2021-10-19] MEDS ORDERED: TAMSULOSIN HCL 0.4 MG CAP ONE (08:50)
[2021-10-19] MEDS ORDERED: MULTIVITAMINS (DAILY MVI) TABLET (FP) ONE (08:50)
[2021-10-19] MEDS: SODIUM ZIRCONIUM CYCLOSILICATE (LOKELMA) 10 GM PACKET PO SCH (09:12)
[2021-10-19] MEDS: TAMSULOSIN HCL 0.4 MG CAP PO SCH (09:32)
[2021-10-19] MEDS: POLYETHYLENE GLYCOL (HEALTHYLAX) 3350 17 GM PACKET PO SCH (09:33)
[2021-10-19] MEDS: PANTOPRAZOLE 40 MG TABLET PO SCH ×2 (09:33→23:49)
[2021-10-19] MEDS: FERROUS SO4 325 MG TABLET (FP) PO SCH (09:33)
[2021-10-19] MEDS: MECLIZINE HCL 12.5 MG TABLET PO SCH (09:33)
[2021-10-19] MEDS: MULTIVITAMINS (DAILY MVI) TABLET (FP) PO SCH (09:34)
[2021-10-19] MEDS: CHOLECALCIFEROL (VIT D3) 1,000 UNIT (25 MCG) TABLET PO SCH (09:34)
[2021-10-19] MEDS ORDERED: SODIUM ZIRCONIUM CYCLOSILICATE (LOKELMA) 5 GM PACKET PO SCH (10:00)
[2021-10-19] MEDS ORDERED: PATIENT'S OWN MEDICATION (NON-FORMULARY) (Folic Acid [Folic Acid] 0.8 MG Tablet) PO SCH (10:00)
[2021-10-19] MEDS ORDERED: SODIUM CHLORIDE 1,000 ML IV SCH (13:15)
[2021-10-19] MEDS ORDERED: MEROPENEM 1 GM VIAL (RESTRICTED TO ID) IVPB ONE ×2 (14:23→23:22)
[2021-10-19] MEDS ORDERED: HEPARIN NA (PORCINE) 5,000 UNITS/ML 1ML VIAL ONE (14:57)
[2021-10-19] MEDS: SODIUM CHLORIDE NASAL SPRAY 44 ML BOTTLE NS SCH ×2 (15:36→23:48)
[2021-10-19] MEDS: MEROPENEM 1 GM in DEXTROSE 5%-WATER 100 ML IVPB SCH ×2 (15:56→23:48)
[2021-10-19 18:42] LABS: CALCIUM 7.9 mg/dL (8.5-10.1)
[2021-10-19 18:43] LABS: BLOOD UREA NITROGEN 30.5 mg/dL (7-18)
[2021-10-19 18:46] LABS: CREATININE 1.6 mg/dL (0.55-1.3)
[2021-10-19] MEDS ORDERED: ACETAMINOPHEN 325 MG TABLET (FP) PO PRN (19:38)
[2021-10-19] MEDS: ALBUTEROL SO4 HFA INHALER IH PRN (20:29)
[2021-10-19] MEDS ORDERED: ATORVASTATIN CA 20 MG TABLET (FP) PO SCH (22:00)
[2021-10-19] MEDS ORDERED: SENNOSIDES 8.6MG TABLET (FP) PO SCH (22:00)
[2021-10-19] MEDS ORDERED: MELATONIN 1 MG TABLET PO SCH (22:00)
[2021-10-19 22:16] LABS: ALLENS TEST POSITIVE; ARTERIAL BLD GAS O2 SATURATION 98.4 % (95-98); ARTERIAL BLOOD GAS BASE EXCESS -2.5 mmol/L (-2-2); ARTERIAL BLOOD GAS PO2 118.4 mmHg (80-100); ARTERIAL BLOOD GAS pH 7.427 (7.350-7.450)
[2021-10-19] MEDS ORDERED: DEXTROSE 5%-WATER 100 ML IVPB ONE (23:23)
[2021-10-20] MEDS: INSULIN SLIDING SCALE (NOVOLOG) 1 VIAL SQ SCH ×5 (00:03→21:07)
[2021-10-20] MEDS: ACETAMINOPHEN 1000 MG/100 ML BAG IVPB PRN ×2 (02:11→07:47)
[2021-10-20] MEDS: ALBUTEROL SO4 HFA INHALER IH PRN ×2 (02:56→10:48)
[2021-10-20] MEDS ORDERED: EPOETIN ALFA-EPBX 20,000 UNIT/ML VIAL SQ SCH (06:00)
[2021-10-20] MEDS: HEPARIN NA (PORCINE) 5,000 UNITS/ML 1ML VIAL SQ SCH (06:01)
[2021-10-20] MEDS ORDERED: methylPREDNISolone NA SUCC 125 MG/2 ML VIAL IVPUSH ONE (07:34)
[2021-10-20] MEDS ORDERED: SODIUM CHLORIDE 1,000 ML IV SCH (07:35)
[2021-10-20] MEDS ORDERED: MEROPENEM 1 GM VIAL (RESTRICTED TO ID) IVPB ONE (07:43)
[2021-10-20] MEDS ORDERED: DEXTROSE 5%-WATER 100 ML IVPB ONE (07:43)
[2021-10-20] MEDS: TAMSULOSIN HCL 0.4 MG CAP PO SCH (08:18)
[2021-10-20 08:31] LABS: BLOOD UREA NITROGEN 31.8 mg/dL (7-18); CALCIUM 7.2 mg/dL (8.5-10.1)
[2021-10-20] MEDS: MEROPENEM 1 GM in DEXTROSE 5%-WATER 100 ML IVPB SCH ×2 (08:31→10:35)
[2021-10-20 08:34] LABS: CREATININE 1.8 mg/dL (0.55-1.3)
[2021-10-20 08:36] LABS: BILIRUBIN,TOTAL 0.5 mg/dL (0.2-1); TOT PROT 5.7 g/dl (6.4-8.2)
[2021-10-20 08:37] LABS: HEMATOCRIT 19.5 % (35.4-49); MCHC 32.6 g/dl (32.0-35.9); MEAN PLT VOLUME 10.3 fl (7.5-11.1); RBC 2.35 M/mm3 (4.00-5.60); RDW 20.4 % (11.9-15.9)
[2021-10-20 08:41] LABS: ALBUMIN 2.5 g/dl (3.4-5.0)
[2021-10-20 09:26] LABS: HEMOGLOBIN 6.4 GM/dL (11.7-16.9)
[2021-10-20] MEDS ORDERED: VANCOMYCIN/WATER FOR INJ (PEG) 1,000 MG/200 ML BAG IVPB SCH (10:00)
[2021-10-20] MEDS: PANTOPRAZOLE 40 MG TABLET PO SCH ×2 (10:45→21:04)
[2021-10-20] MEDS: MECLIZINE HCL 12.5 MG TABLET PO SCH (10:45)
[2021-10-20] MEDS: FERROUS SO4 325 MG TABLET (FP) PO SCH (10:45)
[2021-10-20] MEDS: CHOLECALCIFEROL (VIT D3) 1,000 UNIT (25 MCG) TABLET PO SCH (10:45)
[2021-10-20] MEDS: MULTIVITAMINS (DAILY MVI) TABLET (FP) PO SCH (10:45)
[2021-10-20] MEDS: SODIUM ZIRCONIUM CYCLOSILICATE (LOKELMA) 10 GM PACKET PO SCH (10:46)
[2021-10-20] MEDS: POLYETHYLENE GLYCOL (HEALTHYLAX) 3350 17 GM PACKET PO SCH (10:46)
[2021-10-20] MEDS: SODIUM CHLORIDE NASAL SPRAY 44 ML BOTTLE NS SCH ×2 (10:47→21:05)
[2021-10-20 10:55] LABS: PLATELET COUNT 46 10^3/uL (134-434)
[2021-10-20 10:56] LABS: ANISOCYTOSIS 1+; MACROCYTOSIS 0; OVALOCYTE 1+
[2021-10-20] MEDS: ALBUTEROL SO4 2.5/IPRATROPIUM 0.5 INH SOL 3 ML VIAL.NEB. NEB SCH ×3 (11:27→20:10)
[2021-10-20] MEDS ORDERED: DIGOXIN 0.5 MG/2 ML AMPUL IVPUSH ONE ×2 (11:53→15:45)
[2021-10-20] MEDS: DIGOXIN 0.125 MG TABLET PO SCH (16:36)
[2021-10-20] MEDS ORDERED: ONDANSETRON *ODT* 4 MG TABLET SL PRN (19:37)
[2021-10-20] MEDS: SENNOSIDES 8.6MG TABLET (FP) PO SCH (21:04)
[2021-10-20] MEDS: SODIUM CHLORIDE 1,000 ML IV SCH (21:15)
[2021-10-20] MEDS ORDERED: ATORVASTATIN CA 20 MG TABLET (FP) PO SCH (22:00)
[2021-10-20] MEDS ORDERED: MELATONIN 1 MG TABLET PO SCH (22:00)
[2021-10-21] MEDS: INSULIN SLIDING SCALE (NOVOLOG) 1 VIAL SQ SCH ×4 (06:00→21:44)
[2021-10-21 08:01] LABS: ALBUMIN 2.2 g/dl (3.4-5.0); BLOOD UREA NITROGEN 41.2 mg/dL (7-18); CALCIUM 7.3 mg/dL (8.5-10.1)
[2021-10-21 08:04] LABS: CREATININE 1.7 mg/dL (0.55-1.3); PHOSPHOROUS 3.3 mg/dL (2.5-4.9)
[2021-10-21 08:05] LABS: TOT PROT 5.2 g/dl (6.4-8.2)
[2021-10-21 08:06] LABS: BILIRUBIN,TOTAL 0.4 mg/dL (0.2-1)
[2021-10-21 08:10] LABS: HEMATOCRIT 27.8 % (35.4-49); HEMOGLOBIN 9.3 GM/dL (11.7-16.9); MCH 27.6 pg (25.7-33.7); MCHC 33.4 g/dl (32.0-35.9); MEAN CELL VOLUME 82.6 fl (80-96); PLATELET COUNT 49 10^3/uL (134-434); RBC 3.36 M/mm3 (4.00-5.60); RDW 18.6 % (11.9-15.9); WHITE BLOOD COUNT 7.3 K/mm3 (4.0-10.0)
[2021-10-21] MEDS: ALBUTEROL SO4 2.5/IPRATROPIUM 0.5 INH SOL 3 ML VIAL.NEB. NEB SCH ×4 (08:11→20:00)
[2021-10-21 09:49] LABS: ANISOCYTOSIS 3+; MACROCYTOSIS 0; OVALOCYTE 2+; TARGET CELLS 1+; TEAR DROP CELLS 1+
[2021-10-21] MEDS ORDERED: POLYETHYLENE GLYCOL (HEALTHYLAX) 3350 17 GM PACKET PO SCH (10:00)
[2021-10-21] MEDS ORDERED: VANCOMYCIN/WATER FOR INJ (PEG) 1,000 MG/200 ML BAG IVPB SCH (10:00)
[2021-10-21] MEDS: DIGOXIN 0.125 MG TABLET PO SCH (10:06)
[2021-10-21 10:08] LABS: SARS-CoV-2 NAA Not Detected (Not Detected)
[2021-10-21] MEDS: PANTOPRAZOLE 40 MG TABLET PO SCH (10:19)
[2021-10-21] MEDS: TAMSULOSIN HCL 0.4 MG CAP PO SCH (10:19)
[2021-10-21] MEDS: MECLIZINE HCL 12.5 MG TABLET PO SCH (10:19)
[2021-10-21] MEDS: FERROUS SO4 325 MG TABLET (FP) PO SCH (10:20)
[2021-10-21] MEDS: SODIUM ZIRCONIUM CYCLOSILICATE (LOKELMA) 10 GM PACKET PO SCH (10:20)
[2021-10-21] MEDS: SODIUM CHLORIDE NASAL SPRAY 44 ML BOTTLE NS SCH ×2 (10:21→21:43)
[2021-10-21] MEDS: SODIUM CHLORIDE 1,000 ML IV SCH ×2 (10:21→17:30)
[2021-10-21] MEDS: DAPTOMYCIN 450 MG in SODIUM CHLORIDE 50 ML IVPB SCH (11:39)
[2021-10-21] MEDS: MINERAL OIL ENEMA 133 ML ENEMA PR SCH (13:17)
[2021-10-21] MEDS: POLYETHYLENE GLYCOL (HEALTHYLAX) 3350 17 GM PACKET PO SCH ×2 (13:27→21:39)
[2021-10-21] MEDS: ACETAMINOPHEN 325 MG TABLET (FP) PO PRN (18:56)
[2021-10-21] MEDS ORDERED: MELATONIN 1 MG TABLET PO SCH (20:58)
[2021-10-21] MEDS: SENNOSIDES 8.6MG TABLET (FP) PO SCH (21:39)
[2021-10-21] MEDS: MELATONIN 5 MG TABLETS PO SCH (21:45)
[2021-10-22] MEDS: ACETAMINOPHEN 325 MG TABLET (FP) PO PRN (01:11)
[2021-10-22] MEDS ORDERED: ARTIFICIAL TEARS (POLYVINYL ALCOHOL) OPTH DROPS OU PRN (04:39)
[2021-10-22] MEDS: POLYETHYLENE GLYCOL (HEALTHYLAX) 3350 17 GM PACKET PO SCH ×3 (05:27→21:40)
[2021-10-22] MEDS: ALBUTEROL SO4 HFA INHALER IH PRN (05:54)
[2021-10-22] MEDS ORDERED: MAGNESIUM SULF 50% (8.12 MEQ/2 ML-1 GM VIAL) ONE (06:07)
[2021-10-22] MEDS ORDERED: methylPREDNISolone NA SUCC 40 MG/1 ML VIAL IVPB ONE (06:10)
[2021-10-22] MEDS ORDERED: ALBUTEROL SO4 0.083% IH SOL 2.5 MG/3 ML VIAL.NEB. NEB ONE (06:10)
[2021-10-22] MEDS: INSULIN SLIDING SCALE (NOVOLOG) 1 VIAL SQ SCH ×4 (06:37→21:39)
[2021-10-22 06:54] LABS: HEMATOCRIT 31.2 % (35.4-49); HEMOGLOBIN 9.9 GM/dL (11.7-16.9); MCH 27.3 pg (25.7-33.7); MCHC 31.9 g/dl (32.0-35.9); MEAN CELL VOLUME 85.7 fl (80-96); MEAN PLT VOLUME 15.8 fl (7.5-11.1); PLATELET COUNT 122 10^3/uL (134-434); RBC 3.64 M/mm3 (4.00-5.60); RDW 19.3 % (11.9-15.9); WHITE BLOOD COUNT 8.1 K/mm3 (4.0-10.0)
[2021-10-22] MEDS ORDERED: MAGNESIUM SULF 50% (8.12 MEQ/2 ML-1 GM VIAL) IVPB ONE (07:15)
[2021-10-22] MEDS: SODIUM CHLORIDE 1,000 ML IV SCH ×2 (07:45)
[2021-10-22] MEDS: ALBUTEROL SO4 2.5/IPRATROPIUM 0.5 INH SOL 3 ML VIAL.NEB. NEB SCH ×8 (08:00→20:10)
[2021-10-22 08:36] LABS: ARTERIAL BLD GAS O2 SATURATION 96.2 % (95-98); ARTERIAL BLOOD GAS BASE EXCESS -9.4 mmol/L (-2-2); ARTERIAL BLOOD GAS PO2 86.6 mmHg (80-100); ARTERIAL BLOOD GAS pH 7.338 (7.350-7.450)
[2021-10-22 08:49] LABS: ALLENS TEST POSITIVE
[2021-10-22] MEDS ORDERED: FUROSEMIDE 40 MG/4 ML INJECTABLE VIAL IVPUSH ONE (09:54)
[2021-10-22] MEDS: MINERAL OIL ENEMA 133 ML ENEMA PR SCH (10:02)
[2021-10-22] MEDS: SODIUM ZIRCONIUM CYCLOSILICATE (LOKELMA) 10 GM PACKET PO SCH (10:02)
[2021-10-22] MEDS: TAMSULOSIN HCL 0.4 MG CAP PO SCH (10:10)
[2021-10-22] MEDS: PANTOPRAZOLE 20 MG TABLET PO SCH (10:23)
[2021-10-22] MEDS: FERROUS SO4 325 MG TABLET (FP) PO SCH (10:23)
[2021-10-22] MEDS: MECLIZINE HCL 12.5 MG TABLET PO SCH (10:23)
[2021-10-22] MEDS: SODIUM CHLORIDE NASAL SPRAY 44 ML BOTTLE NS SCH ×2 (10:24→21:40)
[2021-10-22 10:48] LABS: ANISOCYTOSIS 1+; MACROCYTOSIS 1+; PLATELET ESTIMATE DECREASED
[2021-10-22] MEDS: DAPTOMYCIN 450 MG in SODIUM CHLORIDE 50 ML IVPB SCH (11:59)
[2021-10-22] MEDS ORDERED: DAPTOMYCIN 450 MG in SODIUM CHLORIDE 50 ML IVPB SCH (12:00)
[2021-10-22 14:26] LABS: CALCIUM 7.4 mg/dL (8.5-10.1)
[2021-10-22 14:27] LABS: BLOOD UREA NITROGEN 38.5 mg/dL (7-18)
[2021-10-22 14:30] LABS: CREATININE 1.5 mg/dL (0.55-1.3)
[2021-10-22 17:30] VITALS: BMI 18.1
[2021-10-22] MEDS: MELATONIN 5 MG TABLETS PO SCH (21:40)
[2021-10-22] MEDS: METOPROLOL TARTRATE 25 MG TABLET (FP) PO SCH (21:40)
[2021-10-22] MEDS: SENNOSIDES 8.6MG TABLET (FP) PO SCH (21:40)
[2021-10-23] MEDS: POLYETHYLENE GLYCOL (HEALTHYLAX) 3350 17 GM PACKET PO SCH ×3 (05:42→21:58)
[2021-10-23] MEDS: INSULIN SLIDING SCALE (NOVOLOG) 1 VIAL SQ SCH ×4 (06:31→22:00)
[2021-10-23 08:30] LABS: HEMATOCRIT 27.4 % (35.4-49); HEMOGLOBIN 9.1 GM/dL (11.7-16.9); MCH 27.6 pg (25.7-33.7); MCHC 33.2 g/dl (32.0-35.9); MEAN CELL VOLUME 83.1 fl (80-96); MEAN PLT VOLUME 12.6 fl (7.5-11.1); PLATELET COUNT 111 10^3/uL (134-434); RDW 19.7 % (11.9-15.9); WHITE BLOOD COUNT 5.4 K/mm3 (4.0-10.0)
[2021-10-23 08:40] LABS: CALCIUM 7.9 mg/dL (8.5-10.1)
[2021-10-23 08:41] LABS: ALBUMIN 2.5 g/dl (3.4-5.0); MAGNESIUM 2.7 mg/dL (1.8-2.4)
[2021-10-23 08:44] LABS: CREATININE 1.5 mg/dL (0.55-1.3); PHOSPHOROUS 1.7 mg/dL (2.5-4.9)
[2021-10-23] MEDS: ALBUTEROL SO4 2.5/IPRATROPIUM 0.5 INH SOL 3 ML VIAL.NEB. NEB SCH ×4 (08:45→20:40)
[2021-10-23 08:46] LABS: BILIRUBIN,TOTAL 0.4 mg/dL (0.2-1); TOT PROT 5.8 g/dl (6.4-8.2)
[2021-10-23] MEDS: FERROUS SO4 325 MG TABLET (FP) PO SCH (10:54)
[2021-10-23] MEDS: METOPROLOL TARTRATE 25 MG TABLET (FP) PO SCH ×2 (10:54→21:57)
[2021-10-23] MEDS: MECLIZINE HCL 12.5 MG TABLET PO SCH (10:54)
[2021-10-23] MEDS: PANTOPRAZOLE 20 MG TABLET PO SCH (11:01)
[2021-10-23] MEDS: TAMSULOSIN HCL 0.4 MG CAP PO SCH (11:01)
[2021-10-23] MEDS: SODIUM CHLORIDE NASAL SPRAY 44 ML BOTTLE NS SCH ×2 (11:01→21:59)
[2021-10-23] MEDS: MINERAL OIL ENEMA 133 ML ENEMA PR SCH (11:02)
[2021-10-23] MEDS: SODIUM ZIRCONIUM CYCLOSILICATE (LOKELMA) 10 GM PACKET PO SCH (11:02)
[2021-10-23] MEDS: FUROSEMIDE 20 MG TABLET (FP) PO SCH (11:12)
[2021-10-23] MEDS: DAPTOMYCIN 450 MG in SODIUM CHLORIDE 50 ML IVPB SCH (11:12)
[2021-10-23 11:15] LABS: ANISOCYTOSIS 2+; MACROCYTOSIS 0; OVALOCYTE 2+
[2021-10-23] MEDS ORDERED: FUROSEMIDE 40 MG/4 ML INJECTABLE VIAL IVPUSH ONE (13:24)
[2021-10-23] MEDS: ALBUTEROL SO4 HFA INHALER IH PRN (21:57)
[2021-10-23] MEDS: MELATONIN 5 MG TABLETS PO SCH (21:58)
[2021-10-23] MEDS: ACETAMINOPHEN 325 MG TABLET (FP) PO PRN (21:58)
[2021-10-23] MEDS: SENNOSIDES 8.6MG TABLET (FP) PO SCH (21:59)
[2021-10-24] MEDS: POLYETHYLENE GLYCOL (HEALTHYLAX) 3350 17 GM PACKET PO SCH ×3 (06:38→21:52)
[2021-10-24] MEDS: INSULIN SLIDING SCALE (NOVOLOG) 1 VIAL SQ SCH ×4 (06:47→21:52)
[2021-10-24] MEDS: ALBUTEROL SO4 2.5/IPRATROPIUM 0.5 INH SOL 3 ML VIAL.NEB. NEB SCH ×4 (07:35→20:20)
[2021-10-24 07:46] LABS: HEMATOCRIT 27.6 % (35.4-49); HEMOGLOBIN 9.3 GM/dL (11.7-16.9); MCH 27.7 pg (25.7-33.7); MCHC 33.6 g/dl (32.0-35.9); MEAN CELL VOLUME 82.3 fl (80-96); MEAN PLT VOLUME 11.7 fl (7.5-11.1); PLATELET COUNT 140 10^3/uL (134-434); RBC 3.35 M/mm3 (4.00-5.60); RDW 19.3 % (11.9-15.9); WHITE BLOOD COUNT 7.2 K/mm3 (4.0-10.0)
[2021-10-24 07:49] LABS: TOT PROT 5.7 g/dl (6.4-8.2)
[2021-10-24 07:50] LABS: BILIRUBIN,TOTAL 0.6 mg/dL (0.2-1)
[2021-10-24 07:51] LABS: CALCIUM 8.6 mg/dL (8.5-10.1)
[2021-10-24 07:52] LABS: ALBUMIN 2.6 g/dl (3.4-5.0); BLOOD UREA NITROGEN 39.8 mg/dL (7-18)
[2021-10-24 07:55] LABS: CREATININE 1.4 mg/dL (0.55-1.3)
[2021-10-24 09:45] LABS: ANISOCYTOSIS 2+; MACROCYTOSIS 0
[2021-10-24] MEDS: FERROUS SO4 325 MG TABLET (FP) PO SCH (10:15)
[2021-10-24] MEDS: METOPROLOL TARTRATE 25 MG TABLET (FP) PO SCH ×2 (10:15→21:51)
[2021-10-24] MEDS: SODIUM CHLORIDE NASAL SPRAY 44 ML BOTTLE NS SCH ×2 (10:16→21:52)
[2021-10-24] MEDS: TAMSULOSIN HCL 0.4 MG CAP PO SCH (10:16)
[2021-10-24] MEDS: MECLIZINE HCL 12.5 MG TABLET PO SCH (10:16)
[2021-10-24] MEDS: FUROSEMIDE 20 MG TABLET (FP) PO SCH (10:16)
[2021-10-24] MEDS: PANTOPRAZOLE 20 MG TABLET PO SCH (10:16)
[2021-10-24] MEDS: SODIUM ZIRCONIUM CYCLOSILICATE (LOKELMA) 10 GM PACKET PO SCH (11:43)
[2021-10-24] MEDS: ACETAMINOPHEN 325 MG TABLET (FP) PO PRN (11:47)
[2021-10-24] MEDS: MINERAL OIL ENEMA 133 ML ENEMA PR SCH (14:32)
[2021-10-24] MEDS: SENNOSIDES 8.6MG TABLET (FP) PO SCH (21:52)
[2021-10-24] MEDS: MELATONIN 5 MG TABLETS PO SCH (21:52)
[2021-10-25] MEDS: POLYETHYLENE GLYCOL (HEALTHYLAX) 3350 17 GM PACKET PO SCH ×3 (05:55→21:31)
[2021-10-25] MEDS: INSULIN SLIDING SCALE (NOVOLOG) 1 VIAL SQ SCH ×4 (06:24→21:31)
[2021-10-25] MEDS: ALBUTEROL SO4 2.5/IPRATROPIUM 0.5 INH SOL 3 ML VIAL.NEB. NEB SCH ×3 (08:40→15:40)
[2021-10-25] MEDS: FERROUS SO4 325 MG TABLET (FP) PO SCH (11:22)
[2021-10-25] MEDS: PANTOPRAZOLE 20 MG TABLET PO SCH (11:22)
[2021-10-25] MEDS: TAMSULOSIN HCL 0.4 MG CAP PO SCH (11:22)
[2021-10-25] MEDS: MECLIZINE HCL 12.5 MG TABLET PO SCH (11:22)
[2021-10-25] MEDS: DAPTOMYCIN 450 MG in SODIUM CHLORIDE 50 ML IVPB SCH (11:22)
[2021-10-25] MEDS: FUROSEMIDE 20 MG TABLET (FP) PO SCH (11:23)
[2021-10-25] MEDS: METOPROLOL TARTRATE 25 MG TABLET (FP) PO SCH ×2 (11:23→21:31)
[2021-10-25] MEDS: SODIUM CHLORIDE NASAL SPRAY 44 ML BOTTLE NS SCH ×2 (11:26→21:35)
[2021-10-25] MEDS: SODIUM ZIRCONIUM CYCLOSILICATE (LOKELMA) 10 GM PACKET PO SCH (11:26)
[2021-10-25 14:03] LABS: HEMATOCRIT 28.6 % (35.4-49); HEMOGLOBIN 9.5 GM/dL (11.7-16.9); MCH 27.4 pg (25.7-33.7); MCHC 33.1 g/dl (32.0-35.9); MEAN CELL VOLUME 82.7 fl (80-96); MEAN PLT VOLUME 10.4 fl (7.5-11.1); PLATELET COUNT 157 10^3/uL (134-434); RBC 3.45 M/mm3 (4.00-5.60); RDW 19.2 % (11.9-15.9); WHITE BLOOD COUNT 6.2 K/mm3 (4.0-10.0)
[2021-10-25 14:31] LABS: ALBUMIN 2.4 g/dl (3.4-5.0); BLOOD UREA NITROGEN 30.2 mg/dL (7-18)
[2021-10-25 14:35] LABS: BILIRUBIN,TOTAL 0.9 mg/dL (0.2-1)
[2021-10-25 14:36] LABS: TOT PROT 5.6 g/dl (6.4-8.2)
[2021-10-25 14:37] LABS: CALCIUM 8.4 mg/dL (8.5-10.1); CREATININE 1.1 mg/dL (0.55-1.3)
[2021-10-25] MEDS: ACETAMINOPHEN 325 MG TABLET (FP) PO PRN (18:12)
[2021-10-25] MEDS ORDERED: ALBUTEROL SO4 2.5/IPRATROPIUM 0.5 INH SOL 3 ML VIAL.NEB. NEB PRN (19:34)
[2021-10-25] MEDS: MELATONIN 5 MG TABLETS PO SCH (21:31)
[2021-10-25] MEDS: SENNOSIDES 8.6MG TABLET (FP) PO SCH (21:31)
[2021-10-26] MEDS: POLYETHYLENE GLYCOL (HEALTHYLAX) 3350 17 GM PACKET PO SCH (05:55)
[2021-10-26] MEDS: INSULIN SLIDING SCALE (NOVOLOG) 1 VIAL SQ SCH ×4 (06:17→21:54)
[2021-10-26 07:34] LABS: BLOOD UREA NITROGEN 27.2 mg/dL (7-18); CALCIUM 8.5 mg/dL (8.5-10.1)
[2021-10-26 07:35] LABS: ALBUMIN 2.3 g/dl (3.4-5.0)
[2021-10-26 07:38] LABS: CREATININE 1.1 mg/dL (0.55-1.3)
[2021-10-26 07:39] LABS: BILIRUBIN,TOTAL 0.7 mg/dL (0.2-1); TOT PROT 5.5 g/dl (6.4-8.2)
[2021-10-26 07:55] LABS: HEMATOCRIT 28.8 % (35.4-49); HEMOGLOBIN 9.3 GM/dL (11.7-16.9); MCH 27.1 pg (25.7-33.7); MCHC 32.2 g/dl (32.0-35.9); MEAN PLT VOLUME 10.2 fl (7.5-11.1); PLATELET COUNT 143 10^3/uL (134-434); RBC 3.43 M/mm3 (4.00-5.60); WHITE BLOOD COUNT 7.3 K/mm3 (4.0-10.0)
[2021-10-26 09:38] LABS: ANISOCYTOSIS 0; MACROCYTOSIS 0; TARGET CELLS 1+; TEAR DROP CELLS 1+
[2021-10-26] MEDS: FERROUS SO4 325 MG TABLET (FP) PO SCH (11:31)
[2021-10-26] MEDS: TAMSULOSIN HCL 0.4 MG CAP PO SCH (11:31)
[2021-10-26] MEDS: PANTOPRAZOLE 20 MG TABLET PO SCH (11:31)
[2021-10-26] MEDS: MECLIZINE HCL 12.5 MG TABLET PO SCH (11:31)
[2021-10-26] MEDS: FUROSEMIDE 20 MG TABLET (FP) PO SCH (11:31)
[2021-10-26] MEDS: SODIUM ZIRCONIUM CYCLOSILICATE (LOKELMA) 10 GM PACKET PO SCH (11:33)
[2021-10-26] MEDS: SODIUM CHLORIDE NASAL SPRAY 44 ML BOTTLE NS SCH ×2 (11:33→21:58)
[2021-10-26] MEDS: DAPTOMYCIN 450 MG in SODIUM CHLORIDE 50 ML IVPB SCH (17:15)
[2021-10-26] MEDS: ACETAMINOPHEN 325 MG TABLET (FP) PO PRN (21:54)
[2021-10-26] MEDS: METOPROLOL TARTRATE 25 MG TABLET (FP) PO SCH (21:55)
[2021-10-26] MEDS: MELATONIN 5 MG TABLETS PO SCH (21:55)
[2021-10-26] MEDS: SENNOSIDES 8.6MG TABLET (FP) PO SCH (21:55)
[2021-10-27] MEDS: INSULIN SLIDING SCALE (NOVOLOG) 1 VIAL SQ SCH ×3 (06:26→16:56)
[2021-10-27 08:13] LABS: HEMATOCRIT 29.2 % (35.4-49); HEMOGLOBIN 9.4 GM/dL (11.7-16.9); MCH 27.1 pg (25.7-33.7); MCHC 32.1 g/dl (32.0-35.9); MEAN CELL VOLUME 84.5 fl (80-96); MEAN PLT VOLUME 10.5 fl (7.5-11.1); PLATELET COUNT 158 10^3/uL (134-434); RBC 3.45 M/mm3 (4.00-5.60); RDW 18.9 % (11.9-15.9)
[2021-10-27 08:22] LABS: CALCIUM 8.2 mg/dL (8.5-10.1)
[2021-10-27 08:23] LABS: MAGNESIUM 1.7 mg/dL (1.8-2.4)
[2021-10-27 08:26] LABS: PHOSPHOROUS 2.7 mg/dL (2.5-4.9)
[2021-10-27] MEDS ORDERED: SODIUM ZIRCONIUM CYCLOSILICATE (LOKELMA) 5 GM PACKET PO SCH (10:00)
[2021-10-27] MEDS ORDERED: EPOETIN ALFA-EPBX 20,000 UNIT/ML VIAL SQ SCH ×2 (10:00)
[2021-10-27] MEDS: SODIUM CHLORIDE NASAL SPRAY 44 ML BOTTLE NS SCH (14:33)
[2021-10-27] MEDS: MECLIZINE HCL 12.5 MG TABLET PO SCH (14:34)
[2021-10-27] MEDS: FUROSEMIDE 20 MG TABLET (FP) PO SCH (14:34)
[2021-10-27] MEDS: PANTOPRAZOLE 20 MG TABLET PO SCH (14:34)
[2021-10-27] MEDS: FERROUS SO4 325 MG TABLET (FP) PO SCH (14:34)
[2021-10-27] MEDS: TAMSULOSIN HCL 0.4 MG CAP PO SCH (14:34)
[2021-10-27] MEDS: METOPROLOL TARTRATE 25 MG TABLET (FP) PO SCH (14:34)
[2021-10-27 14:35] VITALS: BP 133/47; PULSE 72; TEMP 97.5
[2021-10-27] MEDS ORDERED: EPOETIN ALFA-EPBX 40,000 UNIT/ML VIAL SQ SCH (14:51)
[2021-10-27] MEDS: DAPTOMYCIN 450 MG in SODIUM CHLORIDE 50 ML IVPB SCH (16:35)
[2021-10-28 11:09] LABS: SARS-CoV-2 NAA Not Detected (Not Detected)
== END 2021-10-27 17:35 | DRG 872 ==
LOC: JER 00:30 → JERBED 02:58 → J7W 20:05 → J4W 10-20 09:20
PROVIDERS: ADMIT Hospitalist; ATTEND Family Medicine
PROC: 30233N1 Transfusion of Nonautologous Red Blood Cells into Peripheral Vein, Percutaneous Approach (ICD-10-PCS; 2021-10-20)
PROC: 02H633Z Insertion of Infusion Device into Right Atrium, Percutaneous Approach (ICD-10-PCS; principal; 2021-10-27)
PROC: B51MZZA Fluoroscopy of Right Upper Extremity Veins, Guidance (ICD-10-PCS; 2021-10-27)
DX: A41.02 Sepsis due to Methicillin resistant Staphylococcus aureus (principal); I13.0 Hypertensive heart and chronic kidney disease with heart failure and stage 1 through stage 4 chronic kidney disease, or unspecified chronic kidney disease; I48.19 Other persistent atrial fibrillation; N17.9 Acute kidney failure, unspecified; E87.1 Hypo-osmolality and hyponatremia; L03.113 Cellulitis of right upper limb; E44.0 Moderate protein-calorie malnutrition; Z68.1 Body mass index [BMI] 19.9 or less, adult; D69.6 Thrombocytopenia, unspecified; E11.22 Type 2 diabetes mellitus with diabetic chronic kidney disease; J44.9 Chronic obstructive pulmonary disease, unspecified; D46.9 Myelodysplastic syndrome, unspecified; N18.30 Chronic kidney disease, stage 3 unspecified; D64.9 Anemia, unspecified; I25.10 Atherosclerotic heart disease of native coronary artery without angina pectoris; E78.5 Hyperlipidemia, unspecified; K21.9 Gastro-esophageal reflux disease without esophagitis; Z98.61 Coronary angioplasty status; R31.9 Hematuria, unspecified; E87.5 Hyperkalemia; N40.0 Benign prostatic hyperplasia without lower urinary tract symptoms
CPT/HCPCS: 36415; 36430; 36569; 36600; 71045-TC-FY; 73110-TC-RT-FY; 76775-TC; 76856-TC; 77001-TC-FY; 80048; 80053; 80162; 81003; 82550; 82553; 82728; 82803; 82962; 83540; 83550; 83605; 83735; 84100; 84484; 85025; 85027; 85610; 85651; 85730; 86140; 86850; 86900; 86901; 86922; 87040; 87086; 87186; 93005; 93010; 93306-TC; 94640; 99285-25; C1751; C9803; J0878; J1644; P9058; Q5106; U0003; U0005

== ENCOUNTER 2021-11-29 10:08 | Inpatient (IN) | payer OTHER ==
[2021-11-29 11:12] VITALS: BMI 19.8
[2021-11-29] MEDS ORDERED: ACETAMINOPHEN 500 MG TABLET (FP) PO ONE (11:57)
[2021-11-29 12:13] LABS: HEMATOCRIT 17.5 % (35.4-49); MCH 28.1 pg (25.7-33.7); MCHC 31.6 g/dl (32.0-35.9); MEAN CELL VOLUME 88.9 fl (80-96); MEAN PLT VOLUME 9.9 fl (7.5-11.1); PLATELET COUNT 202 10^3/uL (134-434); RDW 17.6 % (11.9-15.9)
[2021-11-29 12:25] LABS: CALCIUM 7.9 mg/dL (8.5-10.1)
[2021-11-29 12:26] LABS: ALBUMIN 1.8 g/dl (3.4-5.0); BLOOD UREA NITROGEN 28.6 mg/dL (7-18); RBC 1.97 M/mm3 (4.00-5.60); WHITE BLOOD COUNT 11.2 K/mm3 (4.0-10.0)
[2021-11-29 12:27] LABS: HEMOGLOBIN 5.5 GM/dL (11.7-16.9)
[2021-11-29 12:29] LABS: CREATININE 1.3 mg/dL (0.55-1.3)
[2021-11-29 12:30] LABS: BILIRUBIN,TOTAL 0.8 mg/dL (0.2-1)
[2021-11-29 12:31] LABS: TOT PROT 5.9 g/dl (6.4-8.2)
[2021-11-29 13:28] LABS: ANISOCYTOSIS 3+; MACROCYTOSIS 0; OVALOCYTE 2+
[2021-11-29] MEDS: INSULIN SLIDING SCALE (NOVOLOG) 1 VIAL SQ SCH ×2 (17:52→22:51)
[2021-11-29] MEDS ORDERED: ACETAMINOPHEN 1000 MG/100 ML BAG IVPB ONE (19:26)
[2021-11-29] MEDS ORDERED: ACETAMINOPHEN INJECTION 100 ML IVPB ONE (19:56)
[2021-11-29 20:05] LABS: EPI CELLS >36 /uL (0-25.1); HYALINE CASTS 10 /uL (0-3.1); URINE APPEARANCE CLOUDY; URINE BACTERIA 98 /uL (0-1359); URINE BILIRUBIN NEGATIVE (NEGATIVE); URINE COLOR YELLOW; URINE GLUCOSE (UA) NEGATIVE (NEGATIVE); URINE KETONE TRACE (NEGATIVE); URINE LEUK ESTERASE TRACE (NEGATIVE); URINE NITRITE NEGATIVE (NEGATIVE); URINE PROTEIN 2+ (NEGATIVE); URINE RBC 2581 /uL (0-23.9); URINE UROBILINOGEN 0.2 mg/dL (0.2-1.0); URINE WBC 73 /uL (0-25.8)
[2021-11-29] MEDS ORDERED: ATORVASTATIN CA 80 MG TABLET (FP) ONE (22:32)
[2021-11-29] MEDS ORDERED: PANTOPRAZOLE 40 MG TABLET ONE (22:32)
[2021-11-29] MEDS: ATORVASTATIN CA 40 MG TABLET (FP) PO SCH (22:46)
[2021-11-29] MEDS: PANTOPRAZOLE 40 MG TABLET PO SCH (22:46)
[2021-11-29] MEDS ORDERED: hydrALAZINE HCL 20 MG/ML VIAL IM ONE (23:13)
[2021-11-29] MEDS ORDERED: hydrALAZINE HCL 20 MG/ML VIAL ONE (23:28)
[2021-11-30 07:24] LABS: HEMATOCRIT 28.1 % (35.4-49); HEMOGLOBIN 9.3 GM/dL (11.7-16.9); MCH 28.8 pg (25.7-33.7); MCHC 33.1 g/dl (32.0-35.9); MEAN CELL VOLUME 86.9 fl (80-96); MEAN PLT VOLUME 8.7 fl (7.5-11.1); PLATELET COUNT 177 10^3/uL (134-434); RBC 3.24 M/mm3 (4.00-5.60); RDW 15.9 % (11.9-15.9); WHITE BLOOD COUNT 12.8 K/mm3 (4.0-10.0)
[2021-11-30 07:36] LABS: CHLORIDE 105 mmol/L (98-107); SODIUM 140 mmol/L (136-145)
[2021-11-30 07:43] LABS: ALBUMIN 1.6 g/dl (3.4-5.0); GLUCOSE,RANDOM 130 mg/dL (74-106); SGPT/ALT 58 U/L (13-61)
[2021-11-30 07:44] LABS: BLOOD UREA NITROGEN 27.1 mg/dL (7-18)
[2021-11-30 07:45] LABS: ANION GAP 5 MMOL/L (8-16); CO2 29 mmol/L (21-32); CREATININE 1.2 mg/dL (0.55-1.3); TOT PROT 6.2 g/dl (6.4-8.2)
[2021-11-30 07:46] LABS: ALK PHOS 109 U/L (45-117); BILIRUBIN,TOTAL 0.7 mg/dL (0.2-1); CALCIUM 7.8 mg/dL (8.5-10.1)
[2021-11-30 07:47] LABS: SGOT/AST 59 U/L (15-37)
[2021-11-30] MEDS: INSULIN SLIDING SCALE (NOVOLOG) 1 VIAL SQ SCH ×3 (08:15→22:08)
[2021-11-30] MEDS ORDERED: ALBUTEROL SO4 0.083% IH SOL 2.5 MG/3 ML VIAL.NEB. NEB PRN (08:44)
[2021-11-30 08:59] LABS: ANISOCYTOSIS 2+; MACROCYTOSIS 0; OVALOCYTE 1+; TARGET CELLS 1+
[2021-11-30] MEDS: TAMSULOSIN HCL 0.4 MG CAP PO SCH (09:00)
[2021-11-30] MEDS ORDERED: POLYETHYLENE GLYCOL (HEALTHYLAX) 3350 17 GM PACKET ONE (09:18)
[2021-11-30] MEDS ORDERED: PANTOPRAZOLE 40 MG TABLET ONE (09:18)
[2021-11-30] MEDS ORDERED: NIFEdipine E.R. 30 MG TABLET ONE (09:18)
[2021-11-30] MEDS ORDERED: TAMSULOSIN HCL 0.4 MG CAP ONE (09:18)
[2021-11-30 10:05] LABS: IRON SERUM 37 ug/dL (50-175); TOTAL IRON BINDING CAPACITY 70 ug/dL (250-450)
[2021-11-30] MEDS: PANTOPRAZOLE 40 MG TABLET PO SCH ×2 (10:45→22:08)
[2021-11-30] MEDS: POLYETHYLENE GLYCOL (HEALTHYLAX) 3350 17 GM PACKET PO SCH (10:45)
[2021-11-30] MEDS: NIFEdipine E.R. 30 MG TABLET PO SCH (10:45)
[2021-11-30] MEDS: TIMOLOL 0.5% OPHTHALMIC SOL 5 ML BOTTLE OD SCH ×2 (12:23→22:09)
[2021-11-30] MEDS: ATROPINE SO4 1% OPHTH SOLN 5 ML BOTTLE OD SCH (12:25)
[2021-11-30] MEDS: BRIMONIDINE TARTRATE 0.2% OPHTHALMIC 5 ML BOTTLE OD SCH ×2 (12:30→22:09)
[2021-11-30] MEDS: prednisoLONE ACETATE 1% OPHTH SUSP 5 ML BOTTLE OD SCH ×2 (12:35→22:09)
[2021-11-30] MEDS ORDERED: ERYTHROMYCIN 0.5% OPHTHALMIC OINTMENT 3.5 GM TUBE ONE (13:27)
[2021-11-30] MEDS ORDERED: hydrALAZINE HCL 25 MG TABLET (FP) ONE (13:28)
[2021-11-30] MEDS: ERYTHROMYCIN 0.5% OPHTHALMIC OINTMENT 3.5 GM TUBE OD SCH (13:29)
[2021-11-30] MEDS: hydrALAZINE HCL 25 MG TABLET (FP) PO SCH ×2 (13:34→22:08)
[2021-11-30] MEDS: ATORVASTATIN CA 40 MG TABLET (FP) PO SCH (22:08)
[2021-12-01] MEDS: hydrALAZINE HCL 25 MG TABLET (FP) PO SCH ×3 (06:45→21:30)
[2021-12-01 07:28] LABS: HEMATOCRIT 27.4 % (35.4-49); HEMOGLOBIN 9.4 GM/dL (11.7-16.9); MCH 29.4 pg (25.7-33.7); MCHC 34.4 g/dl (32.0-35.9); MEAN CELL VOLUME 85.3 fl (80-96); MEAN PLT VOLUME 7.9 fl (7.5-11.1); PLATELET COUNT 153 10^3/uL (134-434); RBC 3.22 M/mm3 (4.00-5.60); RDW 16.1 % (11.9-15.9); WHITE BLOOD COUNT 10.9 K/mm3 (4.0-10.0)
[2021-12-01 07:42] LABS: BLOOD UREA NITROGEN 23.7 mg/dL (7-18); CALCIUM 8.1 mg/dL (8.5-10.1)
[2021-12-01 07:46] LABS: CREATININE 1.2 mg/dL (0.55-1.3)
[2021-12-01] MEDS: prednisoLONE ACETATE 1% OPHTH SUSP 5 ML BOTTLE OD SCH ×2 (10:38→21:31)
[2021-12-01] MEDS: TIMOLOL 0.5% OPHTHALMIC SOL 5 ML BOTTLE OD SCH ×2 (10:38→21:31)
[2021-12-01] MEDS: ATROPINE SO4 1% OPHTH SOLN 5 ML BOTTLE OD SCH (10:39)
[2021-12-01] MEDS: BRIMONIDINE TARTRATE 0.2% OPHTHALMIC 5 ML BOTTLE OD SCH ×2 (10:39→21:31)
[2021-12-01] MEDS: POLYETHYLENE GLYCOL (HEALTHYLAX) 3350 17 GM PACKET PO SCH (10:40)
[2021-12-01] MEDS: TAMSULOSIN HCL 0.4 MG CAP PO SCH (10:40)
[2021-12-01] MEDS: PANTOPRAZOLE 40 MG TABLET PO SCH ×2 (10:40→21:31)
[2021-12-01] MEDS: ERYTHROMYCIN 0.5% OPHTHALMIC OINTMENT 3.5 GM TUBE OD SCH (10:40)
[2021-12-01] MEDS: NIFEdipine E.R. 30 MG TABLET PO SCH (10:40)
[2021-12-01] MEDS: INSULIN SLIDING SCALE (NOVOLOG) 1 VIAL SQ SCH ×3 (12:25→21:33)
[2021-12-01] MEDS: ATORVASTATIN CA 40 MG TABLET (FP) PO SCH (21:30)
[2021-12-02] MEDS: hydrALAZINE HCL 25 MG TABLET (FP) PO SCH (05:37)
[2021-12-02] MEDS: INSULIN SLIDING SCALE (NOVOLOG) 1 VIAL SQ SCH ×2 (07:16→11:14)
[2021-12-02 07:29] LABS: BLOOD UREA NITROGEN 21.7 mg/dL (7-18)
[2021-12-02 07:32] LABS: CREATININE 1.1 mg/dL (0.55-1.3)
[2021-12-02 07:52] LABS: HEMATOCRIT 26.6 % (35.4-49); HEMOGLOBIN 9.2 GM/dL (11.7-16.9); MCH 29.7 pg (25.7-33.7); MCHC 34.5 g/dl (32.0-35.9); MEAN CELL VOLUME 86.1 fl (80-96); MEAN PLT VOLUME 8.4 fl (7.5-11.1); PLATELET COUNT 157 10^3/uL (134-434); RBC 3.09 M/mm3 (4.00-5.60); RDW 16.2 % (11.9-15.9); WHITE BLOOD COUNT 9.3 K/mm3 (4.0-10.0)
[2021-12-02 08:56] VITALS: BP 164/83; PULSE 89; TEMP 98.2
[2021-12-02] MEDS ORDERED: traMADol HCL 50 MG TABLET PO PRN (09:04)
[2021-12-02] MEDS: PANTOPRAZOLE 40 MG TABLET PO SCH (10:09)
[2021-12-02] MEDS: TAMSULOSIN HCL 0.4 MG CAP PO SCH (10:09)
[2021-12-02] MEDS: NIFEdipine E.R. 30 MG TABLET PO SCH (10:10)
[2021-12-02] MEDS: TIMOLOL 0.5% OPHTHALMIC SOL 5 ML BOTTLE OD SCH (10:13)
[2021-12-02] MEDS: ERYTHROMYCIN 0.5% OPHTHALMIC OINTMENT 3.5 GM TUBE OD SCH (10:14)
[2021-12-02] MEDS: prednisoLONE ACETATE 1% OPHTH SUSP 5 ML BOTTLE OD SCH (10:14)
[2021-12-02] MEDS: BRIMONIDINE TARTRATE 0.2% OPHTHALMIC 5 ML BOTTLE OD SCH (10:14)
[2021-12-02] MEDS: ATROPINE SO4 1% OPHTH SOLN 5 ML BOTTLE OD SCH (10:14)
[2021-12-02] MEDS: POLYETHYLENE GLYCOL (HEALTHYLAX) 3350 17 GM PACKET PO SCH (10:15)
== END 2021-12-02 13:24 | DRG 811 ==
LOC: JER 10:08 → JERBED 12:50 → J4W 11-30 18:42
PROVIDERS: ADMIT Family Medicine; ATTEND Family Medicine
PROC: 30233N1 Transfusion of Nonautologous Red Blood Cells into Peripheral Vein, Percutaneous Approach (ICD-10-PCS; principal; 2021-11-29)
DX: D46.9 Myelodysplastic syndrome, unspecified (principal); I21.A1 Myocardial infarction type 2; I48.19 Other persistent atrial fibrillation; J96.11 Chronic respiratory failure with hypoxia; I13.0 Hypertensive heart and chronic kidney disease with heart failure and stage 1 through stage 4 chronic kidney disease, or unspecified chronic kidney disease; E11.22 Type 2 diabetes mellitus with diabetic chronic kidney disease; I50.9 Heart failure, unspecified; N18.30 Chronic kidney disease, stage 3 unspecified; E63.9 Nutritional deficiency, unspecified; E88.09 Other disorders of plasma-protein metabolism, not elsewhere classified; I25.10 Atherosclerotic heart disease of native coronary artery without angina pectoris; F03.90 Unspecified dementia, unspecified severity, without behavioral disturbance, psychotic disturbance, mood disturbance, and anxiety; N40.0 Benign prostatic hyperplasia without lower urinary tract symptoms; K21.9 Gastro-esophageal reflux disease without esophagitis; K57.90 Diverticulosis of intestine, part unspecified, without perforation or abscess without bleeding; R77.8 Other specified abnormalities of plasma proteins; H57.89 Other specified disorders of eye and adnexa; K86.89 Other specified diseases of pancreas; K64.8 Other hemorrhoids; F41.8 Other specified anxiety disorders; E78.5 Hyperlipidemia, unspecified; I35.1 Nonrheumatic aortic (valve) insufficiency; Z95.5 Presence of coronary angioplasty implant and graft
CPT/HCPCS: 36415; 36430; 36511; 71045-TC-FY; 80048; 80053; 81003; 82272; 82962; 83540; 83550; 83735; 84484; 85025; 85027; 86850; 86900; 86901; 86922; 87040; 87086; 93005; 93010; 99285-25; C9803-CS; P9016; P9058; U0003; U0005

== ENCOUNTER 2022-01-10 14:44 | Inpatient (IN) | payer OTHER ==
[2022-01-10 17:00] LABS: BASO % 3.4 % (0-2.0); EOS % 4.5 % (0-4.5); HEMATOCRIT 17.3 % (35.4-49); LYMPH % 24.8 % (8-40); MCH 28.3 pg (25.7-33.7); MCHC 31.1 g/dl (32.0-35.9); MEAN CELL VOLUME 90.9 fl (80-96); MEAN PLT VOLUME 10.8 fl (7.5-11.1); MONO % 11.1 % (3.8-10.2); NEUT % 56.2 % (42.8-82.8); PLATELET COUNT 323 10^3/uL (134-434); RDW 18.2 % (11.9-15.9); WHITE BLOOD COUNT 11.8 K/mm3 (4.0-10.0)
[2022-01-10 17:06] LABS: HEMOGLOBIN 5.4 GM/dL (11.7-16.9)
[2022-01-10 17:15] LABS: ACTIVATED PTT 34.5 SECONDS (25.2-36.5); INR 1.1 (0.83-1.09); PROTHROMBIN TIME (PATIENT) 12.7 SEC (9.7-13.0)
[2022-01-10 17:23] LABS: CALCIUM 8.2 mg/dL (8.5-10.1)
[2022-01-10 17:24] LABS: ALBUMIN 1.9 g/dl (3.4-5.0); BLOOD UREA NITROGEN 42.2 mg/dL (7-18)
[2022-01-10 17:27] LABS: CREATININE 1.7 mg/dL (0.55-1.3)
[2022-01-10 17:29] LABS: BILIRUBIN,TOTAL 0.4 mg/dL (0.2-1); TOT PROT 5.8 g/dl (6.4-8.2)
[2022-01-10 17:47] LABS: ANISOCYTOSIS 2+; MACROCYTOSIS 1+; TARGET CELLS 1+
[2022-01-11] MEDS ORDERED: ONDANSETRON 4 MG TABLET PO PRN (03:47)
[2022-01-11] MEDS ORDERED: ALBUTEROL SO4 2.5/IPRATROPIUM 0.5 INH SOL 3 ML VIAL.NEB. NEB PRN (03:47)
[2022-01-11] MEDS ORDERED: POLYETHYLENE GLYCOL (HEALTHYLAX) 3350 17 GM PACKET PO PRN (03:47)
[2022-01-11] MEDS ORDERED: ACETAMINOPHEN 325 MG TABLET (FP) PO PRN (03:47)
[2022-01-11] MEDS ORDERED: PATIENT'S OWN MEDICATION (NON-FORMULARY) (Brimonidine Tartrate/Timolol [Brimonidine-Timolo OD SCH (04:00)
[2022-01-11] MEDS ORDERED: PATIENT'S OWN MEDICATION (NON-FORMULARY) (Aa/Hydrolyzed Collagen, Whey [Lps 15-30 Liquid] PO SCH (06:00)
[2022-01-11] MEDS ORDERED: hydrALAZINE HCL 50 MG TABLET (FP) ONE (06:24)
[2022-01-11] MEDS: hydrALAZINE HCL 25 MG TABLET (FP) PO SCH ×3 (06:30→22:59)
[2022-01-11] MEDS: prednisoLONE ACETATE 1% OPHTH SUSP 5 ML BOTTLE OD SCH ×3 (07:00→23:00)
[2022-01-11] MEDS: INSULIN SLIDING SCALE (NOVOLOG) 1 VIAL SQ SCH ×4 (07:45→22:59)
[2022-01-11 08:33] LABS: HEMATOCRIT 21.3 % (35.4-49); HEMOGLOBIN 7.1 GM/dL (11.7-16.9); MCH 29.8 pg (25.7-33.7); MCHC 33.4 g/dl (32.0-35.9); MEAN CELL VOLUME 89.4 fl (80-96); MEAN PLT VOLUME 10.4 fl (7.5-11.1); PLATELET COUNT 245 10^3/uL (134-434); RBC 2.38 M/mm3 (4.00-5.60); RDW 15.8 % (11.9-15.9); WHITE BLOOD COUNT 10.9 K/mm3 (4.0-10.0)
[2022-01-11 08:52] LABS: BLOOD UREA NITROGEN 52.1 mg/dL (7-18); MAGNESIUM 2.5 mg/dL (1.8-2.4)
[2022-01-11 08:55] LABS: PHOSPHOROUS 4.6 mg/dL (2.5-4.9)
[2022-01-11] MEDS ORDERED: DORZOLAMIDE 2% HCL OPHTHALMIC SOLUTION 10 ML BOTTLE OD SCH (10:00)
[2022-01-11] MEDS ORDERED: TIMOLOL 0.5% OPHTHALMIC SOL 5 ML BOTTLE OD SCH (10:00)
[2022-01-11] MEDS ORDERED: TIMOLOL MALEATE 0.5% GFS OPHTHALMIC SOLN 5 ML BOTTLE OD SCH (10:00)
[2022-01-11] MEDS ORDERED: PANTOPRAZOLE 40 MG TABLET PO ONE (10:03)
[2022-01-11] MEDS ORDERED: FERROUS SO4 325 MG TABLET (FP) ONE (10:04)
[2022-01-11] MEDS ORDERED: NIFEdipine E.R. 30 MG TABLET ONE (10:04)
[2022-01-11] MEDS: TIMOLOL 0.5% OPHTHALMIC SOL 5 ML BOTTLE OD SCH ×2 (10:55→23:00)
[2022-01-11] MEDS: PANTOPRAZOLE 40 MG TABLET PO SCH ×2 (10:55→23:00)
[2022-01-11] MEDS: FERROUS SO4 325 MG TABLET (FP) PO SCH (10:55)
[2022-01-11] MEDS: ATROPINE SO4 1% OPHTH SOLN 5 ML BOTTLE OD SCH (10:55)
[2022-01-11] MEDS: NIFEdipine E.R. 30 MG TABLET PO SCH (10:55)
[2022-01-11] MEDS: BRIMONIDINE TARTRATE 0.2% OPHTHALMIC 5 ML BOTTLE OD SCH ×2 (10:55→22:59)
[2022-01-11] MEDS: DORZOLAMIDE 2% HCL OPHTHALMIC SOLUTION 10 ML BOTTLE OD SCH ×2 (10:55→23:00)
[2022-01-11 11:55] LABS: ANISOCYTOSIS 2+; MACROCYTOSIS 0; OVALOCYTE 2+; TARGET CELLS 1+; TEAR DROP CELLS 2+
[2022-01-11] MEDS: SODIUM CHLORIDE 0.45% 1,000 ML IV SCH (12:47)
[2022-01-11] MEDS ORDERED: INSULIN SLIDING SCALE (NOVOLOG) 1 VIAL SQ ONE (13:08)
[2022-01-11] MEDS: oxyCODONE HCL 5 MG TABLET PO PRN (15:53)
[2022-01-11] MEDS: SENNOSIDES 8.6MG TABLET (FP) PO SCH (23:00)
[2022-01-11] MEDS: MIRTAZAPINE 15 MG TABLET (FP) PO SCH (23:00)
[2022-01-12] MEDS: oxyCODONE HCL 5 MG TABLET PO PRN ×2 (00:45→15:48)
[2022-01-12] MEDS: hydrALAZINE HCL 25 MG TABLET (FP) PO SCH ×3 (06:29→23:02)
[2022-01-12] MEDS: prednisoLONE ACETATE 1% OPHTH SUSP 5 ML BOTTLE OD SCH ×3 (06:30→23:03)
[2022-01-12] MEDS: INSULIN SLIDING SCALE (NOVOLOG) 1 VIAL SQ SCH ×4 (06:30→23:03)
[2022-01-12 09:21] LABS: ALBUMIN 1.8 g/dl (3.4-5.0); CALCIUM 7.8 mg/dL (8.5-10.1)
[2022-01-12 09:22] LABS: BLOOD UREA NITROGEN 46.2 mg/dL (7-18)
[2022-01-12 09:25] LABS: CREATININE 1.5 mg/dL (0.55-1.3)
[2022-01-12 09:26] LABS: BILIRUBIN,TOTAL 0.7 mg/dL (0.2-1); TOT PROT 5.5 g/dl (6.4-8.2)
[2022-01-12] MEDS ORDERED: EPOETIN ALFA-EPBX 40,000 UNIT/ML VIAL SQ SCH (10:00)
[2022-01-12] MEDS: NIFEdipine E.R. 30 MG TABLET PO SCH (10:13)
[2022-01-12] MEDS: PANTOPRAZOLE 40 MG TABLET PO SCH ×2 (10:13→23:03)
[2022-01-12] MEDS: BRIMONIDINE TARTRATE 0.2% OPHTHALMIC 5 ML BOTTLE OD SCH ×2 (10:13→23:02)
[2022-01-12] MEDS: FERROUS SO4 325 MG TABLET (FP) PO SCH (10:13)
[2022-01-12] MEDS: ATROPINE SO4 1% OPHTH SOLN 5 ML BOTTLE OD SCH (10:14)
[2022-01-12] MEDS: DORZOLAMIDE 2% HCL OPHTHALMIC SOLUTION 10 ML BOTTLE OD SCH ×2 (10:19→23:03)
[2022-01-12] MEDS: TIMOLOL 0.5% OPHTHALMIC SOL 5 ML BOTTLE OD SCH ×2 (10:19→23:03)
[2022-01-12 11:28] VITALS: BMI 16.8
[2022-01-12] MEDS: SODIUM CHLORIDE 0.45% 1,000 ML IV SCH (14:10)
[2022-01-12 15:07] LABS: HEMATOCRIT 27.8 % (35.4-49); HEMOGLOBIN 9.5 GM/dL (11.7-16.9); MCH 29.8 pg (25.7-33.7); MCHC 34.3 g/dl (32.0-35.9); MEAN CELL VOLUME 86.9 fl (80-96); MEAN PLT VOLUME 10.4 fl (7.5-11.1); PLATELET COUNT 193 10^3/uL (134-434); RDW 16.4 % (11.9-15.9); WHITE BLOOD COUNT 7.6 K/mm3 (4.0-10.0)
[2022-01-12 15:46] LABS: ANISOCYTOSIS 1+; MACROCYTOSIS 1+
[2022-01-12] MEDS: AMINO ACIDS/PROTEIN HYDROLYS 30 ML LIQUID.PKT PO SCH (18:07)
[2022-01-12] MEDS: SENNOSIDES 8.6MG TABLET (FP) PO SCH (23:03)
[2022-01-12] MEDS: MIRTAZAPINE 15 MG TABLET (FP) PO SCH (23:03)
[2022-01-13] MEDS: oxyCODONE HCL 5 MG TABLET PO PRN (00:54)
[2022-01-13] MEDS: INSULIN SLIDING SCALE (NOVOLOG) 1 VIAL SQ SCH ×2 (06:40→12:53)
[2022-01-13] MEDS: hydrALAZINE HCL 25 MG TABLET (FP) PO SCH ×2 (06:40→14:29)
[2022-01-13] MEDS: prednisoLONE ACETATE 1% OPHTH SUSP 5 ML BOTTLE OD SCH ×2 (06:40→14:31)
[2022-01-13] MEDS ORDERED: MULTIVIT-MINERALS ORAL LIQUID PO SCH (10:00)
[2022-01-13] MEDS: FERROUS SO4 325 MG TABLET (FP) PO SCH (10:57)
[2022-01-13] MEDS: AMINO ACIDS/PROTEIN HYDROLYS 30 ML LIQUID.PKT PO SCH (10:57)
[2022-01-13] MEDS: NIFEdipine E.R. 30 MG TABLET PO SCH (10:57)
[2022-01-13] MEDS: PANTOPRAZOLE 40 MG TABLET PO SCH (10:58)
[2022-01-13] MEDS: ATROPINE SO4 1% OPHTH SOLN 5 ML BOTTLE OD SCH (10:59)
[2022-01-13] MEDS: DORZOLAMIDE 2% HCL OPHTHALMIC SOLUTION 10 ML BOTTLE OD SCH (11:00)
[2022-01-13] MEDS: TIMOLOL 0.5% OPHTHALMIC SOL 5 ML BOTTLE OD SCH (11:00)
[2022-01-13] MEDS: BRIMONIDINE TARTRATE 0.2% OPHTHALMIC 5 ML BOTTLE OD SCH (11:02)
[2022-01-13 12:24] VITALS: BP 143/64; PULSE 73; TEMP 98.1
[2022-01-13] MEDS: SODIUM CHLORIDE 0.45% 1,000 ML IV SCH (13:22)
[2022-01-13 13:43] LABS: EPI CELLS 11 /uL (0-25.1); HYALINE CASTS 0 /uL (0-3.1); PH,URINE >= 9.0 (5.0-8.0); URINE APPEARANCE CLOUDY; URINE BACTERIA >9,000 /uL (0-1359); URINE BILIRUBIN NEGATIVE (NEGATIVE); URINE COLOR YELLOW; URINE GLUCOSE (UA) TRACE (NEGATIVE); URINE KETONE NEGATIVE (NEGATIVE); URINE LEUK ESTERASE TRACE (NEGATIVE); URINE NITRITE NEGATIVE (NEGATIVE); URINE PROTEIN 2+ (NEGATIVE); URINE RBC 9 /uL (0-23.9); URINE UROBILINOGEN 0.2 mg/dL (0.2-1.0); URINE WBC 5 /uL (0-25.8)
== END 2022-01-13 15:35 | DRG 811 ==
LOC: JER 14:44 → JERBED 22:38 → J8W 01-11 15:33
PROVIDERS: ADMIT Hospitalist; ATTEND Family Medicine
PROC: 30233N1 Transfusion of Nonautologous Red Blood Cells into Peripheral Vein, Percutaneous Approach (ICD-10-PCS; principal; 2022-01-11)
DX: D64.9 Anemia, unspecified (principal); E43 Unspecified severe protein-calorie malnutrition; N17.9 Acute kidney failure, unspecified; I13.0 Hypertensive heart and chronic kidney disease with heart failure and stage 1 through stage 4 chronic kidney disease, or unspecified chronic kidney disease; Z68.1 Body mass index [BMI] 19.9 or less, adult; J44.9 Chronic obstructive pulmonary disease, unspecified; F03.90 Unspecified dementia, unspecified severity, without behavioral disturbance, psychotic disturbance, mood disturbance, and anxiety; E78.5 Hyperlipidemia, unspecified; I50.9 Heart failure, unspecified; N40.0 Benign prostatic hyperplasia without lower urinary tract symptoms; K21.9 Gastro-esophageal reflux disease without esophagitis; Z86.73 Personal history of transient ischemic attack (TIA), and cerebral infarction without residual deficits; F32.A Depression, unspecified; F43.23 Adjustment disorder with mixed anxiety and depressed mood; E87.5 Hyperkalemia; N18.30 Chronic kidney disease, stage 3 unspecified; E11.22 Type 2 diabetes mellitus with diabetic chronic kidney disease; E88.09 Other disorders of plasma-protein metabolism, not elsewhere classified; N28.1 Cyst of kidney, acquired
CPT/HCPCS: 0241U-QW; 36415; 36430; 71045-TC-FY; 76775-TC; 80048; 80053; 81003; 82272; 82436; 82570; 82962; 83735; 84100; 84133; 84300; 85025; 85610; 85730; 86850; 86900; 86901; 86922; 93005; 93010; 99285-25; P9058

== ENCOUNTER 2022-01-18 14:42 | Inpatient (IN) | payer OTHER ==
[2022-01-18] MEDS ORDERED: SODIUM CHLORIDE 0.9% 500 ML INFUS.BAG IV ONE ×2 (15:06→15:55)
[2022-01-18] MEDS ORDERED: VANCOMYCIN 1 GM in D5W (PRE-DOCKED) 1,000 MG/250 ML IVPB ONE (15:50)
[2022-01-18] MEDS ORDERED: PIPERACILLIN/TAZOB 4.5 GM 4.5 GM in DEXTROSE 5%-WATER 100 ML IVPB ONE (15:50)
[2022-01-18] MEDS ORDERED: VANCOMYCIN 1 GRAM (PRE-DOCKED) 1,000 MG/250 ML BAG IVPB ONE (15:58)
[2022-01-18] MEDS ORDERED: PIPERACILLIN/TAZOB 4.5 GM 4.5 GM/100 ML BAG IVPB ONE (15:58)
[2022-01-18 16:11] LABS: HEMATOCRIT 10.3 % (35.4-49); MCH 27.8 pg (25.7-33.7); MCHC 28.9 g/dl (32.0-35.9); MEAN CELL VOLUME 96.4 fl (80-96); MEAN PLT VOLUME 11.9 fl (7.5-11.1); PLATELET COUNT 239 10^3/uL (134-434); RBC 1.07 M/mm3 (4.00-5.60); RDW 18.7 % (11.9-15.9)
[2022-01-18 16:17] LABS: INR 1.42 (0.83-1.09); PROTHROMBIN TIME (PATIENT) 16.4 SEC (9.7-13.0)
[2022-01-18 16:33] LABS: CHLORIDE 106 mmol/L (98-107); SODIUM 139 mmol/L (136-145)
[2022-01-18 16:35] LABS: CALCIUM 8.9 mg/dL (8.5-10.1); CO2 13 mmol/L (21-32)
[2022-01-18 16:36] LABS: GLUCOSE,RANDOM 89 mg/dL (74-106)
[2022-01-18 16:39] LABS: CREATININE 2.7 mg/dL (0.55-1.3); SGOT/AST 30 U/L (15-37)
[2022-01-18 16:40] LABS: BILIRUBIN,TOTAL 0.4 mg/dL (0.2-1); TOT PROT 5.5 g/dl (6.4-8.2)
[2022-01-18 16:42] LABS: ALK PHOS 70 U/L (45-117)
[2022-01-18 16:50] LABS: SGPT/ALT 44 U/L (13-61)
[2022-01-18 16:51] LABS: ANISOCYTOSIS 2+; MACROCYTOSIS 1+
[2022-01-18 17:34] LABS: LACTIC ACID 14.8 mmol/L (0.4-2.0)
[2022-01-18 17:34] LABS: ANION GAP 19 MMOL/L (8-16); BLOOD UREA NITROGEN 132.5 mg/dL (7-18)
[2022-01-18] MEDS ORDERED: DEXTROSE 50%-WATER - 25 GM/50 ML VIAL IVPUSH ONE (17:39)
[2022-01-18] MEDS ORDERED: CALCIUM GLUCONATE 10% - 1,000 MG/10 ML VIAL IVPB ONE (17:39)
[2022-01-18] MEDS ORDERED: INSULIN REGULAR HUMAN 100 UNITS/ML *VIAL IVPUSH ONE (17:39)
[2022-01-18] MEDS ORDERED: CALCIUM GLUCONATE 10% - 1,000 MG/10 ML VIAL ONE (17:51)
[2022-01-18] MEDS ORDERED: DEXTROSE 50%-WATER 25 GM/50 ML DISP.SYRIN ONE (17:51)
[2022-01-18] MEDS ORDERED: ACETAMINOPHEN 1000 MG/100 ML BAG IVPB ONE (22:13)
[2022-01-18 22:21] VITALS: BMI 16.8
[2022-01-18] MEDS ORDERED: ACETAMINOPHEN INJECTION 100 ML IVPB ONE (22:22)
[2022-01-19 00:39] LABS: CHLORIDE 110 mmol/L (98-107); SODIUM 142 mmol/L (136-145)
[2022-01-19 00:41] LABS: CALCIUM 8.4 mg/dL (8.5-10.1); GLUCOSE,RANDOM 74 mg/dL (74-106)
[2022-01-19 00:42] LABS: ALBUMIN 1.9 g/dl (3.4-5.0); ANION GAP 14 MMOL/L (8-16); CO2 18 mmol/L (21-32)
[2022-01-19 00:45] LABS: CREATININE 2.7 mg/dL (0.55-1.3); SGOT/AST 155 U/L (15-37); SGPT/ALT 123 U/L (13-61)
[2022-01-19 00:46] LABS: BILIRUBIN,TOTAL 0.6 mg/dL (0.2-1)
[2022-01-19 00:48] LABS: ALK PHOS 66 U/L (45-117)
[2022-01-19 00:59] LABS: BLOOD UREA NITROGEN 134.4 mg/dL (7-18)
[2022-01-19] MEDS ORDERED: DEXTROSE 50%-WATER - 25 GM/50 ML VIAL IVPUSH ONE (02:05)
[2022-01-19] MEDS ORDERED: INSULIN REGULAR HUMAN 100 UNITS/ML *VIAL IVPUSH ONE (02:06)
[2022-01-19] MEDS ORDERED: CALCIUM GLUCONATE IN NACL 1 GM/50 ML BAG IVPB ONE (02:06)
[2022-01-19 02:50] LABS: EPI CELLS 8 /uL (0-25.1); HYALINE CASTS 1 /uL (0-3.1); URINE APPEARANCE CLEAR; URINE BACTERIA 74 /uL (0-1359); URINE BILIRUBIN NEGATIVE (NEGATIVE); URINE COLOR DK YELLOW; URINE GLUCOSE (UA) NEGATIVE (NEGATIVE); URINE KETONE NEGATIVE (NEGATIVE); URINE LEUK ESTERASE 1+ (NEGATIVE); URINE NITRITE NEGATIVE (NEGATIVE); URINE PROTEIN NEGATIVE (NEGATIVE); URINE RBC 14 /uL (0-23.9); URINE UROBILINOGEN 0.2 mg/dL (0.2-1.0); URINE WBC 9 /uL (0-25.8)
[2022-01-19] MEDS ORDERED: PIPERACILLIN/TAZOBACTAM 2.25 GM VIAL IVPB ONE ×4 (03:02→22:11)
[2022-01-19] MEDS ORDERED: DEXTROSE 5%-WATER - 50 ML IVPB ONE ×4 (03:02→22:11)
[2022-01-19] MEDS ORDERED: DEXTROSE 50%-WATER 25 GM/50 ML DISP.SYRIN ONE (03:03)
[2022-01-19] MEDS: PIPERACILLIN/TAZOB 2.25 GM 2.25 GM in DEXTROSE 5%-WATER - 50 ML IVPB SCH ×4 (03:36→22:17)
[2022-01-19] MEDS: DEXTROSE 5%-0.45% SALINE 1,000 ML IV SCH (05:33)
[2022-01-19 08:27] LABS: HEMATOCRIT 27.9 % (35.4-49); HEMOGLOBIN 9.1 GM/dL (11.7-16.9); MCH 28.8 pg (25.7-33.7); MCHC 32.7 g/dl (32.0-35.9); MEAN CELL VOLUME 88.1 fl (80-96); MEAN PLT VOLUME 11.8 fl (7.5-11.1); PLATELET COUNT 218 10^3/uL (134-434); RBC 3.16 M/mm3 (4.00-5.60); RDW 15.9 % (11.9-15.9)
[2022-01-19 08:28] LABS: WHITE BLOOD COUNT 26.8 K/mm3 (4.0-10.0)
[2022-01-19 08:38] LABS: ALBUMIN 1.8 g/dl (3.4-5.0)
[2022-01-19 08:39] LABS: CALCIUM 8.3 mg/dL (8.5-10.1); CO2 17 mmol/L (21-32)
[2022-01-19 08:42] LABS: CREATININE 2.7 mg/dL (0.55-1.3); GLUCOSE,RANDOM 218 mg/dL (74-106); SGOT/AST 176 U/L (15-37); SGPT/ALT 126 U/L (13-61)
[2022-01-19 08:43] LABS: BILIRUBIN,TOTAL 0.6 mg/dL (0.2-1); TOT PROT 4.7 g/dl (6.4-8.2)
[2022-01-19 08:44] LABS: ALK PHOS 63 U/L (45-117)
[2022-01-19 08:46] LABS: ANION GAP 13 MMOL/L (8-16); BLOOD UREA NITROGEN 139.2 mg/dL (7-18); CHLORIDE 108 mmol/L (98-107); SODIUM 139 mmol/L (136-145)
[2022-01-19 10:26] LABS: ANISOCYTOSIS 1+; MACROCYTOSIS 1+
[2022-01-19 13:36] LABS: LACTIC ACID 3.6 mmol/L (0.4-2.0)
[2022-01-19] MEDS ORDERED: PIPERACILLIN/TAZOB 2.25 GM 2.25 GM in DEXTROSE 5%-WATER - 50 ML IVPB SCH (18:00)
[2022-01-19] MEDS: INSULIN SLIDING SCALE (NOVOLOG) 1 VIAL SQ SCH (21:35)
[2022-01-20] MEDS ORDERED: PIPERACILLIN/TAZOB 2.25 GM 2.25 GM in DEXTROSE 5%-WATER - 50 ML IVPB SCH (03:00)
[2022-01-20] MEDS: DEXTROSE 5%-0.45% SALINE 1,000 ML IV SCH (05:35)
[2022-01-20] MEDS ORDERED: PIPERACILLIN/TAZOBACTAM 2.25 GM VIAL IVPB ONE ×3 (05:55→19:42)
[2022-01-20] MEDS: PIPERACILLIN/TAZOB 2.25 GM 2.25 GM in DEXTROSE 5%-WATER - 50 ML IVPB SCH ×3 (06:05→22:13)
[2022-01-20] MEDS: INSULIN SLIDING SCALE (NOVOLOG) 1 VIAL SQ SCH ×4 (06:06→21:20)
[2022-01-20 07:07] LABS: HEMATOCRIT 23.1 % (35.4-49); HEMOGLOBIN 7.6 GM/dL (11.7-16.9); MCH 29.1 pg (25.7-33.7); MEAN CELL VOLUME 88.1 fl (80-96); MEAN PLT VOLUME 10.7 fl (7.5-11.1); PLATELET COUNT 243 10^3/uL (134-434); RBC 2.62 M/mm3 (4.00-5.60); RDW 17.3 % (11.9-15.9)
[2022-01-20 07:23] LABS: CHLORIDE 116 mmol/L (98-107); SODIUM 144 mmol/L (136-145)
[2022-01-20 07:30] LABS: ANION GAP 10 MMOL/L (8-16); CALCIUM 7.9 mg/dL (8.5-10.1); CO2 18 mmol/L (21-32)
[2022-01-20 07:31] LABS: ALBUMIN 1.5 g/dl (3.4-5.0); GLUCOSE,RANDOM 211 mg/dL (74-106)
[2022-01-20 07:33] LABS: CREATININE 2.6 mg/dL (0.55-1.3); SGOT/AST 58 U/L (15-37); SGPT/ALT 88 U/L (13-61)
[2022-01-20 07:34] LABS: BILIRUBIN,TOTAL 0.4 mg/dL (0.2-1); TOT PROT 4.3 g/dl (6.4-8.2)
[2022-01-20 07:36] LABS: ALK PHOS 59 U/L (45-117)
[2022-01-20 07:38] LABS: BLOOD UREA NITROGEN 133.3 mg/dL (7-18)
[2022-01-20] MEDS ORDERED: VANCOMYCIN/WATER FOR INJ (PEG) 750 MG/150 ML BAG IVPB ONE (08:30)
[2022-01-20] MEDS ORDERED: VANCOMYCIN 500 MG in DEXTROSE 5%-WATER - 100 ML IVPB SCH (10:00)
[2022-01-20 10:01] LABS: ANISOCYTOSIS 1+
[2022-01-20] MEDS ORDERED: DEXTROSE 5%-LACTATED RINGERS 1,000 ML IV SCH (13:30)
[2022-01-20] MEDS ORDERED: DEXTROSE 5%-WATER - 50 ML IVPB ONE ×2 (14:39→19:42)
[2022-01-20] MEDS ORDERED: VANCOMYCIN 500 MG in DEXTROSE 5%-WATER 100 ML IVPB SCH (16:00)
[2022-01-21] MEDS ORDERED: DEXTROSE 5%-WATER - 50 ML IVPB ONE ×3 (06:14→19:37)
[2022-01-21] MEDS ORDERED: PIPERACILLIN/TAZOBACTAM 2.25 GM VIAL IVPB ONE ×3 (06:14→19:37)
[2022-01-21] MEDS: INSULIN SLIDING SCALE (NOVOLOG) 1 VIAL SQ SCH ×4 (06:17→21:22)
[2022-01-21] MEDS: PIPERACILLIN/TAZOB 2.25 GM 2.25 GM in DEXTROSE 5%-WATER - 50 ML IVPB SCH ×3 (06:17→22:29)
[2022-01-21 06:55] LABS: HEMATOCRIT 20.2 % (35.4-49); MCHC 32.9 g/dl (32.0-35.9); MEAN PLT VOLUME 10.2 fl (7.5-11.1); PLATELET COUNT 240 10^3/uL (134-434); RBC 2.22 M/mm3 (4.00-5.60); RDW 17.7 % (11.9-15.9)
[2022-01-21 06:58] LABS: HEMOGLOBIN 6.6 GM/dL (11.7-16.9)
[2022-01-21 07:13] LABS: CHLORIDE 120 mmol/L (98-107); SODIUM 146 mmol/L (136-145)
[2022-01-21 07:16] LABS: CALCIUM 7.9 mg/dL (8.5-10.1)
[2022-01-21 07:17] LABS: ALBUMIN 1.5 g/dl (3.4-5.0); ANION GAP 8 MMOL/L (8-16); CO2 19 mmol/L (21-32); GLUCOSE,RANDOM 233 mg/dL (74-106); MAGNESIUM 2.1 mg/dL (1.8-2.4)
[2022-01-21 07:20] LABS: CREATININE 2.2 mg/dL (0.55-1.3); PHOSPHOROUS 3.4 mg/dL (2.5-4.9); SGOT/AST 40 U/L (15-37); SGPT/ALT 73 U/L (13-61); URIC ACID 8.5 mg/dL (2.6-7.2)
[2022-01-21 07:21] LABS: BILIRUBIN,TOTAL 0.7 mg/dL (0.2-1)
[2022-01-21 07:22] LABS: TOT PROT 4.4 g/dl (6.4-8.2)
[2022-01-21 07:23] LABS: ALK PHOS 63 U/L (45-117)
[2022-01-21 07:32] LABS: BLOOD UREA NITROGEN 109.9 mg/dL (7-18)
[2022-01-21] MEDS ORDERED: PANTOPRAZOLE SODIUM 40 MG VIAL IVPUSH ONE (09:15)
[2022-01-21 10:04] LABS: IRON SERUM 103 ug/dL (50-175); TOTAL IRON BINDING CAPACITY 113 ug/dL (250-450)
[2022-01-21] MEDS: PANTOPRAZOLE SODIUM 160 MG in SODIUM CHLORIDE 290 ML IVPB SCH (12:00)
[2022-01-21] MEDS: SODIUM CHLORIDE 0.45% 1,000 ML IV SCH (17:17)
[2022-01-21 22:18] LABS: HEMATOCRIT 30.6 % (35.4-49); HEMOGLOBIN 10.3 GM/dL (11.7-16.9); MCHC 33.6 g/dl (32.0-35.9); MEAN CELL VOLUME 89.3 fl (80-96); PLATELET COUNT 283 10^3/uL (134-434); RBC 3.43 M/mm3 (4.00-5.60); RDW 17.3 % (11.9-15.9); WHITE BLOOD COUNT 19.1 K/mm3 (4.0-10.0)
[2022-01-21] MEDS ORDERED: ACETAMINOPHEN 1000 MG/100 ML BAG IVPB ONE (22:47)
[2022-01-21 23:42] LABS: ANISOCYTOSIS 1+; MACROCYTOSIS 1+; PLATELET ESTIMATE NORMAL
[2022-01-22] MEDS ORDERED: PIPERACILLIN/TAZOBACTAM 2.25 GM VIAL IVPB ONE ×3 (07:19→22:09)
[2022-01-22] MEDS ORDERED: DEXTROSE 5%-WATER - 50 ML IVPB ONE ×3 (07:20→22:09)
[2022-01-22] MEDS: PANTOPRAZOLE SODIUM 160 MG in SODIUM CHLORIDE 290 ML IVPB SCH (07:21)
[2022-01-22] MEDS: PIPERACILLIN/TAZOB 2.25 GM 2.25 GM in DEXTROSE 5%-WATER - 50 ML IVPB SCH ×3 (07:22→22:15)
[2022-01-22] MEDS: INSULIN SLIDING SCALE (NOVOLOG) 1 VIAL SQ SCH ×4 (07:22→22:19)
[2022-01-22 08:20] LABS: HEMATOCRIT 26.3 % (35.4-49); HEMOGLOBIN 9.1 GM/dL (11.7-16.9); MCH 31.1 pg (25.7-33.7); MCHC 34.5 g/dl (32.0-35.9); MEAN CELL VOLUME 90.2 fl (80-96); MEAN PLT VOLUME 10.1 fl (7.5-11.1); PLATELET COUNT 220 10^3/uL (134-434); RBC 2.91 M/mm3 (4.00-5.60); RDW 17.2 % (11.9-15.9); WHITE BLOOD COUNT 17.3 K/mm3 (4.0-10.0)
[2022-01-22 08:37] LABS: CALCIUM 7.9 mg/dL (8.5-10.1)
[2022-01-22 08:40] LABS: PHOSPHOROUS 3.5 mg/dL (2.5-4.9)
[2022-01-22 08:41] LABS: CREATININE 1.8 mg/dL (0.55-1.3)
[2022-01-22 08:47] LABS: BLOOD UREA NITROGEN 84.7 mg/dL (7-18)
[2022-01-22] MEDS: VANCOMYCIN/WATER FOR INJ (PEG) 750 MG/150 ML BAG IVPB ONE ×2 (14:21→15:19)
[2022-01-22] MEDS ORDERED: ACETAMINOPHEN 1000 MG/100 ML BAG IVPB ONE ×2 (14:42→14:51)
[2022-01-22] MEDS: SODIUM CHLORIDE 0.45% 1,000 ML IV SCH ×2 (16:05→23:07)
[2022-01-22] MEDS ORDERED: ACETAMINOPHEN 1000 MG/100 ML BAG IVPB PRN (23:27)
[2022-01-23] MEDS: PANTOPRAZOLE SODIUM 160 MG in SODIUM CHLORIDE 290 ML IVPB SCH ×3 (00:17→21:50)
[2022-01-23] MEDS: INSULIN SLIDING SCALE (NOVOLOG) 1 VIAL SQ SCH ×4 (06:03→21:58)
[2022-01-23] MEDS ORDERED: DEXTROSE 5%-WATER - 50 ML IVPB ONE ×3 (06:10→21:40)
[2022-01-23] MEDS ORDERED: PIPERACILLIN/TAZOBACTAM 2.25 GM VIAL IVPB ONE ×3 (06:10→21:39)
[2022-01-23] MEDS: PIPERACILLIN/TAZOB 2.25 GM 2.25 GM in DEXTROSE 5%-WATER - 50 ML IVPB SCH ×3 (06:34→22:02)
[2022-01-23 06:56] LABS: HEMATOCRIT 24.5 % (35.4-49); HEMOGLOBIN 8.5 GM/dL (11.7-16.9); MCH 31.6 pg (25.7-33.7); MCHC 34.6 g/dl (32.0-35.9); MEAN CELL VOLUME 91.2 fl (80-96); MEAN PLT VOLUME 10.2 fl (7.5-11.1); PLATELET COUNT 149 10^3/uL (134-434); RBC 2.69 M/mm3 (4.00-5.60); RDW 16.9 % (11.9-15.9); WHITE BLOOD COUNT 10.5 K/mm3 (4.0-10.0)
[2022-01-23 07:24] LABS: CALCIUM 7.4 mg/dL (8.5-10.1)
[2022-01-23 07:25] LABS: BLOOD UREA NITROGEN 60.8 mg/dL (7-18)
[2022-01-23 07:28] LABS: CREATININE 1.5 mg/dL (0.55-1.3)
[2022-01-23] MEDS ORDERED: ACETAMINOPHEN 650 MG/20.3 ML ORAL SOLUTION (CUPS) PO ONE (10:43)
[2022-01-23] MEDS ORDERED: POTASSIUM CHLORIDE ORAL LIQUID 20 MEQ/15 ML PO ONE (11:00)
[2022-01-23] MEDS: SODIUM CHLORIDE 0.45% 1,000 ML IV SCH (13:00)
[2022-01-23] MEDS ORDERED: ACETAMINOPHEN 1000 MG/100 ML BAG IVPB ONE (22:24)
[2022-01-24] MEDS ORDERED: PIPERACILLIN/TAZOBACTAM 2.25 GM VIAL IVPB ONE ×3 (05:44→21:25)
[2022-01-24] MEDS ORDERED: DEXTROSE 5%-WATER - 50 ML IVPB ONE ×3 (05:45→21:25)
[2022-01-24 06:22] LABS: HEMATOCRIT 24.5 % (35.4-49); HEMOGLOBIN 8.3 GM/dL (11.7-16.9); MCH 31.4 pg (25.7-33.7); MEAN CELL VOLUME 92.3 fl (80-96); MEAN PLT VOLUME 10.5 fl (7.5-11.1); PLATELET COUNT 111 10^3/uL (134-434); RBC 2.66 M/mm3 (4.00-5.60); RDW 17.1 % (11.9-15.9); WHITE BLOOD COUNT 9.2 K/mm3 (4.0-10.0)
[2022-01-24] MEDS: INSULIN SLIDING SCALE (NOVOLOG) 1 VIAL SQ SCH ×4 (06:30→21:46)
[2022-01-24] MEDS: PIPERACILLIN/TAZOB 2.25 GM 2.25 GM in DEXTROSE 5%-WATER - 50 ML IVPB SCH ×3 (06:31→22:16)
[2022-01-24 06:43] LABS: CALCIUM 7.3 mg/dL (8.5-10.1)
[2022-01-24 06:44] LABS: BLOOD UREA NITROGEN 48.9 mg/dL (7-18)
[2022-01-24 06:47] LABS: CREATININE 1.3 mg/dL (0.55-1.3)
[2022-01-24] MEDS: PANTOPRAZOLE SODIUM 160 MG in SODIUM CHLORIDE 290 ML IVPB SCH (09:30)
[2022-01-24] MEDS ORDERED: VANCOMYCIN/WATER FOR INJ (PEG) 1,000 MG/200 ML BAG IVPB ONE (13:07)
[2022-01-24] MEDS: SODIUM CHLORIDE 0.45% 1,000 ML IV SCH (21:47)
[2022-01-25] MEDS ORDERED: ACETAMINOPHEN 1000 MG/100 ML BAG IVPB ONE (00:22)
[2022-01-25] MEDS ORDERED: PIPERACILLIN/TAZOBACTAM 2.25 GM VIAL IVPB ONE ×4 (04:54→21:01)
[2022-01-25] MEDS ORDERED: DEXTROSE 5%-WATER - 50 ML IVPB ONE ×4 (04:55→21:01)
[2022-01-25] MEDS: PIPERACILLIN/TAZOB 2.25 GM 2.25 GM in DEXTROSE 5%-WATER - 50 ML IVPB SCH ×3 (06:23→22:56)
[2022-01-25] MEDS: INSULIN SLIDING SCALE (NOVOLOG) 1 VIAL SQ SCH ×4 (06:27→21:30)
[2022-01-25] MEDS: PANTOPRAZOLE SODIUM 160 MG in SODIUM CHLORIDE 290 ML IVPB SCH (06:29)
[2022-01-25 07:44] LABS: HEMATOCRIT 21.4 % (35.4-49); HEMOGLOBIN 7.2 GM/dL (11.7-16.9); MCH 31.4 pg (25.7-33.7); MCHC 33.7 g/dl (32.0-35.9); MEAN CELL VOLUME 93.1 fl (80-96); MEAN PLT VOLUME 10.9 fl (7.5-11.1); PLATELET COUNT 85 10^3/uL (134-434); RDW 17.2 % (11.9-15.9); WHITE BLOOD COUNT 6.3 K/mm3 (4.0-10.0)
[2022-01-25 08:12] LABS: ALBUMIN 1.4 g/dl (3.4-5.0); BLOOD UREA NITROGEN 37.4 mg/dL (7-18); CALCIUM 7.3 mg/dL (8.5-10.1); MAGNESIUM 1.6 mg/dL (1.8-2.4)
[2022-01-25 08:15] LABS: CREATININE 1.2 mg/dL (0.55-1.3); PHOSPHOROUS 2.9 mg/dL (2.5-4.9)
[2022-01-25 08:17] LABS: BILIRUBIN,TOTAL 0.4 mg/dL (0.2-1); TOT PROT 4.3 g/dl (6.4-8.2)
[2022-01-25 08:40] LABS: ANISOCYTOSIS 1+; MACROCYTOSIS 0
[2022-01-25] MEDS: PANTOPRAZOLE 40 MG TABLET PO SCH ×2 (09:47→21:28)
[2022-01-25] MEDS: SODIUM CHLORIDE 0.45%/POT 20 MEQ/1,000 ML INFUS.BAG IV SCH (09:47)
[2022-01-25] MEDS: KCL 10 MEQ IVPB 10 MEQ/100 ML INFUS.BAG IVPB SCH ×2 (09:49→11:18)
[2022-01-26] MEDS ORDERED: MELATONIN 5 MG TABLETS PO ONE (00:22)
[2022-01-26] MEDS ORDERED: DEXTROSE 5%-WATER - 50 ML IVPB ONE ×2 (06:24→13:34)
[2022-01-26] MEDS ORDERED: PIPERACILLIN/TAZOBACTAM 2.25 GM VIAL IVPB ONE ×2 (06:24→13:34)
[2022-01-26] MEDS: INSULIN SLIDING SCALE (NOVOLOG) 1 VIAL SQ SCH ×4 (06:32→21:30)
[2022-01-26 06:48] LABS: HEMATOCRIT 25.1 % (35.4-49); HEMOGLOBIN 8.6 GM/dL (11.7-16.9); MCH 31.6 pg (25.7-33.7); MCHC 34.3 g/dl (32.0-35.9); MEAN CELL VOLUME 92.1 fl (80-96); PLATELET COUNT 63 10^3/uL (134-434); RBC 2.72 M/mm3 (4.00-5.60); RDW 16.8 % (11.9-15.9); WHITE BLOOD COUNT 5.9 K/mm3 (4.0-10.0)
[2022-01-26] MEDS: ACETAMINOPHEN 325 MG TABLET (FP) PO PRN (06:49)
[2022-01-26] MEDS: PIPERACILLIN/TAZOB 2.25 GM 2.25 GM in DEXTROSE 5%-WATER - 50 ML IVPB SCH ×2 (06:50→14:14)
[2022-01-26 07:12] LABS: CALCIUM 7.2 mg/dL (8.5-10.1)
[2022-01-26 07:13] LABS: ALBUMIN 1.3 g/dl (3.4-5.0); BLOOD UREA NITROGEN 32.2 mg/dL (7-18)
[2022-01-26 07:17] LABS: TOT PROT 4.4 g/dl (6.4-8.2)
[2022-01-26 07:18] LABS: BILIRUBIN,TOTAL 0.5 mg/dL (0.2-1)
[2022-01-26 09:11] LABS: ANISOCYTOSIS 1+; MACROCYTOSIS 1+
[2022-01-26] MEDS: PANTOPRAZOLE 40 MG TABLET PO SCH ×2 (09:42→21:29)
[2022-01-26] MEDS: SODIUM CHLORIDE 0.45%/POT 20 MEQ/1,000 ML INFUS.BAG IV SCH (09:43)
[2022-01-26] MEDS: SODIUM BICARBONATE 650 MG TABLET PO SCH ×2 (12:05→21:29)
[2022-01-26] MEDS ORDERED: METHYL SALICYLATE/MENTHOL OINT 30 GM TUBE TP PRN (22:11)
[2022-01-27] MEDS: ACETAMINOPHEN 325 MG TABLET (FP) PO PRN (03:08)
[2022-01-27] MEDS: INSULIN SLIDING SCALE (NOVOLOG) 1 VIAL SQ SCH ×2 (06:24→11:50)
[2022-01-27 08:27] LABS: HEMATOCRIT 25.6 % (35.4-49); HEMOGLOBIN 8.6 GM/dL (11.7-16.9); MCHC 33.6 g/dl (32.0-35.9); MEAN CELL VOLUME 89.4 fl (80-96); MEAN PLT VOLUME 9.7 fl (7.5-11.1); PLATELET COUNT 54 10^3/uL (134-434); RBC 2.86 M/mm3 (4.00-5.60); RDW 16.6 % (11.9-15.9); WHITE BLOOD COUNT 6.2 K/mm3 (4.0-10.0)
[2022-01-27 08:49] LABS: CALCIUM 7.5 mg/dL (8.5-10.1)
[2022-01-27 08:50] LABS: BLOOD UREA NITROGEN 25.5 mg/dL (7-18); MAGNESIUM 1.6 mg/dL (1.8-2.4)
[2022-01-27 08:53] LABS: CREATININE 0.9 mg/dL (0.55-1.3); PHOSPHOROUS 2.9 mg/dL (2.5-4.9)
[2022-01-27 09:58] LABS: ANISOCYTOSIS 0; HELMET CELLS 0; HOWELL-JOLLY BODIES 0; MACROCYTOSIS 0; OVALOCYTE 0; ROULEAU 0; SICKELED CELLS 0; TARGET CELLS 0; TEAR DROP CELLS 0; TOXIC GRANULATION 0
[2022-01-27] MEDS: PANTOPRAZOLE 40 MG TABLET PO SCH (10:09)
[2022-01-27] MEDS: SODIUM BICARBONATE 650 MG TABLET PO SCH (10:10)
[2022-01-27] MEDS: SODIUM CHLORIDE 0.45%/POT 20 MEQ/1,000 ML INFUS.BAG IV SCH (10:11)
[2022-01-27] MEDS ORDERED: NAPH,MB-DB/K PH,MBDB POWDER PACKET PO SCH (14:00)
[2022-01-27 15:24] VITALS: BP 134/76; PULSE 84; TEMP 98.3
== END 2022-01-27 15:36 | DRG 872 ==
LOC: JER 14:42 → JERBED 18:34 → J4W 01-19 01:11
PROVIDERS: ADMIT Internal Medicine; ATTEND Family Medicine
PROC: 30233N1 Transfusion of Nonautologous Red Blood Cells into Peripheral Vein, Percutaneous Approach (ICD-10-PCS; principal; 2022-01-18)
DX: A41.9 Sepsis, unspecified organism (principal); Z68.1 Body mass index [BMI] 19.9 or less, adult; I13.0 Hypertensive heart and chronic kidney disease with heart failure and stage 1 through stage 4 chronic kidney disease, or unspecified chronic kidney disease; N39.0 Urinary tract infection, site not specified; N17.9 Acute kidney failure, unspecified; L03.113 Cellulitis of right upper limb; K92.2 Gastrointestinal hemorrhage, unspecified; R64 Cachexia; E87.2 Acidosis; E46 Unspecified protein-calorie malnutrition; E78.5 Hyperlipidemia, unspecified; I25.10 Atherosclerotic heart disease of native coronary artery without angina pectoris; J44.9 Chronic obstructive pulmonary disease, unspecified; E11.22 Type 2 diabetes mellitus with diabetic chronic kidney disease; Z99.81 Dependence on supplemental oxygen; N40.0 Benign prostatic hyperplasia without lower urinary tract symptoms; K21.9 Gastro-esophageal reflux disease without esophagitis; R13.10 Dysphagia, unspecified; F43.23 Adjustment disorder with mixed anxiety and depressed mood; F03.90 Unspecified dementia, unspecified severity, without behavioral disturbance, psychotic disturbance, mood disturbance, and anxiety; D46.9 Myelodysplastic syndrome, unspecified; R65.20 Severe sepsis without septic shock; I69.391 Dysphagia following cerebral infarction; I48.91 Unspecified atrial fibrillation; E87.5 Hyperkalemia; E86.0 Dehydration; N18.30 Chronic kidney disease, stage 3 unspecified; D63.8 Anemia in other chronic diseases classified elsewhere; D69.6 Thrombocytopenia, unspecified; R19.7 Diarrhea, unspecified; E87.6 Hypokalemia
CPT/HCPCS: 0241U-QW; 36415; 36430; 71045-TC-FY; 74176-TC; 80048; 80053; 81003; 82272; 82550; 82553; 82570; 82728; 82962; 83540; 83550; 83605; 83735; 84100; 84156; 84300; 84484; 84540; 84550; 85025; 85027; 85610; 85730; 86850; 86900; 86901; 86922; 87040; 87186; 93005; 93010; 93306-TC; 93971-TC; 99285-25; G0480; J3480; P9058; Q9967

== ENCOUNTER 2022-02-09 10:31 | Inpatient (IN) | payer OTHER ==
[2022-02-09 10:47] VITALS: BMI 16.7
[2022-02-09 11:38] LABS: INR 1.11 (0.83-1.09); PROTHROMBIN TIME (PATIENT) 12.8 SEC (9.7-13.0)
[2022-02-09 11:40] LABS: ACTIVATED PTT 31.2 SECONDS (25.2-36.5)
[2022-02-09 11:43] LABS: HEMATOCRIT 20.8 % (35.4-49); HEMOGLOBIN 7.1 GM/dL (11.7-16.9); MCH 31.1 pg (25.7-33.7); MCHC 34.2 g/dl (32.0-35.9); MEAN CELL VOLUME 90.9 fl (80-96); MEAN PLT VOLUME 10.7 fl (7.5-11.1); PLATELET COUNT 128 10^3/uL (134-434); RBC 2.29 M/mm3 (4.00-5.60); RDW 15.4 % (11.9-15.9); WHITE BLOOD COUNT 7.3 K/mm3 (4.0-10.0)
[2022-02-09 11:47] LABS: ALBUMIN 1.3 g/dl (3.4-5.0); BLOOD UREA NITROGEN 18.7 mg/dL (7-18); CALCIUM 7.2 mg/dL (8.5-10.1)
[2022-02-09 11:50] LABS: CREATININE 0.9 mg/dL (0.55-1.3)
[2022-02-09 11:52] LABS: BILIRUBIN,TOTAL 0.3 mg/dL (0.2-1)
[2022-02-09 12:18] LABS: ANISOCYTOSIS 0; MACROCYTOSIS 0
[2022-02-09] MEDS ORDERED: ACETAMINOPHEN 325 MG TABLET (FP) PO PRN (14:04)
[2022-02-09] MEDS ORDERED: ALBUTEROL SO4 2.5/IPRATROPIUM 0.5 INH SOL 3 ML VIAL.NEB. NEB PRN (14:04)
[2022-02-09] MEDS ORDERED: PATIENT'S OWN MEDICATION (NON-FORMULARY) (Brimonidine Tartrate/Timolol [Brimonidine-Timolo OD SCH (14:15)
[2022-02-09] MEDS ORDERED: EPOETIN ALFA-EPBX 20,000 UNIT/ML VIAL SQ SCH (15:00)
[2022-02-09] MEDS ORDERED: FUROSEMIDE 40 MG/4 ML INJECTABLE VIAL IVPUSH ONE (16:23)
[2022-02-09] MEDS ORDERED: ATORVASTATIN CA 80 MG TABLET (FP) PO SCH (22:00)
[2022-02-09] MEDS: PANTOPRAZOLE 40 MG TABLET PO SCH (22:32)
[2022-02-09] MEDS: SODIUM BICARBONATE 650 MG TABLET PO SCH (22:32)
[2022-02-09] MEDS: BRIMONIDINE TARTRATE 0.2% OPHTHALMIC 5 ML BOTTLE OD SCH (23:07)
[2022-02-09] MEDS: DORZOLAMIDE 2% HCL OPHTHALMIC SOLUTION 10 ML BOTTLE OD SCH (23:07)
[2022-02-09] MEDS: ERYTHROMYCIN 0.5% OPHTHALMIC OINTMENT 3.5 GM TUBE OU SCH (23:08)
[2022-02-09] MEDS: TIMOLOL MALEATE 0.5% GFS OPHTHALMIC SOLN 5 ML BOTTLE OD SCH (23:08)
[2022-02-10] MEDS: ERYTHROMYCIN 0.5% OPHTHALMIC OINTMENT 3.5 GM TUBE OU SCH ×2 (06:07→14:19)
[2022-02-10] MEDS ORDERED: TAMSULOSIN HCL 0.4 MG CAP PO SCH (08:30)
[2022-02-10 08:45] LABS: HEMATOCRIT 31.1 % (35.4-49); HEMOGLOBIN 10.7 GM/dL (11.7-16.9); MCH 29.5 pg (25.7-33.7); MCHC 34.4 g/dl (32.0-35.9); MEAN CELL VOLUME 85.8 fl (80-96); MEAN PLT VOLUME 9.7 fl (7.5-11.1); PLATELET COUNT 85 10^3/uL (134-434); RBC 3.63 M/mm3 (4.00-5.60); RDW 17.9 % (11.9-15.9); WHITE BLOOD COUNT 8.8 K/mm3 (4.0-10.0)
[2022-02-10] MEDS ORDERED: ATROPINE SO4 1% OPHTH SOLN 5 ML BOTTLE OD SCH (09:00)
[2022-02-10 09:11] LABS: CALCIUM 7.4 mg/dL (8.5-10.1)
[2022-02-10 09:12] LABS: ALBUMIN 1.4 g/dl (3.4-5.0); BLOOD UREA NITROGEN 17.1 mg/dL (7-18)
[2022-02-10 09:15] LABS: CREATININE 0.9 mg/dL (0.55-1.3)
[2022-02-10 09:16] LABS: TOT PROT 4.8 g/dl (6.4-8.2)
[2022-02-10 09:17] LABS: BILIRUBIN,TOTAL 0.3 mg/dL (0.2-1)
[2022-02-10] MEDS: SODIUM BICARBONATE 650 MG TABLET PO SCH (09:43)
[2022-02-10] MEDS: PANTOPRAZOLE 40 MG TABLET PO SCH (09:43)
[2022-02-10] MEDS: DORZOLAMIDE 2% HCL OPHTHALMIC SOLUTION 10 ML BOTTLE OD SCH (09:49)
[2022-02-10] MEDS: TIMOLOL MALEATE 0.5% GFS OPHTHALMIC SOLN 5 ML BOTTLE OD SCH (09:49)
[2022-02-10] MEDS: BRIMONIDINE TARTRATE 0.2% OPHTHALMIC 5 ML BOTTLE OD SCH (09:50)
[2022-02-10] MEDS ORDERED: FERROUS SO4 325 MG TABLET (FP) PO SCH (10:00)
[2022-02-10] MEDS ORDERED: POLYETHYLENE GLYCOL (HEALTHYLAX) 3350 17 GM PACKET PO SCH (10:00)
[2022-02-10 11:09] LABS: ANISOCYTOSIS 2+; MACROCYTOSIS 0; OVALOCYTE 2+
[2022-02-10 14:22] VITALS: BP 118/52; PULSE 68; TEMP 98
== END 2022-02-10 16:54 | DRG 812 ==
LOC: JER 10:31 → JERBED 11:57 → OBSVTOIN 16:22 → J6S 21:43
PROVIDERS: ADMIT Family Medicine; ATTEND Family Medicine
PROC: 30233N1 Transfusion of Nonautologous Red Blood Cells into Peripheral Vein, Percutaneous Approach (ICD-10-PCS; principal; 2022-02-09)
DX: D46.9 Myelodysplastic syndrome, unspecified (principal); I13.0 Hypertensive heart and chronic kidney disease with heart failure and stage 1 through stage 4 chronic kidney disease, or unspecified chronic kidney disease; D63.8 Anemia in other chronic diseases classified elsewhere; E11.9 Type 2 diabetes mellitus without complications; I25.10 Atherosclerotic heart disease of native coronary artery without angina pectoris; J44.9 Chronic obstructive pulmonary disease, unspecified; J45.909 Unspecified asthma, uncomplicated; N40.0 Benign prostatic hyperplasia without lower urinary tract symptoms; K21.9 Gastro-esophageal reflux disease without esophagitis; F03.90 Unspecified dementia, unspecified severity, without behavioral disturbance, psychotic disturbance, mood disturbance, and anxiety; N18.30 Chronic kidney disease, stage 3 unspecified; Z98.61 Coronary angioplasty status
CPT/HCPCS: 36415; 36430; 71045-TC-FY; 80053; 85025; 85610; 85730; 86850; 86900; 86901; 86922; 93005; 93010; 99285-25; C9803-CS; G0378; P9058; U0003; U0005

== ENCOUNTER 2022-03-27 11:59 | Observation (INO) | payer OTHER ==
[2022-03-27] MEDS ORDERED: ACETAMINOPHEN 1000 MG/100 ML BAG IVPB ONE (12:55)
[2022-03-27] MEDS ORDERED: ACETAMINOPHEN INJECTION 100 ML IVPB ONE (13:14)
[2022-03-27 14:41] LABS: HEMATOCRIT 19.3 % (35.4-49); MCH 28.1 pg (25.7-33.7); MCHC 34.2 g/dl (32.0-35.9); MEAN CELL VOLUME 82.4 fl (80-96); MEAN PLT VOLUME 8.7 fl (7.5-11.1); PLATELET COUNT 195 10^3/uL (134-434); RBC 2.34 M/mm3 (4.00-5.60); RDW 18.6 % (11.9-15.9); WHITE BLOOD COUNT 10.4 K/mm3 (4.0-10.0)
[2022-03-27 14:43] LABS: INR 1.19 (0.83-1.09); PROTHROMBIN TIME (PATIENT) 13.7 SEC (9.7-13.0)
[2022-03-27 14:46] LABS: HEMOGLOBIN 6.6 GM/dL (11.7-16.9)
[2022-03-27 14:55] LABS: CALCIUM 7.7 mg/dL (8.5-10.1)
[2022-03-27 14:56] LABS: ALBUMIN 1.5 g/dl (3.4-5.0)
[2022-03-27 14:59] LABS: CREATININE 0.8 mg/dL (0.55-1.3)
[2022-03-27 15:01] LABS: BILIRUBIN,TOTAL 0.4 mg/dL (0.2-1); BLOOD UREA NITROGEN 14.1 mg/dL (7-18); TOT PROT 5.6 g/dl (6.4-8.2)
[2022-03-27 15:06] LABS: ANISOCYTOSIS 2+; MACROCYTOSIS 0
[2022-03-27] MEDS ORDERED: ALBUTEROL SO4 2.5/IPRATROPIUM 0.5 INH SOL 3 ML VIAL.NEB. NEB PRN (17:45)
[2022-03-27] MEDS ORDERED: ACETAMINOPHEN 325 MG TABLET (FP) PO PRN (17:45)
[2022-03-27] MEDS ORDERED: oxyCODONE HCL 5 MG TABLET PO PRN (17:45)
[2022-03-27] MEDS: ATORVASTATIN CA 80 MG TABLET (FP) PO SCH (21:40)
[2022-03-27] MEDS: SODIUM BICARBONATE 650 MG TABLET PO SCH (21:40)
[2022-03-27] MEDS ORDERED: TIMOLOL MALEATE 0.5% GFS OPHTHALMIC SOLN 5 ML BOTTLE OD SCH (22:00)
[2022-03-27] MEDS ORDERED: PATIENT'S OWN MEDICATION (NON-FORMULARY) (Aa/Hydrolyzed Collagen, Whey [Lps 15-30 Liquid] PO SCH (22:00)
[2022-03-28] MEDS: PANTOPRAZOLE 40 MG TABLET PO SCH ×2 (06:41→17:43)
[2022-03-28] MEDS: TAMSULOSIN HCL 0.4 MG CAP PO SCH (08:46)
[2022-03-28 09:12] LABS: HEMATOCRIT 34.5 % (35.4-49); HEMOGLOBIN 11.7 GM/dL (11.7-16.9); MCH 27.8 pg (25.7-33.7); MCHC 33.9 g/dl (32.0-35.9); MEAN CELL VOLUME 82.1 fl (80-96); MEAN PLT VOLUME 9.3 fl (7.5-11.1); PLATELET COUNT 155 10^3/uL (134-434); RDW 15.1 % (11.9-15.9); WHITE BLOOD COUNT 15.5 K/mm3 (4.0-10.0)
[2022-03-28] MEDS: SODIUM BICARBONATE 650 MG TABLET PO SCH ×2 (10:24→22:15)
[2022-03-28] MEDS: FERROUS SO4 325 MG TABLET (FP) PO SCH (10:24)
[2022-03-28] MEDS: POLYETHYLENE GLYCOL (HEALTHYLAX) 3350 17 GM PACKET PO SCH (10:25)
[2022-03-28] MEDS: FOLIC ACID 1 MG TABLET (FP) PO SCH (10:25)
[2022-03-28 10:42] LABS: ANISOCYTOSIS 0; MACROCYTOSIS 0; PLATELET ESTIMATE NORMAL
[2022-03-28] MEDS: MULTIVIT-MINERALS ORAL LIQUID PO SCH (11:24)
[2022-03-28] MEDS: ATROPINE SO4 1% OPHTH SOLN 5 ML BOTTLE OD SCH (12:26)
[2022-03-28] MEDS: ATORVASTATIN CA 80 MG TABLET (FP) PO SCH (22:15)
[2022-03-29] MEDS: PANTOPRAZOLE 40 MG TABLET PO SCH (06:02)
[2022-03-29 08:16] LABS: CALCIUM 7.6 mg/dL (8.5-10.1)
[2022-03-29 08:17] LABS: ALBUMIN 1.3 g/dl (3.4-5.0); BLOOD UREA NITROGEN 19.1 mg/dL (7-18)
[2022-03-29 08:20] LABS: CREATININE 0.7 mg/dL (0.55-1.3)
[2022-03-29 08:21] LABS: TOT PROT 5.1 g/dl (6.4-8.2)
[2022-03-29 08:22] LABS: BILIRUBIN,TOTAL 0.4 mg/dL (0.2-1)
[2022-03-29 08:38] LABS: HEMATOCRIT 39.2 % (35.4-49); HEMOGLOBIN 13.1 GM/dL (11.7-16.9); MCH 27.9 pg (25.7-33.7); MCHC 33.5 g/dl (32.0-35.9); MEAN CELL VOLUME 83.2 fl (80-96); MEAN PLT VOLUME 9.4 fl (7.5-11.1); PLATELET COUNT 127 10^3/uL (134-434); RBC 4.72 M/mm3 (4.00-5.60); RDW 15.4 % (11.9-15.9); WHITE BLOOD COUNT 11.4 K/mm3 (4.0-10.0)
[2022-03-29 09:25] LABS: MACROCYTOSIS 0
[2022-03-29 09:38] LABS: ANISOCYTOSIS 0
[2022-03-29] MEDS ORDERED: METOPROLOL TARTRATE 25 MG TABLET (FP) PO SCH (10:00)
[2022-03-29] MEDS: FERROUS SO4 325 MG TABLET (FP) PO SCH (10:50)
[2022-03-29] MEDS: TAMSULOSIN HCL 0.4 MG CAP PO SCH (10:50)
[2022-03-29] MEDS: MULTIVIT-MINERALS ORAL LIQUID PO SCH (10:50)
[2022-03-29] MEDS: ATROPINE SO4 1% OPHTH SOLN 5 ML BOTTLE OD SCH (10:50)
[2022-03-29] MEDS: POLYETHYLENE GLYCOL (HEALTHYLAX) 3350 17 GM PACKET PO SCH (10:51)
[2022-03-29] MEDS: FOLIC ACID 1 MG TABLET (FP) PO SCH (10:51)
[2022-03-29] MEDS: SODIUM BICARBONATE 650 MG TABLET PO SCH (10:51)
[2022-03-29 15:11] VITALS: BP 115/58; PULSE 72; RESP 20; TEMP 98.5
[2022-03-29 19:30] VITALS: BMI 17.3
[2022-03-30] MEDS ORDERED: EPOETIN ALFA-EPBX 40,000 UNIT/ML VIAL SQ SCH ×2 (10:00)
== END 2022-03-29 17:05 ==
LOC: JER 11:59 → JERBED 15:32 → J7W 19:56
PROVIDERS: ADMIT Family Medicine; ATTEND Family Medicine
PROC: 3E033NZ Introduction of Analgesics, Hypnotics, Sedatives into Peripheral Vein, Percutaneous Approach (ICD-10-PCS; principal; 2022-03-27)
PROC: 30233N1 Transfusion of Nonautologous Red Blood Cells into Peripheral Vein, Percutaneous Approach (ICD-10-PCS; 2022-03-27)
DX: I25.10 Atherosclerotic heart disease of native coronary artery without angina pectoris (principal); E78.5 Hyperlipidemia, unspecified; D64.9 Anemia, unspecified; E11.9 Type 2 diabetes mellitus without complications; I11.9 Hypertensive heart disease without heart failure; J44.9 Chronic obstructive pulmonary disease, unspecified; N18.9 Chronic kidney disease, unspecified; Z95.5 Presence of coronary angioplasty implant and graft; F03.90 Unspecified dementia, unspecified severity, without behavioral disturbance, psychotic disturbance, mood disturbance, and anxiety; I48.91 Unspecified atrial fibrillation; Z86.73 Personal history of transient ischemic attack (TIA), and cerebral infarction without residual deficits
CPT/HCPCS: 36415; 36430; 70450-TC; 71045-TC-FY; 73590-TC-RT-FY; 73610-TC-RT-FY; 73630-TC-RT-FY; 80053; 82272; 82962; 85025; 85610; 86850; 86900; 86901; 86922; 93005; 93010; 93971-TC; 96374; 99285-25; C9803-CS; G0378; P9058; U0003; U0005

== ENCOUNTER 2022-04-19 19:54 | Inpatient (IN) | payer OTHER ==
[2022-04-19] MEDS ORDERED: SODIUM CHLORIDE 0.9% 500 ML INFUS.BAG IV ONE (20:17)
[2022-04-19 21:41] LABS: BASO % 0.6 % (0-2.0); EOS % 0.1 % (0-4.5); HEMATOCRIT 23.3 % (35.4-49); HEMOGLOBIN 7.6 GM/dL (11.7-16.9); LYMPH % 2.4 % (8-40); MCH 26.8 pg (25.7-33.7); MCHC 32.6 g/dl (32.0-35.9); MEAN PLT VOLUME 10.2 fl (7.5-11.1); MONO % 6.1 % (3.8-10.2); NEUT % 90.8 % (42.8-82.8); PLATELET COUNT 87 10^3/uL (134-434); RBC 2.84 M/mm3 (4.00-5.60); RDW 16.3 % (11.9-15.9)
[2022-04-19 21:47] LABS: WHITE BLOOD COUNT 33.1 K/mm3 (4.0-10.0)
[2022-04-19 21:51] LABS: INR 1.13 (0.83-1.09)
[2022-04-19 21:54] LABS: ACTIVATED PTT 30.5 SECONDS (25.2-36.5)
[2022-04-19 21:55] LABS: LACTIC ACID 3.3 mmol/L (0.4-2.0)
[2022-04-19 22:01] LABS: CALCIUM 7.1 mg/dL (8.5-10.1)
[2022-04-19 22:02] LABS: ALBUMIN 1.1 g/dl (3.4-5.0); BLOOD UREA NITROGEN 89.7 mg/dL (7-18)
[2022-04-19 22:05] LABS: CREATININE 2.7 mg/dL (0.55-1.3)
[2022-04-19 22:06] LABS: TOT PROT 4.4 g/dl (6.4-8.2)
[2022-04-19 22:07] LABS: BILIRUBIN,TOTAL 0.5 mg/dL (0.2-1)
[2022-04-19] MEDS ORDERED: ALBUTEROL SO4 2.5/IPRATROPIUM 0.5 INH SOL 3 ML VIAL.NEB. NEB ONE ×2 (22:20→22:23)
[2022-04-19 22:22] LABS: ANISOCYTOSIS 2+; MACROCYTOSIS 0; OVALOCYTE 1+; PLATELET ESTIMATE DECREASED; TARGET CELLS 1+
[2022-04-19] MEDS ORDERED: PANTOPRAZOLE SODIUM 40 MG in SODIUM CHLORIDE 100 ML IVPB ONE (22:43)
[2022-04-19] MEDS ORDERED: PANTOPRAZOLE SODIUM 40 MG/100 ML BAG IVPB ONE ×2 (22:52→23:02)
[2022-04-19] MEDS ORDERED: SODIUM CHLORIDE 500 ML IV STA (22:52)
[2022-04-19 23:21] LABS: ARTERIAL BLD GAS O2 SATURATION 99.3 % (95-98); ARTERIAL BLOOD GAS BASE EXCESS 1.2 mmol/L (-2-2); ARTERIAL BLOOD GAS PO2 158.3 mmHg (80-100); ARTERIAL BLOOD GAS pH 7.574 (7.350-7.450)
[2022-04-20 01:45] LABS: EPI CELLS 5 /uL (0-25.1); HYALINE CASTS 0 /uL (0-3.1); PH,URINE 5.5 (5.0-8.0); URINE APPEARANCE CLEAR; URINE BACTERIA 3 /uL (0-1359); URINE BILIRUBIN NEGATIVE (NEGATIVE); URINE COLOR DK YELLOW; URINE GLUCOSE (UA) NEGATIVE (NEGATIVE); URINE KETONE NEGATIVE (NEGATIVE); URINE LEUK ESTERASE TRACE (NEGATIVE); URINE NITRITE NEGATIVE (NEGATIVE); URINE PROTEIN 1+ (NEGATIVE); URINE RBC 41 /uL (0-23.9); URINE UROBILINOGEN 0.2 mg/dL (0.2-1.0); URINE WBC 12 /uL (0-25.8)
[2022-04-20] MEDS ORDERED: TAMSULOSIN HCL 0.4 MG CAP PO SCH (08:30)
[2022-04-20] MEDS: INSULIN SLIDING SCALE (NOVOLOG) 1 VIAL SQ SCH ×3 (09:33→21:29)
[2022-04-20] MEDS ORDERED: SODIUM CHLORIDE 250 ML IV ONE (09:44)
[2022-04-20] MEDS ORDERED: SODIUM CHLORIDE 1,000 ML IV SCH (09:45)
[2022-04-20] MEDS ORDERED: FOLIC ACID 1 MG TABLET (FP) PO SCH (10:00)
[2022-04-20] MEDS ORDERED: PIPERACILLIN/TAZOB 3.375 GM 3.375 GM in DEXTROSE 5%-WATER - 50 ML IVPB ONE (11:10)
[2022-04-20] MEDS ORDERED: SODIUM CHLORIDE 1,000 ML IV STA (11:11)
[2022-04-20] MEDS ORDERED: VANCOMYCIN/WATER FOR INJ (PEG) 750 MG/150 ML BAG IVPB ONE (11:15)
[2022-04-20] MEDS ORDERED: PANTOPRAZOLE SODIUM 40 MG VIAL IVPUSH SCH (11:15)
[2022-04-20] MEDS ORDERED: PANTOPRAZOLE SODIUM 40 MG VIAL ONE (11:39)
[2022-04-20] MEDS ORDERED: PIPERACILLIN/TAZOB 3.375 GM 3.375 GM/50 ML BAG IVPB ONE (11:40)
[2022-04-20 14:39] LABS: HEMATOCRIT 30.8 % (35.4-49); HEMOGLOBIN 10.4 GM/dL (11.7-16.9); MCH 27.3 pg (25.7-33.7); MCHC 33.7 g/dl (32.0-35.9); MEAN PLT VOLUME 8.6 fl (7.5-11.1); PLATELET COUNT 60 10^3/uL (134-434); RBC 3.81 M/mm3 (4.00-5.60); RDW 14.9 % (11.9-15.9)
[2022-04-20 14:44] LABS: WHITE BLOOD COUNT 31.9 K/mm3 (4.0-10.0)
[2022-04-20 15:00] LABS: CHLORIDE 105 mmol/L (98-107); SODIUM 137 mmol/L (136-145)
[2022-04-20 15:03] LABS: ANION GAP 8 MMOL/L (8-16); BLOOD UREA NITROGEN 82.5 mg/dL (7-18); CO2 24 mmol/L (21-32); GLUCOSE,RANDOM 113 mg/dL (74-106)
[2022-04-20 15:04] LABS: ANISOCYTOSIS 1+; MACROCYTOSIS 0; PLATELET ESTIMATE DECREASED
[2022-04-20 15:06] LABS: CREATININE 2.2 mg/dL (0.55-1.3); SGPT/ALT 38 U/L (13-61)
[2022-04-20 15:07] LABS: SGOT/AST 67 U/L (15-37)
[2022-04-20 15:08] LABS: BILIRUBIN,TOTAL 0.7 mg/dL (0.2-1); TOT PROT 3.6 g/dl (6.4-8.2)
[2022-04-20 15:37] LABS: ALBUMIN 0.9 g/dl (3.4-5.0); ALK PHOS 194 U/L (45-117); CALCIUM 6.4 mg/dL (8.5-10.1)
[2022-04-20] MEDS: PIPERACILLIN/TAZOB 2.25 GM 2.25 GM in DEXTROSE 5%-WATER - 50 ML IVPB SCH ×2 (16:23→21:27)
[2022-04-20] MEDS: NOREPINEPHRINE D5W PREMIX 16,000 MCG/500 ML BAG IVPB SCH (16:23)
[2022-04-20] MEDS ORDERED: PANTOPRAZOLE SODIUM 80 MG in SODIUM CHLORIDE 100 ML IVPB SCH (16:45)
[2022-04-20] MEDS ORDERED: PATIENT'S OWN MEDICATION (NON-FORMULARY) (Brimonidine Tartrate/Timolol [Brimonidine-Timolo OD SCH (17:15)
[2022-04-20] MEDS ORDERED: ALBUTEROL SO4 2.5/IPRATROPIUM 0.5 INH SOL 3 ML VIAL.NEB. NEB PRN (17:15)
[2022-04-20] MEDS: PANTOPRAZOLE SODIUM 160 MG in SODIUM CHLORIDE 290 ML IVPB SCH (18:34)
[2022-04-20] MEDS: ATROPINE SO4 1% OPHTH SOLN 5 ML BOTTLE OD SCH (18:34)
[2022-04-20] MEDS: SODIUM CHLORIDE 1,000 ML IV SCH (20:57)
[2022-04-20] MEDS: TIMOLOL 0.5% OPHTHALMIC SOL 5 ML BOTTLE OD SCH (21:27)
[2022-04-20] MEDS: BRIMONIDINE TARTRATE 0.2% OPHTHALMIC 5 ML BOTTLE OD SCH (21:27)
[2022-04-20] MEDS: ERYTHROMYCIN 0.5% OPHTHALMIC OINTMENT 3.5 GM TUBE OD SCH (21:28)
[2022-04-20] MEDS: MUPIROCIN 2% TOPICAL OINTMENT FOR DECOLONIZATION NS SCH (21:28)
[2022-04-20] MEDS: DORZOLAMIDE 2% HCL OPHTHALMIC SOLUTION 10 ML BOTTLE OD SCH (21:28)
[2022-04-20] MEDS ORDERED: MUPIROCIN 2% TOPICAL OINTMENT FOR DECOLONIZATION NS SCH (22:00)
[2022-04-20] MEDS ORDERED: ATORVASTATIN CA 80 MG TABLET (FP) PO SCH ×2 (22:00)
[2022-04-20] MEDS ORDERED: CHLORHEXIDINE GLUCONATE 4% CLEANSER FOR DECOLONIZATION TP SCH ×2 (22:00)
[2022-04-21] MEDS: PIPERACILLIN/TAZOB 2.25 GM 2.25 GM in DEXTROSE 5%-WATER - 50 ML IVPB SCH ×2 (01:56→10:47)
[2022-04-21] MEDS: SODIUM CHLORIDE 1,000 ML IV SCH (04:12)
[2022-04-21] MEDS ORDERED: DEXTROSE 50%-WATER - 25 GM/50 ML VIAL IVPUSH ONE (05:50)
[2022-04-21] MEDS ORDERED: DEXTROSE 50%-WATER 25 GM/50 ML DISP.SYRIN ONE (06:00)
[2022-04-21] MEDS: ERYTHROMYCIN 0.5% OPHTHALMIC OINTMENT 3.5 GM TUBE OD SCH ×2 (06:01→15:00)
[2022-04-21] MEDS: INSULIN SLIDING SCALE (NOVOLOG) 1 VIAL SQ SCH ×3 (06:01→18:25)
[2022-04-21 06:57] LABS: INR 1.24 (0.83-1.09); PROTHROMBIN TIME (PATIENT) 14.3 SEC (9.7-13.0)
[2022-04-21 07:11] LABS: CHLORIDE 107 mmol/L (98-107); SODIUM 139 mmol/L (136-145)
[2022-04-21 07:13] LABS: ANION GAP 10 MMOL/L (8-16); BLOOD UREA NITROGEN 86.6 mg/dL (7-18); CO2 22 mmol/L (21-32); GLUCOSE,RANDOM 121 mg/dL (74-106)
[2022-04-21 07:14] LABS: MAGNESIUM 2.2 mg/dL (1.8-2.4)
[2022-04-21 07:17] LABS: CREATININE 2.3 mg/dL (0.55-1.3)
[2022-04-21 07:18] LABS: PHOSPHOROUS 5.2 mg/dL (2.5-4.9)
[2022-04-21 07:30] VITALS: TEMP 97.7
[2022-04-21 07:42] LABS: CALCIUM 6.6 mg/dL (8.5-10.1)
[2022-04-21 07:52] LABS: HEMATOCRIT 30.1 % (35.4-49); MCH 27.4 pg (25.7-33.7); MCHC 33.4 g/dl (32.0-35.9); MEAN CELL VOLUME 82.1 fl (80-96); MEAN PLT VOLUME 9.3 fl (7.5-11.1); PLATELET COUNT 63 10^3/uL (134-434); RBC 3.67 M/mm3 (4.00-5.60); RDW 15.5 % (11.9-15.9)
[2022-04-21 08:16] LABS: WHITE BLOOD COUNT 40.3 K/mm3 (4.0-10.0)
[2022-04-21] MEDS ORDERED: TAMSULOSIN HCL 0.4 MG CAP PO SCH (08:30)
[2022-04-21] MEDS ORDERED: FOLIC ACID 1 MG TABLET (FP) PO SCH (10:00)
[2022-04-21] MEDS: TIMOLOL 0.5% OPHTHALMIC SOL 5 ML BOTTLE OD SCH (10:12)
[2022-04-21] MEDS: DORZOLAMIDE 2% HCL OPHTHALMIC SOLUTION 10 ML BOTTLE OD SCH (10:12)
[2022-04-21] MEDS: BRIMONIDINE TARTRATE 0.2% OPHTHALMIC 5 ML BOTTLE OD SCH (10:13)
[2022-04-21] MEDS ORDERED: DEXTROSE 5%-NORMAL SALINE 1,000 ML IV SCH (10:15)
[2022-04-21] MEDS: ATROPINE SO4 1% OPHTH SOLN 5 ML BOTTLE OD SCH (10:31)
[2022-04-21] MEDS: MUPIROCIN 2% TOPICAL OINTMENT FOR DECOLONIZATION NS SCH (10:31)
[2022-04-21] MEDS ORDERED: POTASSIUM PHOSPHATE 15 MM in SODIUM CHLORIDE 250 ML IVPB ONE (10:58)
[2022-04-21] MEDS: PANTOPRAZOLE SODIUM 160 MG in SODIUM CHLORIDE 290 ML IVPB SCH (16:03)
[2022-04-21] MEDS: MORPHINE SULFATE/0.9% NACL/PF 100 MG/100 ML BAG IVPB SCH (18:23)
[2022-04-22 06:43] VITALS: PULSE 56; RESP 12
[2022-04-22 06:44] VITALS: BP 70/47
[2022-04-22] MEDS: NOREPINEPHRINE D5W PREMIX 16,000 MCG/500 ML BAG IVPB SCH (07:30)
[2022-04-22] MEDS: PANTOPRAZOLE SODIUM 160 MG in SODIUM CHLORIDE 290 ML IVPB SCH (17:26)
[2022-04-22] MEDS: MORPHINE SULFATE/0.9% NACL/PF 100 MG/100 ML BAG IVPB SCH (21:02)
[2022-04-23] MEDS: PANTOPRAZOLE SODIUM 160 MG in SODIUM CHLORIDE 290 ML IVPB SCH (06:14)
== END 2022-04-23 12:43 | disposition expired | DRG 871 ==
LOC: JER 19:54 → JERBED 04-20 01:59 → JICU 04-20 14:55
PROVIDERS: ADMIT Internal Medicine; ATTEND Family Medicine
PROC: 30233N1 Transfusion of Nonautologous Red Blood Cells into Peripheral Vein, Percutaneous Approach (ICD-10-PCS; 2022-04-19)
PROC: 05HN33Z Insertion of Infusion Device into Left Internal Jugular Vein, Percutaneous Approach (ICD-10-PCS; principal; 2022-04-20)
PROC: B514ZZA Fluoroscopy of Left Jugular Veins, Guidance (ICD-10-PCS; 2022-04-20)
DX: A41.89 Other specified sepsis (principal); E43 Unspecified severe protein-calorie malnutrition; J18.9 Pneumonia, unspecified organism; E87.2 Acidosis; R64 Cachexia; N17.9 Acute kidney failure, unspecified; J96.11 Chronic respiratory failure with hypoxia; K92.2 Gastrointestinal hemorrhage, unspecified; I13.0 Hypertensive heart and chronic kidney disease with heart failure and stage 1 through stage 4 chronic kidney disease, or unspecified chronic kidney disease; I46.9 Cardiac arrest, cause unspecified; I10 Essential (primary) hypertension; N18.30 Chronic kidney disease, stage 3 unspecified; I50.9 Heart failure, unspecified; R65.20 Severe sepsis without septic shock; I25.10 Atherosclerotic heart disease of native coronary artery without angina pectoris; J44.9 Chronic obstructive pulmonary disease, unspecified; I48.0 Paroxysmal atrial fibrillation; E78.5 Hyperlipidemia, unspecified; K21.9 Gastro-esophageal reflux disease without esophagitis; E11.9 Type 2 diabetes mellitus without complications; F03.90 Unspecified dementia, unspecified severity, without behavioral disturbance, psychotic disturbance, mood disturbance, and anxiety; D72.829 Elevated white blood cell count, unspecified; N40.0 Benign prostatic hyperplasia without lower urinary tract symptoms; K64.8 Other hemorrhoids; D50.9 Iron deficiency anemia, unspecified; H40.9 Unspecified glaucoma; K31.7 Polyp of stomach and duodenum; E87.5 Hyperkalemia; D69.6 Thrombocytopenia, unspecified; K57.90 Diverticulosis of intestine, part unspecified, without perforation or abscess without bleeding; H57.9 Unspecified disorder of eye and adnexa; D46.Z Other myelodysplastic syndromes; R13.10 Dysphagia, unspecified; Z99.81 Dependence on supplemental oxygen; Z86.73 Personal history of transient ischemic attack (TIA), and cerebral infarction without residual deficits; Z95.5 Presence of coronary angioplasty implant and graft; Z68.20 Body mass index [BMI] 20.0-20.9, adult
CPT/HCPCS: 0241U-QW; 36415; 36430; 36600; 71045-TC-FY; 80048; 80053; 81003; 82272; 82550; 82553; 82803; 82962; 83605; 83735; 84100; 84484; 85025; 85027; 85045; 85610; 85730; 86140; 86850; 86900; 86901; 86922; 87040; 87086; 87324; 87449; 87804; 93005; 93010; 99285-25; P9058